=== PATIENT | male | born 1940 | race Caucasian/White ===

== ENCOUNTER 2018-10-19 14:16 | Inpatient (IN) | payer MEDICARE, BC ==
[2018-10-19] MEDS ORDERED: Acetaminophen 325 MG TAB PO PRN (16:58)
[2018-10-19] MEDS ORDERED: Bisacodyl 5 MG TAB PO PRN (17:02)
[2018-10-19] MEDS ORDERED: cloNIDine 0.1 MG TAB PO PRN (17:03)
[2018-10-19] MEDS ORDERED: Calcium Carbonate 500 MG ChewTAB PO PRN (17:03)
[2018-10-19] MEDS ORDERED: Cepastat Lozenges 1 LOZ PO PRN (17:05)
[2018-10-19] MEDS ORDERED: Dextrose 50% Abboject 50 ML SYRINGE IVP PRN (17:06)
[2018-10-19] MEDS ORDERED: diphenhydrAMINE 25 MG CAP PO PRN (17:07)
[2018-10-19] MEDS ORDERED: Loperamide HCl 2 MG CAP PO PRN (17:14)
[2018-10-19] MEDS ORDERED: Milk Of Magnesia 30 ML UDCUP PO PRN (17:15)
[2018-10-19] MEDS ORDERED: Simethicone Chewable 80 MG TAB PO PRN (17:17)
[2018-10-19] MEDS ORDERED: TESTOSTERONE CYPIONATE 200 MG IM SCH (17:30)
[2018-10-19] MEDS: Mometasone/Formoterol 60 PUFF AER INH SCH (18:28)
[2018-10-19] MEDS: Lidocaine 5% Patch TD SCH (18:29)
[2018-10-19] MEDS: Apixaban 2.5 MG TAB PO SCH (20:11)
[2018-10-19] MEDS: Atorvastatin Calcium 20 MG TAB PO SCH (20:12)
[2018-10-19] MEDS: Cefdinir 300 MG CAP PO SCH (20:12)
[2018-10-19] MEDS: Dofetilide 0.125 MG CAP PO SCH (20:12)
[2018-10-19] MEDS: Famotidine 20 MG TAB PO SCH (20:12)
[2018-10-19] MEDS: Gabapentin 100 MG CAP PO SCH (20:13)
[2018-10-19] MEDS: guaiFENesin 100 MG/5 ML UDCUP PO SCH (20:13)
[2018-10-19] MEDS: Ferrous Sulfate 325 MG TAB PO SCH (20:13)
[2018-10-20 05:32] LABS: #Basophils 0.1 thou/uL (0.0-0.2); #Eosinphils 0.1 thou/uL (0.0-0.7); #Lymphocytes 0.7 thou/uL (1.20-3.40); #Monocytes 0.9 thou/uL (0.11-0.59); #Neutrophils 8.6 thou/uL (1.40-6.50); %Basophils 0.9 % (0.0-1.0); %Eosinophils 0.5 % (0.0-10.0); %Lymphocytes 6.8 % (21.0-51.0); %Neutrophils 82.9 % (42.0-75.0); Hemoglobin 7.3 g/dL (14.0-18.0); Mean Corpuscular HGB CONC 30.8 g/dL (32.0-36.0); Mean Corpuscular Hemoglobin 27.5 pg (27.0-31.0); Mean Corpuscular Volume 89.4 fL (78.0-98.0); Mean Platelet Volume 5.9 fL (7.4-10.4); Platelet Count 276 thou/uL (130-400); RBC Distribution Width 16.5 % (11.5-14.5); Red Blood Cell (RBC) Count 2.66 mill/uL (4.70-6.10); White Blood Cell (WBC) Count 10.3 thou/uL (4.8-10.8)
[2018-10-20 05:47] LABS: Anion Gap 16 mmol/L (10-20); BUN (Urea Nitrogen) 56 mg/dL (8.4-25.7); Calc. Creatinine Clearance 42 mL/min (70-130); Calcium 8.3 mg/dL (7.8-10.44); Carbon Dioxide 29 mmol/L (23-31); Chloride 99 mmol/L (98-107); Estimated GFR-MDRD 34; Glucose 97 mg/dL (83-110); Potassium 3.5 mmol/L (3.5-5.1); Sodium 140 mmol/L (136-145)
[2018-10-20] MEDS: Mometasone/Formoterol 60 PUFF AER INH SCH ×2 (06:08→18:18)
[2018-10-20] MEDS: Lidocaine Patch Removal 1 EACH TOP SCH (06:08)
[2018-10-20] MEDS ORDERED: cloNIDine 0.1 MG TAB PO PRN ×2 (06:49→17:47)
[2018-10-20] MEDS ORDERED: Aspirin 81 mg Enteric Coated Tablet PO SCH (09:00)
[2018-10-20] MEDS: predniSONE 5 MG TAB PO SCH (09:03)
[2018-10-20] MEDS: Apixaban 2.5 MG TAB PO SCH ×2 (09:04→21:07)
[2018-10-20] MEDS: Ferrous Sulfate 325 MG TAB PO SCH ×2 (09:04→21:08)
[2018-10-20] MEDS: Losartan Potassium 50 MG TAB PO SCH (09:04)
[2018-10-20] MEDS: Tamsulosin HCl 0.4 MG CAP PO SCH (09:04)
[2018-10-20] MEDS: Torsemide 20 MG TAB PO SCH ×2 (09:04→14:51)
[2018-10-20] MEDS: Dofetilide 0.125 MG CAP PO SCH ×2 (09:04→21:08)
[2018-10-20] MEDS: Cefdinir 300 MG CAP PO SCH ×2 (09:05→21:08)
[2018-10-20] MEDS: Dutasteride 0.5 MG CAP PO SCH (09:05)
[2018-10-20] MEDS: Fluticasone Propionate Nasal Spray 16 gm Bottle NASAL SCH (09:05)
[2018-10-20] MEDS: guaiFENesin 100 MG/5 ML UDCUP PO SCH ×3 (09:05→21:08)
[2018-10-20] MEDS: Polyethylene Glycol 3350 17 GM Packet PO SCH (09:05)
[2018-10-20] MEDS: Gabapentin 100 MG CAP PO SCH ×2 (09:06→21:08)
[2018-10-20] MEDS ORDERED: Furosemide 40 MG/4 ML VIAL SLOW IVP SCH (10:00)
[2018-10-20] MEDS ORDERED: Sodium Chloride 0.9% 40 ML ONE (10:23)
[2018-10-20] MEDS ORDERED: HYDROcodone/Acetaminophen 5/325 mg Tablet PO PRN (17:47)
[2018-10-20] MEDS ORDERED: Milk Of Magnesia 30 ML UDCUP PO PRN (17:47)
[2018-10-20] MEDS ORDERED: LACTULOSE 10 GM/15 ML PO PRN (17:47)
[2018-10-20] MEDS ORDERED: GLUCAGON HUMAN RECOMBINANT 1 MG IM PRN (17:47)
[2018-10-20] MEDS ORDERED: Simethicone Chewable 80 MG TAB PO PRN (17:47)
[2018-10-20] MEDS ORDERED: Non-Formulary Item 1 EACH (Ipratropium/Albuterol Sulfate 3 ML) INH PRN (17:47)
[2018-10-20] MEDS ORDERED: Dextrose 50% Abboject 50 ML SYRINGE SLOW IVP PRN (17:47)
[2018-10-20] MEDS ORDERED: diphenhydrAMINE 25 MG CAP PO PRN (17:47)
[2018-10-20] MEDS ORDERED: Loperamide HCl 2 MG CAP PO PRN (17:47)
[2018-10-20] MEDS ORDERED: TESTOSTERONE CYPIONATE 200 MG IM SCH (18:00)
[2018-10-20] MEDS: Lidocaine 5% Patch TD SCH (18:18)
[2018-10-20] MEDS ORDERED: Lidocaine Patch Removal 1 EACH TOP SCH (21:00)
[2018-10-20] MEDS ORDERED: Famotidine 20 MG TAB PO SCH (21:00)
[2018-10-20] MEDS ORDERED: guaiFENesin 100 MG/5 ML UDCUP PO SCH (21:00)
[2018-10-20] MEDS ORDERED: Non-Formulary Item 1 EACH (Ferrous Sulfate [Ferrous Sulfate] 325 MG) PO SCH (21:00)
[2018-10-20] MEDS ORDERED: Gabapentin 100 MG CAP PO SCH (21:00)
[2018-10-20] MEDS ORDERED: Dofetilide 0.125 MG CAP PO SCH (21:00)
[2018-10-20] MEDS ORDERED: Torsemide 20 MG TAB PO SCH (21:00)
[2018-10-20] MEDS: Atorvastatin Calcium 20 MG TAB PO SCH (21:08)
[2018-10-20] MEDS: Famotidine 20 MG TAB PO SCH (21:08)
[2018-10-20] MEDS: HYDROcodone/Acetaminophen 5/325 mg Tablet PO PRN (21:14)
[2018-10-21] MEDS: Mometasone/Formoterol 60 PUFF AER INH SCH ×2 (05:21→18:26)
[2018-10-21] MEDS: Lidocaine Patch Removal 1 EACH TOP SCH (05:38)
[2018-10-21 05:51] LABS: #Eosinphils 0.1 thou/uL (0.0-0.7); #Lymphocytes 0.9 thou/uL (1.20-3.40); #Monocytes 0.7 thou/uL (0.11-0.59); #Neutrophils 7.6 thou/uL (1.40-6.50); %Basophils 0.9 % (0.0-1.0); %Eosinophils 0.6 % (0.0-10.0); %Lymphocytes 9.5 % (21.0-51.0); %Monocytes 7.7 % (0.0-10.0); %Neutrophils 81.2 % (42.0-75.0); Hemoglobin 7.8 g/dL (14.0-18.0); Mean Corpuscular HGB CONC 31.3 g/dL (32.0-36.0); Mean Corpuscular Volume 89.4 fL (78.0-98.0); Mean Platelet Volume 5.6 fL (7.4-10.4); Platelet Count 281 thou/uL (130-400); RBC Distribution Width 15.5 % (11.5-14.5); Red Blood Cell (RBC) Count 2.79 mill/uL (4.70-6.10); White Blood Cell (WBC) Count 9.3 thou/uL (4.8-10.8)
[2018-10-21 05:52] LABS: #Basophils 0.1 thou/uL (0.0-0.2)
[2018-10-21 05:56] LABS: Bilirubin Negative (Negative); Blood, Urine Negative (Negative); Clarity Clear (Clear); Glucose, Urine (Dipstick) Negative (Negative); Leukocyte Negative (Negative); Nitrite Negative (Negative); Protein, Urine (Dipstick) Negative (Neg-Trace); Urobilinogen 0.2 mg/dL (Less than 2)
[2018-10-21 05:57] LABS: Bacteria/HPF None Seen HPF (None Seen); RBC/HPF None Seen HPF (0-3); Squamous Epithelial 0-3 HPF (0-3); WBC/HPF None Seen HPF (0-3)
[2018-10-21 06:05] LABS: ALT (SGPT) 16 U/L (8-55); AST (SGOT) 11 U/L (5-34); Albumin 2.9 g/dL (3.4-4.8); Alkaline Phosphatase 78 U/L (40-150); Anion Gap 17 mmol/L (10-20); BUN (Urea Nitrogen) 57 mg/dL (8.4-25.7); Calc. Creatinine Clearance 45 mL/min (70-130); Calcium 8.3 mg/dL (7.8-10.44); Carbon Dioxide 28 mmol/L (23-31); Chloride 102 mmol/L (98-107); Estimated GFR-MDRD 39; Globulin 1.8 g/dL (2.4-3.5); Glucose 114 mg/dL (83-110); Potassium 3.5 mmol/L (3.5-5.1); Protein, Total 4.7 g/dL (5.8-8.1); Sodium 143 mmol/L (136-145)
[2018-10-21 07:39] LABS: Bilirubin, Total 0.2 mg/dL (0.2-1.2)
[2018-10-21] MEDS: predniSONE 5 MG TAB PO SCH (08:16)
[2018-10-21] MEDS: Cefdinir 300 MG CAP PO SCH ×2 (08:17→21:11)
[2018-10-21] MEDS: Dutasteride 0.5 MG CAP PO SCH (08:17)
[2018-10-21] MEDS: Dofetilide 0.125 MG CAP PO SCH ×2 (08:17→21:09)
[2018-10-21] MEDS: Apixaban 2.5 MG TAB PO SCH ×2 (08:17→21:06)
[2018-10-21] MEDS: Fluticasone Propionate Nasal Spray 16 gm Bottle NASAL SCH (08:17)
[2018-10-21] MEDS: Ferrous Sulfate 325 MG TAB PO SCH ×2 (08:17→21:10)
[2018-10-21] MEDS: Gabapentin 100 MG CAP PO SCH ×2 (08:19→21:06)
[2018-10-21] MEDS: guaiFENesin 100 MG/5 ML UDCUP PO SCH ×3 (08:19→21:11)
[2018-10-21] MEDS: Tamsulosin HCl 0.4 MG CAP PO SCH (08:20)
[2018-10-21] MEDS: Losartan Potassium 50 MG TAB PO SCH (08:20)
[2018-10-21] MEDS: Polyethylene Glycol 3350 17 GM Packet PO SCH (08:20)
[2018-10-21] MEDS: Torsemide 20 MG TAB PO SCH ×2 (08:20→15:02)
[2018-10-21] MEDS ORDERED: predniSONE 10 MG TAB PO SCH (09:00)
[2018-10-21] MEDS ORDERED: Fluticasone Propionate Nasal Spray 16 gm Bottle NASAL SCH (09:00)
[2018-10-21] MEDS ORDERED: Non-Formulary Item 1 EACH (Fluticasone/Vilanterol [Breo Ellipta] 1 PUFF) INH SCH (09:00)
[2018-10-21] MEDS ORDERED: Non-Formulary Item 1 EACH (Losartan Potassium [Cozaar] 100 MG) PO SCH (09:00)
[2018-10-21] MEDS ORDERED: Dutasteride 0.5 MG CAP PO SCH (09:00)
[2018-10-21] MEDS ORDERED: Polyethylene Glycol 3350 17 GM Packet PO SCH (09:00)
[2018-10-21] MEDS ORDERED: Tamsulosin HCl 0.4 MG CAP PO SCH (09:00)
[2018-10-21] MEDS ORDERED: Lidocaine 5% Patch TD SCH (09:00)
[2018-10-21] MEDS: HYDROcodone/Acetaminophen 5/325 mg Tablet PO PRN (10:10)
--- NOTE | 2018-10-21 10:58 | PRG ---
DATE OF SERVICE: 10/21/2018 SUBJECTIVE: The patient is a very pleasant 78-year-old white male recently admitted to [facility] with acute on chronic respiratory failure with exacerbation of COPD and chronic diastolic heart failure subsequent to a fall and compression fracture of thoracic vertebrae. He has been unable to maintain ADLs. He has been only walking 75 feet at [facility] and therefore, he was transferred to [facility] [address] for continued therapy. He is doing much better. Today, he is using his CPAP at night and he is using his Acapella and incentive spirometry in the bed, and he is having decreased shortness of breath at rest, and he is ready for therapy. OBJECTIVE: VITAL SIGNS: Shows blood pressure is 108/52, temperature is 98, pulse 93, respirations 20, and O2 sats 94% on 4 L. LUNGS: Clear with decreased breath sounds in the bases. CARDIAC: Shows regular rhythm. ABDOMEN: Soft and nontender. SKIN/EXTREMITIES: Display no edema, clubbing, or cyanosis. NEUROLOGIC: Intact. ASSESSMENT: 1. Resolving his exacerbation and chronic obstructive pulmonary disease, superimposed on chronic respiratory failure. 2. Resolving atelectasis causing an exacerbation with Acapella and incentive spirometry. 3. Stable chronic diastolic heart failure. 4. Resolving compression fracture of thoracic vertebrae. PLAN: 1. Continue incentive spirometry and Acapella. 2. Continue pain relief as needed. 3. Start PT and OT on Tuesday. 4. Continue CPAP for obstructive sleep apnea. 5. Monitor hemoglobin as patient has had a recent transfusion for his normocytic normochromic anemia. Job ID: [id number]
--- NOTE | 2018-10-21 10:59 | HP ---
Date of service: 10/20/18 PRINCIPAL DIAGNOSES: Significant deconditioning, persistent hypoxemia, and heart failure, requiring detention as well as close monitoring. BRIEF HISTORY: This is a pleasant 78-year-old overweight male, who was initially admitted to [facility] with chest pain and was diagnosed with acute on chronic hypoxemic respiratory failure, diastolic congestive heart failure, and COPD exacerbation. He was also noted to have a thoracic spine compression fracture. He was felt to be a candidate for inpatient rehabilitation and transferred to [facility], where I was following him. He did well during the hospitalization, but over the last 3 days prior to discharge, was noticed to have worsening shortness of breath and was noted to have worsening anemia as well as somehow his Acapella treatment fell off, which was helping with his atelectasis. Despite blood transfusions and IV diuretics, he continued to remain significantly dyspneic on exertion and so was felt not to be candidate to go home, but was transferred to detention here in [place]. Currently, he is up in bed and is being evaluated by therapy. His spouse is in the room. He denies any questions or concerns. PAST MEDICAL HISTORY: 1. Chronic obstructive pulmonary disease. 2. Chronic hypoxemic respiratory failure. 3. Chronic diastolic congestive heart failure. 4. Chronic kidney disease, stage 3. 5. Hypertension. 6. Dyslipidemia. 7. Benign prostatic hypertrophy. 8. Depression and anxiety. 9. Atrial fibrillation. PAST SURGICAL HISTORY: 1. Watchman device placement. 2. Transesophageal echocardiogram. 3. Temporary dialysis catheter placement. 4. Skin cyst excision. ALLERGIES: TO ADHESIVES. FAMILY HISTORY: Positive for diabetes, hypertension, and CVA in his father. PSYCHOSOCIAL HISTORY: Former smoker. Still drinks alcohol occasionally. Denies any IV drug abuse. He is . REVIEW OF SYSTEMS: CARDIOVASCULAR SYSTEM: Denies any chest pain. Does have exertional shortness of breath. Denies any palpitations, PND, or orthopnea. RESPIRATORY SYSTEM: Occasional cough, dyspnea on exertion is present. No hemoptysis. GASTROINTESTINAL SYSTEM: Denies any nausea, vomiting, diarrhea, constipation, hematemesis, melena, or hematochezia. GENITOURINARY SYSTEM: Denies any frequency, urgency, dysuria, or hematuria. CENTRAL NERVOUS SYSTEM: Generalized weakness. Denies any fainting spells. SHEENT: Denies any difficulty speech, vision, hearing, or swallowing. SKIN: Denies any rash. VISION: Denies any prior changes with vision. PHYSICAL EXAMINATION: GENERAL: Pleasant 78-year-old male, resting comfortably in bed and denies any concerns. VITAL SIGNS: He is afebrile; heart rate 110, irregularly irregular; oxygen saturation fluctuating from 94% to 77%; blood pressure is 129/64. He is on 4 L of oxygen. HEENT: Normocephalic and atraumatic. Pupils equally reactive to light and accommodation. No JVD, thyromegaly, cervical lymphadenopathy, or throat exudates. No carotid bruits. CARDIOVASCULAR SYSTEM: S1, S2 plus. Irregularly irregular. RESPIRATORY SYSTEM: Normal vesicular breath sounds heard in all lung decker. ABDOMEN: Soft, obese, nontender. Bowel sounds heard in all quadrants. EXTREMITIES: Without cyanosis or clubbing. 1+ edema to lower extremity. Right upper extremity erythema has pretty much resolved. CENTRAL NERVOUS SYSTEM: Awake and responsive. Cranial nerves 2 through 12 intact. Generalized weakness. LABORATORY VALUES: Sodium 140, potassium 3.5, BUN and creatinine 56 and 1.90. White count is 10.3, H and H are 7.3 and 23.8. IMPRESSION: 1. Recurrent anemia, requiring blood transfusion. 2. Atrial fibrillation, has both watchman and is on full dose Eliquis. 3. Chronic kidney disease stage 3. 4. Acute on chronic hypoxemic respiratory failure. 5. Acute on chronic diastolic congestive heart failure. 6. Hypertension. 7. Dyslipidemia. 8. Benign prostatic hypertrophy. 9. Gastroesophageal reflux disease. 10. Depression and anxiety. 11. Thoracic spine compression fracture. 12. Deconditioning. PLAN: 1. Admit to detention facility. 2. Continue discharge medications. 3. Heart healthy diet. 4. DVT prophylaxis. He is on Eliquis. 5. Decubitus precautions. 6. Transfuse 1 unit and give Lasix 40 mg. 7. Stress ulcer prophylaxis. 8. PT and OT eval and treat. 9. Titrate oxygen as tolerated. 10. Handheld nebulizer treatment with Acapella. 11. Dr. Harvey Munoz on-call this weekend. 12. Discussed with the patient and spouse in detail. All questions answered. Job ID: [id number] [facility]
[2018-10-21] MEDS: Lidocaine 5% Patch TD SCH (18:26)
[2018-10-21] MEDS ORDERED: Ibuprofen 400 MG TAB PO SCH (20:15)
[2018-10-21] MEDS ORDERED: Ibuprofen 200 MG TAB ONE (20:57)
[2018-10-21] MEDS: Famotidine 20 MG TAB PO SCH (21:08)
[2018-10-21] MEDS: Atorvastatin Calcium 20 MG TAB PO SCH (21:08)
[2018-10-22] MEDS: Mometasone/Formoterol 60 PUFF AER INH SCH ×2 (05:22→18:06)
[2018-10-22] MEDS: Lidocaine Patch Removal 1 EACH TOP SCH (05:29)
[2018-10-22 05:32] LABS: #Basophils 0.1 thou/uL (0.0-0.2); #Eosinphils 0.1 thou/uL (0.0-0.7); #Lymphocytes 0.8 thou/uL (1.20-3.40); #Monocytes 0.8 thou/uL (0.11-0.59); #Neutrophils 7.3 thou/uL (1.40-6.50); %Basophils 0.7 % (0.0-1.0); %Eosinophils 0.7 % (0.0-10.0); %Lymphocytes 8.4 % (21.0-51.0); %Monocytes 8.5 % (0.0-10.0); %Neutrophils 81.7 % (42.0-75.0); Hemoglobin 7.5 g/dL (14.0-18.0); Mean Corpuscular HGB CONC 30.3 g/dL (32.0-36.0); Mean Corpuscular Hemoglobin 27.2 pg (27.0-31.0); Mean Corpuscular Volume 89.8 fL (78.0-98.0); Mean Platelet Volume 5.6 fL (7.4-10.4); Platelet Count 264 thou/uL (130-400); Red Blood Cell (RBC) Count 2.75 mill/uL (4.70-6.10)
[2018-10-22 05:49] LABS: Anion Gap 15 mmol/L (10-20); BUN (Urea Nitrogen) 61 mg/dL (8.4-25.7); Calc. Creatinine Clearance 39 mL/min (70-130); Carbon Dioxide 29 mmol/L (23-31); Chloride 102 mmol/L (98-107); Estimated GFR-MDRD 33; Glucose 102 mg/dL (83-110); Potassium 3.6 mmol/L (3.5-5.1); Sodium 142 mmol/L (136-145)
[2018-10-22] MEDS: predniSONE 5 MG TAB PO SCH (08:53)
[2018-10-22] MEDS: Fluticasone Propionate Nasal Spray 16 gm Bottle NASAL SCH (08:54)
[2018-10-22] MEDS: Cefdinir 300 MG CAP PO SCH ×2 (08:54→21:13)
[2018-10-22] MEDS: Apixaban 2.5 MG TAB PO SCH ×2 (08:54→21:11)
[2018-10-22] MEDS: Dofetilide 0.125 MG CAP PO SCH ×2 (08:54→21:14)
[2018-10-22] MEDS: Dutasteride 0.5 MG CAP PO SCH (08:54)
[2018-10-22] MEDS: Ferrous Sulfate 325 MG TAB PO SCH ×2 (08:54→21:13)
[2018-10-22] MEDS: Losartan Potassium 50 MG TAB PO SCH (08:55)
[2018-10-22] MEDS: guaiFENesin 100 MG/5 ML UDCUP PO SCH ×3 (08:55→21:09)
[2018-10-22] MEDS: Gabapentin 100 MG CAP PO SCH ×2 (08:55→21:13)
[2018-10-22] MEDS: Torsemide 20 MG TAB PO SCH ×2 (08:56→14:15)
[2018-10-22] MEDS: Polyethylene Glycol 3350 17 GM Packet PO SCH (08:56)
[2018-10-22] MEDS: Tamsulosin HCl 0.4 MG CAP PO SCH (08:56)
[2018-10-22] MEDS: HYDROcodone/Acetaminophen 5/325 mg Tablet PO PRN ×2 (09:12→21:08)
[2018-10-22] MEDS ORDERED: Furosemide 40 MG/4 ML VIAL SLOW IVP SCH (10:00)
[2018-10-22] MEDS ORDERED: Sodium Chloride 0.9% 10 ML ONE (10:45)
--- NOTE | 2018-10-22 17:37 | PRG ---
DATE OF SERVICE: 10/22/[address] Luis Miguel Hernandez. SUBJECTIVE: The patient feels well now with no dyspnea. Increased strength after having second unit of blood transfused. He did have an episode last night of pleuritic pain, which was relieved by ibuprofen, was not associated with any change in vital signs or change in respiratory status or physical exam. Now, he states he feels much better and is ready to do more therapy tomorrow. OBJECTIVE: LUNGS: With decreased breath sounds in the bases. No rales, rhonchi, or wheezes. CARDIAC: Shows irregular rhythm. No gallops or murmurs. ABDOMEN: Soft and nontender. SKIN AND EXTREMITIES: Show trace edema. VITAL SIGNS: Show blood pressure of 153/68, O2 saturation is 95% on 4 L, pulse 99, respirations 24, afebrile. LABORATORY DATA: This morning showed a hemoglobin of 7.5, hematocrit of 24, prior to the transfusion. White count is 9000. Sodium is 142, potassium 3.6, chloride 102, bicarb 29, BUN 61, creatinine 1.95. ASSESSMENT: 1. Chronic obstructive pulmonary disease with exacerbation, improving with flutter valve and incentive spirometry. 2. Episode of pleuritic pain last night, resolved with ibuprofen. 3. Worsened normocytic normochromic anemia after 1 unit of packed cells and we will therefore give another unit today as it appears to improve his energy. 4. Stable chronic diastolic heart failure. No evidence of decompensation or fluid overload, but we will give 40 of Lasix with a unit of blood today. 5. Resolving compression fracture of thoracic vertebra. PLAN: 1. Continue incentive spirometry and flutter valve. 2. Start PT and OT tomorrow. 3. Continue CPAP for sleep apnea. 4. Check hemoglobin and hematocrit after a unit of blood transfusion. 5. Continue pain relief for compression fracture as needed. Job ID: [id number]
[2018-10-22 17:40] LABS: #Basophils 0.1 thou/uL (0.0-0.2); #Lymphocytes 0.6 thou/uL (1.20-3.40); #Monocytes 0.6 thou/uL (0.11-0.59); #Neutrophils 9.4 thou/uL (1.40-6.50); %Basophils 0.5 % (0.0-1.0); %Eosinophils 0.1 % (0.0-10.0); %Lymphocytes 5.4 % (21.0-51.0); %Monocytes 5.2 % (0.0-10.0); %Neutrophils 88.8 % (42.0-75.0); Hemoglobin 8.5 g/dL (14.0-18.0); Mean Corpuscular HGB CONC 30.1 g/dL (32.0-36.0); Mean Corpuscular Hemoglobin 27.5 pg (27.0-31.0); Mean Corpuscular Volume 91.6 fL (78.0-98.0); Mean Platelet Volume 5.5 fL (7.4-10.4); Platelet Count 273 thou/uL (130-400); Red Blood Cell (RBC) Count 3.09 mill/uL (4.70-6.10); White Blood Cell (WBC) Count 10.5 thou/uL (4.8-10.8)
[2018-10-22] MEDS: Lidocaine 5% Patch TD SCH (18:07)
[2018-10-22] MEDS ORDERED: guaiFENesin 100 MG/5 ML UDCUP ONE ×2 (20:26→20:27)
[2018-10-22] MEDS: Famotidine 20 MG TAB PO SCH (21:12)
[2018-10-22] MEDS: Atorvastatin Calcium 20 MG TAB PO SCH (21:13)
[2018-10-23 05:39] LABS: Anion Gap 16 mmol/L (10-20); BUN (Urea Nitrogen) 60 mg/dL (8.4-25.7); Calc. Creatinine Clearance 34 mL/min (70-130); Calcium 8.1 mg/dL (7.8-10.44); Carbon Dioxide 28 mmol/L (23-31); Chloride 104 mmol/L (98-107); Estimated GFR-MDRD 28; Glucose 106 mg/dL (83-110); Potassium 3.5 mmol/L (3.5-5.1); Sodium 144 mmol/L (136-145)
[2018-10-23] MEDS: Mometasone/Formoterol 60 PUFF AER INH SCH ×2 (05:55→18:08)
[2018-10-23] MEDS: Lidocaine Patch Removal 1 EACH TOP SCH (05:55)
[2018-10-23] MEDS: HYDROcodone/Acetaminophen 5/325 mg Tablet PO PRN ×3 (08:21→18:06)
[2018-10-23] MEDS: Apixaban 2.5 MG TAB PO SCH ×2 (08:22→20:04)
[2018-10-23] MEDS: Cefdinir 300 MG CAP PO SCH ×2 (08:22→20:03)
[2018-10-23] MEDS: Gabapentin 100 MG CAP PO SCH ×2 (08:22→20:04)
[2018-10-23] MEDS: predniSONE 5 MG TAB PO SCH (08:23)
[2018-10-23] MEDS: Dutasteride 0.5 MG CAP PO SCH (08:23)
[2018-10-23] MEDS: Losartan Potassium 50 MG TAB PO SCH (08:24)
[2018-10-23] MEDS: Torsemide 20 MG TAB PO SCH ×2 (08:24→13:47)
[2018-10-23] MEDS: Dofetilide 0.125 MG CAP PO SCH ×2 (08:24→20:04)
[2018-10-23] MEDS: Ferrous Sulfate 325 MG TAB PO SCH ×2 (08:24→20:03)
[2018-10-23] MEDS: Tamsulosin HCl 0.4 MG CAP PO SCH (08:24)
[2018-10-23] MEDS: Fluticasone Propionate Nasal Spray 16 gm Bottle NASAL SCH (08:25)
[2018-10-23] MEDS: Polyethylene Glycol 3350 17 GM Packet PO SCH (08:25)
[2018-10-23] MEDS: guaiFENesin 100 MG/5 ML UDCUP PO SCH ×3 (08:25→20:03)
--- NOTE | 2018-10-23 14:10 | PRG ---
DATE OF SERVICE: 10/23/2018 SUBJECTIVE: Mr. Yates is up in his wheelchair. He states that he is starting to feel better. He did participate with therapy this morning. His spouse is in the room. No concerns or questions. OBJECTIVE: VITAL SIGNS: He is afebrile. Heart rate is 88, respirations 20, oxygen saturation 92% on 3 L. He is still desaturating with minimal exertion. CARDIOVASCULAR SYSTEM: S1 and S2 plus. RESPIRATORY SYSTEM: Normal vesicular breath sounds with decreased air entry at the bases. ABDOMEN: Soft and nontender. Bowel sounds heard in all quadrants. EXTREMITIES: Without cyanosis or clubbing. Trace edema. Peripheral pulses are palpable. CENTRAL NERVOUS SYSTEM: Awake and responsive. Generalized weakness. LABORATORY DATA: Sodium 144, potassium 3.5, BUN and creatinine of 60 and 2.25. IMPRESSION: 1. Chronic diastolic congestive heart failure. 2. Chronic respiratory failure with hypoxemia. 3. Improving urinary tract infection. 4. Resolving cellulitis. 5. Thoracic spine compression fracture. 6. Atrial fibrillation, requiring Watchman procedure. 7. Deconditioning. PLAN: 1. Continue current medications. 2. Nutritional support with heart healthy diet. 3. Monitor respiratory status. 4. Monitor CBC. 5. Physical therapy. 6. DVT prophylaxis-the patient is on Eliquis. 7. Finish antibiotics for a total of 10 days. 8. Discussed with the patient and spouse in detail. All questions answered. 9. Continue therapy as tolerated. Job ID: [id number]
[2018-10-23] MEDS: Lidocaine 5% Patch TD SCH (18:06)
[2018-10-23] MEDS: Famotidine 20 MG TAB PO SCH (20:04)
[2018-10-23] MEDS: Atorvastatin Calcium 20 MG TAB PO SCH (20:04)
[2018-10-24 05:12] LABS: #Basophils 0.1 thou/uL (0.0-0.2); #Eosinphils 0.1 thou/uL (0.0-0.7); #Lymphocytes 1.3 thou/uL (1.20-3.40); #Monocytes 0.8 thou/uL (0.11-0.59); #Neutrophils 7.9 thou/uL (1.40-6.50); %Basophils 0.8 % (0.0-1.0); %Eosinophils 0.6 % (0.0-10.0); %Lymphocytes 12.3 % (21.0-51.0); %Monocytes 7.8 % (0.0-10.0); %Neutrophils 78.4 % (42.0-75.0); Hemoglobin 8.4 g/dL (14.0-18.0); Mean Corpuscular HGB CONC 32.3 g/dL (32.0-36.0); Mean Corpuscular Hemoglobin 28.2 pg (27.0-31.0); Mean Corpuscular Volume 87.4 fL (78.0-98.0); Mean Platelet Volume 5.4 fL (7.4-10.4); Platelet Count 262 thou/uL (130-400); RBC Distribution Width 15.5 % (11.5-14.5); Red Blood Cell (RBC) Count 2.98 mill/uL (4.70-6.10); White Blood Cell (WBC) Count 10.1 thou/uL (4.8-10.8)
[2018-10-24] MEDS: Lidocaine Patch Removal 1 EACH TOP SCH (06:09)
[2018-10-24] MEDS: Mometasone/Formoterol 60 PUFF AER INH SCH ×2 (06:09→18:24)
[2018-10-24 08:21] LABS: Anion Gap 17 mmol/L (10-20); BUN (Urea Nitrogen) 59 mg/dL (8.4-25.7); Calc. Creatinine Clearance 40 mL/min (70-130); Carbon Dioxide 26 mmol/L (23-31); Chloride 103 mmol/L (98-107); Estimated GFR-MDRD 35; Glucose 97 mg/dL (83-110); Potassium 3.6 mmol/L (3.5-5.1); Sodium 142 mmol/L (136-145)
[2018-10-24] MEDS: Cefdinir 300 MG CAP PO SCH ×2 (08:51→20:29)
[2018-10-24] MEDS: Polyethylene Glycol 3350 17 GM Packet PO SCH (08:51)
[2018-10-24] MEDS: Losartan Potassium 50 MG TAB PO SCH (08:51)
[2018-10-24] MEDS: guaiFENesin 100 MG/5 ML UDCUP PO SCH ×3 (08:51→20:30)
[2018-10-24] MEDS: Ferrous Sulfate 325 MG TAB PO SCH ×2 (08:52→20:30)
[2018-10-24] MEDS: Apixaban 2.5 MG TAB PO SCH ×2 (08:52→20:29)
[2018-10-24] MEDS: Dofetilide 0.125 MG CAP PO SCH ×2 (08:52→20:29)
[2018-10-24] MEDS: Dutasteride 0.5 MG CAP PO SCH (08:52)
[2018-10-24] MEDS: predniSONE 5 MG TAB PO SCH (08:52)
[2018-10-24] MEDS: Torsemide 20 MG TAB PO SCH ×2 (08:52→14:47)
[2018-10-24] MEDS: Gabapentin 100 MG CAP PO SCH ×2 (08:52→20:30)
[2018-10-24] MEDS: Tamsulosin HCl 0.4 MG CAP PO SCH (08:52)
[2018-10-24] MEDS: HYDROcodone/Acetaminophen 5/325 mg Tablet PO PRN ×2 (08:53→18:40)
[2018-10-24] MEDS: Fluticasone Propionate Nasal Spray 16 gm Bottle NASAL SCH (08:53)
--- NOTE | 2018-10-24 14:20 | PRG ---
DATE OF SERVICE: 10/24/2018 SUBJECTIVE: Mr. Yates is doing well up in his wheelchair. He apparently participate with therapy, still continues to have some exertional shortness of breath. OBJECTIVE: VITAL SIGNS: He is afebrile. Heart rate 86, respirations 20, oxygen saturation 92% on 4 L, and blood pressure 152/72. CARDIOVASCULAR SYSTEM: S1 and S2 plus. RESPIRATORY SYSTEM: Normal vesicular breath sounds. ABDOMEN: Soft, nontender, bowel sounds heard in all quadrants. EXTREMITIES: Without cyanosis or clubbing. Trace edema. CENTRAL NERVOUS SYSTEM: Awake and responsive. Generalized weakness. LABORATORY VALUES: White count is 10.1, hemoglobin and hematocrit are 8.4 and 26. Sodium 142, potassium 3.6, BUN and creatinine are 59 and 1.89. IMPRESSION: 1. Improving acute on chronic diastolic congestive heart failure. 2. Chronic obstructive pulmonary disease. 3. Chronic hypoxemic respiratory failure. 4. Chronic kidney disease stage 3 to 4. 5. Thoracic spine compression fracture. 6. Improving urinary tract infection. 7. Resolved cellulitis. 8. Atrial fibrillation, status post Watchman procedure, but continued small leak requiring persistent Eliquis. PLAN: 1. Continue current medications. 2. Heart-healthy diet. 3. Titrate oxygen as tolerated. 4. Monitor laboratory values. 5. DVT prophylaxis. He is on Eliquis. 6. Decubitus precaution. 7. Stress ulcer prophylaxis. 8. Physical therapy. 9. Monitor respiratory status. 10. Continue Omnicef for a total of 10 days. Job ID: [id number]
[2018-10-24 15:13] LABS: Base Excess-Venous 2.5 mmol/L (-2.0 to 3.0); Bicarbonate (HCO3v) 26.5 mmol/L (22.0-28.0); CO2 Tension (PvCO2) 37.3 mmHg (40.0-50.0)
[2018-10-24 15:14] LABS: Chloride 108 mmol/L (98-107); Hemoglobin - Calc 8.7 g/dL (14.0-18.0); Potassium 3.4 mmol/L (3.5-5.1); Sodium 144 mmol/L (138-145)
[2018-10-24 15:15] LABS: Calcium, Ionized 1.02 mmol/L (See Comments:); T. Carbon Dioxide 27.6 mmol/L (22.0-28.0)
[2018-10-24] MEDS: Lidocaine 5% Patch TD SCH ×2 (18:25→22:14)
[2018-10-24] MEDS: Atorvastatin Calcium 20 MG TAB PO SCH (20:29)
[2018-10-24] MEDS: Famotidine 20 MG TAB PO SCH (20:29)
[2018-10-25] MEDS: Mometasone/Formoterol 60 PUFF AER INH SCH ×2 (05:47→18:33)
[2018-10-25] MEDS: Dofetilide 0.125 MG CAP PO SCH ×2 (09:55→20:30)
[2018-10-25] MEDS: Fluticasone Propionate Nasal Spray 16 gm Bottle NASAL SCH (09:55)
[2018-10-25] MEDS: guaiFENesin 100 MG/5 ML UDCUP PO SCH ×3 (09:56→20:34)
[2018-10-25] MEDS: Gabapentin 100 MG CAP PO SCH ×2 (09:56→20:34)
[2018-10-25] MEDS: Torsemide 20 MG TAB PO SCH ×2 (09:56→14:54)
[2018-10-25] MEDS: Polyethylene Glycol 3350 17 GM Packet PO SCH (09:56)
[2018-10-25] MEDS: Cefdinir 300 MG CAP PO SCH ×2 (09:56→20:29)
[2018-10-25] MEDS: Ferrous Sulfate 325 MG TAB PO SCH ×2 (09:56→20:30)
[2018-10-25] MEDS: Apixaban 2.5 MG TAB PO SCH ×2 (09:56→20:34)
[2018-10-25] MEDS: predniSONE 5 MG TAB PO SCH (09:56)
[2018-10-25] MEDS: Dutasteride 0.5 MG CAP PO SCH (09:56)
[2018-10-25] MEDS: Losartan Potassium 50 MG TAB PO SCH (09:56)
[2018-10-25] MEDS: Tamsulosin HCl 0.4 MG CAP PO SCH (09:56)
[2018-10-25] MEDS: Lidocaine Patch Removal 1 EACH TOP SCH (10:02)
[2018-10-25] MEDS ORDERED: Artificial Tear Sol 15 ML BOT EA EYE PRN (12:43)
--- NOTE | 2018-10-25 12:56 | PRG ---
DATE OF SERVICE: 10/25/2018 SUBJECTIVE: Mr. Yates has been moved to the private room. He states that he is having some difficulty with breathing. He denies any PND or orthopnea. His leg swelling is actually improved. OBJECTIVE: VITAL SIGNS: He is afebrile. Heart rate 84, respirations 18, oxygen saturation 95% on 3.5 L, and blood pressure 152/67. CARDIOVASCULAR SYSTEM: S1-S2 plus. RESPIRATORY SYSTEM: Normal vesicular breath sounds. ABDOMEN: Soft, obese, and nontender. Bowel sounds heard in all quadrants. EXTREMITIES: Without cyanosis or clubbing. 1+ edema. CENTRAL NERVOUS SYSTEM: Awake and responsive. Generalized weakness. Grossly nonfocal. IMPRESSION: 1. Resolved acute on chronic diastolic heart failure. 2. Chronic obstructive pulmonary disease. 3. Chronic hypoxemic respiratory failure. 4. Chronic kidney disease stage 3 to 4. 5. Thoracic spine compression fracture. 6. Resolving urinary tract infection. 7. Atrial fibrillation. PLAN: 1. Increase steroids to see if that helps with his shortness of breath. His heart failure seems to be well compensated. 2. Recheck CBC and BMP in the morning. 3. Artificial Tears to eyes as he feels that the air leak from his CPAP is drying of his eyes. 4. Heart healthy diet. 5. DVT prophylaxis-he is on Eliquis. 6. Decubitus precaution. 7. Stress ulcer prophylaxis. 8. Physical Therapy. 9. Discussed with the patient in detail. All questions answered. 10. No family at bedside. Job ID: [id number]
[2018-10-25] MEDS: predniSONE 20 MG TAB PO SCH (17:09)
[2018-10-25] MEDS: Famotidine 20 MG TAB PO SCH (20:30)
[2018-10-25] MEDS: HYDROcodone/Acetaminophen 5/325 mg Tablet PO PRN (20:31)
[2018-10-25] MEDS: Atorvastatin Calcium 20 MG TAB PO SCH (20:34)
[2018-10-25] MEDS: Lidocaine 5% Patch TD SCH (23:57)
[2018-10-26] MEDS: Mometasone/Formoterol 60 PUFF AER INH SCH ×2 (07:09→17:56)
[2018-10-26] MEDS ORDERED: Iopamidol 370 76% 50 ML VIAL FS ONE (09:00)
[2018-10-26] MEDS: Polyethylene Glycol 3350 17 GM Packet PO SCH (09:16)
[2018-10-26] MEDS: Fluticasone Propionate Nasal Spray 16 gm Bottle NASAL SCH (09:16)
[2018-10-26] MEDS: guaiFENesin 100 MG/5 ML UDCUP PO SCH ×3 (09:17→21:08)
[2018-10-26] MEDS: Cefdinir 300 MG CAP PO SCH ×2 (09:17→21:09)
[2018-10-26] MEDS: Torsemide 20 MG TAB PO SCH ×2 (09:17→15:05)
[2018-10-26] MEDS: Gabapentin 100 MG CAP PO SCH ×2 (09:17→21:09)
[2018-10-26] MEDS: Dutasteride 0.5 MG CAP PO SCH (09:17)
[2018-10-26] MEDS: Dofetilide 0.125 MG CAP PO SCH ×2 (09:17→21:09)
[2018-10-26] MEDS: Tamsulosin HCl 0.4 MG CAP PO SCH (09:18)
[2018-10-26] MEDS: Losartan Potassium 50 MG TAB PO SCH (09:18)
[2018-10-26] MEDS: Ferrous Sulfate 325 MG TAB PO SCH ×2 (09:18→21:10)
[2018-10-26] MEDS: predniSONE 20 MG TAB PO SCH ×2 (09:18→16:55)
[2018-10-26] MEDS: Apixaban 2.5 MG TAB PO SCH ×2 (09:18→21:10)
[2018-10-26] MEDS: Lidocaine Patch Removal 1 EACH TOP SCH (13:02)
--- NOTE | 2018-10-26 13:12 | PRG ---
DATE OF SERVICE: 10/26/2018 SUBJECTIVE: Mr. Yatse is seen on his way to see his ethnographic materials conservator. He feels like that increase in prednisone may be helping, continues to have some shortness of breath. OBJECTIVE: VITAL SIGNS: He is afebrile. Heart rate 85, respirations 20, oxygen saturation 94% on 3 L, blood pressure 165/75. CARDIOVASCULAR: S1 and S2 plus. RESPIRATORY: Normal vesicular breath sounds with decreased air entry at the bases. ABDOMEN: Soft, obese, nontender. Bowel sounds are heard in all quadrants. EXTREMITIES: Without cyanosis or clubbing. Trace to 1+ edema. CENTRAL NERVOUS SYSTEM: Awake and responsive. Cranial nerves 2 through 12 grossly intact. Generalized weakness. IMPRESSION: 1. Chronic diastolic congestive heart failure. 2. Chronic obstructive pulmonary disease. 3. Chronic hypoxemic respiratory failure. 4. Anemia, requiring blood transfusion. 5. Atrial fibrillation, status post Watchman procedure and slowly improving deconditioning and recent thoracic spine compression fracture and resolving urinary tract infection. PLAN: 1. Continue current medications including the high dose steroids. 2. DVT and stress ulcer prophylaxis. He is on Eliquis and H2 adonay. 3. Titrate oxygen. 4. Breathing treatments. 5. Physical therapy. 6. Routine laboratory values. 7. Monitor renal function. 8. Discussed with the patient in detail. All questions were answered. Job ID: [id number]
[2018-10-26] MEDS: Atorvastatin Calcium 20 MG TAB PO SCH (21:09)
[2018-10-26] MEDS: HYDROcodone/Acetaminophen 5/325 mg Tablet PO PRN (21:10)
[2018-10-26] MEDS: Famotidine 20 MG TAB PO SCH (21:11)
[2018-10-26] MEDS: Lidocaine 5% Patch TD SCH (21:25)
[2018-10-27] MEDS: Mometasone/Formoterol 60 PUFF AER INH SCH ×2 (06:37→17:45)
[2018-10-27] MEDS: Dutasteride 0.5 MG CAP PO SCH (08:21)
[2018-10-27] MEDS: Fluticasone Propionate Nasal Spray 16 gm Bottle NASAL SCH (08:21)
[2018-10-27] MEDS: Losartan Potassium 50 MG TAB PO SCH (08:21)
[2018-10-27] MEDS: Cefdinir 300 MG CAP PO SCH ×2 (08:22→20:05)
[2018-10-27] MEDS: predniSONE 20 MG TAB PO SCH ×2 (08:22→17:45)
[2018-10-27] MEDS: Gabapentin 100 MG CAP PO SCH ×2 (08:22→20:05)
[2018-10-27] MEDS: Apixaban 2.5 MG TAB PO SCH ×2 (08:22→20:05)
[2018-10-27] MEDS: Ferrous Sulfate 325 MG TAB PO SCH ×2 (08:22→20:05)
[2018-10-27] MEDS: Torsemide 20 MG TAB PO SCH ×2 (08:22→15:03)
[2018-10-27] MEDS: Dofetilide 0.125 MG CAP PO SCH ×2 (08:22→20:06)
[2018-10-27] MEDS: guaiFENesin 100 MG/5 ML UDCUP PO SCH ×3 (08:23→20:05)
[2018-10-27] MEDS: Tamsulosin HCl 0.4 MG CAP PO SCH (08:23)
[2018-10-27] MEDS: Polyethylene Glycol 3350 17 GM Packet PO SCH (08:24)
[2018-10-27] MEDS: Lidocaine Patch Removal 1 EACH TOP SCH (11:23)
--- NOTE | 2018-10-27 11:47 | PRG ---
DATE OF SERVICE: 10/27/2018 The patient is a pleasant 78-year-old white male, who was at [facility], then transferred to [facility] with acute on chronic respiratory failure with exacerbation of COPD, chronic diastolic heart failure, and a recent fall with compression fracture of the thoracic vertebra. He was transferred to [facility] swing bed for continued physical therapy because of his shortness of breath and weakness. SUBJECTIVE: The patient states he visited Dr. Perez yesterday, who is an airline dispatcher, for his cardiac monitoring, and Dr. Perez thought he was doing well, wants to see him in December. Otherwise, the patient states he continues to be somewhat short of breath. He has not noticed that his increased steroids have helped him yet. He does work really hard in therapy and actually works so hard that they bring his oxygen saturation down in the 70s. Otherwise, he states he is doing well, has no other complaints today. OBJECTIVE: VITAL SIGNS: Reveal blood pressure is 158/71 this morning, pulse 92 to 96, respirations 20 to 22, O2 saturation 94% to 95% on 4 L nasal cannula when he is not exerting himself, and T-max 98.2. GENERAL: This is a well-developed, well-nourished, slightly obese, white male, in no apparent distress at this time. HEENT: Reveals normocephalic and nontraumatic cranium. Pupils are equally round and reactive. Extraocular movements are intact. Nose and throat are slightly dry. NECK: Supple without masses, nodes, or bruits. CHEST: Clear to auscultation. No rales, rhonchi, or wheezes are heard. The patient has decreased and distant breath sounds, mainly at the bases. ABDOMEN: Soft. HEART: Reveals a regular rate and rhythm without murmurs, gallops, or rubs. ABDOMEN: Soft and nontender without organomegaly. Normal bowel sounds are noted in all 4 quadrants. : Deferred. EXTREMITIES: Reveal 1+ to trace edema. NEUROLOGIC: The patient is oriented x3. IMPRESSION: 1. Chronic diastolic congestive heart failure. 2. Chronic obstructive pulmonary disease with acute exacerbation. 3. Chronic hypoxemic respiratory failure. 4. Anemia, requiring blood transfusions in the past. 5. Atrial fibrillation with a Watchman procedure. 6. Generalized deconditioning and weakness. 7. Recent thoracic spine compression fracture. 8. Recent urinary tract infection. 9. Generalized weakness. PLAN: 1. Continue present medication. 2. Continue to monitor the patient's respiratory status closely since we have bumped his steroids. 3. Continue DVT and stress ulcer prophylaxis. 4. Continue breathing treatments. 5. Monitor the patient's laboratory routinely. 6. Monitor the patient's renal function. 7. I did answer all the patient's questions. 8. The patient has no family at bedside. 9. He has no concerns or complaints at this time. Job ID: [id number]
[2018-10-27] MEDS: Famotidine 20 MG TAB PO SCH (20:06)
[2018-10-27] MEDS: Atorvastatin Calcium 20 MG TAB PO SCH (20:06)
[2018-10-27] MEDS: HYDROcodone/Acetaminophen 5/325 mg Tablet PO PRN (21:41)
[2018-10-27] MEDS: Lidocaine 5% Patch TD SCH (22:07)
[2018-10-28] MEDS: Mometasone/Formoterol 60 PUFF AER INH SCH ×2 (06:04→18:19)
--- NOTE | 2018-10-28 08:21 | PRG ---
DATE OF SERVICE: 10/28/2018 SUBJECTIVE: Mr. Yates is a 78-year-old white male, who was at [facility], transferred to [facility] with acute on chronic respiratory failure, acute exacerbation, COPD, chronic diastolic heart failure, and a recent fall with compression fracture to the thoracic vertebra. He was transferred to [facility] for continued PT, OT, and pain management. The patient states he is doing very well and slept very well last night. He states he feels much better today than he even did yesterday. He is hoping that increased steroids will help calm his respiratory distress. OBJECTIVE: VITAL SIGNS: Today reveal blood pressure 133/62, pulse 72 to 96, respirations 20 to 24, O2 saturation 93% to 96% on 4 L, and T-max 96.2. GENERAL: This is a well-developed, well-nourished, slightly obese white male, in no apparent distress at this time. HEENT: Reveals normocephalic and nontraumatic cranium. Pupils are equal, round, and reactive. Extraocular movements are intact. Nose and throat are still slightly dry. NECK: Supple without masses, nodes, or bruits. CHEST: Clear to auscultation, but distant. Breath sounds are decreased in the bases. ABDOMEN: Soft and nontender without organomegaly. Normal bowel sounds are noted. No rebound or guarding is noted. HEART: Reveals a regular rate and rhythm without murmurs, gallops, or rubs. GENITOURINARY: Deferred. EXTREMITIES: Reveal 1+ to trace edema. NEUROLOGIC: The patient is oriented x3. ASSESSMENT: 1. Chronic diastolic congestive heart failure. 2. Chronic obstructive pulmonary disease with acute exacerbation. 3. Chronic hypoxic respiratory failure. 4. Anemia requiring blood transfusion in the past. 5. Atrial fibrillation with Watchman procedure. 6. Generalized deconditioning and weakness. 7. Recent thoracic spine compression fracture. 8. Recent urinary tract infection. PLAN: 1. Continue present medications. 2. Continue physical therapy and occupational therapy. 3. Encourage the patient to stay out of bed as much as possible as he usually does. 4. Continue to monitor the patient's respiratory status. 5. Continue DVT and stress ulcer prophylaxis. 6. Continue breathing treatments. 7. Monitor the patient's laboratory routinely. 8. Monitor the patient's renal function. 9. Decubitus precautions. 10. The patient's is at his bedside. Job ID: [id number]
[2018-10-28] MEDS: Cefdinir 300 MG CAP PO SCH ×2 (09:31→20:39)
[2018-10-28] MEDS: Apixaban 2.5 MG TAB PO SCH ×2 (09:31→20:39)
[2018-10-28] MEDS: predniSONE 20 MG TAB PO SCH ×2 (09:31→17:48)
[2018-10-28] MEDS: Dofetilide 0.125 MG CAP PO SCH ×2 (09:31→20:38)
[2018-10-28] MEDS: Fluticasone Propionate Nasal Spray 16 gm Bottle NASAL SCH (09:32)
[2018-10-28] MEDS: Ferrous Sulfate 325 MG TAB PO SCH ×2 (09:32→20:39)
[2018-10-28] MEDS: Dutasteride 0.5 MG CAP PO SCH (09:32)
[2018-10-28] MEDS: Gabapentin 100 MG CAP PO SCH ×2 (09:32→20:39)
[2018-10-28] MEDS: guaiFENesin 100 MG/5 ML UDCUP PO SCH ×3 (09:33→20:38)
[2018-10-28] MEDS: Losartan Potassium 50 MG TAB PO SCH (09:33)
[2018-10-28] MEDS: Torsemide 20 MG TAB PO SCH ×2 (09:33→14:34)
[2018-10-28] MEDS: Tamsulosin HCl 0.4 MG CAP PO SCH (09:33)
[2018-10-28] MEDS: Polyethylene Glycol 3350 17 GM Packet PO SCH (09:34)
[2018-10-28] MEDS: Lidocaine Patch Removal 1 EACH TOP SCH (12:34)
[2018-10-28] MEDS: Atorvastatin Calcium 20 MG TAB PO SCH (20:38)
[2018-10-28] MEDS: Famotidine 20 MG TAB PO SCH (20:39)
[2018-10-28] MEDS: Lidocaine 5% Patch TD SCH (21:34)
[2018-10-28] MEDS: HYDROcodone/Acetaminophen 5/325 mg Tablet PO PRN (21:34)
[2018-10-29] MEDS: Mometasone/Formoterol 60 PUFF AER INH SCH ×2 (05:57→17:29)
--- NOTE | 2018-10-29 09:02 | PRG ---
DATE OF SERVICE: 10/29/2018 SUBJECTIVE: Mr. Yates is a pleasant 78-year-old white male. Initially, he was admitted to [facility] and transferred to [facility] with acute on chronic respiratory failure, acute exacerbation of COPD, chronic diastolic heart failure, and recent fall with compression fractures of the thoracic vertebrae. He has been transferred to [facility] to continue his PT, OT, and pain management. The patient states he is doing well, had a wonderful day visiting with some friends since he did not have therapy yesterday. He thinks that he is breathing a little bit better with increased steroids. He will find out tomorrow when he starts his therapy again. OBJECTIVE: VITAL SIGNS: Reveal blood pressure 158/73, pulse 99, respirations 22, O2 saturation 95% to 99% on 4 L nasal cannula, and T-max 98.0. GENERAL: This is a well-developed, well-nourished, very pleasant, slightly obese white male, in no apparent distress at this time. HEENT: Normocephalic and nontraumatic cranium. Pupils are equal, round, and reactive. Extraocular movements are intact. Nose and throat are still slightly dry. NECK: Supple without masses, nodes, or bruits. CHEST: Clear to auscultation, but distant. Breath sounds are unremarkable. No rales, rhonchi, wheezes, or cough is noted. HEART: Reveals a regular rate and rhythm without murmurs, gallops, or rubs. ABDOMEN: Soft and nontender without organomegaly. Normal bowel sounds are noted in all 4 quadrants. No rebound or guarding is noted. : Deferred. EXTREMITIES: Still reveal 1+ trace edema. NEUROLOGIC: The patient is oriented x3. ASSESSMENT: 1. Chronic diastolic congestive heart failure. 2. Chronic obstructive pulmonary disease with acute exacerbation. 3. Chronic hypoxic respiratory failure. 4. Anemia requiring blood transfusion in the past. 5. Recent thoracic spine compression fracture. 6. Recent urinary tract infection. 7. Generalized deconditioning and weakness. PLAN: 1. Continue present medications. 2. Continue to monitor the patient's respiratory status. 3. DVT and stress ulcer prophylaxis. 4. Continue breathing treatments. 5. Monitor the patient's laboratory. We will repeat his labs tomorrow. 6. Monitor the patient's renal function. 7. Decubitus precautions. 8. Encourage the patient to stay out of bed as much as possible. 9. Continue physical therapy and occupational therapy. 10. Dr. Hernandez will be back tomorrow for coverage. Job ID: [id number]
[2018-10-29] MEDS: guaiFENesin 100 MG/5 ML UDCUP PO SCH ×3 (09:04→20:18)
[2018-10-29] MEDS: Polyethylene Glycol 3350 17 GM Packet PO SCH (09:04)
[2018-10-29] MEDS: Torsemide 20 MG TAB PO SCH ×2 (09:05→15:08)
[2018-10-29] MEDS: Dutasteride 0.5 MG CAP PO SCH (09:05)
[2018-10-29] MEDS: Cefdinir 300 MG CAP PO SCH ×2 (09:05→20:17)
[2018-10-29] MEDS: Losartan Potassium 50 MG TAB PO SCH (09:06)
[2018-10-29] MEDS: Gabapentin 100 MG CAP PO SCH ×2 (09:07→20:18)
[2018-10-29] MEDS: Dofetilide 0.125 MG CAP PO SCH ×2 (09:07→20:17)
[2018-10-29] MEDS: Tamsulosin HCl 0.4 MG CAP PO SCH (09:07)
[2018-10-29] MEDS: Apixaban 2.5 MG TAB PO SCH ×2 (09:07→20:16)
[2018-10-29] MEDS: Fluticasone Propionate Nasal Spray 16 gm Bottle NASAL SCH (09:08)
[2018-10-29] MEDS: Ferrous Sulfate 325 MG TAB PO SCH ×2 (09:08→20:17)
[2018-10-29] MEDS: predniSONE 20 MG TAB PO SCH ×2 (09:08→17:28)
[2018-10-29] MEDS: Lidocaine Patch Removal 1 EACH TOP SCH (12:23)
[2018-10-29] MEDS: Famotidine 20 MG TAB PO SCH (20:17)
[2018-10-29] MEDS: Atorvastatin Calcium 20 MG TAB PO SCH (20:17)
[2018-10-29] MEDS: HYDROcodone/Acetaminophen 5/325 mg Tablet PO PRN (20:57)
[2018-10-29] MEDS: Lidocaine 5% Patch TD SCH (23:39)
[2018-10-30 05:47] LABS: #Basophils 0.1 thou/uL (0.0-0.2); #Lymphocytes 0.7 thou/uL (1.20-3.40); #Monocytes 0.8 thou/uL (0.11-0.59); #Neutrophils 8.6 thou/uL (1.40-6.50); %Basophils 0.5 % (0.0-1.0); %Lymphocytes 7.2 % (21.0-51.0); %Monocytes 7.4 % (0.0-10.0); %Neutrophils 84.9 % (42.0-75.0); Hemoglobin 8.4 g/dL (14.0-18.0); Mean Corpuscular HGB CONC 31.2 g/dL (32.0-36.0); Mean Corpuscular Hemoglobin 27.9 pg (27.0-31.0); Mean Corpuscular Volume 89.4 fL (78.0-98.0); Mean Platelet Volume 6.3 fL (7.4-10.4); Platelet Count 280 thou/uL (130-400); RBC Distribution Width 15.7 % (11.5-14.5); Red Blood Cell (RBC) Count 3.01 mill/uL (4.70-6.10); White Blood Cell (WBC) Count 10.2 thou/uL (4.8-10.8)
[2018-10-30 06:01] LABS: ALT (SGPT) 22 U/L (8-55); AST (SGOT) 14 U/L (5-34); Albumin 3.4 g/dL (3.4-4.8); Alkaline Phosphatase 77 U/L (40-150); Anion Gap 16 mmol/L (10-20); BUN (Urea Nitrogen) 59 mg/dL (8.4-25.7); Bilirubin, Total 0.3 mg/dL (0.2-1.2); Calc. Creatinine Clearance 33 mL/min (70-130); Calcium 8.6 mg/dL (7.8-10.44); Carbon Dioxide 26 mmol/L (23-31); Chloride 104 mmol/L (98-107); Estimated GFR-MDRD 28; Globulin 2.1 g/dL (2.4-3.5); Glucose 136 mg/dL (83-110); Potassium 4.3 mmol/L (3.5-5.1); Protein, Total 5.5 g/dL (5.8-8.1); Sodium 142 mmol/L (136-145)
[2018-10-30] MEDS: Mometasone/Formoterol 60 PUFF AER INH SCH ×2 (06:58→18:15)
[2018-10-30] MEDS: Apixaban 2.5 MG TAB PO SCH ×2 (08:07→21:02)
[2018-10-30] MEDS: Dutasteride 0.5 MG CAP PO SCH (08:07)
[2018-10-30] MEDS: Torsemide 20 MG TAB PO SCH ×2 (08:07→15:21)
[2018-10-30] MEDS: Losartan Potassium 50 MG TAB PO SCH (08:07)
[2018-10-30] MEDS: Dofetilide 0.125 MG CAP PO SCH ×2 (08:07→21:02)
[2018-10-30] MEDS: predniSONE 20 MG TAB PO SCH (08:07)
[2018-10-30] MEDS: guaiFENesin 100 MG/5 ML UDCUP PO SCH ×3 (08:07→21:03)
[2018-10-30] MEDS: Gabapentin 100 MG CAP PO SCH ×2 (08:07→21:03)
[2018-10-30] MEDS: Ferrous Sulfate 325 MG TAB PO SCH ×2 (08:07→21:03)
[2018-10-30] MEDS: Tamsulosin HCl 0.4 MG CAP PO SCH (08:07)
[2018-10-30] MEDS: Fluticasone Propionate Nasal Spray 16 gm Bottle NASAL SCH (08:08)
[2018-10-30] MEDS: Polyethylene Glycol 3350 17 GM Packet PO SCH (08:18)
[2018-10-30] MEDS: Lidocaine Patch Removal 1 EACH TOP SCH (11:38)
--- NOTE | 2018-10-30 14:59 | PRG ---
DATE OF SERVICE: 10/30/2018 SUBJECTIVE: Mr. Yates is up in his chair, eating the lunch. He says that his oxygen was turned off last night. He denies any complaints rather than having episodes of shortness of breath. His field handyman visit went well and he apparently was told to stay on the Eliquis until December, then he will have a repeat KARTHIKEYAN to evaluate the Watchman, therefore his Eliquis is stopped. His leg swelling has pretty much resolved. OBJECTIVE: VITAL SIGNS: He is afebrile. Heart rate is 100, respirations 22, oxygen saturation 94% on 4 L, blood pressure is 168/84. CARDIOVASCULAR: S1, S2 plus. RESPIRATORY: Normal vesicular breath sounds. ABDOMEN: Soft, nontender. Bowel sounds heard in all quadrants. EXTREMITIES: Without cyanosis or clubbing. Vascular edema has resolved. CENTRAL NERVOUS SYSTEM: Awake and responsive generalized weakness. IMPRESSION: 1. Chronic diastolic congestive heart failure. 2. Chronic obstructive pulmonary disease. 3. Resolving urinary tract infection. 4. Resolved cellulitis. 5. Chronic hypoxemic respiratory failure. 6. Atrial fibrillation. 7. History of anemia, requiring blood transfusion. PLAN: 1. Continue current medications. 2. Not noticing any changes with the increase in Prednisone, so we will drop it down to 20 daily. 3. Monitor renal function , which is one a day. 4. Titrate oxygen. 5. Handheld nebulizer treatment with Acapella. 6. Physical therapy. 7. Routine laboratory values. 8. Monitor heart rate and rhythm. Job ID: [id number]
[2018-10-30] MEDS: Famotidine 20 MG TAB PO SCH (21:02)
[2018-10-30] MEDS: Atorvastatin Calcium 20 MG TAB PO SCH (21:02)
[2018-10-30] MEDS: HYDROcodone/Acetaminophen 5/325 mg Tablet PO PRN (21:09)
[2018-10-30] MEDS: Lidocaine 5% Patch TD SCH (23:14)
[2018-10-31] MEDS: Mometasone/Formoterol 60 PUFF AER INH SCH ×2 (05:44→18:12)
[2018-10-31] MEDS: guaiFENesin 100 MG/5 ML UDCUP PO SCH ×3 (09:20→20:28)
[2018-10-31] MEDS: Losartan Potassium 50 MG TAB PO SCH (09:21)
[2018-10-31] MEDS: predniSONE 20 MG TAB PO SCH (09:21)
[2018-10-31] MEDS: Ferrous Sulfate 325 MG TAB PO SCH ×2 (09:21→20:28)
[2018-10-31] MEDS: Dofetilide 0.125 MG CAP PO SCH ×2 (09:21→20:27)
[2018-10-31] MEDS: Torsemide 20 MG TAB PO SCH ×2 (09:21→14:56)
[2018-10-31] MEDS: Tamsulosin HCl 0.4 MG CAP PO SCH (09:21)
[2018-10-31] MEDS: Dutasteride 0.5 MG CAP PO SCH (09:21)
[2018-10-31] MEDS: Apixaban 2.5 MG TAB PO SCH ×2 (09:22→20:27)
[2018-10-31] MEDS: Polyethylene Glycol 3350 17 GM Packet PO SCH (09:22)
[2018-10-31] MEDS: Fluticasone Propionate Nasal Spray 16 gm Bottle NASAL SCH (09:22)
[2018-10-31] MEDS: Gabapentin 100 MG CAP PO SCH ×2 (09:22→20:28)
[2018-10-31] MEDS: Lidocaine Patch Removal 1 EACH TOP SCH (11:56)
--- NOTE | 2018-10-31 14:01 | PRG ---
DATE OF SERVICE: 10/31/2018 SUBJECTIVE: Mr. Yates is up in his chair and denies any complaints. He continues to have dyspnea on exertion. He apparently did do well with therapy. He is still on 4 L of oxygen. His hemoglobin is stable. His leg swelling has pretty much resolved. He denies any PND or orthopnea. He states he is compliant with his incentive spirometry and his Acapella. I reviewed all of his old records. He apparently has end-stage COPD and chronic hypoxemic respiratory failure. He also has diastolic dysfunction. His echocardiogram shows elevated pulmonary artery pressures suggesting secondary pulmonary hypertension, which all can explain his persistent dyspnea on exertion and his need for oxygen. I advised him that he did not may notice any difference with the increase in the prednisone. His lungs sound clear without any obvious wheezing or decreased air entry. I do not see any correctable condition at this point, and I advised him that this may be his new baseline. His oxygen requirements fluctuate from 3 L to 4 L and he maintains it about 93% to 95%. He does use his CPAP at night. OBJECTIVE: VITAL SIGNS: He is afebrile. Heart rate 81, respirations 20, oxygen saturation 95% on 4 L. CARDIOVASCULAR SYSTEM: S1 and S2 plus, irregularly regular. RESPIRATORY SYSTEM: Normal vesicular breath sounds with occasional rhonchi. ABDOMEN: Soft, obese, and nontender. Bowel sounds heard in all quadrants. EXTREMITIES: Trace edema. Peripheral pulses are palpable. CENTRAL NERVOUS SYSTEM: Awake and responsive. Generalized weakness. Grossly nonfocal. IMPRESSION: 1. Chronic obstructive pulmonary disease, GOLD stage III possibly. 2. Chronic diastolic congestive heart failure, well compensated. 3. Chronic hypoxemic respiratory failure. 4. Anemia, stable. 5. 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 6. Atrial fibrillation, status post Watchman procedure with incomplete seal, requiring continued Eliquis usage. 7. Pulmonary hypertension on echocardiogram. 8. Severe mitral regurgitation. 9. Deconditioning with slow improvement. 10. Resolving urinary tract infection. PLAN: 1. Continue current medications. 2. Monitor respiratory and cardiovascular status closely. 3. Titrate oxygen as needed. 4. Breathing treatments. 5. Physical therapy. 6. DVT prophylaxis - he is on Eliquis. 7. Decubitus precautions. 8. Stress ulcer prophylaxis. 9. Routine laboratory values. 10. Discussed with the patient in detail and all questions answered. Job ID: [id number]
[2018-10-31] MEDS: Atorvastatin Calcium 20 MG TAB PO SCH (20:27)
[2018-10-31] MEDS: Famotidine 20 MG TAB PO SCH (20:28)
[2018-10-31] MEDS: HYDROcodone/Acetaminophen 5/325 mg Tablet PO PRN (20:29)
[2018-10-31] MEDS: Lidocaine 5% Patch TD SCH (23:41)
[2018-11-01] MEDS: Mometasone/Formoterol 60 PUFF AER INH SCH ×2 (06:08→18:31)
[2018-11-01] MEDS: predniSONE 20 MG TAB PO SCH (08:49)
[2018-11-01] MEDS: Dutasteride 0.5 MG CAP PO SCH (08:49)
[2018-11-01] MEDS: guaiFENesin 100 MG/5 ML UDCUP PO SCH ×3 (08:49→20:56)
[2018-11-01] MEDS: Apixaban 2.5 MG TAB PO SCH ×2 (08:49→20:55)
[2018-11-01] MEDS: Ferrous Sulfate 325 MG TAB PO SCH ×2 (08:50→20:55)
[2018-11-01] MEDS: Gabapentin 100 MG CAP PO SCH ×2 (08:50→20:56)
[2018-11-01] MEDS: Dofetilide 0.125 MG CAP PO SCH ×2 (08:50→20:55)
[2018-11-01] MEDS: Losartan Potassium 50 MG TAB PO SCH (08:50)
[2018-11-01] MEDS: Tamsulosin HCl 0.4 MG CAP PO SCH (08:50)
[2018-11-01] MEDS: Torsemide 20 MG TAB PO SCH ×2 (08:50→14:45)
[2018-11-01] MEDS: Polyethylene Glycol 3350 17 GM Packet PO SCH (08:51)
[2018-11-01] MEDS: Fluticasone Propionate Nasal Spray 16 gm Bottle NASAL SCH (08:57)
[2018-11-01] MEDS: HYDROcodone/Acetaminophen 5/325 mg Tablet PO PRN ×2 (10:04→20:57)
[2018-11-01] MEDS: Lidocaine Patch Removal 1 EACH TOP SCH (11:27)
--- NOTE | 2018-11-01 13:11 | PRG ---
DATE OF SERVICE: 11/01/2018 SUBJECTIVE: Mr. Yates is doing the same, still having episodes of exertional shortness of breath. Denies any chest pain. Denies any PND or orthopnea. I had a long discussion with him about his medical condition and his test results from his previous admission. Basically, I told him that it is my medical opinion that he is really not going to get that much better from the shortness of breath standpoint, but hopefully can continue to work with therapy and just increase his endurance. I reinforced compliance with his CPAP. We will also give him his Depo-Testosterone shot today to see if that helps him any. No family at bedside. Discussed with nursing. OBJECTIVE: VITAL SIGNS: He is afebrile, heart rate 88, respirations 20, oxygen saturation 94% on 4 L, blood pressure 142/65. CARDIOVASCULAR: S1 and S2 plus. RESPIRATORY: Normal vesicular breath sounds. ABDOMEN: Soft and nontender. Bowel sounds heard in all quadrants. EXTREMITIES: Without cyanosis or clubbing. Trace edema. Peripheral pulses are palpable. CENTRAL NERVOUS SYSTEM: Awake and responsive. Generalized weakness. IMPRESSION: 1. Chronic obstructive pulmonary disease, clinically, GOLD stage III. 2. Chronic diastolic congestive heart failure. 3. Atrial fibrillation, requiring Watchman procedure. 4. History of gastrointestinal bleed due to arteriovenous malformation, requiring blood transfusion. 5. Benign prostatic hypertrophy. 6. Thoracic spine compression fracture. 7. Depression and anxiety. 8. Deconditioning. 9. Obstructive sleep apnea, on CPAP. PLAN: 1. Continue current medications. 2. Heart-healthy diet. 3. Monitor heart rate and rhythm. 4. Monitor respiratory status and titrate oxygen as tolerated. 5. Reinforce compliance with CPAP and Acapella. 6. Depo-Testosterone 200 mg IM today. He apparently gets it every 3 weeks. 7. Continue physical therapy. 8. Routine laboratory values. 9. Discussed with the patient and nursing in detail. All questions were answered. Job ID: [id number]
[2018-11-01] MEDS: Famotidine 20 MG TAB PO SCH (20:55)
[2018-11-01] MEDS: Atorvastatin Calcium 20 MG TAB PO SCH (20:55)
[2018-11-01] MEDS: Lidocaine 5% Patch TD SCH (23:48)
[2018-11-02] MEDS: Mometasone/Formoterol 60 PUFF AER INH SCH ×2 (06:04→18:17)
[2018-11-02] MEDS: Polyethylene Glycol 3350 17 GM Packet PO SCH (08:29)
[2018-11-02] MEDS: Dutasteride 0.5 MG CAP PO SCH (08:29)
[2018-11-02] MEDS: guaiFENesin 100 MG/5 ML UDCUP PO SCH ×3 (08:29→21:16)
[2018-11-02] MEDS: Losartan Potassium 50 MG TAB PO SCH (08:30)
[2018-11-02] MEDS: Tamsulosin HCl 0.4 MG CAP PO SCH (08:30)
[2018-11-02] MEDS: Torsemide 20 MG TAB PO SCH ×2 (08:30→14:23)
[2018-11-02] MEDS: Apixaban 2.5 MG TAB PO SCH ×2 (08:30→21:17)
[2018-11-02] MEDS: predniSONE 20 MG TAB PO SCH (08:30)
[2018-11-02] MEDS: Gabapentin 100 MG CAP PO SCH ×2 (08:30→21:17)
[2018-11-02] MEDS: Fluticasone Propionate Nasal Spray 16 gm Bottle NASAL SCH (08:30)
[2018-11-02] MEDS: Ferrous Sulfate 325 MG TAB PO SCH ×2 (08:30→21:17)
[2018-11-02] MEDS: Dofetilide 0.125 MG CAP PO SCH ×2 (08:30→21:16)
[2018-11-02] MEDS: HYDROcodone/Acetaminophen 5/325 mg Tablet PO PRN ×2 (10:28→21:17)
[2018-11-02] MEDS: Lidocaine Patch Removal 1 EACH TOP SCH (12:40)
--- NOTE | 2018-11-02 13:50 | PRG ---
DATE OF SERVICE: 11/02/2018 SUBJECTIVE: Mr. Yates is doing the same. Denies any complaints. He apparently was able to walk around the nurse's station twice without stopping. He still has episodes of dyspnea on exertion, but his endurance is improving. OBJECTIVE: VITAL SIGNS: He is afebrile. Heart rate 82, respirations 18, oxygen saturation 90% on 3.5 L, and blood pressure is 133/61. CARDIOVASCULAR SYSTEM: S1 and S2 plus. RESPIRATORY SYSTEMS: Normal vesicular breath sounds with decreased air entry in the bases. ABDOMEN: Soft and nontender. Bowel sounds heard in all quadrants. EXTREMITIES: 1+ edema. CENTRAL NERVOUS SYSTEM: Awake and responsive. Generalized weakness. IMPRESSION: 1. Chronic diastolic congestive heart failure. 2. Chronic obstructive pulmonary disease, likely GOLD stage III. 3. Chronic hypoxemic respiratory failure. 4. Atrial fibrillation, status post Watchman placement. 5. Improving deconditioning. 6. Thoracic spine compression fracture. 7. Benign prostatic hypertrophy. 8. Depression and anxiety. 9. Obstructive sleep apnea, on CPAP. PLAN: 1. Continue current medications. 2. Heart healthy diet. 3. DVT prophylaxis - he is on Eliquis. 4. Decubitus precautions. 5. Stress ulcer prophylaxis. 6. Continue physical therapy. 7. Titrate oxygen as tolerated. 8. Nocturnal CPAP. 9. Routine laboratory values. 10. Discussed with the patient in detail. All questions answered. Job ID: [id number]
[2018-11-02] MEDS: Atorvastatin Calcium 20 MG TAB PO SCH (21:17)
[2018-11-02] MEDS: Famotidine 20 MG TAB PO SCH (21:17)
[2018-11-02] MEDS: Lidocaine 5% Patch TD SCH (23:46)
[2018-11-03] MEDS: Mometasone/Formoterol 60 PUFF AER INH SCH ×2 (05:39→18:20)
[2018-11-03] MEDS: predniSONE 20 MG TAB PO SCH (07:48)
[2018-11-03] MEDS: Apixaban 2.5 MG TAB PO SCH ×2 (07:49→21:19)
[2018-11-03] MEDS: Dutasteride 0.5 MG CAP PO SCH (07:49)
[2018-11-03] MEDS: Ferrous Sulfate 325 MG TAB PO SCH ×2 (07:50→21:19)
[2018-11-03] MEDS: Dofetilide 0.125 MG CAP PO SCH ×2 (07:50→21:20)
[2018-11-03] MEDS: Gabapentin 100 MG CAP PO SCH ×2 (07:51→21:19)
[2018-11-03] MEDS: Polyethylene Glycol 3350 17 GM Packet PO SCH (07:51)
[2018-11-03] MEDS: guaiFENesin 100 MG/5 ML UDCUP PO SCH ×3 (07:51→21:20)
[2018-11-03] MEDS: Losartan Potassium 50 MG TAB PO SCH (07:52)
[2018-11-03] MEDS: Tamsulosin HCl 0.4 MG CAP PO SCH (07:52)
[2018-11-03] MEDS: Torsemide 20 MG TAB PO SCH ×2 (07:52→14:53)
[2018-11-03] MEDS: Fluticasone Propionate Nasal Spray 16 gm Bottle NASAL SCH (08:24)
[2018-11-03] MEDS: Lidocaine Patch Removal 1 EACH TOP SCH (11:28)
[2018-11-03] MEDS: HYDROcodone/Acetaminophen 5/325 mg Tablet PO PRN (21:17)
[2018-11-03] MEDS: Atorvastatin Calcium 20 MG TAB PO SCH (21:19)
[2018-11-03] MEDS: Famotidine 20 MG TAB PO SCH (21:19)
[2018-11-04] MEDS: Lidocaine 5% Patch TD SCH (00:04)
[2018-11-04] MEDS: Mometasone/Formoterol 60 PUFF AER INH SCH ×2 (05:58→17:58)
[2018-11-04] MEDS: Fluticasone Propionate Nasal Spray 16 gm Bottle NASAL SCH (08:07)
[2018-11-04] MEDS: guaiFENesin 100 MG/5 ML UDCUP PO SCH ×3 (08:08→20:47)
[2018-11-04] MEDS: Polyethylene Glycol 3350 17 GM Packet PO SCH (08:09)
[2018-11-04] MEDS: Dutasteride 0.5 MG CAP PO SCH (08:10)
[2018-11-04] MEDS: predniSONE 20 MG TAB PO SCH (08:10)
[2018-11-04] MEDS: Torsemide 20 MG TAB PO SCH ×2 (08:11→14:32)
[2018-11-04] MEDS: Gabapentin 100 MG CAP PO SCH ×2 (08:11→20:48)
[2018-11-04] MEDS: Losartan Potassium 50 MG TAB PO SCH (08:12)
[2018-11-04] MEDS: Ferrous Sulfate 325 MG TAB PO SCH ×2 (08:12→20:48)
[2018-11-04] MEDS: Apixaban 2.5 MG TAB PO SCH ×2 (08:13→20:48)
[2018-11-04] MEDS: Tamsulosin HCl 0.4 MG CAP PO SCH (08:13)
[2018-11-04] MEDS: Dofetilide 0.125 MG CAP PO SCH ×2 (08:13→20:48)
[2018-11-04] MEDS: HYDROcodone/Acetaminophen 5/325 mg Tablet PO PRN ×2 (10:39→20:49)
[2018-11-04] MEDS: Lidocaine Patch Removal 1 EACH TOP SCH (12:49)
--- NOTE | 2018-11-04 14:38 | PRG ---
DATE OF SERVICE: 11/04/2018 SUBJECTIVE: Mr. Yates is doing well. He is able to ambulate without the help of any assistance. He is getting stronger. He continues to have episodes of dyspnea on exertion. He is back to his baseline of 4 L of oxygen. OBJECTIVE: VITAL SIGNS: He is afebrile. Heart rate is 94, respirations 22, oxygen saturation 94% on 4 L, and blood pressure 145/63. CARDIOVASCULAR: S1, S2 plus. RESPIRATORY: Normal vesicular breath sounds with decreased air entry in the bases. Occasional rhonchi. ABDOMEN: Soft, nontender. Bowel sounds heard in all quadrants. EXTREMITIES: Without cyanosis or clubbing. 1+ edema. CENTRAL NERVOUS SYSTEM: Awake and responsive. Generalized weakness. IMPRESSION: 1. Chronic obstructive pulmonary disease, likely GOLD stage 3. 2. Chronic diastolic congestive heart failure. 3. Chronic hypoxemic respiratory failure, on baseline oxygen. 4. Atrial fibrillation. 5. Improving deconditioning. PLAN: 1. Continue current medications. 2. Heart healthy diet. 3. Monitor respiratory status. 4. Breathing treatments. 5. Physical therapy. 6. DVT prophylaxis - the patient is on Eliquis. 7. Decubitus precautions. 8. Stress-ulcer prophylaxis. 9. Routine laboratory values. Job ID: [id number]
[2018-11-04] MEDS: Famotidine 20 MG TAB PO SCH (20:48)
[2018-11-04] MEDS: Atorvastatin Calcium 20 MG TAB PO SCH (20:48)
[2018-11-05] MEDS: Lidocaine 5% Patch TD SCH (00:19)
[2018-11-05] MEDS: Mometasone/Formoterol 60 PUFF AER INH SCH ×2 (05:50→17:58)
[2018-11-05] MEDS: Fluticasone Propionate Nasal Spray 16 gm Bottle NASAL SCH (08:04)
[2018-11-05] MEDS: Dofetilide 0.125 MG CAP PO SCH ×2 (08:05→21:23)
[2018-11-05] MEDS: Dutasteride 0.5 MG CAP PO SCH (08:05)
[2018-11-05] MEDS: Torsemide 20 MG TAB PO SCH ×2 (08:05→14:33)
[2018-11-05] MEDS: Ferrous Sulfate 325 MG TAB PO SCH ×2 (08:06→21:23)
[2018-11-05] MEDS: Tamsulosin HCl 0.4 MG CAP PO SCH (08:06)
[2018-11-05] MEDS: Losartan Potassium 50 MG TAB PO SCH (08:07)
[2018-11-05] MEDS: predniSONE 20 MG TAB PO SCH (08:07)
[2018-11-05] MEDS: Gabapentin 100 MG CAP PO SCH ×2 (08:07→21:23)
[2018-11-05] MEDS: HYDROcodone/Acetaminophen 5/325 mg Tablet PO PRN ×3 (08:08→22:01)
[2018-11-05] MEDS: Apixaban 2.5 MG TAB PO SCH ×2 (08:08→21:23)
[2018-11-05] MEDS: guaiFENesin 100 MG/5 ML UDCUP PO SCH ×3 (08:09→21:23)
[2018-11-05] MEDS: Polyethylene Glycol 3350 17 GM Packet PO SCH (08:09)
[2018-11-05] MEDS: Lidocaine Patch Removal 1 EACH TOP SCH (12:41)
--- NOTE | 2018-11-05 15:24 | PRG ---
DATE OF SERVICE: 11/05/2018 SUBJECTIVE: Mr. Yates is up in his chair snoozing. He denies any complaints or questions. Continues to have episodes of shortness of breath. He is aware of his condition. No family at bedside. OBJECTIVE: VITAL SIGNS: He is afebrile, heart rate 94, respirations 18, oxygen saturation 96% on 4 L, blood pressure 168/78. CARDIOVASCULAR SYSTEM: S1 and S2 plus. RESPIRATORY SYSTEM: Normal vesicular breath sounds. ABDOMEN: Soft, nontender, bowel sounds heard in all quadrants. EXTREMITIES: Without cyanosis or clubbing. Trace pedal edema. CENTRAL NERVOUS SYSTEM: Awake and responsive. Generalized weakness. IMPRESSION: 1. Chronic obstructive pulmonary disease, likely GOLD stage III. 2. Chronic diastolic congestive heart failure. 3. Atrial fibrillation. 4. Chronic hypoxemic respiratory failure. 5. Deconditioning. PLAN: 1. Continue current medications. 2. Nutritional support. 3. DVT prophylaxis. 4. Decubitus precautions. 5. Stress ulcer prophylaxis. 6. Titrate oxygen. 7. Monitor respiratory status. 8. Physical therapy. Job ID: [id number]
[2018-11-05] MEDS: Atorvastatin Calcium 20 MG TAB PO SCH (21:23)
[2018-11-05] MEDS: Famotidine 20 MG TAB PO SCH (21:23)
[2018-11-06] MEDS: Lidocaine 5% Patch TD SCH (00:04)
[2018-11-06 05:32] LABS: Hemoglobin 8.5 g/dL (14.0-18.0); Platelet Count 303 thou/uL (130-400)
[2018-11-06] MEDS: Mometasone/Formoterol 60 PUFF AER INH SCH ×2 (05:53→18:13)
[2018-11-06] MEDS: Polyethylene Glycol 3350 17 GM Packet PO SCH (09:18)
[2018-11-06] MEDS: Fluticasone Propionate Nasal Spray 16 gm Bottle NASAL SCH (09:19)
[2018-11-06] MEDS: guaiFENesin 100 MG/5 ML UDCUP PO SCH ×3 (09:19→20:25)
[2018-11-06] MEDS: Gabapentin 100 MG CAP PO SCH ×2 (09:20→20:24)
[2018-11-06] MEDS: predniSONE 20 MG TAB PO SCH (09:20)
[2018-11-06] MEDS: Losartan Potassium 50 MG TAB PO SCH (09:20)
[2018-11-06] MEDS: Ferrous Sulfate 325 MG TAB PO SCH ×2 (09:20→20:25)
[2018-11-06] MEDS: Tamsulosin HCl 0.4 MG CAP PO SCH (09:20)
[2018-11-06] MEDS: Apixaban 2.5 MG TAB PO SCH ×2 (09:20→20:25)
[2018-11-06] MEDS: Dutasteride 0.5 MG CAP PO SCH (09:20)
[2018-11-06] MEDS: Torsemide 20 MG TAB PO SCH ×2 (09:20→15:25)
[2018-11-06] MEDS: Dofetilide 0.125 MG CAP PO SCH ×2 (09:21→20:25)
[2018-11-06] MEDS: Lidocaine Patch Removal 1 EACH TOP SCH (12:25)
[2018-11-06] MEDS: HYDROcodone/Acetaminophen 5/325 mg Tablet PO PRN ×2 (15:24→20:26)
[2018-11-06] MEDS: Famotidine 20 MG TAB PO SCH (20:24)
[2018-11-06] MEDS: Atorvastatin Calcium 20 MG TAB PO SCH (20:25)
[2018-11-07] MEDS: Lidocaine 5% Patch TD SCH (00:16)
[2018-11-07] MEDS: Mometasone/Formoterol 60 PUFF AER INH SCH ×2 (06:25→17:59)
[2018-11-07] MEDS: Polyethylene Glycol 3350 17 GM Packet PO SCH (09:01)
[2018-11-07] MEDS: Fluticasone Propionate Nasal Spray 16 gm Bottle NASAL SCH (09:02)
[2018-11-07] MEDS: guaiFENesin 100 MG/5 ML UDCUP PO SCH ×3 (09:02→20:26)
[2018-11-07] MEDS: Dutasteride 0.5 MG CAP PO SCH (09:03)
[2018-11-07] MEDS: Dofetilide 0.125 MG CAP PO SCH ×2 (09:03→20:25)
[2018-11-07] MEDS: Gabapentin 100 MG CAP PO SCH ×2 (09:03→20:26)
[2018-11-07] MEDS: Losartan Potassium 50 MG TAB PO SCH (09:03)
[2018-11-07] MEDS: Torsemide 20 MG TAB PO SCH ×2 (09:04→15:15)
[2018-11-07] MEDS: Apixaban 2.5 MG TAB PO SCH ×2 (09:04→20:25)
[2018-11-07] MEDS: predniSONE 20 MG TAB PO SCH (09:04)
[2018-11-07] MEDS: Ferrous Sulfate 325 MG TAB PO SCH ×2 (09:04→20:26)
[2018-11-07] MEDS: Tamsulosin HCl 0.4 MG CAP PO SCH (09:04)
--- NOTE | 2018-11-07 13:36 | PRG ---
DATE OF SERVICE: 11/07/2018 SUBJECTIVE: Mr. Yates is doing well, still having episodes of shortness of breath, but nothing new. No family at bedside. Discussed with nursing. OBJECTIVE: VITAL SIGNS: He is afebrile. Heart rate 94, respirations 20, oxygen saturation 92% on 3 L nasal cannula. CARDIOVASCULAR SYSTEM: S1 and S2 plus. RESPIRATORY SYSTEM: Normal vesicular breath sounds with decreased air entry at the bases. ABDOMEN: Soft and nontender. Bowel sounds heard in all quadrants. EXTREMITIES: Without cyanosis or clubbing. 1+ edema. CENTRAL NERVOUS SYSTEM: Awake and responsive. Generalized weakness. LABORATORY DATA: Hemoglobin and hematocrit are 8.5 and 27.2. Creatinine is 1.95. IMPRESSION: 1. Chronic obstructive pulmonary disease, likely GOLD stage III. 2. Chronic diastolic congestive heart failure. 3. Chronic hypoxemic respiratory failure. 4. Atrial fibrillation. 5. Chronic kidney disease, stage 3 to 4. 6. Obstructive sleep apnea. 7. Deconditioning. PLAN: 1. Continue current medications. 2. Nutritional support. 3. Physical therapy. 4. DVT prophylaxis, he is on Eliquis. 5. Decubitus precautions. 6. Stress ulcer prophylaxis. 7. Routine laboratory values. Discussed with the patient and nursing in detail. All questions answered. Job ID: [id number]
--- NOTE | 2018-11-07 13:37 | PRG ---
DATE OF SERVICE: 11/03/2018 SUBJECTIVE: Mr. Yates is doing the same. Denies any complaints. Resting comfortably. Still with episodes of shortness of breath, but nothing new. OBJECTIVE: VITAL SIGNS: He is afebrile, heart rate is 94, respirations 20, oxygen saturation 94% on 4 L, and blood pressure is 157/74. CARDIOVASCULAR SYSTEM: S1 and S2 plus. RESPIRATORY SYSTEM: Normal vesicular breath sounds with decreased entry in the bases. ABDOMEN: Soft, obese, and nontender. Bowel sounds heard in all quadrants. EXTREMITIES: 1+ edema. CENTRAL NERVOUS SYSTEM: Grossly nonfocal. IMPRESSION: 1. Atrial fibrillation. 2. Chronic diastolic congestive heart failure. 3. Chronic obstructive pulmonary disease, GOLD stage III. 4. Chronic hypoxemic respiratory failure. 5. Chronic kidney disease, stage 3 to 4. 6. Deconditioning. PLAN: 1. Continue current medications. 2. Heart healthy diet. 3. Titrate oxygen as tolerated. 4. Reinforced compliance with CPAP. 5. Physical therapy. 6. Routine laboratory values. 7. DVT prophylaxis-he is on Eliquis. Job ID: [id number]
[2018-11-07] MEDS: Lidocaine Patch Removal 1 EACH TOP SCH (15:15)
[2018-11-07] MEDS: Famotidine 20 MG TAB PO SCH (20:25)
[2018-11-07] MEDS: Atorvastatin Calcium 20 MG TAB PO SCH (20:25)
[2018-11-07] MEDS: HYDROcodone/Acetaminophen 5/325 mg Tablet PO PRN (20:30)
[2018-11-08] MEDS: Lidocaine 5% Patch TD SCH ×2 (05:55→20:09)
[2018-11-08] MEDS: Mometasone/Formoterol 60 PUFF AER INH SCH ×2 (06:08→17:50)
[2018-11-08] MEDS: guaiFENesin 100 MG/5 ML UDCUP PO SCH ×3 (08:27→20:09)
[2018-11-08] MEDS: Fluticasone Propionate Nasal Spray 16 gm Bottle NASAL SCH (08:27)
[2018-11-08] MEDS: Dutasteride 0.5 MG CAP PO SCH (08:27)
[2018-11-08] MEDS: Torsemide 20 MG TAB PO SCH ×2 (08:28→14:17)
[2018-11-08] MEDS: Ferrous Sulfate 325 MG TAB PO SCH ×2 (08:28→20:08)
[2018-11-08] MEDS: Tamsulosin HCl 0.4 MG CAP PO SCH (08:28)
[2018-11-08] MEDS: Losartan Potassium 50 MG TAB PO SCH (08:29)
[2018-11-08] MEDS: Gabapentin 100 MG CAP PO SCH ×2 (08:29→20:08)
[2018-11-08] MEDS: Dofetilide 0.125 MG CAP PO SCH ×2 (08:29→20:08)
[2018-11-08] MEDS: predniSONE 20 MG TAB PO SCH (08:29)
[2018-11-08] MEDS: Apixaban 2.5 MG TAB PO SCH ×2 (08:29→20:07)
[2018-11-08] MEDS: Lidocaine Patch Removal 1 EACH TOP SCH (08:34)
[2018-11-08] MEDS: Polyethylene Glycol 3350 17 GM Packet PO SCH (08:34)
--- NOTE | 2018-11-08 09:38 | RAD ---
EXAM: Single view of the chest HISTORY: Difficulty breathing COMPARISON: 09/24/2018 FINDINGS: Single view of the chest shows a normal sized cardiomediastinal silhouette. There is no juan dence of consolidation, mass, or pleural effusion. The bones are unremarkable. IMPRESSION: No evidence of acute cardiopulmonary disease
[2018-11-08 10:04] LABS: #Lymphocytes 0.7 thou/uL (1.20-3.40); #Monocytes 0.8 thou/uL (0.11-0.59); #Neutrophils 13.7 thou/uL (1.40-6.50); %Basophils 0.3 % (0.0-1.0); %Eosinophils 0.1 % (0.0-10.0); %Lymphocytes 4.7 % (21.0-51.0); %Monocytes 5.3 % (0.0-10.0); %Neutrophils 89.6 % (42.0-75.0); Mean Corpuscular HGB CONC 30.2 g/dL (32.0-36.0); Mean Corpuscular Hemoglobin 26.8 pg (27.0-31.0); Mean Corpuscular Volume 88.7 fL (78.0-98.0); Mean Platelet Volume 6.3 fL (7.4-10.4); Platelet Count 347 thou/uL (130-400); RBC Distribution Width 15.7 % (11.5-14.5); Red Blood Cell (RBC) Count 3.71 mill/uL (4.70-6.10); White Blood Cell (WBC) Count 15.3 thou/uL (4.8-10.8)
[2018-11-08 10:07] LABS: Anion Gap 16 mmol/L (10-20); BUN (Urea Nitrogen) 41 mg/dL (8.4-25.7); Calc. Creatinine Clearance 40 mL/min (70-130); Calcium 8.5 mg/dL (7.8-10.44); Carbon Dioxide 27 mmol/L (23-31); Chloride 102 mmol/L (98-107); Estimated GFR-MDRD 36; Glucose 140 mg/dL (83-110); Potassium 3.4 mmol/L (3.5-5.1); Sodium 142 mmol/L (136-145)
--- NOTE | 2018-11-08 14:35 | PRG ---
DATE OF SERVICE: 11/08/2018 SUBJECTIVE: Mr. Yates had an episode of shortness of breath this morning and was noted to be tachycardic with heart rate in the 130s. He required oxygen via non-rebreather mask and EKG was done, which showed Sinus tachycardia. Chest x-ray with no acute changes too. BNP was down to 230. Renal functions were normal. His hemoglobin was up to 10, white count was normal, and it was felt that this was due to his rapid ventricular response. He is back to normal now, he has been down to 4 L of oxygen via nasal cannula, and was educated that he has no reserve, so an any little insult is going to push him over the edge. He understands. No family at bedside. OBJECTIVE: VITAL SIGNS: He is afebrile. Heart rate is down to 115, respiratory rate 24, oxygen saturation 96%, blood pressure 133/78. CARDIOVASCULAR SYSTEM: S1 and S2 plus. RESPIRATORY SYSTEM: Normal vesicular breath sounds. ABDOMEN: Soft and nontender. Bowel sounds heard in all quadrants. EXTREMITIES: Without cyanosis or clubbing. Peripheral pulses are palpable. CENTRAL NERVOUS SYSTEM: Grossly nonfocal. IMPRESSION: 1. Episode of atrial fibrillation with RVR, causing shortness of breath. 2. Chronic obstructive pulmonary disease, GOLD stage III. 3. Chronic diastolic congestive heart failure. 4. Chronic hypoxemic respiratory failure. 5. Depression. 6. Deconditioning. PLAN: 1. Continue current medications. 2. Monitor heart rate. 3. He is on Tikosyn, may need to add digoxin if his rate is not controlled. 4. Titrate oxygen. 5. Physical therapy. 6. Routine laboratory values. 7. Discussed with the patient and nursing in detail. All questions answered. Job ID: [id number] [facility]
[2018-11-08] MEDS: HYDROcodone/Acetaminophen 5/325 mg Tablet PO PRN (14:43)
[2018-11-08] MEDS: Atorvastatin Calcium 20 MG TAB PO SCH (20:07)
[2018-11-08] MEDS: Famotidine 20 MG TAB PO SCH (20:08)
[2018-11-09] MEDS: Mometasone/Formoterol 60 PUFF AER INH SCH ×2 (06:08→18:01)
[2018-11-09] MEDS: Apixaban 2.5 MG TAB PO SCH ×2 (08:51→21:36)
[2018-11-09] MEDS: Dofetilide 0.125 MG CAP PO SCH ×2 (08:51→21:35)
[2018-11-09] MEDS: predniSONE 20 MG TAB PO SCH (08:51)
[2018-11-09] MEDS: Dutasteride 0.5 MG CAP PO SCH (08:52)
[2018-11-09] MEDS: Ferrous Sulfate 325 MG TAB PO SCH ×2 (08:52→21:36)
[2018-11-09] MEDS: Fluticasone Propionate Nasal Spray 16 gm Bottle NASAL SCH (08:52)
[2018-11-09] MEDS: guaiFENesin 100 MG/5 ML UDCUP PO SCH ×3 (08:53→21:35)
[2018-11-09] MEDS: Gabapentin 100 MG CAP PO SCH ×2 (08:53→21:35)
[2018-11-09] MEDS: Lidocaine Patch Removal 1 EACH TOP SCH (08:54)
[2018-11-09] MEDS: Losartan Potassium 50 MG TAB PO SCH (08:54)
[2018-11-09] MEDS: Polyethylene Glycol 3350 17 GM Packet PO SCH (08:55)
[2018-11-09] MEDS: Tamsulosin HCl 0.4 MG CAP PO SCH (08:55)
[2018-11-09] MEDS: Torsemide 20 MG TAB PO SCH ×2 (09:01→15:08)
--- NOTE | 2018-11-09 14:03 | PRG ---
DATE OF SERVICE: 11/09/2018 SUBJECTIVE: Mr. Yates is doing the same. Denies any complaints. No further episodes of tachycardia or shortness of breath. He has switched to decaf coffee. He states he drinks about three glasses a day. OBJECTIVE: VITAL SIGNS: He is afebrile, heart rate 96, respirations 20, oxygen saturation 91% on 3 L. CARDIOVASCULAR: S1 and S2 plus. RESPIRATORY: Normal vesicular breath sounds. Decreased air entry at the bases. ABDOMEN: Soft, obese, nontender. Bowel sounds heard in all quadrants. EXTREMITIES: Without cyanosis, clubbing. Skin tear to the right elbow area and abrasion to his right index finger from crushing his finger at the doorstop, both do not look infected. CENTRAL NERVOUS SYSTEM: Awake and responsive. Generalized weakness. LABORATORY DATA: No laboratory values done today. IMPRESSION: 1. Chronic obstructive pulmonary disease, GOLD stage III. 2. Chronic diastolic congestive heart failure. 3. Chronic hypoxemic respiratory failure. 4. Paroxysmal atrial fibrillation, now in sinus rhythm. 5. Improving deconditioning. 6. Chronic kidney disease stage 3 to 4. PLAN: 1. Continue current medications. 2. Heart healthy diet. 3. DVT prophylaxis-he is on Eliquis. 4. Decubitus precautions. 5. Stress ulcer prophylaxis. 6. Continue therapy. 7. Nocturnal CPAP. 8. Discussed with the patient in detail. All questions answered. Job ID: [id number]
[2018-11-09] MEDS: Famotidine 20 MG TAB PO SCH (21:36)
[2018-11-09] MEDS: Atorvastatin Calcium 20 MG TAB PO SCH (21:36)
[2018-11-09] MEDS: HYDROcodone/Acetaminophen 5/325 mg Tablet PO PRN (21:38)
[2018-11-09] MEDS: Lidocaine 5% Patch TD SCH (21:39)
[2018-11-10] MEDS: Mometasone/Formoterol 60 PUFF AER INH SCH ×2 (06:09→18:17)
[2018-11-10] MEDS: Polyethylene Glycol 3350 17 GM Packet PO SCH (08:46)
[2018-11-10] MEDS: Ferrous Sulfate 325 MG TAB PO SCH ×2 (08:46→20:34)
[2018-11-10] MEDS: Torsemide 20 MG TAB PO SCH ×2 (08:46→14:50)
[2018-11-10] MEDS: guaiFENesin 100 MG/5 ML UDCUP PO SCH ×3 (08:46→20:33)
[2018-11-10] MEDS: Dofetilide 0.125 MG CAP PO SCH ×2 (08:46→20:34)
[2018-11-10] MEDS: Gabapentin 100 MG CAP PO SCH ×2 (08:47→20:34)
[2018-11-10] MEDS: predniSONE 20 MG TAB PO SCH (08:47)
[2018-11-10] MEDS: Tamsulosin HCl 0.4 MG CAP PO SCH (08:47)
[2018-11-10] MEDS: Losartan Potassium 50 MG TAB PO SCH (08:47)
[2018-11-10] MEDS: Dutasteride 0.5 MG CAP PO SCH (08:47)
[2018-11-10] MEDS: Apixaban 2.5 MG TAB PO SCH ×2 (08:48→20:34)
[2018-11-10] MEDS: Fluticasone Propionate Nasal Spray 16 gm Bottle NASAL SCH (08:48)
[2018-11-10] MEDS: Lidocaine Patch Removal 1 EACH TOP SCH (08:49)
--- NOTE | 2018-11-10 09:34 | PRG ---
DATE OF SERVICE: 11/10/2018 SUBJECTIVE: Mr. Yates is doing the same. Denies any complaints. He is now drinking decaffeinated coffee. OBJECTIVE: VITAL SIGNS: He is afebrile, heart rate is at 91, and respiratory rate 20. Oxygen saturation stays 86% on a Ventimask, but I look at him and he is on nasal cannula at 4 L. Blood pressure 141/70. CARDIOVASCULAR SYSTEM: S1 and S2 plus. RESPIRATORY SYSTEM: Normal vesicular breath sounds. ABDOMEN: Soft and nontender. Bowel sounds heard in all quadrants. EXTREMITIES: Without cyanosis or clubbing. 1+ edema. CENTRAL NERVOUS SYSTEM: Awake and responsive. Generalized weakness. IMPRESSION: 1. Chronic kidney disease, stage 3 to 4. 2. Chronic obstructive pulmonary disease, GOLD stage III likely. 3. Chronic diastolic congestive heart failure. 4. Chronic hypoxemic respiratory failure. 5. Paroxysmal atrial fibrillation. 6. Deconditioning. 7. History of gastrointestinal bleed. PLAN: 1. Continue current medications. 2. Nutritional support. 3. Titrate oxygen to keep saturation greater than 90%. 4. DVT prophylaxis-the patient is on Eliquis. 5. Continue physical therapy. 6. Discharge planning. 7. Routine laboratory values. 8. Discussed with the patient in detail. All questions answered. Job ID: [id number]
[2018-11-10] MEDS: HYDROcodone/Acetaminophen 5/325 mg Tablet PO PRN (20:33)
[2018-11-10] MEDS: Famotidine 20 MG TAB PO SCH (20:34)
[2018-11-10] MEDS: Lidocaine 5% Patch TD SCH (20:34)
[2018-11-10] MEDS: Atorvastatin Calcium 20 MG TAB PO SCH (20:34)
[2018-11-11] MEDS: Mometasone/Formoterol 60 PUFF AER INH SCH ×2 (05:50→18:36)
[2018-11-11] MEDS: Torsemide 20 MG TAB PO SCH ×2 (09:30→15:54)
[2018-11-11] MEDS: guaiFENesin 100 MG/5 ML UDCUP PO SCH ×3 (09:30→21:06)
[2018-11-11] MEDS: Dofetilide 0.125 MG CAP PO SCH ×2 (09:31→21:06)
[2018-11-11] MEDS: Ferrous Sulfate 325 MG TAB PO SCH ×2 (09:31→21:08)
[2018-11-11] MEDS: Dutasteride 0.5 MG CAP PO SCH (09:31)
[2018-11-11] MEDS: Tamsulosin HCl 0.4 MG CAP PO SCH (09:31)
[2018-11-11] MEDS: predniSONE 20 MG TAB PO SCH (09:31)
[2018-11-11] MEDS: Losartan Potassium 50 MG TAB PO SCH (09:31)
[2018-11-11] MEDS: Gabapentin 100 MG CAP PO SCH ×2 (09:31→21:08)
[2018-11-11] MEDS: Apixaban 2.5 MG TAB PO SCH ×2 (09:31→21:08)
[2018-11-11] MEDS: Fluticasone Propionate Nasal Spray 16 gm Bottle NASAL SCH (09:32)
[2018-11-11] MEDS: Polyethylene Glycol 3350 17 GM Packet PO SCH (09:35)
[2018-11-11] MEDS: Lidocaine Patch Removal 1 EACH TOP SCH (09:35)
--- NOTE | 2018-11-11 14:50 | PRG ---
DATE OF SERVICE: 11/11/2018 SUBJECTIVE: Mr. Yates is doing the same. Denies any complaints. He wants to go out on pass on Tuesday to get a mold done for his hearing aids. He wants his to take him. He is on his baseline level of oxygen. We will ask nursing to clear it with therapy and if so, then we will send him out on pass. OBJECTIVE: VITAL SIGNS: He is afebrile, heart rate is 104, respirations 18, oxygen saturation 94% on 3 L, and blood pressure is 127/59. CARDIOVASCULAR SYSTEM: S1 and S2 plus. RESPIRATORY SYSTEM: Normal vesicular breath sounds. ABDOMEN: Soft and nontender. Bowel sounds heard in all quadrants. EXTREMITIES: Without cyanosis or clubbing. Trace edema. CENTRAL NERVOUS SYSTEM: Awake and responsive, generalized weakness. IMPRESSION: 1. Chronic obstructive pulmonary disease, GOLD, stage III. 2. Chronic hypoxemic respiratory failure. 3. Chronic diastolic congestive heart failure. 4. Atrial fibrillation, status post Watchman procedure. 5. Chronic kidney disease, stage 3 to 4. 6. Improving deconditioning and hardness of hearing. PLAN: 1. Continue current medications. 2. Heart healthy diet. 3. Titrate oxygen. 4. DVT prophylaxis - the patient is on Eliquis. 5. Decubitus precautions. 6. Stress ulcer prophylaxis. 7. Okay to go out and pass if okay with therapy. Discussed his case with both the patient and his son in detail. Job ID: [id number]
[2018-11-11] MEDS: HYDROcodone/Acetaminophen 5/325 mg Tablet PO PRN (21:06)
[2018-11-11] MEDS: Lidocaine 5% Patch TD SCH (21:06)
[2018-11-11] MEDS: Atorvastatin Calcium 20 MG TAB PO SCH (21:08)
[2018-11-11] MEDS: Famotidine 20 MG TAB PO SCH (21:08)
[2018-11-12] MEDS: Mometasone/Formoterol 60 PUFF AER INH SCH ×2 (06:36→18:34)
[2018-11-12] MEDS: guaiFENesin 100 MG/5 ML UDCUP PO SCH ×3 (08:30→21:35)
[2018-11-12] MEDS: Dutasteride 0.5 MG CAP PO SCH (08:31)
[2018-11-12] MEDS: Tamsulosin HCl 0.4 MG CAP PO SCH (08:31)
[2018-11-12] MEDS: Dofetilide 0.125 MG CAP PO SCH ×2 (08:31→21:36)
[2018-11-12] MEDS: Gabapentin 100 MG CAP PO SCH ×2 (08:31→21:36)
[2018-11-12] MEDS: Polyethylene Glycol 3350 17 GM Packet PO SCH (08:31)
[2018-11-12] MEDS: Ferrous Sulfate 325 MG TAB PO SCH ×2 (08:32→21:36)
[2018-11-12] MEDS: Torsemide 20 MG TAB PO SCH ×2 (08:32→15:07)
[2018-11-12] MEDS: predniSONE 20 MG TAB PO SCH (08:32)
[2018-11-12] MEDS: Apixaban 2.5 MG TAB PO SCH ×2 (08:32→21:36)
[2018-11-12] MEDS: Losartan Potassium 50 MG TAB PO SCH (08:32)
[2018-11-12] MEDS: Fluticasone Propionate Nasal Spray 16 gm Bottle NASAL SCH (08:33)
[2018-11-12] MEDS: Lidocaine Patch Removal 1 EACH TOP SCH (08:34)
--- NOTE | 2018-11-12 15:37 | PRG ---
DATE OF SERVICE: 11/12/2018 SUBJECTIVE: Mr. Yates is sitting up in his chair and just finished his lunch. He apparently tripped over his oxygen tubing in the morning and kind of fell down to the door and slid down to the floor. No injuries. His neuro checks have been unremarkable. OBJECTIVE: VITAL SIGNS: He is afebrile. Heart rate 93, respirations 22, oxygen saturation 92% on 3 L, and blood pressure 158/72. CARDIOVASCULAR SYSTEM: S1 and S2 plus. RESPIRATORY SYSTEM: Normal vesicular breath sounds. Decreased air entry in the bases. ABDOMEN: Soft, nontender. Bowel sounds heard in all quadrants. EXTREMITIES: Trace to 1+ edema. CENTRAL NERVOUS SYSTEM: Awake and responsive with generalized weakness, otherwise grossly nonfocal. IMPRESSION: 1. Chronic diastolic congestive heart failure. 2. Chronic hypoxemic respiratory failure. 3. Chronic obstructive pulmonary disease, GOLD stage III. 4. Atrial fibrillation. 5. Anemia with history of recent gastrointestinal blood loss. 6. Deconditioning. 7. Chronic kidney disease, stage 3 to 4. PLAN: 1. Recheck CBC and BMP in the morning. 2. Continue current medications. 3. Fall precautions. 4. Titrate oxygen. 5. Handheld nebulizer treatment. 6. Nocturnal CPAP for his sleep apnea. 7. Continue PT/OT. 8. Discharge planning. Job ID: [id number]
[2018-11-12] MEDS: Lidocaine 5% Patch TD SCH (21:35)
[2018-11-12] MEDS: HYDROcodone/Acetaminophen 5/325 mg Tablet PO PRN (21:35)
[2018-11-12] MEDS: Famotidine 20 MG TAB PO SCH (21:36)
[2018-11-12] MEDS: Atorvastatin Calcium 20 MG TAB PO SCH (21:36)
[2018-11-13 05:52] LABS: #Basophils 0.1 thou/uL (0.0-0.2); #Lymphocytes 1.4 thou/uL (1.20-3.40); #Monocytes 0.8 thou/uL (0.11-0.59); #Neutrophils 11.4 thou/uL (1.40-6.50); %Basophils 0.5 % (0.0-1.0); %Eosinophils 0.3 % (0.0-10.0); %Lymphocytes 10.2 % (21.0-51.0); %Monocytes 5.7 % (0.0-10.0); %Neutrophils 83.3 % (42.0-75.0); Hemoglobin 9.2 g/dL (14.0-18.0); Mean Corpuscular Hemoglobin 27.1 pg (27.0-31.0); Mean Corpuscular Volume 87.5 fL (78.0-98.0); Mean Platelet Volume 6.4 fL (7.4-10.4); Platelet Count 301 thou/uL (130-400); RBC Distribution Width 15.5 % (11.5-14.5); White Blood Cell (WBC) Count 13.6 thou/uL (4.8-10.8)
[2018-11-13 05:56] LABS: Anion Gap 16 mmol/L (10-20); BUN (Urea Nitrogen) 45 mg/dL (8.4-25.7); Calc. Creatinine Clearance 40 mL/min (70-130); Calcium 8.8 mg/dL (7.8-10.44); Carbon Dioxide 29 mmol/L (23-31); Chloride 106 mmol/L (98-107); Estimated GFR-MDRD 36; Glucose 120 mg/dL (83-110); Potassium 3.8 mmol/L (3.5-5.1); Sodium 147 mmol/L (136-145)
[2018-11-13] MEDS: Mometasone/Formoterol 60 PUFF AER INH SCH ×2 (06:33→18:08)
[2018-11-13] MEDS: predniSONE 20 MG TAB PO SCH (08:28)
[2018-11-13] MEDS: Dofetilide 0.125 MG CAP PO SCH ×2 (08:29→21:07)
[2018-11-13] MEDS: Dutasteride 0.5 MG CAP PO SCH (08:29)
[2018-11-13] MEDS: Ferrous Sulfate 325 MG TAB PO SCH ×2 (08:29→21:09)
[2018-11-13] MEDS: Fluticasone Propionate Nasal Spray 16 gm Bottle NASAL SCH (08:29)
[2018-11-13] MEDS: Apixaban 2.5 MG TAB PO SCH ×2 (08:29→21:07)
[2018-11-13] MEDS: Lidocaine Patch Removal 1 EACH TOP SCH (08:30)
[2018-11-13] MEDS: guaiFENesin 100 MG/5 ML UDCUP PO SCH ×3 (08:30→21:07)
[2018-11-13] MEDS: Gabapentin 100 MG CAP PO SCH ×2 (08:30→21:09)
[2018-11-13] MEDS: Tamsulosin HCl 0.4 MG CAP PO SCH (08:31)
[2018-11-13] MEDS: Torsemide 20 MG TAB PO SCH ×2 (08:31→14:40)
[2018-11-13] MEDS: Losartan Potassium 50 MG TAB PO SCH (08:31)
[2018-11-13] MEDS: Polyethylene Glycol 3350 17 GM Packet PO SCH (08:31)
[2018-11-13] MEDS ORDERED: Benzonatate 100 MG CAP PO PRN (11:58)
--- NOTE | 2018-11-13 13:08 | PRG ---
DATE OF SERVICE: 11/13/2018 SUBJECTIVE: Mr. Yates is doing well. He is waiting on his to take him to the reactor operator. He denies any questions or concerns. He accepts he is still having a cough and the Robitussin is not helping. OBJECTIVE: VITAL SIGNS: He is afebrile, heart rate 97, respirations 20, and oxygen saturation 98% on 2 L. CARDIOVASCULAR SYSTEM: S1 and S2 plus. RESPIRATORY SYSTEM: Normal vesicular breath sounds. ABDOMEN: Soft and nontender. Bowel sounds heard in all quadrants. EXTREMITIES: Trace edema. CENTRAL NERVOUS SYSTEM: Awake and responsive. Generalized weakness. Of note, they have an oxygen saturation documented at 68% at 8:10, but I think it is 98%, I will check with nurses. LABORATORY VALUES: White count is 13.6 down from 15.3 and H and H are 9.2 and 29.8. Sodium 147, potassium 3.8, and BUN and creatinine are 45 and 1.82. IMPRESSION: 1. Chronic obstructive pulmonary disease, GOLD stage 3. 2. Chronic hypoxemic respiratory failure. 3. Chronic diastolic congestive heart failure. 4. Chronic kidney disease stage 3 to 4. 5. Hardness of hearing. 6. Atrial fibrillation. 7. Anemia due to acute blood loss, now stabilizing. PLAN: 1. Continue current medications. 2. Trial of Tessalon Perles for his cough. 3. Heart healthy diet. 4. Titrate oxygen as tolerated. 5. Handheld nebulizer treatment. 6. Continue PT and OT. 7. Routine laboratory values. 8. Encourage p.o. fluid intake. 9. May need to adjust his diuretics, but his renal functions are stable. 10. Discussed with the patient and nursing. Job ID: [id number]
[2018-11-13] MEDS: Atorvastatin Calcium 20 MG TAB PO SCH (21:07)
[2018-11-13] MEDS: Lidocaine 5% Patch TD SCH (21:07)
[2018-11-13] MEDS: HYDROcodone/Acetaminophen 5/325 mg Tablet PO PRN (21:08)
[2018-11-13] MEDS: Famotidine 20 MG TAB PO SCH (21:09)
[2018-11-14] MEDS: Mometasone/Formoterol 60 PUFF AER INH SCH ×2 (06:14→18:05)
[2018-11-14] MEDS: Fluticasone Propionate Nasal Spray 16 gm Bottle NASAL SCH (08:52)
[2018-11-14] MEDS: Ferrous Sulfate 325 MG TAB PO SCH ×2 (08:52→20:22)
[2018-11-14] MEDS: Tamsulosin HCl 0.4 MG CAP PO SCH (08:52)
[2018-11-14] MEDS: Apixaban 2.5 MG TAB PO SCH ×2 (08:52→20:22)
[2018-11-14] MEDS: Dutasteride 0.5 MG CAP PO SCH (08:52)
[2018-11-14] MEDS: predniSONE 20 MG TAB PO SCH (08:52)
[2018-11-14] MEDS: Dofetilide 0.125 MG CAP PO SCH ×2 (08:52→20:22)
[2018-11-14] MEDS: Lidocaine Patch Removal 1 EACH TOP SCH (08:53)
[2018-11-14] MEDS: Gabapentin 100 MG CAP PO SCH ×2 (08:53→20:22)
[2018-11-14] MEDS: guaiFENesin 100 MG/5 ML UDCUP PO SCH ×3 (08:53→20:21)
[2018-11-14] MEDS: Losartan Potassium 50 MG TAB PO SCH (08:53)
[2018-11-14] MEDS: Polyethylene Glycol 3350 17 GM Packet PO SCH (08:54)
[2018-11-14] MEDS: Torsemide 20 MG TAB PO SCH ×2 (08:54→14:15)
--- NOTE | 2018-11-14 13:12 | PRG ---
DATE OF SERVICE: 11/14/2018 SUBJECTIVE: Mr. Yates is doing the same. He is up in his chair and just finished his lunch. 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 He denies any concerns or questions. OBJECTIVE: VITAL SIGNS: He is afebrile, heart rate 97, respirations 22, and oxygen saturation 99% on 3 L. CARDIOVASCULAR SYSTEM: S1 and S2 plus. RESPIRATORY SYSTEM: Normal vesicular breath sounds with scattered rhonchi. ABDOMEN: Soft, obese, nontender. EXTREMITIES: Without cyanosis or clubbing. 1+ edema. CENTRAL NERVOUS SYSTEM: Awake and responsive. Generalized weakness. IMPRESSION: 1. Chronic kidney disease, stage 3 to 4. 2. Chronic obstructive pulmonary disease, GOLD stage 3. 3. Chronic diastolic congestive heart failure. 4. Chronic hypoxemic respiratory failure. 5. Obstructive sleep apnea. 6. Hardness of hearing. 7. Atrial fibrillation. 8. Anemia due to acute blood loss, stable. PLAN: 1. Continue current medications. 2. Heart healthy diet. 3. Monitor respiratory status. 4. Titrate oxygen. 5. Reinforced compliance with CPAP. 6. Physical therapy. 7. Monitor CBC. 8. Continue Eliquis. 9. Routine laboratory values. 10. Discussed with the patient in detail. All questions answered. No family at bedside. Job ID: [id number]
[2018-11-14] MEDS: Lidocaine 5% Patch TD SCH (20:21)
[2018-11-14] MEDS: Atorvastatin Calcium 20 MG TAB PO SCH (20:22)
[2018-11-14] MEDS: Famotidine 20 MG TAB PO SCH (20:22)
[2018-11-14] MEDS: HYDROcodone/Acetaminophen 5/325 mg Tablet PO PRN (20:23)
[2018-11-15] MEDS: Mometasone/Formoterol 60 PUFF AER INH SCH ×2 (05:23→18:23)
[2018-11-15] MEDS: Polyethylene Glycol 3350 17 GM Packet PO SCH (08:26)
[2018-11-15] MEDS: Fluticasone Propionate Nasal Spray 16 gm Bottle NASAL SCH (08:26)
[2018-11-15] MEDS: Dutasteride 0.5 MG CAP PO SCH (08:27)
[2018-11-15] MEDS: Tamsulosin HCl 0.4 MG CAP PO SCH (08:27)
[2018-11-15] MEDS: Torsemide 20 MG TAB PO SCH ×2 (08:27→13:45)
[2018-11-15] MEDS: guaiFENesin 100 MG/5 ML UDCUP PO SCH ×3 (08:27→20:13)
[2018-11-15] MEDS: Losartan Potassium 50 MG TAB PO SCH (08:27)
[2018-11-15] MEDS: Apixaban 2.5 MG TAB PO SCH ×2 (08:28→20:13)
[2018-11-15] MEDS: Ferrous Sulfate 325 MG TAB PO SCH ×2 (08:28→20:13)
[2018-11-15] MEDS: predniSONE 20 MG TAB PO SCH (08:28)
[2018-11-15] MEDS: Gabapentin 100 MG CAP PO SCH ×2 (08:28→20:13)
[2018-11-15] MEDS: Lidocaine Patch Removal 1 EACH TOP SCH (08:30)
[2018-11-15] MEDS: Dofetilide 0.125 MG CAP PO SCH ×2 (09:17→20:13)
[2018-11-15] MEDS: HYDROcodone/Acetaminophen 5/325 mg Tablet PO PRN ×2 (13:46→20:14)
[2018-11-15] MEDS: Atorvastatin Calcium 20 MG TAB PO SCH (20:13)
[2018-11-15] MEDS: Famotidine 20 MG TAB PO SCH (20:13)
[2018-11-15] MEDS: Lidocaine 5% Patch TD SCH (20:15)
--- NOTE | 2018-11-15 20:20 | PRG ---
DATE OF SERVICE: 11/15/2018 SUBJECTIVE: Mr. Yates is up in his chair and denies any complaints. He just finished his lunch. Discussed with therapy and they state that Mr. Yates is improving, but will benefit from some more therapy. No family at bedside. OBJECTIVE: VITAL SIGNS: He is afebrile. Heart rate 94, respirations 20, oxygen saturation 91% on 3 L. CARDIOVASCULAR SYSTEM: S1 and S2 plus. RESPIRATORY SYSTEM: Normal vesicular breath sounds with decreased air entry in the bases. ABDOMEN: Soft, obese, and nontender. Bowel sounds heard in all quadrants. EXTREMITIES: Without cyanosis or clubbing. Trace edema. CENTRAL NERVOUS SYSTEM: Awake and responsive. Generalized weakness. IMPRESSION: 1. Current chronic kidney disease, stage 3 to 4. 2. Chronic obstructive pulmonary disease, GOLD stage 3. 3. Chronic hypoxemic respiratory failure. 4. Chronic diastolic congestive heart failure. 5. Atrial fibrillation. 6. Benign prostatic hypertrophy. 7. Depression and anxiety. PLAN: 1. Continue current medications. 2. Nutritional support. 3. DVT prophylaxis. He is on Eliquis. 4. Decubitus precautions. 5. Stress ulcer prophylaxis. 6. Physical therapy. 7. Routine laboratory values. Job ID: [id number]
[2018-11-16] MEDS: Mometasone/Formoterol 60 PUFF AER INH SCH ×2 (05:39→17:23)
[2018-11-16] MEDS: Fluticasone Propionate Nasal Spray 16 gm Bottle NASAL SCH (08:33)
[2018-11-16] MEDS: guaiFENesin 100 MG/5 ML UDCUP PO SCH ×3 (08:33→21:26)
[2018-11-16] MEDS: Torsemide 20 MG TAB PO SCH ×2 (08:34→14:07)
[2018-11-16] MEDS: Gabapentin 100 MG CAP PO SCH ×2 (08:34→21:27)
[2018-11-16] MEDS: predniSONE 20 MG TAB PO SCH (08:34)
[2018-11-16] MEDS: Dofetilide 0.125 MG CAP PO SCH ×2 (08:34→21:27)
[2018-11-16] MEDS: Tamsulosin HCl 0.4 MG CAP PO SCH (08:34)
[2018-11-16] MEDS: Dutasteride 0.5 MG CAP PO SCH (08:34)
[2018-11-16] MEDS: Ferrous Sulfate 325 MG TAB PO SCH ×2 (08:34→21:27)
[2018-11-16] MEDS: Apixaban 2.5 MG TAB PO SCH ×2 (08:34→21:27)
[2018-11-16] MEDS: Losartan Potassium 50 MG TAB PO SCH (08:34)
[2018-11-16] MEDS: Polyethylene Glycol 3350 17 GM Packet PO SCH (08:35)
[2018-11-16] MEDS: Lidocaine Patch Removal 1 EACH TOP SCH (09:06)
[2018-11-16] MEDS: HYDROcodone/Acetaminophen 5/325 mg Tablet PO PRN ×2 (10:04→17:47)
--- NOTE | 2018-11-16 13:49 | PRG ---
DATE OF SERVICE: 11/16/2018 SUBJECTIVE: Mr. Yates is doing the same. Denies any complaints. Resting comfortably. No further falls. Slowly improving with therapy. OBJECTIVE: VITAL SIGNS: He is afebrile. Heart rate 101, respirations 20, and oxygen saturation 92% on 3 L. CARDIOVASCULAR SYSTEM: S1 and S2 plus. RESPIRATORY SYSTEM: Normal vesicular breath sounds. ABDOMEN: Soft, obese, and nontender. Bowel sounds heard in all quadrants. EXTREMITIES: Without cyanosis or clubbing. Trace edema. CENTRAL NERVOUS SYSTEM: Awake and responsive. Generalized weakness. IMPRESSION: 1. Chronic kidney disease, stage 3 to 4. 2. Chronic obstructive pulmonary disease, GOLD stage III. 3. Chronic diastolic congestive heart failure. 4. Atrial fibrillation, on long-term anticoagulation. 5. Obstructive sleep apnea. 6. Deconditioning. PLAN: 1. Continue current medications. 2. Nutritional support. 3. Heart healthy diet. 4. DVT prophylaxis, he is on Eliquis. 5. Decubitus precautions. 6. Stress ulcer prophylaxis. 7. Physical therapy. 8. Monitor respiratory status. Job ID: [id number]
[2018-11-16] MEDS: Lidocaine 5% Patch TD SCH (21:26)
[2018-11-16] MEDS: Atorvastatin Calcium 20 MG TAB PO SCH (21:27)
[2018-11-16] MEDS: Famotidine 20 MG TAB PO SCH (21:27)
[2018-11-17] MEDS: Mometasone/Formoterol 60 PUFF AER INH SCH ×2 (05:49→18:16)
[2018-11-17] MEDS: Ferrous Sulfate 325 MG TAB PO SCH ×2 (08:28→20:50)
[2018-11-17] MEDS: Apixaban 2.5 MG TAB PO SCH ×2 (08:28→20:48)
[2018-11-17] MEDS: Torsemide 20 MG TAB PO SCH ×2 (08:28→15:20)
[2018-11-17] MEDS: Dofetilide 0.125 MG CAP PO SCH ×2 (08:28→20:49)
[2018-11-17] MEDS: Dutasteride 0.5 MG CAP PO SCH (08:28)
[2018-11-17] MEDS: Losartan Potassium 50 MG TAB PO SCH (08:28)
[2018-11-17] MEDS: Tamsulosin HCl 0.4 MG CAP PO SCH (08:28)
[2018-11-17] MEDS: Gabapentin 100 MG CAP PO SCH ×2 (08:29→20:49)
[2018-11-17] MEDS: Fluticasone Propionate Nasal Spray 16 gm Bottle NASAL SCH (08:29)
[2018-11-17] MEDS: guaiFENesin 100 MG/5 ML UDCUP PO SCH ×3 (08:29→20:48)
[2018-11-17] MEDS: Polyethylene Glycol 3350 17 GM Packet PO SCH (08:30)
[2018-11-17] MEDS: Lidocaine Patch Removal 1 EACH TOP SCH (08:30)
[2018-11-17] MEDS: predniSONE 20 MG TAB PO SCH (08:34)
[2018-11-17] MEDS: HYDROcodone/Acetaminophen 5/325 mg Tablet PO PRN ×2 (09:09→20:51)
[2018-11-17] MEDS: Lidocaine 5% Patch TD SCH (20:48)
[2018-11-17] MEDS: Famotidine 20 MG TAB PO SCH (20:48)
[2018-11-17] MEDS: Atorvastatin Calcium 20 MG TAB PO SCH (20:50)
[2018-11-18] MEDS: Mometasone/Formoterol 60 PUFF AER INH SCH ×2 (06:07→17:48)
[2018-11-18] MEDS: guaiFENesin 100 MG/5 ML UDCUP PO SCH ×3 (08:51→20:55)
[2018-11-18] MEDS: Fluticasone Propionate Nasal Spray 16 gm Bottle NASAL SCH (08:51)
[2018-11-18] MEDS: predniSONE 20 MG TAB PO SCH (08:52)
[2018-11-18] MEDS: Polyethylene Glycol 3350 17 GM Packet PO SCH (08:52)
[2018-11-18] MEDS: Apixaban 2.5 MG TAB PO SCH ×2 (08:52→20:56)
[2018-11-18] MEDS: Torsemide 20 MG TAB PO SCH ×2 (08:52→14:31)
[2018-11-18] MEDS: Dutasteride 0.5 MG CAP PO SCH (08:52)
[2018-11-18] MEDS: Tamsulosin HCl 0.4 MG CAP PO SCH (08:52)
[2018-11-18] MEDS: Gabapentin 100 MG CAP PO SCH ×2 (08:52→20:56)
[2018-11-18] MEDS: Ferrous Sulfate 325 MG TAB PO SCH ×2 (08:52→20:55)
[2018-11-18] MEDS: Losartan Potassium 50 MG TAB PO SCH (08:53)
[2018-11-18] MEDS: Dofetilide 0.125 MG CAP PO SCH ×2 (08:53→20:59)
[2018-11-18] MEDS: Lidocaine Patch Removal 1 EACH TOP SCH (08:54)
[2018-11-18] MEDS: HYDROcodone/Acetaminophen 5/325 mg Tablet PO PRN ×2 (10:47→21:04)
[2018-11-18] MEDS: Lidocaine 5% Patch TD SCH (20:55)
[2018-11-18] MEDS: Famotidine 20 MG TAB PO SCH (20:55)
[2018-11-18] MEDS: Atorvastatin Calcium 20 MG TAB PO SCH (20:56)
[2018-11-19] MEDS: Mometasone/Formoterol 60 PUFF AER INH SCH ×2 (05:54→17:46)
[2018-11-19] MEDS: guaiFENesin 100 MG/5 ML UDCUP PO SCH ×3 (09:07→20:53)
[2018-11-19] MEDS: Fluticasone Propionate Nasal Spray 16 gm Bottle NASAL SCH (09:07)
[2018-11-19] MEDS: Dofetilide 0.125 MG CAP PO SCH ×2 (09:08→20:57)
[2018-11-19] MEDS: predniSONE 20 MG TAB PO SCH (09:09)
[2018-11-19] MEDS: Polyethylene Glycol 3350 17 GM Packet PO SCH (09:09)
[2018-11-19] MEDS: Dutasteride 0.5 MG CAP PO SCH (09:10)
[2018-11-19] MEDS: Losartan Potassium 50 MG TAB PO SCH (09:10)
[2018-11-19] MEDS: Torsemide 20 MG TAB PO SCH ×2 (09:10→14:04)
[2018-11-19] MEDS: Ferrous Sulfate 325 MG TAB PO SCH ×2 (09:10→20:52)
[2018-11-19] MEDS: Gabapentin 100 MG CAP PO SCH ×2 (09:11→20:53)
[2018-11-19] MEDS: Tamsulosin HCl 0.4 MG CAP PO SCH (09:11)
[2018-11-19] MEDS: Apixaban 2.5 MG TAB PO SCH ×2 (09:11→20:52)
[2018-11-19] MEDS: Lidocaine Patch Removal 1 EACH TOP SCH (09:12)
[2018-11-19] MEDS: HYDROcodone/Acetaminophen 5/325 mg Tablet PO PRN ×2 (14:06→20:51)
[2018-11-19] MEDS: Famotidine 20 MG TAB PO SCH (20:52)
[2018-11-19] MEDS: Atorvastatin Calcium 20 MG TAB PO SCH (20:53)
[2018-11-19] MEDS: Lidocaine 5% Patch TD SCH (20:54)
[2018-11-20 05:27] LABS: Hemoglobin 9.1 g/dL (14.0-18.0); Platelet Count 325 thou/uL (130-400)
[2018-11-20] MEDS: Mometasone/Formoterol 60 PUFF AER INH SCH ×2 (06:05→17:57)
[2018-11-20] MEDS: Gabapentin 100 MG CAP PO SCH ×2 (09:11→20:38)
[2018-11-20] MEDS: Dutasteride 0.5 MG CAP PO SCH (09:11)
[2018-11-20] MEDS: Torsemide 20 MG TAB PO SCH ×2 (09:12→14:46)
[2018-11-20] MEDS: Apixaban 2.5 MG TAB PO SCH ×2 (09:21→20:38)
[2018-11-20] MEDS: Tamsulosin HCl 0.4 MG CAP PO SCH (09:21)
[2018-11-20] MEDS: Ferrous Sulfate 325 MG TAB PO SCH ×2 (09:21→20:38)
[2018-11-20] MEDS: predniSONE 20 MG TAB PO SCH (09:21)
[2018-11-20] MEDS: Losartan Potassium 50 MG TAB PO SCH (09:22)
[2018-11-20] MEDS: Fluticasone Propionate Nasal Spray 16 gm Bottle NASAL SCH (09:23)
[2018-11-20] MEDS: Lidocaine Patch Removal 1 EACH TOP SCH (09:24)
[2018-11-20] MEDS: HYDROcodone/Acetaminophen 5/325 mg Tablet PO PRN ×2 (09:24→20:39)
[2018-11-20] MEDS: Polyethylene Glycol 3350 17 GM Packet PO SCH (09:24)
[2018-11-20] MEDS: Dofetilide 0.125 MG CAP PO SCH ×2 (09:32→20:38)
[2018-11-20] MEDS: guaiFENesin 100 MG/5 ML UDCUP PO SCH ×3 (11:26→20:38)
--- NOTE | 2018-11-20 13:38 | PRG ---
DATE OF SERVICE: 11/20/2018 SUBJECTIVE: Mr. Yates states he is doing better today. He apparently was able to do more with therapy. He continues to have exertional shortness of breath. is trying to schedule him an appointment with assistant program director at [facility] for a second opinion. No other questions or concerns. He has an appointment with his environmental field office manager on to roller picker his hearing aids. OBJECTIVE: VITAL SIGNS: He is afebrile. Heart rate 89, respirations 18, oxygen saturation 94% on 4 L, blood pressure is 146/72. CARDIOVASCULAR SYSTEM: S1 and S2 plus. RESPIRATORY SYSTEM: Normal vesicular breath sounds. ABDOMEN: Soft, nontender. Bowel sounds heard in all quadrants. EXTREMITIES: Without cyanosis, clubbing. Trace pedal edema. Peripheral pulses are palpable. CENTRAL NERVOUS SYSTEM: Awake and responsive. Generalized weakness. LABORATORY VALUES: Shows hemoglobin and hematocrit of 9.1 and 28.6, BUN and creatinine; BUN is not back yet, but creatinine is 1.94. IMPRESSION: 1. Chronic obstructive pulmonary disease, GOLD stage III. 2. Chronic hypoxemic respiratory failure. 3. Chronic diastolic congestive heart failure. 4. Atrial fibrillation. 5. Chronic kidney disease stage 3 to 4. 6. Significant deconditioning. PLAN: 1. Continue current medications. 2. Heart-healthy diet. 3. Monitor heart rate and rhythm. 4. DVT prophylaxis-the patient is on Eliquis. 5. Decubitus precautions. 6. Stress ulcer prophylaxis. 7. Monitor respiratory status. 8. Physical therapy. 9. Discharge planning. Job ID: [id number]
[2018-11-20] MEDS: Famotidine 20 MG TAB PO SCH (20:38)
[2018-11-20] MEDS: Atorvastatin Calcium 20 MG TAB PO SCH (20:38)
[2018-11-20] MEDS: Lidocaine 5% Patch TD SCH (20:43)
[2018-11-21] MEDS: Mometasone/Formoterol 60 PUFF AER INH SCH ×2 (05:22→18:17)
[2018-11-21] MEDS: Torsemide 20 MG TAB PO SCH ×2 (07:53→14:20)
[2018-11-21] MEDS: Dutasteride 0.5 MG CAP PO SCH (07:53)
[2018-11-21] MEDS: Tamsulosin HCl 0.4 MG CAP PO SCH (07:53)
[2018-11-21] MEDS: Ferrous Sulfate 325 MG TAB PO SCH ×2 (07:54→20:06)
[2018-11-21] MEDS: predniSONE 20 MG TAB PO SCH (07:54)
[2018-11-21] MEDS: HYDROcodone/Acetaminophen 5/325 mg Tablet PO PRN ×2 (07:54→20:06)
[2018-11-21] MEDS: Apixaban 2.5 MG TAB PO SCH ×2 (07:54→20:06)
[2018-11-21] MEDS: Gabapentin 100 MG CAP PO SCH ×2 (07:54→20:06)
[2018-11-21] MEDS: Dofetilide 0.125 MG CAP PO SCH ×2 (07:55→20:05)
[2018-11-21] MEDS: Losartan Potassium 50 MG TAB PO SCH (07:55)
[2018-11-21] MEDS: Fluticasone Propionate Nasal Spray 16 gm Bottle NASAL SCH (07:55)
[2018-11-21] MEDS: guaiFENesin 100 MG/5 ML UDCUP PO SCH ×3 (07:55→20:05)
[2018-11-21] MEDS: Lidocaine Patch Removal 1 EACH TOP SCH (07:57)
[2018-11-21] MEDS: Polyethylene Glycol 3350 17 GM Packet PO SCH (07:58)
--- NOTE | 2018-11-21 13:27 | PRG ---
DATE OF SERVICE: 11/21/2018 SUBJECTIVE: Mr. Yates is up in chair and denies any complaints. He apparently did well with his walking, tolerating his p.o. intake. Denies any chest pain, PND, or orthopnea. OBJECTIVE: VITAL SIGNS: He is afebrile, heart rate 106, respirations 18, and oxygen saturation 92% on 4 L. CARDIOVASCULAR: S1 and S2 plus. RESPIRATORY: Normal vesicular breath sounds. ABDOMEN: Soft, obese, nontender. Bowel sounds heard in all quadrants. EXTREMITIES: Without cyanosis or clubbing. Trace edema. CENTRAL NERVOUS SYSTEM: Awake and responsive. Generalized weakness. IMPRESSION: 1. Chronic obstructive pulmonary disease, GOLD stage III. 2. Chronic hypoxemic respiratory failure. 3. Chronic diastolic congestive heart failure. 4. Atrial fibrillation. 5. Anemia of chronic disease. 6. Chronic kidney disease, stage 4. 7. Deconditioning, slow improvement. PLAN: 1. Continue current medications. 2. Heart healthy diet. 3. Monitor heart rate and rhythm. 4. Titrate oxygen as tolerated. 5. Monitor respiratory status. 6. DVT prophylaxis-the patient is on Eliquis. 7. Decubitus precautions. 8. Stress ulcer prophylaxis. 9. Continue therapy. Job ID: [id number]
[2018-11-21] MEDS: Lidocaine 5% Patch TD SCH (20:05)
[2018-11-21] MEDS: Famotidine 20 MG TAB PO SCH (20:06)
[2018-11-21] MEDS: Atorvastatin Calcium 20 MG TAB PO SCH (20:06)
[2018-11-22] MEDS: Mometasone/Formoterol 60 PUFF AER INH SCH ×2 (06:21→17:35)
[2018-11-22] MEDS: predniSONE 20 MG TAB PO SCH (09:04)
[2018-11-22] MEDS: Apixaban 2.5 MG TAB PO SCH ×2 (09:04→20:47)
[2018-11-22] MEDS: Fluticasone Propionate Nasal Spray 16 gm Bottle NASAL SCH (09:05)
[2018-11-22] MEDS: Ferrous Sulfate 325 MG TAB PO SCH ×2 (09:05→20:46)
[2018-11-22] MEDS: Dutasteride 0.5 MG CAP PO SCH (09:05)
[2018-11-22] MEDS: Dofetilide 0.125 MG CAP PO SCH ×2 (09:05→20:46)
[2018-11-22] MEDS: guaiFENesin 100 MG/5 ML UDCUP PO SCH ×3 (09:06→20:48)
[2018-11-22] MEDS: Gabapentin 100 MG CAP PO SCH ×2 (09:06→20:48)
[2018-11-22] MEDS: Polyethylene Glycol 3350 17 GM Packet PO SCH (09:07)
[2018-11-22] MEDS: Torsemide 20 MG TAB PO SCH ×2 (09:07→14:17)
[2018-11-22] MEDS: Tamsulosin HCl 0.4 MG CAP PO SCH (09:07)
[2018-11-22] MEDS: Lidocaine Patch Removal 1 EACH TOP SCH (09:07)
[2018-11-22] MEDS: Losartan Potassium 50 MG TAB PO SCH (09:07)
--- NOTE | 2018-11-22 13:08 | PRG ---
DATE OF SERVICE: 11/22/2018 SUBJECTIVE: Mr. Yates is doing well. Denies any complaints. Resting comfortably. Just finished his lunch. No family at bedside. OBJECTIVE: VITAL SIGNS: He is afebrile. Heart rate 89, respirations 20, oxygen saturation 91% on 4 L, and blood pressure is 137/70. CARDIOVASCULAR: S1 and S2 plus. RESPIRATORY: Normal vesicular breath sounds. ABDOMEN: Soft, obese, nontender. Bowel sounds heard in all quadrants. EXTREMITIES: Without cyanosis or clubbing. Trace edema. CENTRAL NERVOUS SYSTEM: Awake and responsive. Generalized weakness. IMPRESSION: 1. Chronic obstructive pulmonary disease, GOLD stage III. 2. Chronic hypoxemic respiratory failure. 3. Chronic diastolic congestive heart failure. 4. Chronic kidney disease stage 3 to 4. 5. Atrial fibrillation. 6. Deconditioning. PLAN: 1. Continue current medications. Nutritional support. 1. DVT and stress ulcer prophylaxis. 2. Decubitus precautions. 3. Routine laboratory values. 4. Titrate oxygen. 5. Nocturnal CPAP for sleep apnea. 6. Has appointment with traffic technician tomorrow for his hearing aids for his hardness of hearing. 7. Physical therapy. 8. Routine laboratory values. Job ID: [id number]
[2018-11-22] MEDS: HYDROcodone/Acetaminophen 5/325 mg Tablet PO PRN (20:46)
[2018-11-22] MEDS: Atorvastatin Calcium 20 MG TAB PO SCH (20:47)
[2018-11-22] MEDS: Famotidine 20 MG TAB PO SCH (20:47)
[2018-11-22] MEDS: Lidocaine 5% Patch TD SCH (20:48)
[2018-11-23] MEDS: Mometasone/Formoterol 60 PUFF AER INH SCH ×2 (06:21→17:59)
[2018-11-23] MEDS: guaiFENesin 100 MG/5 ML UDCUP PO SCH ×3 (09:06→21:06)
[2018-11-23] MEDS: Losartan Potassium 50 MG TAB PO SCH (09:06)
[2018-11-23] MEDS: Dofetilide 0.125 MG CAP PO SCH ×2 (09:06→21:23)
[2018-11-23] MEDS: Torsemide 20 MG TAB PO SCH ×2 (09:07→16:33)
[2018-11-23] MEDS: Apixaban 2.5 MG TAB PO SCH ×2 (09:07→21:07)
[2018-11-23] MEDS: Dutasteride 0.5 MG CAP PO SCH (09:07)
[2018-11-23] MEDS: predniSONE 20 MG TAB PO SCH (09:07)
[2018-11-23] MEDS: Gabapentin 100 MG CAP PO SCH ×2 (09:07→21:09)
[2018-11-23] MEDS: Tamsulosin HCl 0.4 MG CAP PO SCH (09:07)
[2018-11-23] MEDS: Fluticasone Propionate Nasal Spray 16 gm Bottle NASAL SCH (09:07)
[2018-11-23] MEDS: Ferrous Sulfate 325 MG TAB PO SCH ×2 (09:08→21:07)
[2018-11-23] MEDS: Lidocaine Patch Removal 1 EACH TOP SCH (09:09)
[2018-11-23] MEDS: HYDROcodone/Acetaminophen 5/325 mg Tablet PO PRN ×3 (09:13→21:13)
[2018-11-23] MEDS: Polyethylene Glycol 3350 17 GM Packet PO SCH (09:14)
--- NOTE | 2018-11-23 12:57 | PRG ---
DATE OF SERVICE: 11/23/2018 SUBJECTIVE: Mr. Yates is doing well. Denies any complaints. Seen on his way to see his dealer relationship manager. He is also going to stop by his reading assistant and get his glasses tightened. No other concerns or questions. OBJECTIVE: VITAL SIGNS: He is afebrile, heart rate 87, respirations 22, and oxygen saturation 92% on 3.5 L. CARDIOVASCULAR SYSTEM: S1 and S2 plus. RESPIRATORY SYSTEM: Normal vesicular breath sounds with decreased air entry at the bases. ABDOMEN: Soft, obese, nontender. Bowel sounds in all quadrants. EXTREMITIES: Without cyanosis or clubbing. Trace edema. CENTRAL NERVOUS SYSTEM: Awake and responsive. Generalized weakness. IMPRESSION: 1. Chronic obstructive pulmonary disease, GOLD stage 3. 2. Chronic kidney disease, stage 3 to 4. 3. Chronic diastolic congestive heart failure. 4. Atrial fibrillation. 5. Chronic hypoxemic respiratory failure. 6. Improving deconditioning. 7. Hardness of hearing. 8. Obstructive sleep apnea. PLAN: 1. Continue current medications. 2. Heart healthy diet. 3. Monitor respiratory status. 4. Nocturnal CPAP. 5. Continue Eliquis. 6. Decubitus precaution. 7. Stress ulcer prophylaxis. 8. Physical therapy. 9. Routine laboratory values. Job ID: [id number]
[2018-11-23] MEDS: Atorvastatin Calcium 20 MG TAB PO SCH (21:07)
[2018-11-23] MEDS: Famotidine 20 MG TAB PO SCH (21:08)
[2018-11-23] MEDS: Lidocaine 5% Patch TD SCH (21:11)
[2018-11-24] MEDS: Mometasone/Formoterol 60 PUFF AER INH SCH ×2 (05:42→22:43)
[2018-11-24] MEDS: Apixaban 2.5 MG TAB PO SCH ×2 (08:21→21:15)
[2018-11-24] MEDS: predniSONE 20 MG TAB PO SCH (08:21)
[2018-11-24] MEDS: Dutasteride 0.5 MG CAP PO SCH (08:22)
[2018-11-24] MEDS: Ferrous Sulfate 325 MG TAB PO SCH ×2 (08:22→21:15)
[2018-11-24] MEDS: Fluticasone Propionate Nasal Spray 16 gm Bottle NASAL SCH (08:22)
[2018-11-24] MEDS: guaiFENesin 100 MG/5 ML UDCUP PO SCH ×3 (08:23→22:43)
[2018-11-24] MEDS: Gabapentin 100 MG CAP PO SCH ×2 (08:23→21:15)
[2018-11-24] MEDS: Losartan Potassium 50 MG TAB PO SCH (08:23)
[2018-11-24] MEDS: Torsemide 20 MG TAB PO SCH ×2 (08:24→22:43)
[2018-11-24] MEDS: Tamsulosin HCl 0.4 MG CAP PO SCH (08:24)
[2018-11-24] MEDS: Polyethylene Glycol 3350 17 GM Packet PO SCH (08:24)
[2018-11-24] MEDS: Dofetilide 0.125 MG CAP PO SCH ×2 (08:30→21:14)
[2018-11-24] MEDS: Lidocaine Patch Removal 1 EACH TOP SCH (08:31)
[2018-11-24] MEDS: Lidocaine 5% Patch TD SCH (21:14)
[2018-11-24] MEDS: Famotidine 20 MG TAB PO SCH (21:15)
[2018-11-24] MEDS: Atorvastatin Calcium 20 MG TAB PO SCH (21:15)
[2018-11-24] MEDS: Acetaminophen/Codeine 30-300mg Tablet PO PRN (21:16)
[2018-11-25] MEDS: Mometasone/Formoterol 60 PUFF AER INH SCH ×2 (05:39→17:39)
[2018-11-25] MEDS: predniSONE 20 MG TAB PO SCH (07:58)
[2018-11-25] MEDS: Polyethylene Glycol 3350 17 GM Packet PO SCH (09:04)
[2018-11-25] MEDS: Dutasteride 0.5 MG CAP PO SCH (09:05)
[2018-11-25] MEDS: Dofetilide 0.125 MG CAP PO SCH ×2 (09:05→20:13)
[2018-11-25] MEDS: guaiFENesin 100 MG/5 ML UDCUP PO SCH ×3 (09:05→20:11)
[2018-11-25] MEDS: Apixaban 2.5 MG TAB PO SCH ×2 (09:05→20:12)
[2018-11-25] MEDS: Losartan Potassium 50 MG TAB PO SCH (09:05)
[2018-11-25] MEDS: Gabapentin 100 MG CAP PO SCH ×2 (09:06→20:10)
[2018-11-25] MEDS: Ferrous Sulfate 325 MG TAB PO SCH ×2 (09:06→20:12)
[2018-11-25] MEDS: Tamsulosin HCl 0.4 MG CAP PO SCH (09:06)
[2018-11-25] MEDS: Fluticasone Propionate Nasal Spray 16 gm Bottle NASAL SCH (09:06)
[2018-11-25] MEDS: Torsemide 20 MG TAB PO SCH ×2 (09:06→14:48)
[2018-11-25] MEDS: Lidocaine Patch Removal 1 EACH TOP SCH (09:07)
[2018-11-25] MEDS: Acetaminophen/Codeine 30-300mg Tablet PO PRN ×2 (11:34→20:10)
[2018-11-25] MEDS: Atorvastatin Calcium 20 MG TAB PO SCH (20:10)
[2018-11-25] MEDS: Lidocaine 5% Patch TD SCH (20:12)
[2018-11-25] MEDS: Famotidine 20 MG TAB PO SCH (20:12)
[2018-11-26] MEDS: Mometasone/Formoterol 60 PUFF AER INH SCH ×2 (06:18→18:10)
[2018-11-26] MEDS: Dutasteride 0.5 MG CAP PO SCH (09:02)
[2018-11-26] MEDS: Apixaban 2.5 MG TAB PO SCH ×2 (09:02→21:10)
[2018-11-26] MEDS: predniSONE 20 MG TAB PO SCH (09:02)
[2018-11-26] MEDS: Dofetilide 0.125 MG CAP PO SCH ×2 (09:02→21:08)
[2018-11-26] MEDS: Ferrous Sulfate 325 MG TAB PO SCH ×2 (09:02→21:10)
[2018-11-26] MEDS: guaiFENesin 100 MG/5 ML UDCUP PO SCH ×3 (09:03→21:08)
[2018-11-26] MEDS: Losartan Potassium 50 MG TAB PO SCH (09:03)
[2018-11-26] MEDS: Gabapentin 100 MG CAP PO SCH ×2 (09:03→21:10)
[2018-11-26] MEDS: Fluticasone Propionate Nasal Spray 16 gm Bottle NASAL SCH (09:03)
[2018-11-26] MEDS: Tamsulosin HCl 0.4 MG CAP PO SCH (09:04)
[2018-11-26] MEDS: Polyethylene Glycol 3350 17 GM Packet PO SCH (09:04)
[2018-11-26] MEDS: Torsemide 20 MG TAB PO SCH ×2 (09:05→14:39)
[2018-11-26] MEDS: Lidocaine Patch Removal 1 EACH TOP SCH (09:13)
--- NOTE | 2018-11-26 15:12 | PRG ---
DATE OF SERVICE: 11/26/2018 SUBJECTIVE: Mr. Yates is doing well. Denies any complaints. Resting comfortably in his chair. His oxygen saturation have been on the low side today. Denies any PND or orthopnea. Discussed with nursing. OBJECTIVE: VITAL SIGNS: He is afebrile; heart rate 92; respirations 22; and oxygen saturation 99% on 4 L, this morning, it was 96%. CARDIOVASCULAR SYSTEM: S1 and S2 plus. RESPIRATORY SYSTEM: Normal vesicular breath sounds. Decreased air entry in the bases. ABDOMEN: Soft, obese, and nontender. Bowel sounds heard in all quadrants. EXTREMITIES: Without cyanosis or clubbing. Trace edema. CENTRAL NERVOUS SYSTEM: Awake and responsive. Generalized weakness. IMPRESSION: 1. Chronic kidney disease, stage 3 to 4. 2. Chronic hypoxemic respiratory failure. 3. Chronic obstructive pulmonary disease, GOLD stage III. 4. Chronic diastolic congestive heart failure. 5. Atrial fibrillation. 6. Deconditioning. 7. Hardness of hearing. 8. Obstructive sleep apnea. PLAN: 1. Continue current medications. 2. Nutritional support. 3. DVT prophylaxis - the patient is on Eliquis. 4. Decubitus precautions. 5. Stress ulcer prophylaxis. 6. Recheck CBC and BMP tomorrow. 7. Physical therapy. 8. Titrate oxygen as tolerated. Job ID: [id number]
[2018-11-26] MEDS: Lidocaine 5% Patch TD SCH (21:08)
[2018-11-26] MEDS: Acetaminophen/Codeine 30-300mg Tablet PO PRN (21:08)
[2018-11-26] MEDS: Famotidine 20 MG TAB PO SCH (21:10)
[2018-11-26] MEDS: Atorvastatin Calcium 20 MG TAB PO SCH (21:10)
[2018-11-27 05:41] LABS: #Basophils 0.1 thou/uL (0.0-0.2); #Lymphocytes 1.2 thou/uL (1.20-3.40); #Monocytes 0.7 thou/uL (0.11-0.59); #Neutrophils 15.1 thou/uL (1.40-6.50); %Basophils 0.3 % (0.0-1.0); %Eosinophils 0.2 % (0.0-10.0); %Lymphocytes 6.8 % (21.0-51.0); %Monocytes 4.3 % (0.0-10.0); %Neutrophils 88.4 % (42.0-75.0); Hemoglobin 8.8 g/dL (14.0-18.0); Mean Corpuscular HGB CONC 31.3 g/dL (32.0-36.0); Mean Corpuscular Hemoglobin 26.6 pg (27.0-31.0); Mean Corpuscular Volume 84.9 fL (78.0-98.0); Mean Platelet Volume 6.2 fL (7.4-10.4); Platelet Count 337 thou/uL (130-400); RBC Distribution Width 15.7 % (11.5-14.5); White Blood Cell (WBC) Count 17.1 thou/uL (4.8-10.8)
[2018-11-27 05:52] LABS: Anion Gap 15 mmol/L (10-20); BUN (Urea Nitrogen) 51 mg/dL (8.4-25.7); Calc. Creatinine Clearance 41 mL/min (70-130); Calcium 8.3 mg/dL (7.8-10.44); Carbon Dioxide 26 mmol/L (23-31); Chloride 102 mmol/L (98-107); Estimated GFR-MDRD 38; Glucose 91 mg/dL (83-110); Potassium 4.1 mmol/L (3.5-5.1); Sodium 139 mmol/L (136-145)
[2018-11-27] MEDS: Mometasone/Formoterol 60 PUFF AER INH SCH ×2 (06:16→19:49)
[2018-11-27] MEDS: Polyethylene Glycol 3350 17 GM Packet PO SCH (08:10)
[2018-11-27] MEDS: Losartan Potassium 50 MG TAB PO SCH (08:16)
[2018-11-27] MEDS: Torsemide 20 MG TAB PO SCH ×2 (08:16→14:54)
[2018-11-27] MEDS: predniSONE 20 MG TAB PO SCH (08:17)
[2018-11-27] MEDS: Apixaban 2.5 MG TAB PO SCH ×2 (08:17→21:04)
[2018-11-27] MEDS: Tamsulosin HCl 0.4 MG CAP PO SCH (08:17)
[2018-11-27] MEDS: Ferrous Sulfate 325 MG TAB PO SCH ×2 (08:18→21:04)
[2018-11-27] MEDS: Gabapentin 100 MG CAP PO SCH ×2 (08:18→21:04)
[2018-11-27] MEDS: Dutasteride 0.5 MG CAP PO SCH (08:18)
[2018-11-27] MEDS: guaiFENesin 100 MG/5 ML UDCUP PO SCH ×3 (08:19→21:02)
[2018-11-27] MEDS: Fluticasone Propionate Nasal Spray 16 gm Bottle NASAL SCH (08:20)
[2018-11-27] MEDS: Dofetilide 0.125 MG CAP PO SCH ×2 (09:14→21:04)
[2018-11-27] MEDS: Lidocaine Patch Removal 1 EACH TOP SCH (09:17)
--- NOTE | 2018-11-27 13:13 | PRG ---
DATE OF SERVICE: 11/27/2018 SUBJECTIVE: Mr. Yates is up in his chair and denies any complaints. He is resting comfortably, just finished his lunch. No family at bedside. OBJECTIVE: VITAL SIGNS: He is afebrile. Heart rate is 86, respirations 20, and oxygen saturation 98% on 4 L. CARDIOVASCULAR: S1 and S2 plus. RESPIRATORY: Normal vesicular breath sounds. ABDOMEN: Soft, obese, nontender. Bowel sounds heard in all quadrants. EXTREMITIES: Without cyanosis or clubbing. CENTRAL NERVOUS SYSTEM: Awake and responsive. Generalized weakness. LABORATORY DATA: Blood tests from this morning show a white count of 17.1, H and H are 8.8 and 28.1. Chemistry shows sodium 139, potassium 4.1, BUN and creatinine are 51 and 1.75. IMPRESSION: 1. Chronic obstructive pulmonary disease, GOLD stage III. 2. Chronic hypoxemic respiratory failure. 3. Chronic diastolic congestive heart failure. 4. Leukocytosis of unknown etiology, he is on steroids. No signs of infection. 5. Atrial fibrillation. 6. Chronic kidney disease stage 3 to 4. PLAN: 1. Continue current medications. 2. Monitor for any signs or symptoms of infection. 3. Hold off on empiric antibiotics. 4. Continue handheld nebulizer treatment and titrate oxygen as tolerated. 5. DVT prophylaxis-he is on Eliquis. 6. Heart healthy diet. 7. Physical therapy. Continue nocturnal CPAP. 8. Recheck CBC tomorrow. Job ID: [id number]
--- NOTE | 2018-11-27 13:15 | PRG ---
DATE OF SERVICE: 11/24/2018 SUBJECTIVE: Mr. Yates is doing the same. Denies any complaints. Resting comfortably. Discussed with nursing. OBJECTIVE: VITAL SIGNS: He is afebrile. Heart rate is 95, respirations 20, oxygen saturation is 92%, and blood pressure is 127/70. CARDIOVASCULAR: S1 and S2 plus. RESPIRATORY: Normal vesicular breath sounds. ABDOMEN: Soft, obese, nontender. Bowel sounds heard in all quadrants. EXTREMITIES: Without cyanosis or clubbing. Trace edema. CENTRAL NERVOUS SYSTEM: Grossly nonfocal. IMPRESSION: 1. Chronic kidney disease stage 4. 2. Chronic obstructive pulmonary disease, GOLD stage III likely. 3. Chronic diastolic congestive heart failure. 4. Chronic hypoxemic respiratory failure. 5. Atrial fibrillation. 6. Obstructive sleep apnea and improving deconditioning. PLAN: 1. Continue current medications. 2. Heart healthy diet. 3. Monitor respiratory status. 4. Monitor heart rate and rhythm. 5. Continue to titrate oxygen. 6. Physical therapy. 7. Routine laboratory values. 8. Reinforce compliance with CPAP. Job ID: [id number]
[2018-11-27] MEDS: Lidocaine 5% Patch TD SCH (21:02)
[2018-11-27] MEDS: Atorvastatin Calcium 20 MG TAB PO SCH (21:03)
[2018-11-27] MEDS: Acetaminophen/Codeine 30-300mg Tablet PO PRN (21:03)
[2018-11-27] MEDS: Famotidine 20 MG TAB PO SCH (21:04)
[2018-11-28 05:25] LABS: #Basophils 0.1 thou/uL (0.0-0.2); #Lymphocytes 1.2 thou/uL (1.20-3.40); #Monocytes 0.7 thou/uL (0.11-0.59); %Basophils 0.4 % (0.0-1.0); %Eosinophils 0.3 % (0.0-10.0); %Lymphocytes 9.1 % (21.0-51.0); %Monocytes 5.4 % (0.0-10.0); %Neutrophils 84.8 % (42.0-75.0); Hemoglobin 8.4 g/dL (14.0-18.0); Mean Corpuscular HGB CONC 31.2 g/dL (32.0-36.0); Mean Corpuscular Hemoglobin 26.5 pg (27.0-31.0); Mean Corpuscular Volume 84.8 fL (78.0-98.0); Platelet Count 298 thou/uL (130-400); RBC Distribution Width 15.6 % (11.5-14.5); Red Blood Cell (RBC) Count 3.17 mill/uL (4.70-6.10)
[2018-11-28] MEDS: Mometasone/Formoterol 60 PUFF AER INH SCH ×2 (06:16→18:36)
[2018-11-28] MEDS: Polyethylene Glycol 3350 17 GM Packet PO SCH (08:09)
[2018-11-28] MEDS: Dofetilide 0.125 MG CAP PO SCH ×2 (08:10→22:04)
[2018-11-28] MEDS: guaiFENesin 100 MG/5 ML UDCUP PO SCH ×3 (08:11→22:02)
[2018-11-28] MEDS: Dutasteride 0.5 MG CAP PO SCH (08:12)
[2018-11-28] MEDS: predniSONE 20 MG TAB PO SCH (08:12)
[2018-11-28] MEDS: Ferrous Sulfate 325 MG TAB PO SCH ×2 (08:12→22:04)
[2018-11-28] MEDS: Apixaban 2.5 MG TAB PO SCH ×2 (08:12→22:04)
[2018-11-28] MEDS: Torsemide 20 MG TAB PO SCH ×2 (08:13→14:23)
[2018-11-28] MEDS: Gabapentin 100 MG CAP PO SCH ×2 (08:13→22:02)
[2018-11-28] MEDS: Tamsulosin HCl 0.4 MG CAP PO SCH (08:13)
[2018-11-28] MEDS: Losartan Potassium 50 MG TAB PO SCH (08:14)
[2018-11-28] MEDS: Lidocaine Patch Removal 1 EACH TOP SCH (08:15)
[2018-11-28] MEDS: Fluticasone Propionate Nasal Spray 16 gm Bottle NASAL SCH (08:17)
--- NOTE | 2018-11-28 13:31 | PRG ---
DATE OF SERVICE: 11/28/2018 SUBJECTIVE: Mr. Yates is doing well. Denies any complaints. Slowly improving with therapy. On and off fluctuation with his oxygen saturation, but has not required more than 4 L. OBJECTIVE: VITAL SIGNS: He is afebrile. Heart rate 87, respirations 18, oxygen saturation 93% on 4 L, and blood pressure 113/54. CARDIOVASCULAR SYSTEM: S1 and S2 plus. RESPIRATORY SYSTEM: Normal vesicular breath sounds. ABDOMEN: Soft, obese, and nontender. Bowel sounds heard in all quadrants. EXTREMITIES: Without cyanosis or clubbing. Trace edema. CENTRAL NERVOUS SYSTEM: Awake and responsive. Generalized weakness. LABORATORY VALUES: White count is down to 13,000, hemoglobin and hematocrit are 8.4 and 26.9, 84% neutrophils, 9% lymphocytes, no bands. IMPRESSION: 1. Chronic obstructive pulmonary disease, likely GOLD stage III. 2. Chronic hypoxemic respiratory failure. 3. Chronic diastolic congestive heart failure. 4. Atrial fibrillation. 5. Chronic kidney disease, stage 4. 6. Obstructive sleep apnea. 7. Improving deconditioning. 8. Anemia of chronic disease. 9. Leukocytosis, unknown etiology. PLAN: 1. Continue current medications. 2. Heart healthy diet. 3. Monitor heart rate and rhythm. 4. Titrate oxygen. 5. Physical therapy. 6. Continue Eliquis. 7. Reinforce complaints with CPAP. 8. Routine laboratory values. 9. Discussed with the patient in detail. All questions answered. Job ID: [id number]
[2018-11-28] MEDS: Lidocaine 5% Patch TD SCH (22:02)
[2018-11-28] MEDS: Atorvastatin Calcium 20 MG TAB PO SCH (22:02)
[2018-11-28] MEDS: Acetaminophen/Codeine 30-300mg Tablet PO PRN (22:03)
[2018-11-28] MEDS: Famotidine 20 MG TAB PO SCH (22:03)
[2018-11-29] MEDS: Mometasone/Formoterol 60 PUFF AER INH SCH ×2 (06:19→18:23)
[2018-11-29] MEDS: Polyethylene Glycol 3350 17 GM Packet PO SCH (08:46)
[2018-11-29] MEDS: Apixaban 2.5 MG TAB PO SCH ×2 (08:47→20:57)
[2018-11-29] MEDS: predniSONE 20 MG TAB PO SCH (08:47)
[2018-11-29] MEDS: Tamsulosin HCl 0.4 MG CAP PO SCH (08:47)
[2018-11-29] MEDS: Ferrous Sulfate 325 MG TAB PO SCH ×2 (08:47→20:57)
[2018-11-29] MEDS: guaiFENesin 100 MG/5 ML UDCUP PO SCH ×3 (08:47→20:57)
[2018-11-29] MEDS: Torsemide 20 MG TAB PO SCH ×2 (08:47→14:41)
[2018-11-29] MEDS: Gabapentin 100 MG CAP PO SCH ×2 (08:48→20:57)
[2018-11-29] MEDS: Losartan Potassium 50 MG TAB PO SCH (08:48)
[2018-11-29] MEDS: Dutasteride 0.5 MG CAP PO SCH (08:48)
[2018-11-29] MEDS: Dofetilide 0.125 MG CAP PO SCH ×2 (08:48→20:57)
[2018-11-29] MEDS: Fluticasone Propionate Nasal Spray 16 gm Bottle NASAL SCH (08:49)
[2018-11-29] MEDS: Lidocaine Patch Removal 1 EACH TOP SCH (08:56)
--- NOTE | 2018-11-29 13:15 | PRG ---
DATE OF SERVICE: 11/29/2018 SUBJECTIVE: Mr. Yates is doing well. Denies any complaints. Apparently, he is having some work done at his home to help him get around, so his home is not going to be safe until the work is done, it is supposed to end next . Therapy is going to continue to work with him until then. OBJECTIVE: VITAL SIGNS: He is afebrile, heart rate 90, respirations 20, oxygen saturation 97% on 4 L, and blood pressure 138/66. CARDIOVASCULAR SYSTEM: S1 and S2 plus. RESPIRATORY SYSTEM: Normal vesicular breath sounds. ABDOMEN: Soft and nontender. Bowel sounds heard in all quadrants. EXTREMITIES: Without cyanosis or clubbing. Trace edema. CENTRAL NERVOUS SYSTEM: Awake and responsive. Generalized weakness. IMPRESSION: 1. Chronic obstructive pulmonary disease, GOLD stage III likely. 2. Chronic diastolic congestive heart failure. 3. Chronic hypoxemic respiratory failure. 4. Atrial fibrillation. 5. Chronic kidney disease, stage 3 to 4. 6. Deconditioning. PLAN: 1. Continue current medications. 2. Nutritional support. 3. DVT prophylaxis, on Eliquis. 4. Decubitus precautions. 5. Stress ulcer prophylaxis. 6. Physical therapy. 7. Monitor respiratory status. 8. Routine laboratory values. Job ID: [id number]
[2018-11-29] MEDS: Lidocaine 5% Patch TD SCH (20:56)
[2018-11-29] MEDS: Atorvastatin Calcium 20 MG TAB PO SCH (20:57)
[2018-11-29] MEDS: Famotidine 20 MG TAB PO SCH (20:57)
[2018-11-29] MEDS: Acetaminophen/Codeine 30-300mg Tablet PO PRN (20:59)
[2018-11-30] MEDS: Mometasone/Formoterol 60 PUFF AER INH SCH ×2 (06:06→17:34)
[2018-11-30] MEDS: Losartan Potassium 50 MG TAB PO SCH (08:40)
[2018-11-30] MEDS: Gabapentin 100 MG CAP PO SCH ×2 (08:40→21:31)
[2018-11-30] MEDS: Ferrous Sulfate 325 MG TAB PO SCH ×2 (08:40→21:33)
[2018-11-30] MEDS: Apixaban 2.5 MG TAB PO SCH ×2 (08:40→21:32)
[2018-11-30] MEDS: predniSONE 20 MG TAB PO SCH (08:40)
[2018-11-30] MEDS: Torsemide 20 MG TAB PO SCH ×2 (08:40→14:31)
[2018-11-30] MEDS: Dutasteride 0.5 MG CAP PO SCH (08:40)
[2018-11-30] MEDS: Tamsulosin HCl 0.4 MG CAP PO SCH (08:40)
[2018-11-30] MEDS: Fluticasone Propionate Nasal Spray 16 gm Bottle NASAL SCH (08:41)
[2018-11-30] MEDS: Polyethylene Glycol 3350 17 GM Packet PO SCH (08:41)
[2018-11-30] MEDS: guaiFENesin 100 MG/5 ML UDCUP PO SCH ×3 (08:41→21:33)
[2018-11-30] MEDS: Lidocaine Patch Removal 1 EACH TOP SCH (08:41)
[2018-11-30] MEDS: Dofetilide 0.125 MG CAP PO SCH ×2 (08:41→21:32)
--- NOTE | 2018-11-30 13:22 | PRG ---
DATE OF SERVICE: 11/30/2018 SUBJECTIVE: Mr. Yates is doing well, up in his chair. He apparently had a good therapy session yesterday. His appointment with Pulmonary has been 3 point, and apparently, it is today this afternoon. No family at bedside. OBJECTIVE: VITAL SIGNS: He is afebrile, heart rate 87, respirations 20, oxygen saturation 94% on 4 L, and blood pressure is 151/72. CARDIOVASCULAR SYSTEM: S1 and S2 plus. RESPIRATORY SYSTEM: Normal vesicular breath sounds. ABDOMEN: Soft and nontender. Bowel sounds heard in all quadrants. EXTREMITIES: Without cyanosis or clubbing. Trace edema. CENTRAL NERVOUS SYSTEM: Awake and responsive. Generalized weakness. IMPRESSION: 1. Chronic obstructive pulmonary disease, GOLD stage III. 2. Chronic hypoxemic respiratory failure. 3. Chronic diastolic congestive heart failure. 4. Chronic kidney disease, stage 3 to 4. 5. Atrial fibrillation. 6. Deconditioning. 7. Obstructive sleep apnea. PLAN: 1. Continue current medications. 2. Nutritional support. 3. Heart healthy diet. 4. Monitor heart rate and rhythm. 5. Titrate oxygen. 6. Physical therapy. 7. DVT prophylaxis on Eliquis. 8. Decubitus precautions. 9. Stress ulcer prophylaxis. 10. Await Pulmonary opinion. 11. Discussed with the patient in detail. All questions answered. Job ID: [id number]
[2018-11-30] MEDS: Lidocaine 5% Patch TD SCH (21:30)
[2018-11-30] MEDS: Famotidine 20 MG TAB PO SCH (21:32)
[2018-11-30] MEDS: Acetaminophen/Codeine 30-300mg Tablet PO PRN (21:32)
[2018-11-30] MEDS: Atorvastatin Calcium 20 MG TAB PO SCH (21:33)
[2018-12-01] MEDS: Mometasone/Formoterol 60 PUFF AER INH SCH ×2 (05:59→18:39)
[2018-12-01] MEDS: Dutasteride 0.5 MG CAP PO SCH (08:31)
[2018-12-01] MEDS: Dofetilide 0.125 MG CAP PO SCH ×2 (08:31→21:22)
[2018-12-01] MEDS: guaiFENesin 100 MG/5 ML UDCUP PO SCH ×3 (08:32→21:21)
[2018-12-01] MEDS: Ferrous Sulfate 325 MG TAB PO SCH ×2 (08:33→21:22)
[2018-12-01] MEDS: Polyethylene Glycol 3350 17 GM Packet PO SCH (08:33)
[2018-12-01] MEDS: Apixaban 2.5 MG TAB PO SCH ×2 (08:35→21:22)
[2018-12-01] MEDS: Tamsulosin HCl 0.4 MG CAP PO SCH (08:35)
[2018-12-01] MEDS: Gabapentin 100 MG CAP PO SCH ×2 (08:35→21:22)
[2018-12-01] MEDS: Azithromycin 250 MG TAB PO SCH (08:36)
[2018-12-01] MEDS: predniSONE 20 MG TAB PO SCH (08:36)
[2018-12-01] MEDS: Fluticasone Propionate Nasal Spray 16 gm Bottle NASAL SCH (08:37)
[2018-12-01] MEDS: Losartan Potassium 50 MG TAB PO SCH (08:38)
[2018-12-01] MEDS: Lidocaine Patch Removal 1 EACH TOP SCH (08:50)
[2018-12-01] MEDS: Torsemide 20 MG TAB PO SCH ×2 (08:50→13:55)
[2018-12-01] MEDS: Acetaminophen/Codeine 30-300mg Tablet PO PRN ×2 (13:57→21:22)
--- NOTE | 2018-12-01 18:02 | PRG ---
DATE OF SERVICE: 12/01/2018 SUBJECTIVE: Mr. Yates is resting comfortably. Denies any complaints. He saw his applications sales consultant yesterday. He has been started on Zithromax 250 mg Tuesday, Tuesday, and Tuesday and also on Spiriva. He is supposedly scheduled for some testing on Tuesday, which I think is pulmonary function tests. The patient denies any questions or concerns. No family at bedside. OBJECTIVE: VITAL SIGNS: He is afebrile, heart rate is 97, respirations 20, oxygen saturation 94% on 4 L, blood pressure 137/63. CARDIOVASCULAR: S1 and S2 plus. RESPIRATORY: Normal vesicular breath sounds. ABDOMEN: Soft and nontender. Bowel sounds heard in all quadrants. EXTREMITIES: Without cyanosis or clubbing. Trace edema. CENTRAL NERVOUS SYSTEM: Awake and responsive. Generalized weakness. IMPRESSION: 1. Chronic obstructive pulmonary disease. 2. Chronic hypoxemic respiratory failure. 3. Chronic kidney disease, stage 3 to 4. 4. Chronic diastolic congestive heart failure. 5. Atrial fibrillation. 6. Hardness of hearing. 7. Obstructive sleep apnea. 8. Improving deconditioning. PLAN: 1. Continue current medications. 2. Nutritional support with heart-healthy diet. 3. Monitor heart rate and rhythm. 4. Monitor respiratory status and titrate oxygen as tolerated. 5. Physical therapy. 6. DVT prophylaxis - the patient is on Eliquis. 7. Decubitus precautions. 8. Stress ulcer prophylaxis. 9. Routine laboratory values. 10. Reinforce compliance with CPAP. Job ID: [id number]
[2018-12-01] MEDS: Famotidine 20 MG TAB PO SCH (21:22)
[2018-12-01] MEDS: Lidocaine 5% Patch TD SCH (21:22)
[2018-12-01] MEDS: Atorvastatin Calcium 20 MG TAB PO SCH (21:22)
[2018-12-02] MEDS: Mometasone/Formoterol 60 PUFF AER INH SCH ×2 (06:13→17:54)
[2018-12-02] MEDS: Fluticasone Propionate Nasal Spray 16 gm Bottle NASAL SCH (08:34)
[2018-12-02] MEDS: predniSONE 20 MG TAB PO SCH (08:34)
[2018-12-02] MEDS: Apixaban 2.5 MG TAB PO SCH ×2 (08:35→20:53)
[2018-12-02] MEDS: Dutasteride 0.5 MG CAP PO SCH (08:35)
[2018-12-02] MEDS: Ferrous Sulfate 325 MG TAB PO SCH ×2 (08:35→20:53)
[2018-12-02] MEDS: Dofetilide 0.125 MG CAP PO SCH ×2 (08:35→20:53)
[2018-12-02] MEDS: Gabapentin 100 MG CAP PO SCH ×2 (08:36→20:53)
[2018-12-02] MEDS: Losartan Potassium 50 MG TAB PO SCH (08:36)
[2018-12-02] MEDS: guaiFENesin 100 MG/5 ML UDCUP PO SCH ×3 (08:36→20:51)
[2018-12-02] MEDS: Lidocaine Patch Removal 1 EACH TOP SCH (08:36)
[2018-12-02] MEDS: Tamsulosin HCl 0.4 MG CAP PO SCH (08:37)
[2018-12-02] MEDS: Polyethylene Glycol 3350 17 GM Packet PO SCH (08:37)
[2018-12-02] MEDS: Torsemide 20 MG TAB PO SCH ×2 (08:37→14:17)
[2018-12-02] MEDS: Lidocaine 5% Patch TD SCH (20:51)
[2018-12-02] MEDS: Acetaminophen/Codeine 30-300mg Tablet PO PRN (20:53)
[2018-12-02] MEDS: Famotidine 20 MG TAB PO SCH (20:53)
[2018-12-02] MEDS: Atorvastatin Calcium 20 MG TAB PO SCH (20:53)
[2018-12-03] MEDS: Mometasone/Formoterol 60 PUFF AER INH SCH ×2 (05:58→17:33)
--- NOTE | 2018-12-03 06:31 | PRG ---
DATE OF SERVICE: 12/02/2018 SUBJECTIVE: The patient is sitting up in the chair, visiting with , states he feels much better since seen. Last visit several weeks ago. He is walking in the [place] and is preparing for discharge this week. The patient is only asking about question for his flu vaccine as he is requesting that during this hospitalization. He is going to have a pulmonary function test by his pulmonary physician tomorrow and we will discuss high potency flu vaccine with him. OBJECTIVE: VITAL SIGNS: Show temperature is 98.7, pulse 97, respirations 20, and O2 sats 94% on 4 L. LUNGS: Clear with decreased breath sounds diffusely. CARDIAC: Displays irregular rhythm. ABDOMEN: Soft and nontender. ASSESSMENT: Severe chronic obstructive pulmonary disease, but appears to be improving with increased exercise tolerance and in fact was walking in the [place] with therapy yesterday, 420 feet, four times with a 3-minute rest break. PLAN: 1. Continue PT/OT. Follow up with clinical pathologist with PFTs. 2. Discuss high potency flu vaccine with Pulmonology, is not available here. 3. Continue stress ulcer and DVT prophylaxis. 4. Continue rate control and anticoagulation of atrial fibrillation. Job ID: [id number]
[2018-12-03] MEDS: Fluticasone Propionate Nasal Spray 16 gm Bottle NASAL SCH (08:57)
[2018-12-03] MEDS: Apixaban 2.5 MG TAB PO SCH ×2 (08:58→20:30)
[2018-12-03] MEDS: Dofetilide 0.125 MG CAP PO SCH ×2 (08:58→20:30)
[2018-12-03] MEDS: predniSONE 20 MG TAB PO SCH (08:58)
[2018-12-03] MEDS: Ferrous Sulfate 325 MG TAB PO SCH ×2 (08:58→20:30)
[2018-12-03] MEDS: Dutasteride 0.5 MG CAP PO SCH (08:58)
[2018-12-03] MEDS: Gabapentin 100 MG CAP PO SCH ×2 (08:59→20:30)
[2018-12-03] MEDS: Lidocaine Patch Removal 1 EACH TOP SCH (08:59)
[2018-12-03] MEDS: guaiFENesin 100 MG/5 ML UDCUP PO SCH ×3 (08:59→20:28)
[2018-12-03] MEDS: Tamsulosin HCl 0.4 MG CAP PO SCH (09:00)
[2018-12-03] MEDS: Polyethylene Glycol 3350 17 GM Packet PO SCH (09:00)
[2018-12-03] MEDS: Losartan Potassium 50 MG TAB PO SCH (09:00)
[2018-12-03] MEDS: Torsemide 20 MG TAB PO SCH ×2 (09:00→14:36)
[2018-12-03] MEDS ORDERED: Loratadine 10 MG TAB PO PRN (15:02)
--- NOTE | 2018-12-03 16:38 | PRG ---
DATE OF SERVICE: 12/03/[address] Luis Miguel Hernandez. SUBJECTIVE: The patient is sitting up in the chair. He is taking breathing treatment. He is in no distress. His family has left him alone. He states that he did walk some today, felt well, but he is complaining of mild sore throat and drainage. OBJECTIVE: VITAL SIGNS: Temperature is 98.3, pulse 87, respirations 18, O2 saturations 94% on 4 L. LUNGS: Show decreased breath sounds, but slightly increased. ABDOMEN: Soft and nontender. SKIN/EXTREMITIES: Show no edema, clubbing, or cyanosis. CARDIAC: Shows regular rhythm. HEENT: Oral mucous membrane shows slight erythema on the right side. ASSESSMENT: 1. Chronic obstructive pulmonary disease, end stage, IV. Appears to be improving on aggressive handheld nebulizers with DuoNebs 4 times a day routinely, mometasone/formoterol 2 puffs twice daily, and prednisone 20 mg a day. 2. Deconditioning, improving. The patient did walk in the [place] with therapy 300 feet x2 with a rolling walker. 3. Stable diastolic congestive heart failure. 4. Chronic kidney disease, stage 3. 5. Obstructive sleep apnea, stable. 6. Atrial fibrillation with rate control and anticoagulation, stable. PLAN: 1. Continue PT/OT. 2. Follow up with manipulative therapy specialist tomorrow for PFTs. 3. Continue handheld nebulizers with DuoNebs and oral steroids. Job ID: [id number]
[2018-12-03] MEDS: Lidocaine 5% Patch TD SCH (20:28)
[2018-12-03] MEDS: Acetaminophen/Codeine 30-300mg Tablet PO PRN (20:29)
[2018-12-03] MEDS: Atorvastatin Calcium 20 MG TAB PO SCH (20:30)
[2018-12-03] MEDS: Famotidine 20 MG TAB PO SCH (20:30)
[2018-12-04 05:31] LABS: Hemoglobin 8.6 g/dL (14.0-18.0); Platelet Count 317 thou/uL (130-400)
[2018-12-04] MEDS: Mometasone/Formoterol 60 PUFF AER INH SCH ×2 (06:01→18:26)
[2018-12-04] MEDS: predniSONE 20 MG TAB PO SCH (08:54)
[2018-12-04] MEDS ORDERED: TESTOSTERONE 200 MG/ML IM SCH ×2 (09:45→13:15)
[2018-12-04] MEDS: guaiFENesin 100 MG/5 ML UDCUP PO SCH ×3 (09:54→21:03)
[2018-12-04] MEDS: Gabapentin 100 MG CAP PO SCH ×2 (09:55→21:05)
[2018-12-04] MEDS: Apixaban 2.5 MG TAB PO SCH ×2 (09:55→21:05)
[2018-12-04] MEDS: Torsemide 20 MG TAB PO SCH ×2 (09:56→15:13)
[2018-12-04] MEDS: Dofetilide 0.125 MG CAP PO SCH ×2 (09:56→21:04)
[2018-12-04] MEDS: Ferrous Sulfate 325 MG TAB PO SCH ×2 (09:57→21:05)
[2018-12-04] MEDS: Azithromycin 250 MG TAB PO SCH (09:57)
[2018-12-04] MEDS: Losartan Potassium 50 MG TAB PO SCH (09:58)
[2018-12-04] MEDS: Tamsulosin HCl 0.4 MG CAP PO SCH (09:59)
[2018-12-04] MEDS: Dutasteride 0.5 MG CAP PO SCH ×2 (09:59→10:00)
[2018-12-04] MEDS: Fluticasone Propionate Nasal Spray 16 gm Bottle NASAL SCH (10:01)
[2018-12-04] MEDS: Lidocaine Patch Removal 1 EACH TOP SCH (10:02)
[2018-12-04] MEDS: Polyethylene Glycol 3350 17 GM Packet PO SCH (10:03)
--- NOTE | 2018-12-04 14:04 | PRG ---
DATE OF SERVICE: SUBJECTIVE: Mr. Yates is working with therapy. He has an appointment with his associate music professor this afternoon for possible lung function test. He is due for his testosterone injection and there has been some confusion with the order, but was finally able to track down the prescription. He is supposed to get it once every three weeks, so we will go on and order it. No other questions or concerns. No family at bedside. OBJECTIVE: VITAL SIGNS: He is afebrile, heart rate 88, respirations 20, oxygen saturation 95% on room air, and blood pressure 143/69. CARDIOVASCULAR: S1 and S2 plus. RESPIRATORY: Normal vesicular breath sounds. ABDOMEN: Soft, nontender, obese. Bowel sounds heard in all quadrants. EXTREMITIES: Trace edema. CENTRAL NERVOUS SYSTEM: Awake and responsive. Generalized weakness. Grossly nonfocal. LABORATORY DATA: His creatinine is 1.63, H and H are 8.6 and 27.4. IMPRESSION: 1. Chronic obstructive pulmonary disease, GOLD stage III clinically. 2. Chronic diastolic congestive heart failure. 3. Chronic hypoxemic respiratory failure. 4. Atrial fibrillation. 5. Deconditioning. PLAN: 1. Continue current medications. 2. Heart healthy diet. 3. DVT prophylaxis-he is on Eliquis. 4. Decubitus precautions. 5. Stress ulcer prophylaxis. 6. Monitor respiratory status and titrate oxygen as tolerated. 7. Follow up with Pulmonary later today. 8. Continue therapy. Job ID: [id number]
[2018-12-04] MEDS: Lidocaine 5% Patch TD SCH (21:03)
[2018-12-04] MEDS: Acetaminophen/Codeine 30-300mg Tablet PO PRN (21:04)
[2018-12-04] MEDS: Famotidine 20 MG TAB PO SCH (21:05)
[2018-12-04] MEDS: Atorvastatin Calcium 20 MG TAB PO SCH (21:06)
[2018-12-05] MEDS: Mometasone/Formoterol 60 PUFF AER INH SCH ×2 (06:01→18:24)
[2018-12-05] MEDS: guaiFENesin 100 MG/5 ML UDCUP PO SCH ×3 (08:22→20:34)
[2018-12-05] MEDS: Torsemide 20 MG TAB PO SCH ×2 (08:23→14:45)
[2018-12-05] MEDS: Dutasteride 0.5 MG CAP PO SCH (08:23)
[2018-12-05] MEDS: Ferrous Sulfate 325 MG TAB PO SCH ×2 (08:23→20:35)
[2018-12-05] MEDS: Azithromycin 250 MG TAB PO SCH (08:24)
[2018-12-05] MEDS: Losartan Potassium 50 MG TAB PO SCH (08:24)
[2018-12-05] MEDS: Apixaban 2.5 MG TAB PO SCH ×2 (08:24→20:34)
[2018-12-05] MEDS: predniSONE 20 MG TAB PO SCH (08:24)
[2018-12-05] MEDS: Gabapentin 100 MG CAP PO SCH ×2 (08:24→20:35)
[2018-12-05] MEDS: Dofetilide 0.125 MG CAP PO SCH ×2 (08:24→20:35)
[2018-12-05] MEDS: Polyethylene Glycol 3350 17 GM Packet PO SCH (08:25)
[2018-12-05] MEDS: Lidocaine Patch Removal 1 EACH TOP SCH (08:25)
[2018-12-05] MEDS: Tamsulosin HCl 0.4 MG CAP PO SCH (08:26)
[2018-12-05] MEDS: Fluticasone Propionate Nasal Spray 16 gm Bottle NASAL SCH (08:34)
--- NOTE | 2018-12-05 10:21 | PRG ---
DATE OF SERVICE: 12/05/2018 SUBJECTIVE: Mr. Yates is doing well up in his chair. Denies any complaints. He apparently was unable to finish his breathing test yesterday. He has a followup with Pulmonary. He apparently also his regular physician's office and got his flu shot. He states that his home remodeling was supposed to be done this , but apparently it is not going as planned. I advised the patient to have his inform the team during case conference about the progress, so appropriate plans can be made for discharge. OBJECTIVE: VITAL SIGNS: He is afebrile. Heart rate 87, respirations 18, oxygen saturation 91% on nasal cannula, and blood pressure 143/74. CARDIOVASCULAR SYSTEM: S1-S2 plus. RESPIRATORY SYSTEM: Normal vesicular breath sounds. ABDOMEN: Soft, obese, and nontender. Bowel sounds heard in all quadrants. EXTREMITIES: Without cyanosis or clubbing. 1+ edema. CENTRAL NERVOUS SYSTEM: Awake and responsive. Generalized weakness. IMPRESSION: 1. Chronic obstructive pulmonary disease. 2. Chronic diastolic congestive heart failure. 3. Chronic hypoxemic respiratory failure. 4. Chronic kidney disease stage 3 to 4. 5. Atrial fibrillation. 6. Hardness of hearing. 7. Obstructive sleep apnea. 8. Deconditioning. PLAN: 1. Continue current medications. 2. Monitor respiratory status. 3. Monitor heart rate and rhythm. 4. Physical Therapy. 5. Titrate oxygen. 6. Reinforce compliance with CPAP. 7. Discharge planning. Job ID: [id number]
[2018-12-05] MEDS: Acetaminophen/Codeine 30-300mg Tablet PO PRN (20:34)
[2018-12-05] MEDS: Famotidine 20 MG TAB PO SCH (20:34)
[2018-12-05] MEDS: Lidocaine 5% Patch TD SCH (20:34)
[2018-12-05] MEDS: Atorvastatin Calcium 20 MG TAB PO SCH (20:35)
[2018-12-06] MEDS: Mometasone/Formoterol 60 PUFF AER INH SCH ×2 (05:54→18:12)
[2018-12-06] MEDS: predniSONE 20 MG TAB PO SCH (08:03)
[2018-12-06] MEDS: Apixaban 2.5 MG TAB PO SCH ×2 (08:03→20:30)
[2018-12-06] MEDS: Azithromycin 250 MG TAB PO SCH (08:03)
[2018-12-06] MEDS: Ferrous Sulfate 325 MG TAB PO SCH ×2 (08:04→20:30)
[2018-12-06] MEDS: Fluticasone Propionate Nasal Spray 16 gm Bottle NASAL SCH (08:04)
[2018-12-06] MEDS: Dutasteride 0.5 MG CAP PO SCH (08:04)
[2018-12-06] MEDS: Dofetilide 0.125 MG CAP PO SCH ×2 (08:04→20:30)
[2018-12-06] MEDS: Torsemide 20 MG TAB PO SCH ×2 (08:05→14:32)
[2018-12-06] MEDS: Tamsulosin HCl 0.4 MG CAP PO SCH (08:05)
[2018-12-06] MEDS: Polyethylene Glycol 3350 17 GM Packet PO SCH (08:06)
[2018-12-06] MEDS: Losartan Potassium 50 MG TAB PO SCH (08:06)
[2018-12-06] MEDS: Gabapentin 100 MG CAP PO SCH ×2 (08:07→20:30)
[2018-12-06] MEDS: guaiFENesin 100 MG/5 ML UDCUP PO SCH ×3 (08:07→20:27)
[2018-12-06] MEDS: Lidocaine Patch Removal 1 EACH TOP SCH (08:07)
--- NOTE | 2018-12-06 12:13 | PRG ---
DATE OF SERVICE: 12/06/2018 SUBJECTIVE: Mr. Yates is doing well, denies any complaints. Discussed with Therapy and he is apparently noticing increased endurance with decreased rest times. OBJECTIVE: VITAL SIGNS: He is afebrile, heart rate 88, respirations 18, oxygen saturation 93% on 4 L, and blood pressure is 140/67. CARDIOVASCULAR SYSTEM: S1 and S2 plus. RESPIRATORY SYSTEM: Normal vesicular breath sounds. ABDOMEN: Soft, obese, nontender. Bowel sounds heard in all quadrants. EXTREMITIES: Without cyanosis or clubbing. 1+ edema. CENTRAL NERVOUS SYSTEM: Awake and responsive. Grossly nonfocal. Generalized weakness. IMPRESSION: 1. Chronic obstructive pulmonary disease. 2. Chronic diastolic congestive heart failure. 3. Chronic hypoxemic respiratory failure. 4. Chronic kidney disease, stage 3 to 4. 5. Atrial fibrillation. 6. Obstructive sleep apnea. 7. Deconditioning. PLAN: 1. Continue current medications. 2. Heart-healthy diet. 3. DVT prophylaxis-he is on Eliquis. 4. Decubitus precautions. 5. Stress ulcer prophylaxis. 6. Monitor respiratory status. 7. Physical therapy. The patient states that his home will not be ready this week, and I spoke with Therapy to make sure that all of us are on the same piece that he can continue to stay here and he qualifies to stay here. Job ID: [id number]
[2018-12-06] MEDS: Lidocaine 5% Patch TD SCH (20:27)
[2018-12-06] MEDS: Acetaminophen/Codeine 30-300mg Tablet PO PRN (20:28)
[2018-12-06] MEDS: Famotidine 20 MG TAB PO SCH (20:30)
[2018-12-06] MEDS: Atorvastatin Calcium 20 MG TAB PO SCH (20:30)
[2018-12-07] MEDS: Mometasone/Formoterol 60 PUFF AER INH SCH ×2 (06:25→18:10)
[2018-12-07] MEDS: Dofetilide 0.125 MG CAP PO SCH ×2 (08:14→21:04)
[2018-12-07] MEDS: Apixaban 2.5 MG TAB PO SCH ×2 (08:14→21:04)
[2018-12-07] MEDS: predniSONE 20 MG TAB PO SCH (08:14)
[2018-12-07] MEDS: Ferrous Sulfate 325 MG TAB PO SCH ×2 (08:15→21:05)
[2018-12-07] MEDS: Dutasteride 0.5 MG CAP PO SCH (08:15)
[2018-12-07] MEDS: Gabapentin 100 MG CAP PO SCH ×2 (08:16→21:05)
[2018-12-07] MEDS: Fluticasone Propionate Nasal Spray 16 gm Bottle NASAL SCH (08:16)
[2018-12-07] MEDS: guaiFENesin 100 MG/5 ML UDCUP PO SCH ×3 (08:17→21:05)
[2018-12-07] MEDS: Losartan Potassium 50 MG TAB PO SCH (08:18)
[2018-12-07] MEDS: Lidocaine Patch Removal 1 EACH TOP SCH (08:18)
[2018-12-07] MEDS: Polyethylene Glycol 3350 17 GM Packet PO SCH (08:19)
[2018-12-07] MEDS: Tamsulosin HCl 0.4 MG CAP PO SCH (08:20)
[2018-12-07] MEDS: Torsemide 20 MG TAB PO SCH ×2 (08:20→14:27)
--- NOTE | 2018-12-07 13:32 | PRG ---
DATE OF SERVICE: 12/07/2018 SUBJECTIVE: Mr. Yates is doing the same. Denies any complaints. Resting comfortably. Apparently, during case conference, it was decided that he will be discharged on Tuesday to give his family some more time to get the house ready. He is doing well. Discussed with nursing. OBJECTIVE: VITAL SIGNS: He is afebrile. Heart rate is 92, respirations 22, oxygen saturation 96% on 4 L, blood pressure is 131/63. CARDIOVASCULAR: S1 to S2 plus. RESPIRATORY: Normal vesicular breath sounds. ABDOMEN: Soft, obese, nontender. Bowel sounds heard in all quadrants. EXTREMITIES: Without cyanosis or clubbing. Trace edema. CENTRAL NERVOUS SYSTEM: Awake and responsive. Generalized weakness. Grossly nonfocal. IMPRESSION: 1. Chronic kidney disease stage 3 to 4. 2. Chronic obstructive pulmonary disease. 3. Chronic diastolic congestive heart failure. 4. Chronic hypoxemic respiratory failure. 5. Atrial fibrillation. 6. Improving deconditioning. PLAN: 1. Continue current medications. 2. Heart healthy diet. 3. Reinforced complaints with CPAP for his obstructive sleep apnea. 4. Monitor heart rate and rhythm. 5. Monitor respiratory status and titrate oxygen. 6. Physical therapy. 7. Routine laboratory values. 8. Discharge planning. Job ID: [id number]
[2018-12-07] MEDS: Atorvastatin Calcium 20 MG TAB PO SCH (21:04)
[2018-12-07] MEDS: Famotidine 20 MG TAB PO SCH (21:04)
[2018-12-07] MEDS: Lidocaine 5% Patch TD SCH (21:05)
[2018-12-07] MEDS: Acetaminophen/Codeine 30-300mg Tablet PO PRN (21:07)
[2018-12-08] MEDS: Mometasone/Formoterol 60 PUFF AER INH SCH ×2 (05:49→18:10)
[2018-12-08] MEDS: Polyethylene Glycol 3350 17 GM Packet PO SCH (08:13)
[2018-12-08] MEDS: Dutasteride 0.5 MG CAP PO SCH (08:14)
[2018-12-08] MEDS: Torsemide 20 MG TAB PO SCH ×2 (08:14→14:30)
[2018-12-08] MEDS: predniSONE 20 MG TAB PO SCH (08:14)
[2018-12-08] MEDS: Apixaban 2.5 MG TAB PO SCH ×2 (08:15→21:14)
[2018-12-08] MEDS: Ferrous Sulfate 325 MG TAB PO SCH ×2 (08:15→21:14)
[2018-12-08] MEDS: Dofetilide 0.125 MG CAP PO SCH ×2 (08:15→21:14)
[2018-12-08] MEDS: Azithromycin 250 MG TAB PO SCH (08:15)
[2018-12-08] MEDS: Losartan Potassium 50 MG TAB PO SCH (08:15)
[2018-12-08] MEDS: Tamsulosin HCl 0.4 MG CAP PO SCH (08:15)
[2018-12-08] MEDS: Gabapentin 100 MG CAP PO SCH ×2 (08:15→21:14)
[2018-12-08] MEDS: Fluticasone Propionate Nasal Spray 16 gm Bottle NASAL SCH (08:16)
[2018-12-08] MEDS: guaiFENesin 100 MG/5 ML UDCUP PO SCH ×3 (08:16→21:14)
[2018-12-08] MEDS: Lidocaine Patch Removal 1 EACH TOP SCH (08:17)
--- NOTE | 2018-12-08 08:57 | PRG ---
DATE OF SERVICE: 12/08/2018 SUBJECTIVE: Mr. Yates is doing well. Denies any complaints. Resting comfortably. Waiting on therapy. OBJECTIVE: VITAL SIGNS: He is afebrile, heart rate 86, respirations 18, oxygen saturation 95% on 4 L nasal cannula, and blood pressure is 163/73. CARDIOVASCULAR SYSTEM: S1 and S2 plus. RESPIRATORY SYSTEM: Normal vesicular breath sounds. Decreased air entry at the bases. Occasional rhonchi. ABDOMEN: Soft, obese, and nontender. EXTREMITIES: Without cyanosis or clubbing. Trace edema. CENTRAL NERVOUS SYSTEM: Awake and responsive. Generalized weakness, otherwise nonfocal. IMPRESSION: 1. Chronic diastolic congestive heart failure. 2. Chronic obstructive pulmonary disease. 3. Chronic hypoxemic respiratory failure and chronic kidney disease, stage 3 to 4. 4. Atrial fibrillation. 5. Obstructive sleep apnea. 6. Improving deconditioning. PLAN: 1. Continue current medications. 2. Heart-healthy diet. 3. Monitor heart rate and rhythm. 4. Monitor respiratory status and breathing treatments as needed. 5. Continue physical therapy. 6. Continue Eliquis for DVT prophylaxis. 7. Decubitus precautions. 8. Stress ulcer prophylaxis. 9. Routine laboratory values. Job ID: [id number]
[2018-12-08] MEDS: Lidocaine 5% Patch TD SCH (21:13)
[2018-12-08] MEDS: Atorvastatin Calcium 20 MG TAB PO SCH (21:14)
[2018-12-08] MEDS: Famotidine 20 MG TAB PO SCH (21:14)
[2018-12-08] MEDS: Acetaminophen/Codeine 30-300mg Tablet PO PRN (21:16)
[2018-12-09] MEDS: Mometasone/Formoterol 60 PUFF AER INH SCH ×2 (05:51→18:17)
[2018-12-09] MEDS: Dutasteride 0.5 MG CAP PO SCH (08:56)
[2018-12-09] MEDS: guaiFENesin 100 MG/5 ML UDCUP PO SCH ×3 (08:56→21:51)
[2018-12-09] MEDS: Fluticasone Propionate Nasal Spray 16 gm Bottle NASAL SCH (08:56)
[2018-12-09] MEDS: Gabapentin 100 MG CAP PO SCH ×2 (08:57→21:53)
[2018-12-09] MEDS: Losartan Potassium 50 MG TAB PO SCH (08:57)
[2018-12-09] MEDS: predniSONE 20 MG TAB PO SCH (08:57)
[2018-12-09] MEDS: Dofetilide 0.125 MG CAP PO SCH ×2 (08:57→21:51)
[2018-12-09] MEDS: Ferrous Sulfate 325 MG TAB PO SCH ×2 (08:58→21:53)
[2018-12-09] MEDS: Tamsulosin HCl 0.4 MG CAP PO SCH (08:58)
[2018-12-09] MEDS: Torsemide 20 MG TAB PO SCH ×2 (08:58→14:59)
[2018-12-09] MEDS: Apixaban 2.5 MG TAB PO SCH ×2 (08:58→21:53)
[2018-12-09] MEDS: Lidocaine Patch Removal 1 EACH TOP SCH (08:58)
[2018-12-09] MEDS: Polyethylene Glycol 3350 17 GM Packet PO SCH (09:00)
--- NOTE | 2018-12-09 11:17 | PRG ---
DATE OF SERVICE: 12/09/2018 SUBJECTIVE: Mr. Yates is up in his chair and denies any complaints. No family at bedside. Plan is for nursing to give him his list of current medications, and him and his are going to go over it and let me know on which ones they need any prescriptions. He is scheduled for now for discharge on Tuesday. OBJECTIVE: VITAL SIGNS: He is afebrile, heart rate 98, respirations 20, oxygen saturation 93% on 4 L. His blood pressure is 129/60. CARDIOVASCULAR SYSTEM: S1 and S2 plus. RESPIRATORY SYSTEM: Normal vesicular breath sounds. ABDOMEN: Soft, nontender. Bowel sounds heard in all quadrants. EXTREMITIES: Without cyanosis or clubbing. Trace edema. CENTRAL NERVOUS SYSTEM: Awake and responsive. Generalized weakness. IMPRESSION: 1. Chronic diastolic congestive heart failure. 2. Chronic obstructive pulmonary disease, probably GOLD stage III. 3. Chronic hypoxemic respiratory failure. 4. Chronic kidney disease, stage 3 to 4. 5. Atrial fibrillation. 6. Obstructive sleep apnea. 7. Improving deconditioning. PLAN: 1. Continue current medications. 2. Heart healthy diet. 3. DVT prophylaxis - the patient is on Eliquis. 4. Decubitus precautions. 5. Stress ulcer prophylaxis. 6. Physical therapy. 7. Monitor respiratory status. 8. Discharge planning. Job ID: [id number]
[2018-12-09] MEDS: Lidocaine 5% Patch TD SCH (21:51)
[2018-12-09] MEDS: Famotidine 20 MG TAB PO SCH (21:52)
[2018-12-09] MEDS: Atorvastatin Calcium 20 MG TAB PO SCH (21:52)
[2018-12-09] MEDS: Acetaminophen/Codeine 30-300mg Tablet PO PRN (21:52)
[2018-12-10] MEDS: Mometasone/Formoterol 60 PUFF AER INH SCH ×2 (06:09→18:23)
[2018-12-10] MEDS: predniSONE 20 MG TAB PO SCH (07:37)
[2018-12-10] MEDS: Apixaban 2.5 MG TAB PO SCH ×2 (09:15→20:46)
[2018-12-10] MEDS: Dofetilide 0.125 MG CAP PO SCH ×2 (09:15→20:44)
[2018-12-10] MEDS: Dutasteride 0.5 MG CAP PO SCH (09:16)
[2018-12-10] MEDS: Ferrous Sulfate 325 MG TAB PO SCH ×2 (09:16→20:44)
[2018-12-10] MEDS: Fluticasone Propionate Nasal Spray 16 gm Bottle NASAL SCH (09:17)
[2018-12-10] MEDS: Losartan Potassium 50 MG TAB PO SCH (09:17)
[2018-12-10] MEDS: guaiFENesin 100 MG/5 ML UDCUP PO SCH ×3 (09:17→20:43)
[2018-12-10] MEDS: Gabapentin 100 MG CAP PO SCH ×2 (09:17→20:44)
[2018-12-10] MEDS: Polyethylene Glycol 3350 17 GM Packet PO SCH (09:18)
[2018-12-10] MEDS: Tamsulosin HCl 0.4 MG CAP PO SCH (09:18)
[2018-12-10] MEDS: Torsemide 20 MG TAB PO SCH ×2 (09:18→14:00)
[2018-12-10] MEDS: Azithromycin 250 MG TAB PO SCH (09:18)
[2018-12-10] MEDS: Lidocaine Patch Removal 1 EACH TOP SCH (09:23)
[2018-12-10 14:09] VITALS: BMI 29.9
--- NOTE | 2018-12-10 15:07 | PRG ---
DATE OF SERVICE: 12/10/2018 SUBJECTIVE: Mr. Yates is doing well. Denies any complaints. Resting comfortably. The current med list has been given to him and his . His has not bought it back with medicines marked that she need refills. Plan is for him to be discharged tomorrow. He apparently has the prescriptions for Zithromax, Spiriva, and another inhaler from his survey research associate. OBJECTIVE: VITAL SIGNS: He is afebrile, heart rate 90, respirations 20, oxygen saturation 90%, and blood pressure 143/66. CARDIOVASCULAR SYSTEM: S1 and S2 plus. RESPIRATORY SYSTEM: Normal vesicular breath sounds. ABDOMEN: Soft, nontender, obese. Bowel sounds in all quadrants. EXTREMITIES: Without cyanosis or clubbing. CENTRAL NERVOUS SYSTEM: Awake and responsive. Generalized weakness. IMPRESSION: 1. Chronic diastolic congestive heart failure. 2. Chronic hypoxemic respiratory failure. 3. Chronic obstructive pulmonary disease. 4. Atrial fibrillation. 5. Chronic kidney disease, stage 3 to 4. 6. Dyslipidemia. PLAN: 1. Continue current medications. 2. Heart-healthy diet. 3. Monitor heart rate and rhythm. 4. Continue Eliquis for DVT prophylaxis. 5. Monitor respiratory status. 6. Physical therapy. 7. Discharge planning. 8. Recheck BMP and CBC in the morning. Job ID: [id number]
[2018-12-10] MEDS: Famotidine 20 MG TAB PO SCH (20:44)
[2018-12-10] MEDS: Lidocaine 5% Patch TD SCH (20:44)
[2018-12-10] MEDS: Atorvastatin Calcium 20 MG TAB PO SCH (20:44)
[2018-12-10] MEDS: Acetaminophen/Codeine 30-300mg Tablet PO PRN (20:45)
[2018-12-11 05:45] LABS: #Basophils 0.1 thou/uL (0.0-0.2); #Lymphocytes 1.6 thou/uL (1.20-3.40); #Monocytes 0.8 thou/uL (0.11-0.59); %Basophils 0.8 % (0.0-1.0); %Eosinophils 0.4 % (0.0-10.0); %Monocytes 7.8 % (0.0-10.0); %Neutrophils 75.9 % (42.0-75.0); Hemoglobin 8.5 g/dL (14.0-18.0); Mean Corpuscular HGB CONC 30.9 g/dL (32.0-36.0); Mean Corpuscular Hemoglobin 26.5 pg (27.0-31.0); Mean Corpuscular Volume 85.8 fL (78.0-98.0); Mean Platelet Volume 5.9 fL (7.4-10.4); Platelet Count 278 thou/uL (130-400); RBC Distribution Width 16.6 % (11.5-14.5); Red Blood Cell (RBC) Count 3.19 mill/uL (4.70-6.10); White Blood Cell (WBC) Count 10.6 thou/uL (4.8-10.8)
[2018-12-11 05:59] LABS: Anion Gap 16 mmol/L (10-20); BUN (Urea Nitrogen) 47 mg/dL (8.4-25.7); Calc. Creatinine Clearance 50 mL/min (70-130); Calcium 8.2 mg/dL (7.8-10.44); Carbon Dioxide 26 mmol/L (23-31); Chloride 101 mmol/L (98-107); Estimated GFR-MDRD 43; Glucose 96 mg/dL (83-110); Sodium 139 mmol/L (136-145)
[2018-12-11] MEDS: Mometasone/Formoterol 60 PUFF AER INH SCH (06:29)
[2018-12-11 08:01] VITALS: BP 140/69; TEMP 97.9
[2018-12-11] MEDS: predniSONE 20 MG TAB PO SCH (08:32)
[2018-12-11] MEDS: Dutasteride 0.5 MG CAP PO SCH (08:33)
[2018-12-11] MEDS: Apixaban 2.5 MG TAB PO SCH (08:33)
[2018-12-11] MEDS: Fluticasone Propionate Nasal Spray 16 gm Bottle NASAL SCH (08:33)
[2018-12-11] MEDS: Ferrous Sulfate 325 MG TAB PO SCH (08:33)
[2018-12-11] MEDS: Dofetilide 0.125 MG CAP PO SCH (08:33)
[2018-12-11] MEDS: guaiFENesin 100 MG/5 ML UDCUP PO SCH ×2 (08:34→14:26)
[2018-12-11] MEDS: Gabapentin 100 MG CAP PO SCH (08:34)
[2018-12-11] MEDS: Torsemide 20 MG TAB PO SCH ×2 (08:34→14:25)
[2018-12-11] MEDS: Lidocaine Patch Removal 1 EACH TOP SCH (08:35)
[2018-12-11] MEDS: Polyethylene Glycol 3350 17 GM Packet PO SCH (08:35)
[2018-12-11] MEDS: Losartan Potassium 50 MG TAB PO SCH (08:36)
[2018-12-11] MEDS: Tamsulosin HCl 0.4 MG CAP PO SCH (08:36)
[2018-12-11] MEDS ORDERED: Rosuvastatin 10 MG TAB PO SCH (21:00)
--- NOTE | 2018-12-12 06:03 | DIS ---
DATE OF ADMISSION: 10/19/2018 DATE OF DISCHARGE: 12/11/2018 PRINCIPAL DIAGNOSES: 1. Chronic obstructive pulmonary disease, likely GOLD stage 3. 2. Chronic hypoxemic respiratory failure. 3. Chronic diastolic congestive heart failure. 4. Atrial fibrillation. 5. Chronic kidney disease, stage 3 to 4. 6. Hypertension. 7. Dyslipidemia. 8. Benign prostatic hypertrophy. 9. Depression and anxiety. COMPLICATIONS: None. ADVERSE REACTIONS: None. PROCEDURES: None. CONSULTATIONS: None. HOSPITAL COURSE: The patient was admitted as a transfer from rehab hospital for persistent deconditioning and not safe to go home. He has been tolerating therapy and has had slow improvement. He saw a building architect as an outpatient basis and has been started on Dulera inhaler, Spiriva inhaler, and Zithromax 500 mg three times a week. Abseiling Instructor apparently has sent the prescriptions in to the pharmacy. He was deemed medically stable to discharge home by Therapy. and he want to do outpatient cardiac and pulmonary rehab so they are going to follow up with his PCP, Dr. Jackson and get it sorted out. Reviewed his list of medications at home and the only prescriptions he needs is for his gabapentin, his Lidoderm patch, and instead of the furosemide that he has at home, he is now on torsemide. So I have sent those 3 prescriptions to [facility] [place], which is his preferred pharmacy. PHYSICAL EXAMINATION: VITAL SIGNS: On the day of discharge, he is afebrile. Heart rate is 90, respirations 18, oxygen saturation 93% on 4 L, and blood pressure is 140/69. CARDIOVASCULAR: S1, S2 plus. RESPIRATORY: Normal vesicular breath sounds with decreased air entry in the bases. ABDOMEN: Soft, obese, nontender. Bowel sounds in all quadrants. EXTREMITIES: Without cyanosis or clubbing, trace edema. He has a new skin tear in his right forearm. CENTRAL NERVOUS SYSTEM: Awake and responsive. Generalized weakness. LABORATORY DATA: Laboratory values done this morning shows a white count of 10.6, H and H 8.5 and 27.4, which is baseline for him. Sodium 139, potassium 4.0, BUN and creatinine 47 and 1.55. DISCHARGE MEDICATIONS: 1. Tylenol 325 mg p.o. q.4 p.r.n. 2. DuoNeb 3 mL q.4 p.r.n. wheezing. 3. Eliquis 2.5 mg b.i.d. 4. Rosuvastatin 10 mg daily. 5. Zithromax 500 mg p.o. every Tuesday, Tuesday, Tuesday. 6. Tikosyn 0.125 mg b.i.d. 7. Avodart 0.5 mg daily. 8. Pepcid 20 mg at bedtime. 9. Iron sulfate 325 mg b.i.d. 10. Flonase nasal spray one spray to each nostril b.i.d. 11. Neurontin 100 mg b.i.d. 12. Lidoderm patch q.12 hours if needed. 13. Claritin 10 mg daily. 14. Cozaar 100 mg daily. 15. Dulera inhaler two puffs b.i.d., gargle after use. 16. Testosterone injection every three days, 1 mL. 17. Prednisone 10 mg daily. 18. Zoloft 50 mg daily. 19. Flomax 0.4 mg daily. 20. Demadex 40 mg b.i.d. On his home med list, the only thing that he has not been taking here is the diltiazem and Nexium. The patient was advised to follow up with his PCP and his building architect in 5-7 days, heart healthy diet. He is advised to call us with any questions or concerns. For full details, please see chart. Total time spent on this discharge is 37 minutes. Job ID: [id number]
[2018-12-24] MEDS ORDERED: TESTOSTERONE 200 MG/ML IM SCH (13:00)
== END 2018-12-11 14:50 | disposition home or self-care (01) | DRG 948 ==
LOC: NAV ACUTE 14:16
PROVIDERS: ADMIT Internal Medicine; ATTEND Internal Medicine
DX: R53.81 Other malaise (principal); I13.0 Hypertensive heart and chronic kidney disease with heart failure and stage 1 through stage 4 chronic kidney disease, or unspecified chronic kidney disease; J44.1 Chronic obstructive pulmonary disease with (acute) exacerbation; J98.11 Atelectasis; J96.11 Chronic respiratory failure with hypoxia; N39.0 Urinary tract infection, site not specified; N18.4 Chronic kidney disease, stage 4 (severe); D62 Acute posthemorrhagic anemia; I50.32 Chronic diastolic (congestive) heart failure; F32.9 Major depressive disorder, single episode, unspecified; F41.9 Anxiety disorder, unspecified; R53.1 Weakness; N40.0 Benign prostatic hyperplasia without lower urinary tract symptoms; I48.0 Paroxysmal atrial fibrillation; I48.91 Unspecified atrial fibrillation; E78.5 Hyperlipidemia, unspecified; Z98.890 Other specified postprocedural states; Z91.048 Other nonmedicinal substance allergy status; Z87.891 Personal history of nicotine dependence; S22.009D Unspecified fracture of unspecified thoracic vertebra, subsequent encounter for fracture with routine healing; G47.33 Obstructive sleep apnea (adult) (pediatric); R07.81 Pleurodynia; I34.0 Nonrheumatic mitral (valve) insufficiency; I27.20 Pulmonary hypertension, unspecified; H91.90 Unspecified hearing loss, unspecified ear; D72.829 Elevated white blood cell count, unspecified
CPT/HCPCS: 36415; 36416; 36430; 71045; 80048; 80053; 81001; 82330; 82565; 82803; 83880; 85014; 85018; 85025; 85049; 86850; 86900; 86901; 94640; 94664; J1940; J7512; J7620; J8499; P9016; Q9967

== ENCOUNTER 2019-07-04 18:02 | Inpatient (IN) | payer MEDICARE, BC ==
[2019-07-04] MEDS ORDERED: hydrALAZINE 20 MG/ML VIAL SLOW IVP PRN (21:36)
[2019-07-04] MEDS ORDERED: Ondansetron PF 4 MG/2 ML Vial SLOW IVP PRN (21:38)
[2019-07-04] MEDS ORDERED: Vancomycin HCl 750 MG in Sodium Chloride 0.9% 250 ML 250 ML IVPB SCH (22:00)
[2019-07-04] MEDS ORDERED: Lidocaine Patch Removal 1 EACH TOP SCH ×2 (22:00→23:00)
[2019-07-04] MEDS ORDERED: Dofetilide 0.125 MG CAP PO SCH ×2 (22:00→22:30)
[2019-07-04] MEDS ORDERED: Gabapentin 100 MG CAP PO SCH ×2 (22:00→22:30)
[2019-07-04] MEDS ORDERED: Rosuvastatin 10 MG TAB PO SCH ×2 (22:00→22:30)
[2019-07-04] MEDS ORDERED: Senokot S 8.6-50 MG TAB PO SCH ×2 (22:00→22:30)
[2019-07-04] MEDS ORDERED: Ascorbic Acid 500 mg Chewable Tablet PO SCH ×2 (22:00→22:30)
[2019-07-04] MEDS ORDERED: Mometasone/Formoterol 200/5 60 PUFF INH SCH ×2 (22:00→22:30)
[2019-07-04] MEDS: Vancomycin HCl 750 MG in Sodium Chloride 0.9% 250 ML 250 ML IVPB SCH (22:34)
[2019-07-04] MEDS: Acetaminophen 500 MG TAB PO SCH (22:36)
[2019-07-04] MEDS: Ipratropium Bromide 2.5 ml Neb NEB SCH (22:37)
[2019-07-04] MEDS: Rifampin 300 MG CAP PO SCH (22:37)
[2019-07-04] MEDS: traMADol HCl 50 MG TAB PO PRN (23:00)
[2019-07-04] MEDS ORDERED: Vancomycin HCl 500 MG in Sodium Chloride 0.9% 100 ML IVPB SCH (23:00)
[2019-07-04] MEDS: Vancomycin HCl 500 MG in Sodium Chloride 0.9% 100 ML IVPB SCH (23:42)
[2019-07-05] MEDS: Acetaminophen 500 MG TAB PO SCH ×3 (05:37→17:10)
[2019-07-05] MEDS: Ipratropium Bromide 2.5 ml Neb NEB SCH ×3 (05:38→17:10)
[2019-07-05 06:04] LABS: ALT (SGPT) 10 U/L (8-55); AST (SGOT) 13 U/L (5-34); Albumin 2.6 g/dL (3.4-4.8); Anion Gap 15 mmol/L (10-20); BUN (Urea Nitrogen) 71 mg/dL (8.4-25.7); Bilirubin, Total 0.7 mg/dL (0.2-1.2); Calc. Creatinine Clearance 37 mL/min (70-130); Calcium 8.1 mg/dL (7.8-10.44); Carbon Dioxide 29 mmol/L (23-31); Chloride 97 mmol/L (98-107); Estimated GFR-MDRD 33; Glucose 89 mg/dL (83-110); Protein, Total 4.6 g/dL (5.8-8.1); Sodium 138 mmol/L (136-145)
[2019-07-05 06:08] LABS: #Basophils 0.1 thou/uL (0.0-0.2); #Lymphocytes 1.1 thou/uL (1.20-3.40); #Neutrophils 6.9 thou/uL (1.40-6.50); %Basophils 0.7 % (0.0-1.0); %Eosinophils 0.3 % (0.0-10.0); %Lymphocytes 11.6 % (21.0-51.0); %Monocytes 10.6 % (0.0-10.0); %Neutrophils 76.8 % (42.0-75.0); Hemoglobin 8.6 g/dL (14.0-18.0); Hypochromia MODERATE=16-30 cells (100X) (0-5/hpf); MDiff Complete? YES; Macrocytosis SLIGHT = 6-15 cells (100X) (0-5/hpf); Mean Corpuscular HGB CONC 29.8 g/dL (32.0-36.0); Mean Corpuscular Hemoglobin 28.4 pg (27.0-31.0); Mean Corpuscular Volume 95.1 fL (78.0-98.0); Mean Platelet Volume 6.2 fL (7.4-10.4); Ovalocytes SLIGHT = 2-5 cells (100X) (0-1/hpf); Platelet Count 323 thou/uL (130-400); Platelet Morphology Comment Appears Adequate; Polychromasia SLIGHT = 2-3 cells (100X) (0-2/hpf); RBC Distribution Width 18.6 % (11.5-14.5); Red Blood Cell (RBC) Count 3.03 mill/uL (4.70-6.10); Target Cells SLIGHT = 2-5 cells (100X) (0-1/hpf)
[2019-07-05 06:10] LABS: Alkaline Phosphatase 72 U/L (40-110); Potassium 2.9 mmol/L (3.5-5.1)
[2019-07-05] MEDS: traMADol HCl 50 MG TAB PO PRN ×3 (06:32→21:50)
[2019-07-05] MEDS ORDERED: Potassium Chloride 20 MEQ TAB PO SCH ×2 (07:00→09:00)
[2019-07-05] MEDS: Ferrous Sulfate 325 MG TAB PO SCH ×2 (08:17→17:09)
[2019-07-05] MEDS: predniSONE 20 MG TAB PO SCH (08:18)
[2019-07-05] MEDS: Aspirin 81 mg Enteric Coated Tablet PO SCH (08:19)
[2019-07-05] MEDS: Ascorbic Acid 500 mg Chewable Tablet PO SCH ×2 (08:19→21:46)
[2019-07-05] MEDS: Dofetilide 0.125 MG CAP PO SCH ×2 (08:20→21:45)
[2019-07-05] MEDS: Fluticasone Propionate Nasal Spray 16 gm Bottle NASAL SCH (08:21)
[2019-07-05] MEDS: Dutasteride 0.5 MG CAP PO SCH (08:21)
[2019-07-05] MEDS: Gabapentin 100 MG CAP PO SCH ×2 (08:21→21:46)
[2019-07-05] MEDS: Lidocaine 5% Patch TD SCH (08:21)
[2019-07-05] MEDS: Mometasone/Formoterol 200/5 60 PUFF INH SCH ×2 (08:22→21:44)
[2019-07-05] MEDS: Losartan 25 MG TAB PO SCH (08:22)
[2019-07-05] MEDS: Senokot S 8.6-50 MG TAB PO SCH ×2 (08:24→21:43)
[2019-07-05] MEDS: Polyethylene Glycol 3350 17 GM Packet PO SCH (08:24)
[2019-07-05] MEDS: Torsemide 20 MG TAB PO SCH ×2 (08:24→13:08)
[2019-07-05] MEDS: Tamsulosin HCl 0.4 MG CAP PO SCH (08:24)
[2019-07-05] MEDS: Rifampin 300 MG CAP PO SCH ×2 (10:46→21:46)
--- NOTE | 2019-07-05 12:49 | HP ---
CHIEF COMPLAINT: Infection of left hip hemiarthroplasty, status post removal of implant, placement of spacer, and long-term IV antibiotic requirement. BRIEF HISTORY: This is a pleasant 79-year-old male, who is well known to me from [facility]. Recently had a fall and suffered a left hip fracture. He underwent left hip hemiarthroplasty and came to us at [facility] for therapy. He improved gradually and was discharged home. He apparently started noticing increasing left hip pain and came to the hospital and workup confirms infection of the left hip hemiarthroplasty with bacteremia. He underwent removal of implant and revision with irrigation and debridement. He is currently weightbearing as tolerated. Dr. Macdonald recommends vancomycin and rifampin for 6 weeks. The end date I think is August 11 and after that he wants him to be on a combination of rifampin and Bactrim for three months and then low-dose Bactrim for a long period of time. We will be doing weekly CBC, CMP, CRP, and sedimentation rate as well as physical therapy. The patient is currently up in his chair and does complain of left shoulder and elbow pain. He does have a Hays catheter in and he wants to leave it in until he gets a little bit stronger. He is aware of the risks of UTI with indwelling catheters. He denies any chest pain or shortness of breath. He states that the pain medicines are helping. PAST MEDICAL HISTORY: 1. Chronic obstructive pulmonary disease, goal stage 3 to 4. 2. Chronic hypoxemic respiratory failure. 3. Chronic diastolic congestive heart failure. 4. Benign prostatic hypertrophy. 5. Atrial fibrillation, status post Watchman procedure. 6. Anemia of chronic blood loss requiring periodic transfusion. 7. Depression and anxiety. 8. Chronic kidney disease, stage IV. 9. Recent left hip fracture, status post hemiarthroplasty. PAST SURGICAL HISTORY: 1. Watchman procedure. 2. Transesophageal echocardiogram. 3. Skin cyst excision. 4. Recent left hip hemiarthroplasty. ALLERGIES: HE IS ALLERGIC TO ADHESIVES. FAMILY HISTORY: Positive for diabetes, hypertension, and CVA in his father. PSYCHOSOCIAL HISTORY: Former smoker, at least [id number] history of smoking. Social alcohol intake. Denies any recreational or IV drug abuse. MEDICATIONS: He has been transferred here on the following medications; Tylenol 1000 mg q.6h scheduled, DuoNeb via nebulizer q.4 p.r.n. and albuterol via nebulizer q.6h p.r.n., vitamin C 500 mg b.i.d., Ecotrin 81 mg daily, Flexeril 5 mg t.i.d. p.r.n., Tikosyn 0.125 mg b.i.d., Avodart 0.5 mg daily, iron sulfate 325 daily, Flonase 1 spray to each nostril daily, gabapentin 100 mg b.i.d., hydralazine 10 mg IV q.4h p.r.n., Lidoderm patch daily and off at bedtime, Cozaar 100 mg daily; Dulera 200/5 two puffs b.i.d., gargle after use. Pantoprazole 40 mg daily. Testosterone IM q.28 days, it is 200 mg. MiraLAX 17 g in 8 ounces of water daily. Prednisone 10 mg daily, rifampin 300 mg b.i.d., Crestor 10 mg daily, Senokot-S 2 tablets b.i.d., Zoloft 50 mg daily, Flomax 0.4 mg daily, Demadex 40 mg b.i.d. tramadol 50 mg q.6 p.r.n. for moderate pain, vancomycin 1.25 g IV q.24, Pharmacy to manage dosing. REVIEW OF SYSTEMS: CARDIOVASCULAR SYSTEM: Denies any chest pain, palpitations, PND, orthopnea, or pedal edema. Exertional shortness of breath. RESPIRATORY: Denies any chronic cough, expectoration, or pleuritic-type chest pain. No hemoptysis. GASTROINTESTINAL SYSTEM: Denies any nausea, vomiting, diarrhea, constipation, hematemesis, melena, or hematochezia. GENITOURINARY SYSTEM: Denies any frequency, urgency, dysuria, or hematuria. He does have nocturia and occasional dribbling. He currently has a Hays catheter. CENTRAL NERVOUS SYSTEM: Denies any focal numbness, weakness, or fainting spells. HEENT: Denies any difficulty with speech, vision, hearing, or swallowing. EXTREMITIES: Constant and frequent joint pains. SKIN: Denies any rash. PHYSICAL EXAMINATION: GENERAL: This is a pleasant 79-year-old male, who is up in his wheelchair and denies any complaints. He responds appropriately to questions. He is hard of hearing. VITAL SIGNS: He is afebrile, heart rate 90, respirations are 18, oxygen saturation 96% on 3 L, and blood pressure 145/73. HEENT: Normocephalic and atraumatic. Pupils are equally reacting to light and accommodation. Extraocular muscles are intact. NECK: No JVD, thyromegaly, cervical lymphadenopathy, or throat exudates. No carotid bruits. CARDIOVASCULAR SYSTEM: S1 and S2 plus. Irregularly irregular. RESPIRATORY SYSTEM: Normal vesicular breath sounds with decreased air entry in the bases and prolonged expiratory phase. Occasional rhonchi. ABDOMEN: Soft and nontender. Bowel sounds heard in all quadrants. EXTREMITIES: Without cyanosis or clubbing. Chronic stasis changes, 1+ edema. CENTRAL NERVOUS SYSTEM: Awake and responsive. Cranial nerves II through XII intact. Generalized weakness. Left hip incision with dressing. LABORATORY VALUES: White count is 9, H and H are 8.6 and 28.8. Sodium 138, potassium was low this morning at 2.9 and it was replaced. BUN and creatinine 71 and 1.95. IMPRESSION: 1. 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 2. MRSA bacteremia. 3. Chronic obstructive pulmonary disease, goal stage 3 to 4. 4. Chronic hypoxemic respiratory failure. 5. Chronic kidney disease stage 3 to 4. 6. Chronic diastolic congestive heart failure. 7. Benign prostatic hypertrophy. 8. Atrial fibrillation. 9. Testosterone deficiency. 10. Chronic anemia, likely due to chronic blood loss, requiring periodic transfusion and deconditioning, now hypokalemia requiring replacement. PLAN: 1. Continue current medications. Discharge medications from previous hospitalization. 2. Replace potassium and also start him on potassium supplementation since he is on torsemide b.i.d. 3. Continue vancomycin for 6 weeks. I think the end date is about August 11, Pharmacy to manage dosing. 4. Monitor respiratory status. 5. DVT prophylaxis with PlexiPulses. 6. Decubitus precaution. 7. Stress ulcer prophylaxis. 8. PT/OT eval and treat. 9. Nutritional support. 10. Weekly CBC, CMP, CRP, and sedimentation rate. 11. Hays catheter care. 12. Anticipate removing Hays early next week. 13. Discussed with the patient and nursing in detail. All questions were answered. Job ID: [id number]
[2019-07-05 13:58] LABS: Potassium 3.9 mmol/L (3.5-5.1)
[2019-07-05] MEDS ORDERED: Vancomycin HCl 750 MG in Sodium Chloride 0.9% 250 ML 250 ML IVPB SCH (17:00)
[2019-07-05] MEDS: Potassium Chloride 20 MEQ TAB PO SCH (17:09)
[2019-07-05] MEDS ORDERED: Vancomycin HCl 500 MG in Sodium Chloride 0.9% 100 ML IVPB SCH (18:00)
[2019-07-05] MEDS: Rosuvastatin 10 MG TAB PO SCH (21:46)
[2019-07-05] MEDS: Lidocaine Patch Removal TOP SCH (21:46)
[2019-07-05] MEDS: Vancomycin HCl 750 MG in Sodium Chloride 0.9% 250 ML 250 ML IVPB SCH (22:58)
[2019-07-06] MEDS: Acetaminophen 500 MG TAB PO SCH ×5 (00:09→23:12)
[2019-07-06] MEDS: Ipratropium Bromide 2.5 ml Neb NEB SCH ×5 (00:09→23:12)
[2019-07-06] MEDS: Vancomycin HCl 500 MG in Sodium Chloride 0.9% 100 ML IVPB SCH (00:11)
[2019-07-06] MEDS: Lidocaine 5% Patch TD SCH (08:56)
[2019-07-06] MEDS: Fluticasone Propionate Nasal Spray 16 gm Bottle NASAL SCH (08:56)
[2019-07-06] MEDS: Mometasone/Formoterol 200/5 60 PUFF INH SCH ×2 (08:56→21:33)
[2019-07-06] MEDS: Losartan 25 MG TAB PO SCH (08:57)
[2019-07-06] MEDS: Polyethylene Glycol 3350 17 GM Packet PO SCH (08:57)
[2019-07-06] MEDS: Rifampin 300 MG CAP PO SCH ×2 (08:58→21:34)
[2019-07-06] MEDS: Dutasteride 0.5 MG CAP PO SCH (08:58)
[2019-07-06] MEDS: Dofetilide 0.125 MG CAP PO SCH ×2 (08:58→21:34)
[2019-07-06] MEDS: Potassium Chloride 20 MEQ TAB PO SCH ×2 (08:58→16:15)
[2019-07-06] MEDS: Tamsulosin HCl 0.4 MG CAP PO SCH (08:58)
[2019-07-06] MEDS: predniSONE 20 MG TAB PO SCH (08:59)
[2019-07-06] MEDS: Ferrous Sulfate 325 MG TAB PO SCH ×2 (08:59→16:15)
[2019-07-06] MEDS: Senokot S 8.6-50 MG TAB PO SCH ×2 (08:59→21:35)
[2019-07-06] MEDS: Torsemide 20 MG TAB PO SCH ×2 (08:59→14:10)
[2019-07-06] MEDS: traMADol HCl 50 MG TAB PO PRN ×3 (09:00→23:26)
[2019-07-06] MEDS: Gabapentin 100 MG CAP PO SCH ×2 (09:00→21:35)
[2019-07-06] MEDS: Ascorbic Acid 500 mg Chewable Tablet PO SCH ×2 (09:00→21:35)
[2019-07-06] MEDS: Aspirin 81 mg Enteric Coated Tablet PO SCH (09:01)
--- NOTE | 2019-07-06 10:09 | PRG ---
DATE OF SERVICE: 07/06/2019 SUBJECTIVE: Mr. Yates is sleeping, but arousable. He denies any questions or concerns. He is noticing pain in his left arm and left leg, but he states the pain medicines are helping. He denies any chest pain or shortness of breath. No PND or orthopnea. Discussed with nursing. OBJECTIVE: VITAL SIGNS: He is afebrile. Heart rate 96, respirations 19, oxygen saturation 92% on 2 L, and blood pressure 132/58. CARDIOVASCULAR: S1 and S2 plus. RESPIRATORY: Normal vesicular breath sounds. ABDOMEN: Soft, nontender. Bowel sounds heard in all quadrants. EXTREMITIES: Without cyanosis or clubbing. 1+ edema. CENTRAL NERVOUS SYSTEM: Generalized weakness, otherwise nonfocal. LABORATORY DATA: His potassium is up to 3.9. IMPRESSION: 1. Left hip fracture with subsequent prosthetic infection requiring revision of left hip hemiarthroplasty and long-term IV antibiotics. 2. Methicillin-resistant Staphylococcus aureus bacteremia. 3. Resolved hypokalemia. 4. Chronic diastolic congestive heart failure. 5. Chronic obstructive pulmonary disease, goal stage 3 to 4. 6. Chronic kidney disease, stage 3 to 4. 7. Atrial fibrillation. 8. Obstructive sleep apnea. 9. Testosterone deficiency. 10. Deconditioning. PLAN: 1. Continue current medications. 2. Heart healthy diet. 3. Monitor heart rate and rhythm. 4. DVT prophylaxis with PlexiPulses. 5. Incision care. 6. Decubitus precaution. 7. Monitor respiratory status. 8. The patient is complaint with his CPAP at night. 9. Pain management. 10. Routine laboratory values. 11. PT/OT. 12. Dr. Munoz on-call this weekend. Job ID: [id number]
[2019-07-06] MEDS: Lidocaine Patch Removal TOP SCH (21:35)
[2019-07-06] MEDS: Rosuvastatin 10 MG TAB PO SCH (21:35)
[2019-07-06] MEDS: Vancomycin HCl 750 MG in Sodium Chloride 0.9% 250 ML 250 ML IVPB SCH (23:12)
[2019-07-07] MEDS: Vancomycin HCl 500 MG in Sodium Chloride 0.9% 100 ML IVPB SCH (00:24)
[2019-07-07] MEDS: Ipratropium Bromide 2.5 ml Neb NEB SCH ×5 (05:33→23:52)
[2019-07-07] MEDS: Acetaminophen 500 MG TAB PO SCH ×4 (05:33→23:50)
[2019-07-07] MEDS: traMADol HCl 50 MG TAB PO PRN ×2 (05:34→21:02)
[2019-07-07] MEDS: predniSONE 20 MG TAB PO SCH (09:10)
[2019-07-07] MEDS: Ferrous Sulfate 325 MG TAB PO SCH ×2 (09:10→17:12)
[2019-07-07] MEDS: Potassium Chloride 20 MEQ TAB PO SCH ×2 (09:11→17:11)
[2019-07-07] MEDS: Dofetilide 0.125 MG CAP PO SCH ×2 (09:12→20:51)
[2019-07-07] MEDS: Ascorbic Acid 500 mg Chewable Tablet PO SCH ×2 (09:13→20:51)
[2019-07-07] MEDS: Tamsulosin HCl 0.4 MG CAP PO SCH (09:13)
[2019-07-07] MEDS: Dutasteride 0.5 MG CAP PO SCH (09:13)
[2019-07-07] MEDS: Torsemide 20 MG TAB PO SCH ×2 (09:14→13:20)
[2019-07-07] MEDS: Senokot S 8.6-50 MG TAB PO SCH ×2 (09:14→20:53)
[2019-07-07] MEDS: Gabapentin 100 MG CAP PO SCH ×2 (09:15→20:51)
[2019-07-07] MEDS: Polyethylene Glycol 3350 17 GM Packet PO SCH (09:16)
[2019-07-07] MEDS: Losartan 25 MG TAB PO SCH (09:16)
[2019-07-07] MEDS: Rifampin 300 MG CAP PO SCH ×2 (09:16→20:56)
[2019-07-07] MEDS: Fluticasone Propionate Nasal Spray 16 gm Bottle NASAL SCH (09:17)
[2019-07-07] MEDS: Lidocaine 5% Patch TD SCH (09:17)
[2019-07-07] MEDS: Mometasone/Formoterol 200/5 60 PUFF INH SCH ×2 (09:19→20:52)
[2019-07-07] MEDS: Aspirin 81 mg Enteric Coated Tablet PO SCH (09:58)
[2019-07-07] MEDS: Lidocaine Patch Removal TOP SCH (20:52)
[2019-07-07] MEDS: Rosuvastatin 10 MG TAB PO SCH (20:53)
[2019-07-07] MEDS: Cyclobenzaprine 10 MG TAB PO PRN (21:02)
[2019-07-07] MEDS: Vancomycin HCl 750 MG in Sodium Chloride 0.9% 250 ML 250 ML IVPB SCH (22:38)
[2019-07-08] MEDS: Vancomycin HCl 500 MG in Sodium Chloride 0.9% 100 ML IVPB SCH (00:05)
[2019-07-08] MEDS: Acetaminophen 500 MG TAB PO SCH ×4 (05:31→23:47)
[2019-07-08] MEDS: Ipratropium Bromide 2.5 ml Neb NEB SCH ×3 (05:31→17:36)
[2019-07-08] MEDS: traMADol HCl 50 MG TAB PO PRN ×3 (05:48→22:16)
[2019-07-08] MEDS: Polyethylene Glycol 3350 17 GM Packet PO SCH (09:04)
[2019-07-08] MEDS: Lidocaine 5% Patch TD SCH (09:04)
[2019-07-08] MEDS: Fluticasone Propionate Nasal Spray 16 gm Bottle NASAL SCH (09:04)
[2019-07-08] MEDS: Mometasone/Formoterol 200/5 60 PUFF INH SCH ×2 (09:05→21:00)
[2019-07-08] MEDS: Dutasteride 0.5 MG CAP PO SCH (09:06)
[2019-07-08] MEDS: Losartan 25 MG TAB PO SCH (09:06)
[2019-07-08] MEDS: Ascorbic Acid 500 mg Chewable Tablet PO SCH ×2 (09:06→22:19)
[2019-07-08] MEDS: Tamsulosin HCl 0.4 MG CAP PO SCH (09:06)
[2019-07-08] MEDS: Ferrous Sulfate 325 MG TAB PO SCH ×2 (09:06→17:35)
[2019-07-08] MEDS: Torsemide 20 MG TAB PO SCH ×2 (09:06→14:22)
[2019-07-08] MEDS: Senokot S 8.6-50 MG TAB PO SCH ×2 (09:07→22:19)
[2019-07-08] MEDS: predniSONE 20 MG TAB PO SCH (09:07)
[2019-07-08] MEDS: Gabapentin 100 MG CAP PO SCH ×2 (09:07→22:19)
[2019-07-08] MEDS: Aspirin 81 mg Enteric Coated Tablet PO SCH (09:08)
[2019-07-08] MEDS: Potassium Chloride 20 MEQ TAB PO SCH ×2 (09:08→17:35)
[2019-07-08] MEDS: Dofetilide 0.125 MG CAP PO SCH ×2 (09:08→22:19)
[2019-07-08] MEDS: Rifampin 300 MG CAP PO SCH ×2 (09:34→22:18)
--- NOTE | 2019-07-08 20:47 | PRG ---
DATE OF SERVICE: 07/07/2019 SUBJECTIVE: The patient is resting, still complaining of pain in his left arm with some improvement with pain medicine, but persistent. He is having no dyspnea at rest, but he is not able to ambulate because of his pain in his left prosthetic hip. He is not having any cough or sputum production. OBJECTIVE: VITAL SIGNS: Show pulse 87, respiratory rate 22, O2 sats 96% on 3 L, blood pressure 126/50. LUNGS: Show decreased breath sounds. CARDIAC: Displays regular rhythm. ABDOMEN: Soft and nontender. SKIN/EXTREMITIES: Show 1+ trace edema. ASSESSMENT: 1. Resolving infection of left prosthetic hip with revision of hip and long-term antibiotics. 2. Methicillin-resistant Staph bacteremia. 3. Chronic diastolic heart failure. 4. Chronic obstructive pulmonary disease, stage III. 5. Chronic kidney disease, stage 3. 6. Atrial fibrillation. 7. Obstructive sleep apnea. PLAN: 1. Continue IV vancomycin and rifampin. 2. Continue bronchodilators. 3. Continue tramadol for pain. 4. Continue to stress caloric intake. Job ID: [id number]
--- NOTE | 2019-07-08 21:02 | PRG ---
DATE OF SERVICE: SUBJECTIVE: The patient is sitting up in his chair. Complaining of pain in his left hip and on the fact he did not sleep last night secondary to this pain despite taking tramadol. He is having no dyspnea, fever, chills, or chest pain. OBJECTIVE: VITAL SIGNS: His blood pressure is 126/56, temperature is 97, pulse 95, respirations 18, O2 sats 93% on room air. LUNGS: Show decreased breath sounds. No rales or rhonchi. CARDIAC: Examination shows irregular rhythm. ABDOMEN: Soft and nontender. EXTREMITIES: Incision appears to be healing well. ASSESSMENT: 1. Persistent pain in his left hip from prosthetic infection and also pain in the left shoulder with incomplete control with tramadol 50 mg every 6 hours. 2. Atrial fibrillation with rate control, but no anticoagulation secondary to Watchman procedure. 3. Chronic obstructive pulmonary disease stage III. 4. Deconditioning. PLAN: Increase tramadol to 100 mg every 6 hours as needed for pain. Continue IV vancomycin. Continue rate control for atrial fibrillation. Monitor respiratory status closely with increased tramadol. Job ID: [id number]
[2019-07-08] MEDS: Cyclobenzaprine 10 MG TAB PO PRN (22:17)
[2019-07-08] MEDS: Rosuvastatin 10 MG TAB PO SCH (22:19)
[2019-07-08 22:41] LABS: Vancomycin, Trough 32.3 ug/mL
[2019-07-08] MEDS: Lidocaine Patch Removal TOP SCH (23:00)
[2019-07-09] MEDS: Acetaminophen 500 MG TAB PO SCH ×3 (06:00→17:26)
[2019-07-09] MEDS: Ipratropium Bromide 2.5 ml Neb NEB SCH ×3 (06:01→17:27)
[2019-07-09] MEDS: Potassium Chloride 20 MEQ TAB PO SCH ×2 (08:51→17:26)
[2019-07-09] MEDS: Ferrous Sulfate 325 MG TAB PO SCH ×2 (08:51→17:26)
[2019-07-09] MEDS: predniSONE 20 MG TAB PO SCH (08:51)
[2019-07-09] MEDS: Ascorbic Acid 500 mg Chewable Tablet PO SCH ×2 (08:52→21:52)
[2019-07-09] MEDS: Aspirin 81 mg Enteric Coated Tablet PO SCH (08:52)
[2019-07-09] MEDS: Fluticasone Propionate Nasal Spray 16 gm Bottle NASAL SCH (08:53)
[2019-07-09] MEDS: Dofetilide 0.125 MG CAP PO SCH ×2 (08:53→21:53)
[2019-07-09] MEDS: Dutasteride 0.5 MG CAP PO SCH (08:53)
[2019-07-09] MEDS: Lidocaine 5% Patch TD SCH (08:54)
[2019-07-09] MEDS: Gabapentin 100 MG CAP PO SCH ×2 (08:54→21:52)
[2019-07-09] MEDS: Losartan 25 MG TAB PO SCH (08:54)
[2019-07-09] MEDS: Mometasone/Formoterol 200/5 60 PUFF INH SCH ×2 (08:54→21:54)
[2019-07-09] MEDS: Tamsulosin HCl 0.4 MG CAP PO SCH (08:56)
[2019-07-09] MEDS: Torsemide 20 MG TAB PO SCH ×2 (08:56→14:39)
[2019-07-09] MEDS: Senokot S 8.6-50 MG TAB PO SCH ×2 (08:56→21:52)
[2019-07-09] MEDS: Polyethylene Glycol 3350 17 GM Packet PO SCH (08:56)
[2019-07-09] MEDS: traMADol HCl 50 MG TAB PO PRN ×2 (09:00→17:51)
[2019-07-09] MEDS: Rifampin 300 MG CAP PO SCH ×2 (09:01→21:51)
--- NOTE | 2019-07-09 13:30 | PRG ---
DATE OF SERVICE: 07/09/2019 SUBJECTIVE: Mr. Yates is up in his chair, getting ready for therapy. He states that he needed an extra pain pill last night and that seemed to help. His vancomycin was held yesterday due to high trough. He denies any other concerns or questions. OBJECTIVE: VITAL SIGNS: He is afebrile. Heart rate is 100, respirations 18, oxygen saturation 94% on 3 L, and blood pressure 173/64. CARDIOVASCULAR: S1 and S2 plus. RESPIRATORY: Normal vesicular breath sounds. ABDOMEN: Soft and nontender. Bowel sounds heard in all quadrants. EXTREMITIES: Without cyanosis or clubbing. Trace edema. CENTRAL NERVOUS SYSTEM: Generalized weakness. Otherwise, nonfocal. LABORATORY DATA: Vancomycin trough level last night was 32.3. IMPRESSION: 1. Methicillin-resistant Staphylococcus aureus bacteremia. 2. Prosthetic hip infection, left requiring revision surgery. 3. Chronic diastolic congestive heart failure. 4. Chronic kidney disease, stage 4. 5. Chronic obstructive pulmonary disease, GOLD stage 3 to 4. 6. Chronic hypoxemic respiratory failure. 7. History of atrial fibrillation. 8. History of anemia requiring periodic blood transfusion. 9. Deconditioning. 10. Benign prostatic hypertrophy. PLAN: 1. Continue current medications. 2. Pharmacy to manage vancomycin dosing. 3. Monitor respiratory status. 4. Monitor heart rate and rhythm. 5. Adjust pain medications. 6. Physical therapy. 7. Routine laboratory values including weekly CBC, CRP, CMP, and sedimentation rate. 8. Discussed with the patient in detail. All questions answered. No family at bedside. Job ID: [id number]
[2019-07-09] MEDS: Cyclobenzaprine 10 MG TAB PO PRN (21:52)
[2019-07-09] MEDS: Rosuvastatin 10 MG TAB PO SCH (21:53)
[2019-07-09] MEDS: Lidocaine Patch Removal TOP SCH (21:54)
[2019-07-09 22:24] LABS: Vancomycin, Random 22.9 ug/mL (See Comment)
[2019-07-09] MEDS ORDERED: Vancomycin HCl 750 MG in Sodium Chloride 0.9% 250 ML 250 ML IVPB SCH (23:00)
[2019-07-10] MEDS: traMADol HCl 50 MG TAB PO PRN ×3 (00:01→14:56)
[2019-07-10] MEDS: Ipratropium Bromide 2.5 ml Neb NEB SCH ×5 (00:02→18:20)
[2019-07-10] MEDS: Acetaminophen 500 MG TAB PO SCH ×4 (00:02→17:25)
[2019-07-10] MEDS: Ascorbic Acid 500 mg Chewable Tablet PO SCH ×2 (08:55→20:36)
[2019-07-10] MEDS: Ferrous Sulfate 325 MG TAB PO SCH ×2 (08:55→17:25)
[2019-07-10] MEDS: predniSONE 20 MG TAB PO SCH (08:55)
[2019-07-10] MEDS: Potassium Chloride 20 MEQ TAB PO SCH ×2 (08:55→17:25)
[2019-07-10] MEDS: Dofetilide 0.125 MG CAP PO SCH ×2 (08:56→20:37)
[2019-07-10] MEDS: Dutasteride 0.5 MG CAP PO SCH (08:56)
[2019-07-10] MEDS: Fluticasone Propionate Nasal Spray 16 gm Bottle NASAL SCH (08:56)
[2019-07-10] MEDS: Aspirin 81 mg Enteric Coated Tablet PO SCH (08:56)
[2019-07-10] MEDS: Tamsulosin HCl 0.4 MG CAP PO SCH (08:57)
[2019-07-10] MEDS: Gabapentin 100 MG CAP PO SCH ×2 (08:57→20:37)
[2019-07-10] MEDS: Losartan 25 MG TAB PO SCH (08:57)
[2019-07-10] MEDS: Mometasone/Formoterol 200/5 60 PUFF INH SCH ×2 (08:57→20:43)
[2019-07-10] MEDS: Lidocaine 5% Patch TD SCH (08:57)
[2019-07-10] MEDS: Polyethylene Glycol 3350 17 GM Packet PO SCH (08:59)
[2019-07-10] MEDS: Torsemide 20 MG TAB PO SCH ×2 (09:00→14:55)
[2019-07-10] MEDS: Senokot S 8.6-50 MG TAB PO SCH ×2 (09:00→20:36)
[2019-07-10] MEDS: Rifampin 300 MG CAP PO SCH ×2 (09:01→21:57)
[2019-07-10 10:50] LABS: Vancomycin, Random 20.5 ug/mL (See Comment)
[2019-07-10] MEDS ORDERED: Vancomycin HCl 750 MG in Sodium Chloride 0.9% 250 ML 250 ML IVPB SCH ×2 (13:00→23:00)
[2019-07-10] MEDS: Albuterol Sulfate 2.5 mg/3 ml Neb NEB PRN ×2 (17:25→17:55)
[2019-07-10] MEDS ORDERED: Ipratropium Bromide 2.5 ml Neb ONE (18:06)
--- NOTE | 2019-07-10 18:27 | PRG ---
DATE OF SERVICE: 07/10/2019 SUBJECTIVE: Mr. Yates is doing well. He states that he has slept well. He is working with Occupational Therapy. Denies any chest pain or shortness of breath. OBJECTIVE: VITAL SIGNS: He is afebrile. Heart rate is 94, respirations 20, oxygen saturation 98% on 3 L, and blood pressure 113/56. CARDIOVASCULAR SYSTEM: S1 and S2 plus. RESPIRATORY SYSTEM: Normal vesicular breath sounds with decreased air entry in the bases. ABDOMEN: Soft, obese, nontender. Bowel sounds heard in all quadrants. EXTREMITIES: Without cyanosis or clubbing. 1+ edema to trace. CENTRAL NERVOUS SYSTEM: Generalized weakness, otherwise nonfocal. IMPRESSION: 1. Methicillin-resistant Staphylococcus aureus bacteremia. 2. 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 3. Chronic kidney disease, stage 3 to 4. 4. Chronic obstructive pulmonary disease, GOLD stage 3 to 4. 5. Chronic hypoxemic respiratory failure. 6. Chronic diastolic congestive heart failure. 7. Atrial fibrillation. 8. BPH. 9. Deconditioning. PLAN: 1. Continue current medications. 2. Vancomycin until August 11. 3. Heart-healthy diet. 4. Physical therapy. 5. Decubitus precautions. 6. Stress ulcer prophylaxis. 7. Monitor hemoglobin. 8. Monitor respiratory status. Job ID: [id number]
[2019-07-10] MEDS: Rosuvastatin 10 MG TAB PO SCH (20:37)
[2019-07-10] MEDS: Lidocaine Patch Removal TOP SCH (20:47)
[2019-07-10 22:15] LABS: Vancomycin, Random 18.1 ug/mL (See Comment)
[2019-07-11] MEDS ORDERED: Ipratropium Bromide 2.5 ml Neb ONE ×2 (00:14→05:07)
[2019-07-11] MEDS: Acetaminophen 500 MG TAB PO SCH ×5 (00:19→23:40)
[2019-07-11] MEDS: Vancomycin HCl 500 MG in Sodium Chloride 0.9% 100 ML IVPB SCH ×2 (00:19→23:39)
[2019-07-11] MEDS: Ipratropium Bromide 2.5 ml Neb NEB SCH ×5 (00:24→23:40)
[2019-07-11] MEDS: traMADol HCl 50 MG TAB PO PRN ×2 (05:52→21:20)
[2019-07-11] MEDS: Polyethylene Glycol 3350 17 GM Packet PO SCH (09:18)
[2019-07-11] MEDS: Losartan 25 MG TAB PO SCH (09:18)
[2019-07-11] MEDS: Rifampin 300 MG CAP PO SCH ×2 (09:18→21:22)
[2019-07-11] MEDS: Dofetilide 0.125 MG CAP PO SCH ×2 (09:19→20:16)
[2019-07-11] MEDS: Torsemide 20 MG TAB PO SCH ×2 (09:19→15:07)
[2019-07-11] MEDS: predniSONE 20 MG TAB PO SCH (09:19)
[2019-07-11] MEDS: Gabapentin 100 MG CAP PO SCH ×2 (09:19→20:16)
[2019-07-11] MEDS: Ascorbic Acid 500 mg Chewable Tablet PO SCH ×2 (09:19→20:16)
[2019-07-11] MEDS: Senokot S 8.6-50 MG TAB PO SCH ×2 (09:19→20:19)
[2019-07-11] MEDS: Potassium Chloride 20 MEQ TAB PO SCH ×2 (09:21→17:13)
[2019-07-11] MEDS: Dutasteride 0.5 MG CAP PO SCH (09:21)
[2019-07-11] MEDS: Tamsulosin HCl 0.4 MG CAP PO SCH (09:21)
[2019-07-11] MEDS: Ferrous Sulfate 325 MG TAB PO SCH ×2 (09:22→17:13)
[2019-07-11] MEDS: Mometasone/Formoterol 200/5 60 PUFF INH SCH ×2 (09:26→20:16)
[2019-07-11] MEDS: Fluticasone Propionate Nasal Spray 16 gm Bottle NASAL SCH (09:26)
[2019-07-11] MEDS: Aspirin 81 mg Enteric Coated Tablet PO SCH (09:28)
[2019-07-11] MEDS: Lidocaine 5% Patch TD SCH (09:28)
--- NOTE | 2019-07-11 13:15 | PRG ---
DATE OF SERVICE: 07/11/2019 SUBJECTIVE: Mr. Yates is up in his chair. He apparently bumped his right forearm on the sharp edge of his chair and has developed a skin tear. He is improving with therapy. He continues to have significant pain, but the pain medicines are helping. OBJECTIVE: VITAL SIGNS: He is afebrile, heart rate 88, respirations 20, oxygen saturation 91%, and blood pressure 129/62. CARDIOVASCULAR SYSTEM: S1 and S2 plus. RESPIRATORY SYSTEM: Normal vesicular breath sounds. ABDOMEN: Soft and nontender. Bowel sounds heard in all quadrants. EXTREMITIES: Without cyanosis or clubbing. Trace edema. CENTRAL NERVOUS SYSTEM: Generalized weakness, otherwise nonfocal. IMPRESSION: 1. Methicillin-resistant Staphylococcus aureus bacteremia. 2. Prosthetic infection of left hip, requiring revision. 3. Chronic diastolic congestive heart failure. 4. Chronic kidney disease, stage 4. 5. Chronic obstructive pulmonary disease, stage 3 to 4. 6. Atrial fibrillation. 7. Benign prostatic hypertrophy. PLAN: 1. Continue current medications. 2. Heart healthy diet. 3. Monitor renal function and electrolytes. 4. DVT prophylaxis with PlexiPulses. 5. Decubitus precautions. 6. Stress ulcer prophylaxis. 7. Orthopedic precautions. 8. Continue vancomycin. 9. Weekly CBC, CMP, CRP, and sedimentation rate. 10. Physical therapy. Job ID: [id number]
[2019-07-11] MEDS: Lidocaine Patch Removal TOP SCH (20:16)
[2019-07-11] MEDS: Rosuvastatin 10 MG TAB PO SCH (20:18)
[2019-07-11] MEDS: Cyclobenzaprine 10 MG TAB PO PRN (21:20)
[2019-07-11 23:18] LABS: Vancomycin, Random 17.4 ug/mL (See Comment)
[2019-07-12 05:23] LABS: #Basophils 0.1 thou/uL (0.0-0.2); #Lymphocytes 1.9 thou/uL (1.20-3.40); #Monocytes 0.8 thou/uL (0.11-0.59); #Neutrophils 9.2 thou/uL (1.40-6.50); %Basophils 0.7 % (0.0-1.0); %Eosinophils 0.1 % (0.0-10.0); %Lymphocytes 15.4 % (21.0-51.0); %Monocytes 6.8 % (0.0-10.0); Hemoglobin 6.9 g/dL (14.0-18.0); Mean Corpuscular HGB CONC 30.2 g/dL (32.0-36.0); Mean Corpuscular Hemoglobin 27.8 pg (27.0-31.0); Mean Corpuscular Volume 92.2 fL (78.0-98.0); Mean Platelet Volume 6.2 fL (7.4-10.4); Platelet Count 403 thou/uL (130-400); RBC Distribution Width 17.8 % (11.5-14.5); Red Blood Cell (RBC) Count 2.49 mill/uL (4.70-6.10)
[2019-07-12] MEDS: Acetaminophen 500 MG TAB PO SCH ×3 (05:24→17:58)
[2019-07-12] MEDS: Ipratropium Bromide 2.5 ml Neb NEB SCH ×4 (05:26→23:57)
[2019-07-12 05:37] LABS: ALT (SGPT) 11 U/L (8-55); AST (SGOT) 11 U/L (5-34); Albumin 2.6 g/dL (3.4-4.8); Alkaline Phosphatase 78 U/L (40-110); Anion Gap 12 mmol/L (10-20); BUN (Urea Nitrogen) 55 mg/dL (8.4-25.7); Bilirubin, Total 0.2 mg/dL (0.2-1.2); CRP (Inflammatory) 7.01 mg/dL (= or < 0.5); Calc. Creatinine Clearance 46 mL/min (70-130); Calcium 7.9 mg/dL (7.8-10.44); Carbon Dioxide 25 mmol/L (23-31); Chloride 106 mmol/L (98-107); Estimated GFR-MDRD 42; Globulin 2.3 g/dL (2.4-3.5); Glucose 89 mg/dL (83-110); Potassium 4.3 mmol/L (3.5-5.1); Protein, Total 4.9 g/dL (5.8-8.1); Sodium 139 mmol/L (136-145)
[2019-07-12] MEDS: Polyethylene Glycol 3350 17 GM Packet PO SCH (08:18)
[2019-07-12] MEDS: Lidocaine 5% Patch TD SCH (08:18)
[2019-07-12] MEDS: Ferrous Sulfate 325 MG TAB PO SCH ×2 (08:19→15:55)
[2019-07-12] MEDS: Torsemide 20 MG TAB PO SCH ×2 (08:19→15:55)
[2019-07-12] MEDS: predniSONE 20 MG TAB PO SCH (08:19)
[2019-07-12] MEDS: Senokot S 8.6-50 MG TAB PO SCH ×2 (08:19→21:11)
[2019-07-12] MEDS: Potassium Chloride 20 MEQ TAB PO SCH ×2 (08:19→15:55)
[2019-07-12] MEDS: Gabapentin 100 MG CAP PO SCH ×2 (08:19→21:11)
[2019-07-12] MEDS: Ascorbic Acid 500 mg Chewable Tablet PO SCH ×2 (08:20→21:11)
[2019-07-12] MEDS: Dutasteride 0.5 MG CAP PO SCH (08:20)
[2019-07-12] MEDS: Aspirin 81 mg Enteric Coated Tablet PO SCH (08:20)
[2019-07-12] MEDS: Losartan 25 MG TAB PO SCH (08:20)
[2019-07-12] MEDS: Tamsulosin HCl 0.4 MG CAP PO SCH (08:20)
[2019-07-12] MEDS: Dofetilide 0.125 MG CAP PO SCH ×2 (08:20→21:11)
[2019-07-12] MEDS: traMADol HCl 50 MG TAB PO PRN ×2 (08:26→18:01)
[2019-07-12] MEDS: Mometasone/Formoterol 200/5 60 PUFF INH SCH ×2 (08:27→21:10)
[2019-07-12] MEDS: Fluticasone Propionate Nasal Spray 16 gm Bottle NASAL SCH (08:28)
[2019-07-12 09:16] LABS: #Basophils 0.1 thou/uL (0.0-0.2); #Lymphocytes 1.5 thou/uL (1.20-3.40); #Monocytes 0.9 thou/uL (0.11-0.59); #Neutrophils 9.7 thou/uL (1.40-6.50); %Basophils 0.8 % (0.0-1.0); %Eosinophils 0.2 % (0.0-10.0); %Lymphocytes 12.3 % (21.0-51.0); %Monocytes 7.6 % (0.0-10.0); %Neutrophils 79.2 % (42.0-75.0); Hemoglobin 7.3 g/dL (14.0-18.0); Mean Corpuscular HGB CONC 30.1 g/dL (32.0-36.0); Mean Corpuscular Hemoglobin 27.7 pg (27.0-31.0); Mean Corpuscular Volume 92.1 fL (78.0-98.0); Mean Platelet Volume 6.3 fL (7.4-10.4); Platelet Count 439 thou/uL (130-400); RBC Distribution Width 18.4 % (11.5-14.5); Red Blood Cell (RBC) Count 2.64 mill/uL (4.70-6.10); White Blood Cell (WBC) Count 12.2 thou/uL (4.8-10.8)
[2019-07-12] MEDS: Rifampin 300 MG CAP PO SCH ×2 (11:14→21:12)
--- NOTE | 2019-07-12 14:08 | PRG ---
DATE OF SERVICE: 07/12/2019 SUBJECTIVE: Mr. Yates unfortunately failed his voiding trial, had to be straight-cathed 3 times since I asked him to replace the Hays. He states that he did not have any issues prior to the surgery. He is already on Avodart and tamsulosin. I told him that I will increase his tamsulosin to twice daily and see if that makes any difference. He did have a hemoglobin of 6.9, but repeat was 7.4. OBJECTIVE: VITAL SIGNS: He is afebrile, heart rate 93, respirations 18, oxygen saturation 96% on 3 L, and blood pressure 127/67. CARDIOVASCULAR SYSTEM: S1 and S2 plus. RESPIRATORY SYSTEM: Normal vesicular breath sounds. ABDOMEN: Soft, nontender. Bowel sounds heard in all quadrants. EXTREMITIES: Without cyanosis or clubbing. Trace edema. CENTRAL NERVOUS SYSTEM: Generalized weakness. LABORATORY VALUES: White count is 12.2, H and H are 7.3 and 24.4. This was the repeat. Sedimentation rate is 43. Sodium 139, potassium 4.3, BUN and creatinine are 55 and 1.59. CRP is 7.01. Vancomycin level is 17.4. IMPRESSION: 1. Methicillin-resistant Staphylococcus aureus bacteremia. 2. Chronic obstructive pulmonary disease. 3. Chronic hypoxemic respiratory failure. 4. Chronic kidney disease, stage IV. 5. Chronic diastolic congestive heart failure. 6. Urinary retention. 7. Benign prostatic hypertrophy. PLAN: 1. Continue current medications. 2. Heart healthy diet. 3. Hays catheter care. 4. Increase tamsulosin to b.i.d. 5. Continue physical therapy. 6. Weekly CBC, CRP, CMP, and sedimentation rate. 7. Vancomycin dosing for pharmacy. 8. Continue therapy. Job ID: [id number]
[2019-07-12] MEDS: Rosuvastatin 10 MG TAB PO SCH (21:11)
[2019-07-12] MEDS: Lidocaine Patch Removal TOP SCH (21:12)
[2019-07-12] MEDS: Cyclobenzaprine 10 MG TAB PO PRN (21:18)
[2019-07-12] MEDS: Vancomycin HCl 500 MG in Sodium Chloride 0.9% 100 ML IVPB SCH (23:56)
[2019-07-13] MEDS: Acetaminophen 500 MG TAB PO SCH ×5 (00:01→23:26)
[2019-07-13] MEDS: traMADol HCl 50 MG TAB PO PRN ×3 (00:03→21:19)
[2019-07-13] MEDS: Ipratropium Bromide 2.5 ml Neb NEB SCH ×4 (05:44→23:27)
[2019-07-13] MEDS: Fluticasone Propionate Nasal Spray 16 gm Bottle NASAL SCH (08:59)
[2019-07-13] MEDS: Polyethylene Glycol 3350 17 GM Packet PO SCH (09:00)
[2019-07-13] MEDS: Mometasone/Formoterol 200/5 60 PUFF INH SCH ×2 (09:00→21:09)
[2019-07-13] MEDS: Lidocaine 5% Patch TD SCH (09:01)
[2019-07-13] MEDS: Gabapentin 100 MG CAP PO SCH ×2 (09:02→21:17)
[2019-07-13] MEDS: Aspirin 81 mg Enteric Coated Tablet PO SCH (09:02)
[2019-07-13] MEDS: predniSONE 20 MG TAB PO SCH (09:03)
[2019-07-13] MEDS: Senokot S 8.6-50 MG TAB PO SCH ×2 (09:03→21:17)
[2019-07-13] MEDS: Potassium Chloride 20 MEQ TAB PO SCH ×2 (09:04→17:18)
[2019-07-13] MEDS: Ascorbic Acid 500 mg Chewable Tablet PO SCH ×2 (09:04→21:17)
[2019-07-13] MEDS: Ferrous Sulfate 325 MG TAB PO SCH ×2 (09:04→17:18)
[2019-07-13] MEDS: Dutasteride 0.5 MG CAP PO SCH (09:05)
[2019-07-13] MEDS: Tamsulosin HCl 0.4 MG CAP PO SCH ×2 (09:05→21:18)
[2019-07-13] MEDS: Torsemide 20 MG TAB PO SCH ×2 (09:05→14:07)
[2019-07-13] MEDS: Losartan 25 MG TAB PO SCH (09:06)
[2019-07-13] MEDS: Rifampin 300 MG CAP PO SCH ×2 (09:06→21:17)
[2019-07-13] MEDS: Dofetilide 0.125 MG CAP PO SCH ×2 (09:06→21:17)
--- NOTE | 2019-07-13 10:46 | PRG ---
DATE OF SERVICE: 07/13/2019 SUBJECTIVE: Mr. Yates is up in his chair. He is doing well. Denies any complaints. Feels like he is improving with therapy. I advised him that I am going to increase his tamsulosin to twice daily to see if it makes any difference with his urination. OBJECTIVE: VITAL SIGNS: He is afebrile. Heart rate is 91, respirations 20, oxygen saturation 94% on 3 L, and blood pressure 135/64. CARDIOVASCULAR: S1 and S2 plus. RESPIRATORY: Normal vesicular breath sounds. ABDOMEN: Soft, nontender. Bowel sounds heard in all quadrants. Obese. EXTREMITIES: Without cyanosis or clubbing. CENTRAL NERVOUS SYSTEM: Grossly nonfocal. Hays catheter in place. IMPRESSION: 1. Methicillin-resistant Staphylococcus aureus bacteremia. 2. 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 3. Chronic diastolic congestive heart failure. 4. Chronic obstructive pulmonary disease, GOLD stage III to IV. 5. Chronic kidney disease stage 3 to 4. 6. Benign prostatic hypertrophy. 7. Atrial fibrillation. PLAN: 1. Continue current medications, but increase tamsulosin to b.i.d. 2. Heart healthy diet. 3. Monitor respiratory status. 4. Monitor heart rate and rhythm. 5. Hays catheter care. 6. Decubitus precautions. 7. Continue vancomycin and rifampin until August 12. 8. Weekly CBC, CMP, CRP, and sedimentation rate. 9. Physical therapy. Job ID: [id number]
[2019-07-13] MEDS: Rosuvastatin 10 MG TAB PO SCH (21:17)
[2019-07-13] MEDS: Lidocaine Patch Removal TOP SCH (21:18)
[2019-07-13] MEDS: Vancomycin HCl 500 MG in Sodium Chloride 0.9% 100 ML IVPB SCH (23:27)
[2019-07-14] MEDS: Acetaminophen 500 MG TAB PO SCH ×4 (05:47→23:58)
[2019-07-14] MEDS: Ipratropium Bromide 2.5 ml Neb NEB SCH ×3 (05:47→17:14)
--- NOTE | 2019-07-14 07:09 | PRG ---
DATE OF SERVICE: 07/14/2019 SUBJECTIVE: Mr. Yates is resting in bed. He denies any complaints. His repeat hemoglobin was 7.3, so he did not get any blood transfusion. OBJECTIVE: VITAL SIGNS: He is afebrile. Heart rate 88, respirations 20, oxygen saturation 93% on 3 L. CARDIOVASCULAR SYSTEM: S1 and S2 plus. RESPIRATORY SYSTEM: Normal vesicular breath sounds. ABDOMEN: Soft, nontender. Bowel sounds heard in all quadrants. EXTREMITIES: Without cyanosis or clubbing. CENTRAL NERVOUS SYSTEM: Improving deconditioning. Hays catheter in place. IMPRESSION: 1. Chronic diastolic congestive heart failure. 2. Chronic obstructive pulmonary disease, GOLD stage 3 to 4. 3. Chronic kidney disease, stage 3 to 4. 4. Atrial fibrillation. 5. Benign prostatic hypertrophy. 6. Recurrent anemia. PLAN: 1. Continue current medications. 2. Heart healthy diet. 3. Monitor heart rate and rhythm. 4. Monitor respiratory status and titrate oxygen. 5. Nocturnal CPAP. 6. Physical therapy. 7. Hays catheter care. 8. Recheck CBC this morning and transfuse if hemoglobin is less than 7. Discussed with the patient and nursing. Job ID: [id number]
[2019-07-14 07:13] LABS: #Basophils 0.1 thou/uL (0.0-0.2); #Lymphocytes 1.5 thou/uL (1.20-3.40); #Neutrophils 9.1 thou/uL (1.40-6.50); %Basophils 0.6 % (0.0-1.0); %Eosinophils 0.1 % (0.0-10.0); %Monocytes 8.7 % (0.0-10.0); %Neutrophils 77.5 % (42.0-75.0); Hemoglobin 6.9 g/dL (14.0-18.0); Hypochromia MODERATE=16-30 cells (100X) (0-5/hpf); MDiff Complete? YES; Macrocytosis SLIGHT = 6-15 cells (100X) (0-5/hpf); Mean Corpuscular HGB CONC 29.7 g/dL (32.0-36.0); Mean Corpuscular Hemoglobin 27.2 pg (27.0-31.0); Mean Corpuscular Volume 91.5 fL (78.0-98.0); Mean Platelet Volume 5.9 fL (7.4-10.4); Ovalocytes SLIGHT = 2-5 cells (100X) (0-1/hpf); Platelet Count 436 thou/uL (130-400); Platelet Morphology Comment Appears Adequate; Polychromasia SLIGHT = 2-3 cells (100X) (0-2/hpf); RBC Distribution Width 18.5 % (11.5-14.5); Red Blood Cell (RBC) Count 2.53 mill/uL (4.70-6.10); Target Cells SLIGHT = 2-5 cells (100X) (0-1/hpf); White Blood Cell (WBC) Count 11.8 thou/uL (4.8-10.8)
[2019-07-14] MEDS: Ferrous Sulfate 325 MG TAB PO SCH ×2 (08:53→17:13)
[2019-07-14] MEDS: predniSONE 20 MG TAB PO SCH (08:53)
[2019-07-14] MEDS: Potassium Chloride 20 MEQ TAB PO SCH ×2 (08:53→17:13)
[2019-07-14] MEDS: Ascorbic Acid 500 mg Chewable Tablet PO SCH ×2 (08:53→20:28)
[2019-07-14] MEDS: traMADol HCl 50 MG TAB PO PRN ×2 (08:54→20:29)
[2019-07-14] MEDS: Polyethylene Glycol 3350 17 GM Packet PO SCH (08:54)
[2019-07-14] MEDS: Senokot S 8.6-50 MG TAB PO SCH ×2 (08:54→20:26)
[2019-07-14] MEDS: Dofetilide 0.125 MG CAP PO SCH ×2 (09:06→20:28)
[2019-07-14] MEDS: Aspirin 81 mg Enteric Coated Tablet PO SCH (09:06)
[2019-07-14] MEDS: Dutasteride 0.5 MG CAP PO SCH (09:06)
[2019-07-14] MEDS: Fluticasone Propionate Nasal Spray 16 gm Bottle NASAL SCH (09:06)
[2019-07-14] MEDS: Lidocaine 5% Patch TD SCH (09:07)
[2019-07-14] MEDS: Mometasone/Formoterol 200/5 60 PUFF INH SCH ×2 (09:07→20:32)
[2019-07-14] MEDS: Losartan 25 MG TAB PO SCH (09:07)
[2019-07-14] MEDS: Gabapentin 100 MG CAP PO SCH ×2 (09:07→20:28)
[2019-07-14] MEDS: Tamsulosin HCl 0.4 MG CAP PO SCH ×2 (09:08→20:35)
[2019-07-14] MEDS: Torsemide 20 MG TAB PO SCH ×2 (09:08→14:48)
[2019-07-14] MEDS: Rifampin 300 MG CAP PO SCH ×2 (09:10→20:27)
[2019-07-14] MEDS: Rosuvastatin 10 MG TAB PO SCH (20:27)
[2019-07-14] MEDS: Cyclobenzaprine 10 MG TAB PO PRN (20:31)
[2019-07-14] MEDS: Lidocaine Patch Removal TOP SCH (22:19)
[2019-07-15] MEDS ORDERED: Albuterol Sulfate 2.5 mg/0.5 ml Neb ONE (00:03)
[2019-07-15] MEDS ORDERED: Ipratropium Bromide 2.5 ml Neb ONE ×6 (00:03→23:22)
[2019-07-15] MEDS: Ipratropium Bromide 2.5 ml Neb NEB SCH ×5 (00:05→23:51)
[2019-07-15] MEDS: traMADol HCl 50 MG TAB PO PRN ×3 (02:58→21:11)
[2019-07-15] MEDS: Acetaminophen 500 MG TAB PO SCH ×4 (06:10→23:51)
[2019-07-15] MEDS: Ferrous Sulfate 325 MG TAB PO SCH ×2 (09:04→17:50)
[2019-07-15] MEDS: Potassium Chloride 20 MEQ TAB PO SCH ×2 (09:04→17:51)
[2019-07-15] MEDS: predniSONE 20 MG TAB PO SCH (09:04)
[2019-07-15] MEDS: Dutasteride 0.5 MG CAP PO SCH (09:05)
[2019-07-15] MEDS: Aspirin 81 mg Enteric Coated Tablet PO SCH (09:05)
[2019-07-15] MEDS: Ascorbic Acid 500 mg Chewable Tablet PO SCH ×2 (09:05→21:10)
[2019-07-15] MEDS: Fluticasone Propionate Nasal Spray 16 gm Bottle NASAL SCH (09:05)
[2019-07-15] MEDS: Dofetilide 0.125 MG CAP PO SCH ×2 (09:05→21:10)
[2019-07-15] MEDS: Mometasone/Formoterol 200/5 60 PUFF INH SCH ×2 (09:06→21:09)
[2019-07-15] MEDS: Losartan 25 MG TAB PO SCH (09:06)
[2019-07-15] MEDS: Gabapentin 100 MG CAP PO SCH ×2 (09:06→21:10)
[2019-07-15] MEDS: Lidocaine 5% Patch TD SCH (09:06)
[2019-07-15] MEDS: Torsemide 20 MG TAB PO SCH ×2 (09:07→14:32)
[2019-07-15] MEDS: Tamsulosin HCl 0.4 MG CAP PO SCH ×2 (09:07→21:10)
[2019-07-15] MEDS: Senokot S 8.6-50 MG TAB PO SCH ×2 (09:07→21:10)
[2019-07-15] MEDS: Polyethylene Glycol 3350 17 GM Packet PO SCH (09:08)
[2019-07-15] MEDS: Rifampin 300 MG CAP PO SCH ×2 (09:09→21:10)
--- NOTE | 2019-07-15 13:52 | PRG ---
DATE OF SERVICE: 07/15/2019 SUBJECTIVE: Mr. Yates is doing well. Denies any complaints. Resting comfortably. He did require 1 unit of transfusion. OBJECTIVE: VITAL SIGNS: He is afebrile. Heart rate is 87, respirations 18, oxygen saturation 95% on 3 L, and blood pressure 143/67. CARDIOVASCULAR SYSTEM: S1 and S2 plus. RESPIRATORY SYSTEM: Normal vesicular breath sounds. ABDOMEN: Soft and nontender. Bowel sounds heard in all quadrants. EXTREMITIES: Without cyanosis or clubbing. CENTRAL NERVOUS SYSTEM: Improving deconditioning. IMPRESSION: 1. Anemia, requiring blood transfusion. 2. Prosthetic left hip infection, requiring revision. 3. Methicillin-resistant Staphylococcus aureus bacteremia. 4. Chronic hypoxemic respiratory failure. 5. Chronic diastolic congestive heart failure. 6. Chronic obstructive pulmonary disease, GOLD stage 3 to 4. 7. Benign prostatic hypertrophy. PLAN: 1. Continue tamsulosin b.i.d. 2. Heart healthy diet. 3. Monitor respiratory status. 4. Recheck CBC and BMP tomorrow. 5. Continue rifampin and vancomycin until August 12, then he will be on rifampin for a while. 6. Continue therapy. 7. Reinforce compliance with CPAP. 8. Discussed with the patient in detail. All questions answered. Job ID: [id number]
[2019-07-15] MEDS: Rosuvastatin 10 MG TAB PO SCH (21:10)
[2019-07-15] MEDS: Cyclobenzaprine 10 MG TAB PO PRN (21:11)
[2019-07-15] MEDS: Lidocaine Patch Removal TOP SCH (21:14)
[2019-07-15] MEDS: Vancomycin HCl 500 MG in Sodium Chloride 0.9% 100 ML IVPB SCH ×2 (23:52)
[2019-07-16] MEDS: Ipratropium Bromide 2.5 ml Neb NEB SCH ×4 (05:26→23:45)
[2019-07-16] MEDS: Acetaminophen 500 MG TAB PO SCH ×4 (05:26→23:45)
[2019-07-16 06:07] LABS: #Basophils 0.1 thou/uL (0.0-0.2); #Monocytes 0.9 thou/uL (0.11-0.59); #Neutrophils 9.1 thou/uL (1.40-6.50); %Basophils 0.9 % (0.0-1.0); %Eosinophils 0.2 % (0.0-10.0); %Lymphocytes 16.5 % (21.0-51.0); %Monocytes 7.6 % (0.0-10.0); %Neutrophils 74.8 % (42.0-75.0); Hemoglobin 7.8 g/dL (14.0-18.0); Mean Corpuscular HGB CONC 29.9 g/dL (32.0-36.0); Mean Corpuscular Hemoglobin 27.4 pg (27.0-31.0); Mean Corpuscular Volume 91.6 fL (78.0-98.0); Mean Platelet Volume 5.9 fL (7.4-10.4); Platelet Count 513 thou/uL (130-400); RBC Distribution Width 17.3 % (11.5-14.5); Red Blood Cell (RBC) Count 2.84 mill/uL (4.70-6.10); White Blood Cell (WBC) Count 12.2 thou/uL (4.8-10.8)
[2019-07-16 06:25] LABS: Anion Gap 16 mmol/L (10-20); BUN (Urea Nitrogen) 45 mg/dL (8.4-25.7); Calc. Creatinine Clearance 50 mL/min (70-130); Carbon Dioxide 23 mmol/L (23-31); Chloride 106 mmol/L (98-107); Estimated GFR-MDRD 47; Glucose 77 mg/dL (83-110); Potassium 3.9 mmol/L (3.5-5.1); Sodium 141 mmol/L (136-145)
[2019-07-16] MEDS: Lidocaine 5% Patch TD SCH (08:43)
[2019-07-16] MEDS: Polyethylene Glycol 3350 17 GM Packet PO SCH (08:44)
[2019-07-16] MEDS: Mometasone/Formoterol 200/5 60 PUFF INH SCH ×2 (08:44→21:06)
[2019-07-16] MEDS: Fluticasone Propionate Nasal Spray 16 gm Bottle NASAL SCH (08:44)
[2019-07-16] MEDS: Gabapentin 100 MG CAP PO SCH ×2 (08:45→21:05)
[2019-07-16] MEDS: Losartan 25 MG TAB PO SCH (08:45)
[2019-07-16] MEDS: Torsemide 20 MG TAB PO SCH ×2 (08:45→15:00)
[2019-07-16] MEDS: Dutasteride 0.5 MG CAP PO SCH (08:46)
[2019-07-16] MEDS: Tamsulosin HCl 0.4 MG CAP PO SCH ×2 (08:46→21:05)
[2019-07-16] MEDS: Dofetilide 0.125 MG CAP PO SCH ×2 (08:46→21:06)
[2019-07-16] MEDS: predniSONE 20 MG TAB PO SCH (08:46)
[2019-07-16] MEDS: Senokot S 8.6-50 MG TAB PO SCH ×2 (08:46→21:05)
[2019-07-16] MEDS: Potassium Chloride 20 MEQ TAB PO SCH ×2 (08:46→17:41)
[2019-07-16] MEDS: Ascorbic Acid 500 mg Chewable Tablet PO SCH ×2 (08:46→21:06)
[2019-07-16] MEDS: Aspirin 81 mg Enteric Coated Tablet PO SCH (08:47)
[2019-07-16] MEDS: Ferrous Sulfate 325 MG TAB PO SCH ×2 (08:47→17:41)
[2019-07-16] MEDS ORDERED: Ipratropium Bromide 2.5 ml Neb ONE (11:16)
[2019-07-16] MEDS: Rifampin 300 MG CAP PO SCH ×2 (11:39→21:05)
[2019-07-16] MEDS: Rosuvastatin 10 MG TAB PO SCH (21:05)
[2019-07-16] MEDS: Lidocaine Patch Removal TOP SCH (21:07)
[2019-07-16] MEDS: traMADol HCl 50 MG TAB PO PRN (21:07)
[2019-07-16 23:21] LABS: Vancomycin, Trough 13.8 ug/mL
[2019-07-16] MEDS: Vancomycin HCl 500 MG in Sodium Chloride 0.9% 100 ML IVPB SCH (23:48)
[2019-07-17] MEDS: Acetaminophen 500 MG TAB PO SCH ×3 (06:01→17:22)
[2019-07-17] MEDS: Ipratropium Bromide 2.5 ml Neb NEB SCH ×3 (06:01→17:22)
[2019-07-17] MEDS: Polyethylene Glycol 3350 17 GM Packet PO SCH (08:53)
[2019-07-17] MEDS: Dutasteride 0.5 MG CAP PO SCH (08:53)
[2019-07-17] MEDS: Losartan 25 MG TAB PO SCH (08:53)
[2019-07-17] MEDS: Dofetilide 0.125 MG CAP PO SCH ×2 (08:53→21:34)
[2019-07-17] MEDS: predniSONE 20 MG TAB PO SCH (08:53)
[2019-07-17] MEDS: Lidocaine 5% Patch TD SCH (08:53)
[2019-07-17] MEDS: Tamsulosin HCl 0.4 MG CAP PO SCH ×2 (08:53→21:34)
[2019-07-17] MEDS: Senokot S 8.6-50 MG TAB PO SCH ×2 (08:53→21:34)
[2019-07-17] MEDS: Gabapentin 100 MG CAP PO SCH ×2 (08:53→21:34)
[2019-07-17] MEDS: Ferrous Sulfate 325 MG TAB PO SCH ×2 (08:54→17:22)
[2019-07-17] MEDS: Aspirin 81 mg Enteric Coated Tablet PO SCH (08:54)
[2019-07-17] MEDS: Potassium Chloride 20 MEQ TAB PO SCH ×2 (08:54→17:22)
[2019-07-17] MEDS: Torsemide 20 MG TAB PO SCH ×2 (08:54→13:14)
[2019-07-17] MEDS: Ascorbic Acid 500 mg Chewable Tablet PO SCH ×2 (08:54→21:34)
[2019-07-17] MEDS: Fluticasone Propionate Nasal Spray 16 gm Bottle NASAL SCH (08:59)
[2019-07-17] MEDS: Mometasone/Formoterol 200/5 60 PUFF INH SCH ×2 (08:59→21:36)
[2019-07-17] MEDS: Rifampin 300 MG CAP PO SCH ×2 (09:15→21:34)
--- NOTE | 2019-07-17 14:03 | PRG ---
DATE OF SERVICE: 07/17/2019 SUBJECTIVE: Mr. Yates is doing well. He denies any complaints. He is waiting on therapy. Feeling better after the blood transfusion. OBJECTIVE: VITAL SIGNS: He is afebrile, heart rate 99, respirations 20, oxygen saturation 95%, and blood pressure 146/70. CARDIOVASCULAR SYSTEM: S1 and S2 plus. RESPIRATORY SYSTEM: Normal vesicular breath sounds. ABDOMEN: Soft and nontender. Bowel sounds heard in all quadrants. EXTREMITIES: Without cyanosis or clubbing. Dressing over the right forearm skin tear area. Trace edema to lower extremities. CENTRAL NERVOUS SYSTEM: Improving deconditioning. IMPRESSION: 1. Chronic obstructive pulmonary disease. 2. Chronic hypoxemic respiratory failure. 3. Chronic diastolic congestive heart failure. 4. Chronic kidney disease, stage 3 to 4. 5. Atrial fibrillation. 6. Benign prostatic hypertrophy. 7. Obstructive sleep apnea. 8. Deconditioning. PLAN: 1. Continue current medications. 2. Heart healthy diet. 3. Physical therapy. 4. Decubitus precautions. 5. Monitor respiratory status. 6. Routine laboratory values. 7. Discussed with the patient in detail. All questions answered. Job ID: [id number]
--- NOTE | 2019-07-17 14:04 | PRG ---
DATE OF SERVICE: 07/16/2019 SUBJECTIVE: Mr. Yates is doing well. He just finished his blood transfusion. He is tolerating the increase in Flomax. No concerns or questions. OBJECTIVE: VITAL SIGNS: He is afebrile. Heart rate is 95, respirations 20, oxygen saturation 95% on 3 L, and blood pressure 141/68. CARDIOVASCULAR: S1 and S2 plus. RESPIRATORY: Normal vesicular breath sounds. ABDOMEN: Soft, obese, nontender. Bowel sounds heard in all quadrants. EXTREMITIES: Without cyanosis or clubbing. Trace edema. CENTRAL NERVOUS SYSTEM: Improving deconditioning. LABORATORY DATA: Hemoglobin is up to 7.8. IMPRESSION: 1. Anemia, requiring blood transfusion. 2. Chronic kidney disease stage 3 to 4. 3. Chronic diastolic congestive heart failure. 4. Chronic hypoxemic respiratory failure. 5. Obstructive sleep apnea. 6. Benign prostatic hypertrophy. 7. Methicillin-resistant Staphylococcus aureus bacteremia. 8. Prostatic left hip infection requiring revision. PLAN: 1. Continue current medications including antibiotics. 2. Weekly CBC, CRP, CMP, sedimentation rate. 3. Monitor respiratory status. 4. Monitor hemoglobin. 5. Physical therapy. 6. Incision care. 7. Nocturnal CPAP. 8. Discussed with the patient in detail. Job ID: [id number]
[2019-07-17] MEDS: Rosuvastatin 10 MG TAB PO SCH (21:34)
[2019-07-17] MEDS: Lidocaine Patch Removal TOP SCH (21:37)
[2019-07-17] MEDS ORDERED: Sodium Chloride 0.9% 10 ML ONE (22:49)
[2019-07-17 23:15] LABS: Vancomycin, Trough 14.6 ug/mL
[2019-07-18] MEDS: Vancomycin HCl 500 MG in Sodium Chloride 0.9% 100 ML IVPB SCH ×2 (00:24→23:10)
[2019-07-18] MEDS: Acetaminophen 500 MG TAB PO SCH ×5 (00:25→23:10)
[2019-07-18] MEDS: Ipratropium Bromide 2.5 ml Neb NEB SCH ×5 (00:25→23:10)
[2019-07-18] MEDS: Cyclobenzaprine 10 MG TAB PO PRN ×2 (00:26→21:09)
[2019-07-18] MEDS: Ferrous Sulfate 325 MG TAB PO SCH ×2 (08:55→17:34)
[2019-07-18] MEDS: Potassium Chloride 20 MEQ TAB PO SCH ×2 (08:56→17:34)
[2019-07-18] MEDS: Dofetilide 0.125 MG CAP PO SCH ×2 (08:57→21:12)
[2019-07-18] MEDS: predniSONE 20 MG TAB PO SCH (08:57)
[2019-07-18] MEDS: Aspirin 81 mg Enteric Coated Tablet PO SCH (08:57)
[2019-07-18] MEDS: Ascorbic Acid 500 mg Chewable Tablet PO SCH ×2 (08:57→21:12)
[2019-07-18] MEDS: Dutasteride 0.5 MG CAP PO SCH (08:57)
[2019-07-18] MEDS: Fluticasone Propionate Nasal Spray 16 gm Bottle NASAL SCH (08:58)
[2019-07-18] MEDS: Mometasone/Formoterol 200/5 60 PUFF INH SCH ×2 (08:58→21:11)
[2019-07-18] MEDS: Polyethylene Glycol 3350 17 GM Packet PO SCH (08:59)
[2019-07-18] MEDS: Tamsulosin HCl 0.4 MG CAP PO SCH ×2 (09:00→21:13)
[2019-07-18] MEDS: Torsemide 20 MG TAB PO SCH ×2 (09:00→13:57)
[2019-07-18] MEDS: Senokot S 8.6-50 MG TAB PO SCH ×2 (09:00→21:12)
[2019-07-18] MEDS: Losartan 25 MG TAB PO SCH (09:00)
[2019-07-18] MEDS: Rifampin 300 MG CAP PO SCH ×2 (09:00→23:10)
[2019-07-18] MEDS: Gabapentin 100 MG CAP PO SCH ×2 (09:01→21:12)
[2019-07-18] MEDS: Lidocaine 5% Patch TD SCH (09:01)
[2019-07-18] MEDS: traMADol HCl 50 MG TAB PO PRN ×2 (09:02→21:10)
[2019-07-18] MEDS: Rosuvastatin 10 MG TAB PO SCH (21:12)
[2019-07-18] MEDS: Lidocaine Patch Removal TOP SCH (21:14)
[2019-07-19] MEDS: Acetaminophen 500 MG TAB PO SCH ×3 (06:06→17:18)
[2019-07-19] MEDS: Ipratropium Bromide 2.5 ml Neb NEB SCH ×3 (06:07→17:18)
[2019-07-19] MEDS: Lidocaine 5% Patch TD SCH (08:35)
[2019-07-19] MEDS: Polyethylene Glycol 3350 17 GM Packet PO SCH (08:35)
[2019-07-19] MEDS: Mometasone/Formoterol 200/5 60 PUFF INH SCH ×2 (08:36→21:46)
[2019-07-19] MEDS: Fluticasone Propionate Nasal Spray 16 gm Bottle NASAL SCH (08:36)
[2019-07-19] MEDS: predniSONE 20 MG TAB PO SCH (08:37)
[2019-07-19] MEDS: Ferrous Sulfate 325 MG TAB PO SCH ×2 (08:37→17:18)
[2019-07-19] MEDS: Potassium Chloride 20 MEQ TAB PO SCH ×2 (08:37→17:18)
[2019-07-19] MEDS: Aspirin 81 mg Enteric Coated Tablet PO SCH (08:38)
[2019-07-19] MEDS: Dofetilide 0.125 MG CAP PO SCH ×2 (08:38→21:44)
[2019-07-19] MEDS: Ascorbic Acid 500 mg Chewable Tablet PO SCH ×2 (08:38→21:45)
[2019-07-19] MEDS: Dutasteride 0.5 MG CAP PO SCH (08:38)
[2019-07-19] MEDS: Losartan 25 MG TAB PO SCH (08:39)
[2019-07-19] MEDS: Tamsulosin HCl 0.4 MG CAP PO SCH ×2 (08:39→21:45)
[2019-07-19] MEDS: Senokot S 8.6-50 MG TAB PO SCH ×2 (08:39→21:45)
[2019-07-19] MEDS: Gabapentin 100 MG CAP PO SCH ×2 (08:39→21:45)
[2019-07-19] MEDS: Torsemide 20 MG TAB PO SCH ×2 (08:40→14:26)
[2019-07-19] MEDS: traMADol HCl 50 MG TAB PO PRN ×2 (08:40→21:43)
[2019-07-19] MEDS: Rifampin 300 MG CAP PO SCH ×2 (10:42→21:45)
--- NOTE | 2019-07-19 12:31 | PRG ---
DATE OF SERVICE: 07/19/2019 SUBJECTIVE: Mr. Yates is ambulating with therapy. He is using his walker. He denies any complaints. OBJECTIVE: VITAL SIGNS: He is afebrile. Heart rate 82, respirations 18, oxygen saturation 96% on 3 L, and blood pressure 130/60. CARDIOVASCULAR: S1 and S2 plus. RESPIRATORY: Normal vesicular breath sounds. ABDOMEN: Soft, nontender. Bowel sounds heard in all quadrants. EXTREMITIES: Without cyanosis or clubbing. Peripheral pulses are palpable. CENTRAL NERVOUS SYSTEM: Grossly nonfocal. IMPRESSION: 1. Methicillin-resistant Staphylococcus aureus bacteremia. 2. Chronic diastolic congestive heart failure. 3. Chronic hypoxemic respiratory failure. 4. Chronic kidney disease stage 3 to 4. 5. Benign prostatic hypertrophy. 6. Prostatic infection of the left hip, requiring revision. 7. Improving deconditioning. 8. Urinary retention requiring increase in his Flomax. PLAN: 1. Continue current medications. 2. Recheck CBC, CMP, CRP, and sedimentation rate tomorrow. 3. Hays catheter care. 4. DVT prophylaxis with PlexiPulses. The patient apparently refusing and reinforced compliance and risk of noncompliance. 5. Decubitus precautions. 6. Monitor respiratory status. 7. Continue therapy. 8. Discussed with the patient in detail. All questions were answered. Job ID: [id number]
[2019-07-19] MEDS: Rosuvastatin 10 MG TAB PO SCH (21:44)
[2019-07-19] MEDS: Cyclobenzaprine 10 MG TAB PO PRN (21:44)
[2019-07-19] MEDS: Lidocaine Patch Removal TOP SCH (21:45)
[2019-07-19 23:18] LABS: Vancomycin, Trough 14.3 ug/mL
[2019-07-20] MEDS: Vancomycin HCl 500 MG in Sodium Chloride 0.9% 100 ML IVPB SCH (00:15)
[2019-07-20] MEDS: Ipratropium Bromide 2.5 ml Neb NEB SCH ×4 (00:15→17:18)
[2019-07-20] MEDS: Acetaminophen 500 MG TAB PO SCH ×4 (00:20→17:18)
[2019-07-20] MEDS: traMADol HCl 50 MG TAB PO PRN ×3 (03:32→20:54)
[2019-07-20 05:38] LABS: #Basophils 0.1 thou/uL (0.0-0.2); #Lymphocytes 1.7 thou/uL (1.20-3.40); #Monocytes 1.1 thou/uL (0.11-0.59); #Neutrophils 7.1 thou/uL (1.40-6.50); %Eosinophils 0.2 % (0.0-10.0); %Lymphocytes 16.7 % (21.0-51.0); %Monocytes 10.8 % (0.0-10.0); %Neutrophils 71.3 % (42.0-75.0); Hemoglobin 6.9 g/dL (14.0-18.0); Mean Corpuscular Hemoglobin 27.7 pg (27.0-31.0); Mean Corpuscular Volume 92.4 fL (78.0-98.0); Mean Platelet Volume 6.1 fL (7.4-10.4); Platelet Count 485 thou/uL (130-400); RBC Distribution Width 17.5 % (11.5-14.5); Red Blood Cell (RBC) Count 2.48 mill/uL (4.70-6.10)
[2019-07-20 05:54] LABS: ALT (SGPT) 9 U/L (8-55); AST (SGOT) 9 U/L (5-34); Albumin 2.8 g/dL (3.4-4.8); Alkaline Phosphatase 67 U/L (40-110); Anion Gap 15 mmol/L (10-20); BUN (Urea Nitrogen) 51 mg/dL (8.4-25.7); Bilirubin, Total 0.2 mg/dL (0.2-1.2); CRP (Inflammatory) 5.67 mg/dL (= or < 0.5); Calc. Creatinine Clearance 44 mL/min (70-130); Calcium 8.2 mg/dL (7.8-10.44); Carbon Dioxide 21 mmol/L (23-31); Chloride 106 mmol/L (98-107); Estimated GFR-MDRD 40; Globulin 2.5 g/dL (2.4-3.5); Glucose 86 mg/dL (83-110); Potassium 4.5 mmol/L (3.5-5.1); Protein, Total 5.3 g/dL (5.8-8.1); Sodium 137 mmol/L (136-145)
--- NOTE | 2019-07-20 08:37 | PRG ---
DATE OF SERVICE: 07/20/2019 SUBJECTIVE: Mr. Yates is up in his chair. He denies any complaints. Tolerating therapy. No lightheadedness or dizziness. Discussed with nursing. OBJECTIVE: VITAL SIGNS: He is afebrile, heart rate 83, respirations 20, oxygen saturation 94% on 3 L, and blood pressure 107/77. CARDIOVASCULAR SYSTEM: S1 and S2 plus. RESPIRATORY SYSTEM: Normal vesicular breath sounds with decreased air entry in the bases. Occasional rhonchi. ABDOMEN: Soft, obese, nontender. Bowel sounds heard in all quadrants. EXTREMITIES: Without cyanosis or clubbing. Trace edema. CENTRAL NERVOUS SYSTEM: Generalized weakness, awake and responsive, otherwise nonfocal. LABORATORY VALUES: Show a white count of 10, hemoglobin and hematocrit of 6.9 and 22.9. Sedimentation rate is pending. Chemistry shows a sodium of 137, potassium 4.5, BUN and creatinine 51 and 1.66. CRP is down to 5.67. IMPRESSION: 1. MRSA bacteremia. 2. Prosthetic infection of the left hip, requiring revision. 3. Recurrent anemia requiring blood transfusion, felt to be likely due to bleeding from AV malformations. 4. Atrial fibrillation. 5. Chronic diastolic congestive heart failure. 6. Chronic hypoxemic respiratory failure. 7. Chronic kidney disease, stage 3 to 4. 8. Benign prostatic hypertrophy. PLAN: 1. Continue current medications. 2. Heart healthy diet. 3. Type and cross and transfuse 1 unit. 4. DVT prophylaxis with PlexiPulses. 5. Decubitus precautions. 6. Stress ulcer prophylaxis. 7. Recheck CBC in the morning. 8. Continue vancomycin and rifampin. 9. Continue therapy. 10. Dr. Munoz on-call this weekend. Job ID: [id number]
--- NOTE | 2019-07-20 09:03 | PRG ---
DATE OF SERVICE: 07/18/2019 SUBJECTIVE: Mr. Yates is doing well. Denies any complaints. Tolerating his therapy. Discussed with nursing. OBJECTIVE: VITAL SIGNS: He is afebrile. Heart rate 87, respirations 18, oxygen saturation 93% on 3 L, and blood pressure 127/59. CARDIOVASCULAR: S1-S2 plus. RESPIRATORY: Normal vesicular breath sounds. ABDOMEN: Soft, nontender. Bowel sounds heard in all quadrants. EXTREMITIES: Without cyanosis or clubbing. Trace edema. CENTRAL NERVOUS SYSTEM: Improving deconditioning. IMPRESSION: 1. Chronic kidney disease stage 3 to 4. 2. Chronic obstructive pulmonary disease, GOLD stage 3 to 4. 3. Chronic hypoxemic respiratory failure. 4. Chronic diastolic congestive heart failure. 5. Benign prostatic hypertrophy. 6. Atrial fibrillation. 7. Prosthetic left hip infection, requiring revision. 8. Methicillin-resistant Staphylococcus aureus bacteremia, requiring long-term antibiotics. PLAN: 1. Continue current medications including antibiotics. 2. Heart-healthy diet. 3. Monitor respiratory status. 4. DVT prophylaxis, PlexiPulses. 5. Decubitus precautions. 6. Stress ulcer prophylaxis. 7. Routine laboratory values. 8. Discussed with the patient and nursing in detail. All questions answered. Job ID: [id number]
[2019-07-20] MEDS: Polyethylene Glycol 3350 17 GM Packet PO SCH (09:37)
[2019-07-20] MEDS: Lidocaine 5% Patch TD SCH (09:37)
[2019-07-20] MEDS: predniSONE 20 MG TAB PO SCH (09:37)
[2019-07-20] MEDS: Torsemide 20 MG TAB PO SCH ×2 (09:37→13:47)
[2019-07-20] MEDS: Gabapentin 100 MG CAP PO SCH ×2 (09:38→20:57)
[2019-07-20] MEDS: Senokot S 8.6-50 MG TAB PO SCH ×2 (09:38→20:57)
[2019-07-20] MEDS: Losartan 25 MG TAB PO SCH (09:38)
[2019-07-20] MEDS: Dutasteride 0.5 MG CAP PO SCH (09:39)
[2019-07-20] MEDS: Dofetilide 0.125 MG CAP PO SCH ×2 (09:39→20:57)
[2019-07-20] MEDS: Potassium Chloride 20 MEQ TAB PO SCH ×2 (09:39→17:18)
[2019-07-20] MEDS: Ferrous Sulfate 325 MG TAB PO SCH ×2 (09:39→17:18)
[2019-07-20] MEDS: Aspirin 81 mg Enteric Coated Tablet PO SCH (09:39)
[2019-07-20] MEDS: Rifampin 300 MG CAP PO SCH ×2 (09:39→21:02)
[2019-07-20] MEDS: Tamsulosin HCl 0.4 MG CAP PO SCH ×2 (09:40→20:56)
[2019-07-20] MEDS: Mometasone/Formoterol 200/5 60 PUFF INH SCH ×2 (09:41→20:57)
[2019-07-20] MEDS: Fluticasone Propionate Nasal Spray 16 gm Bottle NASAL SCH (09:42)
[2019-07-20] MEDS: Ascorbic Acid 500 mg Chewable Tablet PO SCH ×2 (09:42→20:57)
[2019-07-20] MEDS ORDERED: Sodium Chloride 0.9% 20 ML ONE (09:45)
[2019-07-20] MEDS ORDERED: Furosemide 40 MG/4 ML VIAL ONE (09:45)
[2019-07-20] MEDS ORDERED: Furosemide 20 MG/2 ML VIAL SLOW IVP PRN (09:53)
[2019-07-20] MEDS ORDERED: Sodium Chloride 0.9% 10 ML ONE (13:44)
[2019-07-20] MEDS: Cyclobenzaprine 10 MG TAB PO PRN (20:54)
[2019-07-20] MEDS: Rosuvastatin 10 MG TAB PO SCH (20:57)
[2019-07-20] MEDS: Lidocaine Patch Removal TOP SCH (20:57)
[2019-07-21] MEDS: Acetaminophen 500 MG TAB PO SCH ×4 (00:09→17:06)
[2019-07-21] MEDS: Ipratropium Bromide 2.5 ml Neb NEB SCH ×4 (00:09→17:06)
[2019-07-21] MEDS: Vancomycin HCl 500 MG in Sodium Chloride 0.9% 100 ML IVPB SCH (00:10)
[2019-07-21] MEDS: traMADol HCl 50 MG TAB PO PRN ×2 (04:07→20:55)
[2019-07-21 05:42] LABS: #Basophils 0.2 thou/uL (0.0-0.2); #Lymphocytes 1.8 thou/uL (1.20-3.40); #Monocytes 1.2 thou/uL (0.11-0.59); #Neutrophils 7.1 thou/uL (1.40-6.50); %Basophils 1.5 % (0.0-1.0); %Eosinophils 0.1 % (0.0-10.0); %Lymphocytes 17.5 % (21.0-51.0); %Monocytes 11.6 % (0.0-10.0); %Neutrophils 69.3 % (42.0-75.0); Hemoglobin 7.7 g/dL (14.0-18.0); Mean Corpuscular HGB CONC 30.3 g/dL (32.0-36.0); Mean Corpuscular Hemoglobin 28.2 pg (27.0-31.0); Mean Platelet Volume 6.1 fL (7.4-10.4); Platelet Count 457 thou/uL (130-400); RBC Distribution Width 17.4 % (11.5-14.5); Red Blood Cell (RBC) Count 2.72 mill/uL (4.70-6.10); White Blood Cell (WBC) Count 10.2 thou/uL (4.8-10.8)
[2019-07-21 05:55] LABS: Anion Gap 16 mmol/L (10-20); BUN (Urea Nitrogen) 52 mg/dL (8.4-25.7); Calc. Creatinine Clearance 48 mL/min (70-130); Calcium 7.9 mg/dL (7.8-10.44); Carbon Dioxide 21 mmol/L (23-31); Chloride 105 mmol/L (98-107); Estimated GFR-MDRD 44; Glucose 85 mg/dL (83-110); Potassium 4.6 mmol/L (3.5-5.1); Sodium 137 mmol/L (136-145)
[2019-07-21] MEDS: Torsemide 20 MG TAB PO SCH ×2 (09:13→15:28)
[2019-07-21] MEDS: Gabapentin 100 MG CAP PO SCH ×2 (09:13→20:42)
[2019-07-21] MEDS: predniSONE 20 MG TAB PO SCH (09:14)
[2019-07-21] MEDS: Dutasteride 0.5 MG CAP PO SCH (09:14)
[2019-07-21] MEDS: Aspirin 81 mg Enteric Coated Tablet PO SCH (09:14)
[2019-07-21] MEDS: Senokot S 8.6-50 MG TAB PO SCH ×2 (09:15→20:42)
[2019-07-21] MEDS: Ascorbic Acid 500 mg Chewable Tablet PO SCH ×2 (09:15→20:41)
[2019-07-21] MEDS: Ferrous Sulfate 325 MG TAB PO SCH ×2 (09:15→17:06)
[2019-07-21] MEDS: Losartan 25 MG TAB PO SCH (09:15)
[2019-07-21] MEDS: Dofetilide 0.125 MG CAP PO SCH ×2 (09:15→20:41)
[2019-07-21] MEDS: Rifampin 300 MG CAP PO SCH ×2 (09:15→20:56)
[2019-07-21] MEDS: Tamsulosin HCl 0.4 MG CAP PO SCH ×2 (09:15→20:42)
[2019-07-21] MEDS: Polyethylene Glycol 3350 17 GM Packet PO SCH (09:16)
[2019-07-21] MEDS: Potassium Chloride 20 MEQ TAB PO SCH ×2 (09:16→17:06)
[2019-07-21] MEDS: Fluticasone Propionate Nasal Spray 16 gm Bottle NASAL SCH (09:16)
[2019-07-21] MEDS: Lidocaine 5% Patch TD SCH (09:16)
[2019-07-21] MEDS: Mometasone/Formoterol 200/5 60 PUFF INH SCH ×2 (09:17→20:42)
[2019-07-21] MEDS: Lidocaine Patch Removal TOP SCH (20:42)
[2019-07-21] MEDS: Rosuvastatin 10 MG TAB PO SCH (20:42)
[2019-07-21] MEDS: Cyclobenzaprine 10 MG TAB PO PRN (20:54)
[2019-07-22] MEDS: Acetaminophen 500 MG TAB PO SCH ×5 (00:28→23:49)
[2019-07-22] MEDS: Ipratropium Bromide 2.5 ml Neb NEB SCH ×5 (00:29→23:49)
[2019-07-22] MEDS: Vancomycin HCl 500 MG in Sodium Chloride 0.9% 100 ML IVPB SCH (00:30)
--- NOTE | 2019-07-22 09:25 | PRG ---
DATE OF SERVICE: 07/21/2019 SUBJECTIVE: The patient is sitting in a chair, watching TV, feels well with no dyspnea or chest pain, fever or chills, nausea, or vomiting. OBJECTIVE: VITAL SIGNS: Show him to have a pulse 92, respirations 22, O2 saturation of 92% on 3 L, afebrile, blood pressure 133/60. LABORATORY DATA: White count 44627, hematocrit 25, hemoglobin 7. Sodium 137, potassium 4.6, chloride 105, bicarb 21, BUN 52, creatinine 1.52, glucose 188. LUNGS: Show markedly decreased breath sounds with a few diffuse rhonchi. CARDIAC: Displays regular rhythms, S4. No other gallops or murmurs. SKIN: Extremities show PICC line in the left arm. There is a healing incision in the left leg. ASSESSMENT: 1. Methicillin-resistant Staphylococcus aureus bacteremia, on IV vancomycin until September 03 with most recent trough level subtherapeutic at 14.3. 2. Severe chronic obstructive pulmonary disease, stable at rest, on maximum bronchodilation, oxygen, and steroids. 3. Benign prostatic hypertrophy, stable. 4. History of atrial fibrillation. No evidence of control, just recurrent at this time. PLAN: 1. Continue IV vancomycin until September 03. 2. Increase vancomycin dose to 750 daily. 3. Continue aggressive bronchodilator and supplemental therapy. 4. Continue DVT prophylaxis and PlexiPulse. 5. Continue stress ulcer prophylaxis. Job ID: [id number]
[2019-07-22] MEDS: Torsemide 20 MG TAB PO SCH ×2 (10:23→14:13)
[2019-07-22] MEDS: Rifampin 300 MG CAP PO SCH ×2 (10:23→21:16)
[2019-07-22] MEDS: Senokot S 8.6-50 MG TAB PO SCH ×2 (10:23→20:11)
[2019-07-22] MEDS: Ascorbic Acid 500 mg Chewable Tablet PO SCH ×2 (10:23→20:12)
[2019-07-22] MEDS: Ferrous Sulfate 325 MG TAB PO SCH ×2 (10:24→16:32)
[2019-07-22] MEDS: Mometasone/Formoterol 200/5 60 PUFF INH SCH ×2 (10:24→21:16)
[2019-07-22] MEDS: Gabapentin 100 MG CAP PO SCH ×2 (10:24→20:11)
[2019-07-22] MEDS: predniSONE 20 MG TAB PO SCH (10:24)
[2019-07-22] MEDS: Fluticasone Propionate Nasal Spray 16 gm Bottle NASAL SCH (10:24)
[2019-07-22] MEDS: Lidocaine 5% Patch TD SCH (10:25)
[2019-07-22] MEDS: Polyethylene Glycol 3350 17 GM Packet PO SCH (10:25)
[2019-07-22] MEDS: Dofetilide 0.125 MG CAP PO SCH ×2 (10:29→20:11)
[2019-07-22] MEDS: Losartan 25 MG TAB PO SCH (10:29)
[2019-07-22] MEDS: Tamsulosin HCl 0.4 MG CAP PO SCH ×2 (10:29→20:11)
[2019-07-22] MEDS: Dutasteride 0.5 MG CAP PO SCH (10:29)
[2019-07-22] MEDS: Aspirin 81 mg Enteric Coated Tablet PO SCH (10:29)
[2019-07-22] MEDS: Potassium Chloride 20 MEQ TAB PO SCH ×2 (10:29→16:32)
[2019-07-22] MEDS: traMADol HCl 50 MG TAB PO PRN (20:06)
[2019-07-22] MEDS: Cyclobenzaprine 10 MG TAB PO PRN (20:07)
[2019-07-22] MEDS: Rosuvastatin 10 MG TAB PO SCH (20:11)
[2019-07-22] MEDS: Lidocaine Patch Removal TOP SCH (21:23)
[2019-07-22] MEDS: Vancomycin HCl 750 MG in Sodium Chloride 0.9% 250 ML 250 ML IVPB SCH (23:52)
[2019-07-23] MEDS: traMADol HCl 50 MG TAB PO PRN ×3 (02:00→20:11)
[2019-07-23] MEDS: Acetaminophen 500 MG TAB PO SCH ×4 (06:16→23:41)
[2019-07-23] MEDS: Ipratropium Bromide 2.5 ml Neb NEB SCH ×4 (06:16→23:42)
[2019-07-23] MEDS: Potassium Chloride 20 MEQ TAB PO SCH ×2 (09:00→17:13)
[2019-07-23] MEDS: Ferrous Sulfate 325 MG TAB PO SCH ×2 (09:00→17:13)
[2019-07-23] MEDS: predniSONE 20 MG TAB PO SCH (09:01)
[2019-07-23] MEDS: Ascorbic Acid 500 mg Chewable Tablet PO SCH ×2 (09:01→20:12)
[2019-07-23] MEDS: Dofetilide 0.125 MG CAP PO SCH ×2 (09:02→20:11)
[2019-07-23] MEDS: Aspirin 81 mg Enteric Coated Tablet PO SCH (09:02)
[2019-07-23] MEDS: Dutasteride 0.5 MG CAP PO SCH (09:02)
[2019-07-23] MEDS: Tamsulosin HCl 0.4 MG CAP PO SCH ×2 (09:03→20:12)
[2019-07-23] MEDS: Senokot S 8.6-50 MG TAB PO SCH ×2 (09:03→20:12)
[2019-07-23] MEDS: Fluticasone Propionate Nasal Spray 16 gm Bottle NASAL SCH (09:03)
[2019-07-23] MEDS: Mometasone/Formoterol 200/5 60 PUFF INH SCH ×2 (09:03→20:12)
[2019-07-23] MEDS: Losartan 25 MG TAB PO SCH (09:04)
[2019-07-23] MEDS: Lidocaine 5% Patch TD SCH (09:04)
[2019-07-23] MEDS: Torsemide 20 MG TAB PO SCH ×2 (09:05→13:58)
[2019-07-23] MEDS: Polyethylene Glycol 3350 17 GM Packet PO SCH (09:05)
[2019-07-23] MEDS: Gabapentin 100 MG CAP PO SCH ×2 (09:16→20:12)
[2019-07-23] MEDS: Rifampin 300 MG CAP PO SCH ×2 (09:17→21:41)
--- NOTE | 2019-07-23 09:24 | PRG ---
DATE OF SERVICE: 07/22/[address] Luis Miguel Hernandez. SUBJECTIVE: The patient is sitting up in the chair, watching TV, with some sleepiness, but awakens easily. No respiratory distress at rest, ready for more therapy tomorrow. OBJECTIVE: Showed temperature is 96, pulse 97, respirations 22, O2 saturations 93% on 3 L, blood pressure 128/61. Most recent vancomycin trough level was subtherapeutic at 14.3 will be increased to 750 daily tonight. ASSESSMENT: 1. Methicillin-resistant Staphylococcus aureus bacteremia and infection of left hip, on IV vancomycin until September 03 with subtherapeutic vancomycin trough levels and dose has been increased to 750 daily with trough level in 3 days. 2. Severe chronic obstructive pulmonary disease, stable at rest, on maximum bronchodilators, oxygen, steroids. 3. BPH, stable. 4. Atrial fibrillation with EKG showing conversion to sinus rhythm. PLAN: 1. Continue IV vancomycin 750 daily until September 03. 2. Continue aggressive bronchodilator and supplemental therapy. 3. Continue DVT prophylaxis and PlexiPulse. 4. Continue stress ulcer prophylaxis. Job ID: [id number]
[2019-07-23] MEDS: Cyclobenzaprine 10 MG TAB PO PRN (20:09)
[2019-07-23] MEDS: Lidocaine Patch Removal TOP SCH (20:12)
[2019-07-23] MEDS: Rosuvastatin 10 MG TAB PO SCH (20:12)
--- NOTE | 2019-07-23 20:16 | PRG ---
DATE OF SERVICE: 07/23/2019 SUBJECTIVE: Mr. Yates is doing well. Denies any complaints, improving with therapy. Discussed with nursing. OBJECTIVE: VITAL SIGNS: He is afebrile, heart rate 95, respirations 18, oxygen saturation 92% on 3 L, and blood pressure 121/57. CARDIOVASCULAR: S1 and S2 plus. RESPIRATORY: Normal vesicular breath sounds. ABDOMEN: Soft, nontender. Bowel sounds heard in all quadrants. EXTREMITIES: Without cyanosis, clubbing, or trace edema. CENTRAL NERVOUS SYSTEM: Improving deconditioning. LABORATORY VALUES: Hemoglobin improved to 7.7 after transfusion. IMPRESSION: 1. Anemia, requiring periodic transfusion, likely blood loss due to arteriovenous malformation . 2. Chronic diastolic congestive heart failure. 3. Atrial fibrillation, status post Watchman. 4. Chronic kidney disease, stage 4. 5. Chronic obstructive pulmonary disease, GOLD stage 3 to 4. 6. BPH. 7. Improving deconditioning. PLAN: 1. Continue current medications. 2. Heart healthy renal diet. 3. Monitor respiratory status. 4. DVT prophylaxis with PlexiPulses. 5. Decubitus precautions. 6. Stress ulcer prophylaxis. 7. Monitor blood counts. 8. MRSA bacteremia, requiring weekly CBC, CMP, CRP, sedimentation rate, and IV antibiotics. 9. Discussed with the patient in detail. All questions answered. Job ID: [id number]
[2019-07-23] MEDS: Vancomycin HCl 750 MG in Sodium Chloride 0.9% 250 ML 250 ML IVPB SCH (23:41)
[2019-07-24] MEDS: traMADol HCl 50 MG TAB PO PRN ×3 (02:32→21:22)
[2019-07-24] MEDS: Acetaminophen 500 MG TAB PO SCH ×4 (05:29→23:47)
[2019-07-24] MEDS: Ipratropium Bromide 2.5 ml Neb NEB SCH ×4 (05:30→23:47)
[2019-07-24] MEDS: Ferrous Sulfate 325 MG TAB PO SCH ×2 (09:01→17:41)
[2019-07-24] MEDS: Potassium Chloride 20 MEQ TAB PO SCH ×2 (09:01→17:42)
[2019-07-24] MEDS: predniSONE 20 MG TAB PO SCH (09:02)
[2019-07-24] MEDS: Dofetilide 0.125 MG CAP PO SCH ×2 (09:03→21:16)
[2019-07-24] MEDS: Aspirin 81 mg Enteric Coated Tablet PO SCH (09:03)
[2019-07-24] MEDS: Dutasteride 0.5 MG CAP PO SCH (09:03)
[2019-07-24] MEDS: Ascorbic Acid 500 mg Chewable Tablet PO SCH ×2 (09:03→21:16)
[2019-07-24] MEDS: Mometasone/Formoterol 200/5 60 PUFF INH SCH ×2 (09:04→21:18)
[2019-07-24] MEDS: Lidocaine 5% Patch TD SCH (09:04)
[2019-07-24] MEDS: Fluticasone Propionate Nasal Spray 16 gm Bottle NASAL SCH (09:04)
[2019-07-24] MEDS: Losartan 25 MG TAB PO SCH (09:04)
[2019-07-24] MEDS: Gabapentin 100 MG CAP PO SCH ×2 (09:04→21:17)
[2019-07-24] MEDS: Polyethylene Glycol 3350 17 GM Packet PO SCH (09:06)
[2019-07-24] MEDS: Senokot S 8.6-50 MG TAB PO SCH ×2 (09:06→21:17)
[2019-07-24] MEDS: Rifampin 300 MG CAP PO SCH ×2 (09:07→21:16)
[2019-07-24] MEDS: Tamsulosin HCl 0.4 MG CAP PO SCH ×2 (09:07→21:15)
[2019-07-24] MEDS: Torsemide 20 MG TAB PO SCH ×2 (09:07→13:20)
--- NOTE | 2019-07-24 13:55 | PRG ---
DATE OF SERVICE: 07/24/2019 SUBJECTIVE: Mr. Yates is up in his chair. He is happy with his progress. Denies any chest pain or shortness of breath. OBJECTIVE: VITAL SIGNS: He is afebrile, heart rate is 87, respirations 18, and oxygen saturation 94% on 3 L. CARDIOVASCULAR SYSTEM: S1 and S2 plus. RESPIRATORY SYSTEM: Normal vesicular breath sounds. ABDOMEN: Soft, nontender. Bowel sounds heard in all quadrants. EXTREMITIES: Without cyanosis or clubbing. CENTRAL NERVOUS SYSTEM: Improving deconditioning. IMPRESSION: 1. Chronic obstructive pulmonary disease, GOLD stage 3 to 4. 2. Chronic hypoxemic respiratory failure. 3. Chronic diastolic congestive heart failure. 4. Chronic kidney disease, stage 3. 5. Atrial fibrillation. 6. Benign prostatic hypertrophy. 7. Obstructive sleep apnea. 8. Methicillin-resistant Staphylococcus aureus bacteremia. 9. Left periprosthetic hip infection, requiring revision. PLAN: 1. Continue current medications. 2. Weekly CBC, CMP, CRP, and sedimentation rate. 3. DVT and stress ulcer prophylaxis. 4. Decubitus precautions. 5. Routine laboratory values. 6. Monitor respiratory status. 7. Physical therapy. Job ID: [id number]
[2019-07-24] MEDS: Rosuvastatin 10 MG TAB PO SCH (21:17)
[2019-07-24] MEDS: Cyclobenzaprine 10 MG TAB PO PRN (21:21)
[2019-07-24] MEDS: Lidocaine Patch Removal TOP SCH (22:05)
[2019-07-24 23:29] LABS: Vancomycin, Trough 16.4 ug/mL
[2019-07-24] MEDS: Vancomycin HCl 750 MG in Sodium Chloride 0.9% 250 ML 250 ML IVPB SCH (23:48)
[2019-07-25] MEDS: Acetaminophen 500 MG TAB PO SCH ×4 (06:02→23:36)
[2019-07-25] MEDS: Ipratropium Bromide 2.5 ml Neb NEB SCH ×4 (06:02→23:36)
[2019-07-25] MEDS: Dofetilide 0.125 MG CAP PO SCH ×2 (08:59→20:42)
[2019-07-25] MEDS: Polyethylene Glycol 3350 17 GM Packet PO SCH (08:59)
[2019-07-25] MEDS: Losartan 25 MG TAB PO SCH (08:59)
[2019-07-25] MEDS: Tamsulosin HCl 0.4 MG CAP PO SCH ×2 (09:00→20:40)
[2019-07-25] MEDS: Senokot S 8.6-50 MG TAB PO SCH ×2 (09:00→20:43)
[2019-07-25] MEDS: Gabapentin 100 MG CAP PO SCH ×2 (09:00→20:42)
[2019-07-25] MEDS: Dutasteride 0.5 MG CAP PO SCH (09:00)
[2019-07-25] MEDS: Aspirin 81 mg Enteric Coated Tablet PO SCH (09:00)
[2019-07-25] MEDS: Potassium Chloride 20 MEQ TAB PO SCH ×2 (09:00→17:14)
[2019-07-25] MEDS: Ferrous Sulfate 325 MG TAB PO SCH ×2 (09:01→17:14)
[2019-07-25] MEDS: Torsemide 20 MG TAB PO SCH ×2 (09:01→14:54)
[2019-07-25] MEDS: predniSONE 20 MG TAB PO SCH (09:01)
[2019-07-25] MEDS: Ascorbic Acid 500 mg Chewable Tablet PO SCH ×2 (09:01→20:41)
[2019-07-25] MEDS: Rifampin 300 MG CAP PO SCH ×2 (09:01→21:55)
[2019-07-25] MEDS: Fluticasone Propionate Nasal Spray 16 gm Bottle NASAL SCH (09:02)
[2019-07-25] MEDS: Mometasone/Formoterol 200/5 60 PUFF INH SCH ×2 (09:02→20:44)
[2019-07-25] MEDS: Lidocaine 5% Patch TD SCH (09:02)
--- NOTE | 2019-07-25 13:39 | PRG ---
DATE OF SERVICE: 07/25/2019 SUBJECTIVE: Mr. Yates is up in his chair as he just finished lunch. He denies any questions or concerns. He is happy with his progress. OBJECTIVE: VITAL SIGNS: He is afebrile, heart rate 91, respirations 16, oxygen saturation 95%d on nasal cannula, and blood pressure 144/63. CARDIOVASCULAR SYSTEM: S1 and S2 plus. RESPIRATORY SYSTEM: Normal vesicular breath sounds. ABDOMEN: Soft and nontender. Bowel sounds heard in all quadrants. EXTREMITIES: Without cyanosis or clubbing. CENTRAL NERVOUS SYSTEM: Improving deconditioning. IMPRESSION: 1. Chronic obstructive pulmonary disease, Gold stage 3 to 4. 2. Chronic hypoxemic respiratory failure. 3. Chronic diastolic congestive heart failure. 4. Chronic kidney disease stage 3 to 4. 5. Anemia requiring periodic blood transfusions. 6. Atrial fibrillation. 7. Benign prostatic hyperplasia. 8. Periprosthetic left hip infection requiring revision and long-term antibiotics. 9. Methicillin-resistant Staphylococcus aureus bacteremia. PLAN: 1. Continue current medications. 2. An 1800 calorie 2 g heart healthy renal diet. 3. Monitor blood pressure and adjust medications as needed. 4. Check CBC, CMP, CRP, and sedimentation rate tomorrow. 5. Continue therapy. 6. Continue antibiotics dosing managed by Pharmacy. 7. Antibiotic end date is August 12. 8. DVT prophylaxis with PlexiPulses. 9. Decubitus precautions. 10. Rest ulcer prophylaxis. Job ID: [id number]
[2019-07-25] MEDS: traMADol HCl 50 MG TAB PO PRN ×2 (14:53→20:45)
[2019-07-25] MEDS: Cyclobenzaprine 10 MG TAB PO PRN (20:40)
[2019-07-25] MEDS: Rosuvastatin 10 MG TAB PO SCH (20:43)
[2019-07-25] MEDS: Lidocaine Patch Removal TOP SCH (21:21)
[2019-07-25] MEDS: Vancomycin HCl 750 MG in Sodium Chloride 0.9% 250 ML 250 ML IVPB SCH (23:35)
[2019-07-25] MEDS ORDERED: Sodium Chloride 0.9% 20 ML ONE (23:43)
[2019-07-26 05:36] LABS: #Basophils 0.1 thou/uL (0.0-0.2); #Eosinphils 0.1 thou/uL (0.0-0.7); #Lymphocytes 1.3 thou/uL (1.20-3.40); #Monocytes 1.1 thou/uL (0.11-0.59); #Neutrophils 6.2 thou/uL (1.40-6.50); %Basophils 1.5 % (0.0-1.0); %Eosinophils 0.8 % (0.0-10.0); %Lymphocytes 15.3 % (21.0-51.0); %Monocytes 12.2 % (0.0-10.0); %Neutrophils 70.2 % (42.0-75.0); Hemoglobin 7.2 g/dL (14.0-18.0); Mean Corpuscular HGB CONC 30.4 g/dL (32.0-36.0); Mean Corpuscular Hemoglobin 27.9 pg (27.0-31.0); Mean Corpuscular Volume 91.6 fL (78.0-98.0); Mean Platelet Volume 6.1 fL (7.4-10.4); Platelet Count 441 thou/uL (130-400); RBC Distribution Width 16.7 % (11.5-14.5); Red Blood Cell (RBC) Count 2.57 mill/uL (4.70-6.10); White Blood Cell (WBC) Count 8.8 thou/uL (4.8-10.8)
[2019-07-26] MEDS: Acetaminophen 500 MG TAB PO SCH ×3 (05:52→17:00)
[2019-07-26] MEDS: Ipratropium Bromide 2.5 ml Neb NEB SCH ×3 (05:53→16:59)
[2019-07-26 05:54] LABS: AST (SGOT) 9 U/L (5-34); Albumin 2.7 g/dL (3.4-4.8); Alkaline Phosphatase 64 U/L (40-110); Anion Gap 12 mmol/L (10-20); BUN (Urea Nitrogen) 50 mg/dL (8.4-25.7); Bilirubin, Total 0.2 mg/dL (0.2-1.2); CRP (Inflammatory) 4.29 mg/dL (= or < 0.5); Calc. Creatinine Clearance 43 mL/min (70-130); Calcium 8.1 mg/dL (7.8-10.44); Carbon Dioxide 23 mmol/L (23-31); Chloride 106 mmol/L (98-107); Estimated GFR-MDRD 40; Globulin 2.3 g/dL (2.4-3.5); Glucose 85 mg/dL (83-110); Potassium 3.9 mmol/L (3.5-5.1); Sodium 137 mmol/L (136-145)
[2019-07-26 05:59] LABS: ALT (SGPT) 8 U/L (8-55)
[2019-07-26] MEDS: Polyethylene Glycol 3350 17 GM Packet PO SCH (09:11)
[2019-07-26] MEDS: Ascorbic Acid 500 mg Chewable Tablet PO SCH ×2 (09:12→20:54)
[2019-07-26] MEDS: predniSONE 20 MG TAB PO SCH (09:12)
[2019-07-26] MEDS: Gabapentin 100 MG CAP PO SCH ×2 (09:12→20:55)
[2019-07-26] MEDS: Lidocaine 5% Patch TD SCH (09:12)
[2019-07-26] MEDS: Rifampin 300 MG CAP PO SCH ×2 (09:12→21:00)
[2019-07-26] MEDS: Senokot S 8.6-50 MG TAB PO SCH ×2 (09:12→20:54)
[2019-07-26] MEDS: Dutasteride 0.5 MG CAP PO SCH (09:13)
[2019-07-26] MEDS: Torsemide 20 MG TAB PO SCH ×2 (09:13→14:11)
[2019-07-26] MEDS: Aspirin 81 mg Enteric Coated Tablet PO SCH (09:13)
[2019-07-26] MEDS: Losartan 25 MG TAB PO SCH (09:13)
[2019-07-26] MEDS: Ferrous Sulfate 325 MG TAB PO SCH ×2 (09:13→17:00)
[2019-07-26] MEDS: Potassium Chloride 20 MEQ TAB PO SCH ×2 (09:14→17:00)
[2019-07-26] MEDS: Fluticasone Propionate Nasal Spray 16 gm Bottle NASAL SCH (09:14)
[2019-07-26] MEDS: Dofetilide 0.125 MG CAP PO SCH ×2 (09:14→20:55)
[2019-07-26] MEDS: Tamsulosin HCl 0.4 MG CAP PO SCH ×2 (09:14→20:54)
[2019-07-26] MEDS: Mometasone/Formoterol 200/5 60 PUFF INH SCH ×2 (09:15→20:51)
--- NOTE | 2019-07-26 13:18 | PRG ---
DATE OF SERVICE: 07/26/2019 SUBJECTIVE: Mr. Yates is doing well. Denies any complaints, improving with therapy. OBJECTIVE: VITAL SIGNS: He is afebrile. Heart rate 95, respirations are 18, oxygen saturation 94% on 3 L, and blood pressure is 114/53. CARDIOVASCULAR SYSTEM: S1 and S2 plus. RESPIRATORY SYSTEM: Normal vesicular breath sounds. ABDOMEN: Soft and nontender. Bowel sounds heard in all quadrants. EXTREMITIES: Without cyanosis or clubbing. Trace edema. CENTRAL NERVOUS SYSTEM: Improving deconditioning. LABORATORY DATA: laboratory values show a white count of 8.8, H and H are 7.2 and 23.5. Sedimentation rate is down to 29. Sodium 137, potassium 3.9, BUN and creatinine are 50 and 1.68, and CRP is down to 4.29. IMPRESSION: 1. Methicillin-resistant staphylococcus aureus bacteremia with prosthetic hip infection, requiring revision and long-term antibiotics. 2. Chronic obstructive pulmonary disease, GOLD stage 3 to 4. 3. Chronic kidney disease, stage 3 to 4. 4. Chronic diastolic congestive heart failure. 5. Chronic hypoxemic respiratory failure. 6. Atrial fibrillation. 7. BPH. 8. Obstructive sleep apnea. PLAN: 1. Continue current medications. 2. Heart healthy diet. 3. Monitor heart rate and rhythm. 4. Monitor respiratory status. 5. Orthopedic precautions. 6. Physical therapy. 7. Continue antibiotics. 8. DVT prophylaxis with PlexiPulses. 9. Routine laboratory values. 10. Continue therapy. Job ID: [id number]
[2019-07-26] MEDS: Rosuvastatin 10 MG TAB PO SCH (20:54)
[2019-07-26] MEDS: Lidocaine Patch Removal TOP SCH (20:55)
[2019-07-26] MEDS: Cyclobenzaprine 10 MG TAB PO PRN (20:57)
[2019-07-26] MEDS: traMADol HCl 50 MG TAB PO PRN (20:58)
[2019-07-27] MEDS: Vancomycin HCl 750 MG in Sodium Chloride 0.9% 250 ML 250 ML IVPB SCH
[2019-07-27] MEDS: Acetaminophen 500 MG TAB PO SCH ×4 (05:42→17:42)
[2019-07-27] MEDS: Ipratropium Bromide 2.5 ml Neb NEB SCH ×4 (05:42→17:42)
[2019-07-27] MEDS: Dofetilide 0.125 MG CAP PO SCH ×2 (09:05→20:59)
[2019-07-27] MEDS: Rifampin 300 MG CAP PO SCH ×2 (09:05→21:00)
[2019-07-27] MEDS: Tamsulosin HCl 0.4 MG CAP PO SCH ×2 (09:05→20:59)
[2019-07-27] MEDS: Aspirin 81 mg Enteric Coated Tablet PO SCH (09:05)
[2019-07-27] MEDS: predniSONE 20 MG TAB PO SCH (09:05)
[2019-07-27] MEDS: Dutasteride 0.5 MG CAP PO SCH (09:05)
[2019-07-27] MEDS: Torsemide 20 MG TAB PO SCH ×2 (09:06→14:33)
[2019-07-27] MEDS: Ascorbic Acid 500 mg Chewable Tablet PO SCH ×2 (09:06→20:59)
[2019-07-27] MEDS: Ferrous Sulfate 325 MG TAB PO SCH ×2 (09:06→16:01)
[2019-07-27] MEDS: Potassium Chloride 20 MEQ TAB PO SCH ×2 (09:06→16:01)
[2019-07-27] MEDS: Losartan 25 MG TAB PO SCH (09:07)
[2019-07-27] MEDS: Gabapentin 100 MG CAP PO SCH ×2 (09:07→20:59)
[2019-07-27] MEDS: Senokot S 8.6-50 MG TAB PO SCH ×2 (09:07→20:59)
[2019-07-27] MEDS: Polyethylene Glycol 3350 17 GM Packet PO SCH (09:07)
[2019-07-27] MEDS: Lidocaine 5% Patch TD SCH (09:08)
[2019-07-27] MEDS: Fluticasone Propionate Nasal Spray 16 gm Bottle NASAL SCH (09:08)
[2019-07-27] MEDS: Mometasone/Formoterol 200/5 60 PUFF INH SCH ×2 (09:09→20:58)
[2019-07-27] MEDS: traMADol HCl 50 MG TAB PO PRN ×3 (09:10→21:59)
--- NOTE | 2019-07-27 09:13 | PRG ---
DATE OF SERVICE: 07/27/2019 SUBJECTIVE: Mr. Yates is up in his chair. He is noticing slightly increased pain today. He is waiting on pain medications. He apparently did well with therapy. No chest pain or shortness of breath. OBJECTIVE: VITAL SIGNS: He is afebrile. Heart rate 100, respirations 18, oxygen saturation 93% on nasal cannula, and blood pressure 128/60. CARDIOVASCULAR SYSTEM: S1 and S2 plus. RESPIRATORY SYSTEM: Normal vesicular breath sounds. ABDOMEN: Soft, nontender. Bowel sounds heard in all quadrants. GENITOURINARY: Hays catheter in place. EXTREMITIES: Without cyanosis or clubbing. Trace edema. CENTRAL NERVOUS SYSTEM: Improving deconditioning. IMPRESSION: 1. Methicillin-resistant Staphylococcus aureus bacteremia and septic arthritis, requiring revision of left hip surgery. 2. Benign prostatic hypertrophy. 3. Atrial fibrillation. 4. Chronic obstructive pulmonary disease. 5. Chronic kidney disease, stage 3 to 4. 6. Chronic hypoxemic respiratory failure. 7. Anemia, requiring periodic transfusion. PLAN: 1. Continue current medications. 2. Heart healthy diet. 3. Monitor heart rate and rhythm. 4. Monitor respiratory status. 5. Hays catheter care. 6. Physical therapy. 7. Recheck CBC and BMP on Tuesday. 8. Anticipate voiding trial starting on Tuesday. 9. Discussed with the patient in detail. All questions answered. Job ID: [id number]
[2019-07-27] MEDS: Rosuvastatin 10 MG TAB PO SCH (20:59)
[2019-07-27] MEDS: Cyclobenzaprine 10 MG TAB PO PRN (21:00)
[2019-07-27] MEDS: Lidocaine Patch Removal TOP SCH (21:00)
[2019-07-27 23:40] LABS: Vancomycin, Trough 19.4 ug/mL
[2019-07-28] MEDS: Acetaminophen 500 MG TAB PO SCH ×4 (00:06→17:15)
[2019-07-28] MEDS: Vancomycin HCl 750 MG in Sodium Chloride 0.9% 250 ML 250 ML IVPB SCH (00:07)
[2019-07-28] MEDS: Ipratropium Bromide 2.5 ml Neb NEB SCH ×4 (00:07→17:17)
[2019-07-28] MEDS: Potassium Chloride 20 MEQ TAB PO SCH ×2 (08:43→17:15)
[2019-07-28] MEDS: Ferrous Sulfate 325 MG TAB PO SCH ×2 (08:43→17:15)
[2019-07-28] MEDS: Dofetilide 0.125 MG CAP PO SCH ×2 (08:44→21:09)
[2019-07-28] MEDS: Ascorbic Acid 500 mg Chewable Tablet PO SCH ×2 (08:44→21:08)
[2019-07-28] MEDS: Aspirin 81 mg Enteric Coated Tablet PO SCH (08:44)
[2019-07-28] MEDS: predniSONE 20 MG TAB PO SCH (08:44)
[2019-07-28] MEDS: Senokot S 8.6-50 MG TAB PO SCH ×2 (08:45→21:08)
[2019-07-28] MEDS: Tamsulosin HCl 0.4 MG CAP PO SCH ×2 (08:45→21:09)
[2019-07-28] MEDS: Fluticasone Propionate Nasal Spray 16 gm Bottle NASAL SCH (08:45)
[2019-07-28] MEDS: Dutasteride 0.5 MG CAP PO SCH (08:45)
[2019-07-28] MEDS: Mometasone/Formoterol 200/5 60 PUFF INH SCH ×2 (08:46→21:06)
[2019-07-28] MEDS: Lidocaine 5% Patch TD SCH (08:47)
[2019-07-28] MEDS: Torsemide 20 MG TAB PO SCH ×2 (08:47→14:18)
[2019-07-28] MEDS: Gabapentin 100 MG CAP PO SCH ×2 (08:47→21:08)
[2019-07-28] MEDS: Losartan 25 MG TAB PO SCH (08:47)
[2019-07-28] MEDS: Polyethylene Glycol 3350 17 GM Packet PO SCH (08:48)
[2019-07-28] MEDS: Rifampin 300 MG CAP PO SCH ×2 (10:14→21:09)
[2019-07-28] MEDS: traMADol HCl 50 MG TAB PO PRN ×2 (10:17→21:07)
--- NOTE | 2019-07-28 16:42 | PRG ---
DATE OF SERVICE: 07/28/2019 SUBJECTIVE: Mr. Yates is doing well. Denies any complaints. Resting comfortably. OBJECTIVE: VITAL SIGNS: He is afebrile. Heart rate is 94, respirations 20, oxygen saturation 93% on 3 L. CARDIOVASCULAR: S1, S2 plus. RESPIRATORY: Normal vesicular breath sounds. ABDOMEN: Soft, nontender. Bowel sounds heard in all quadrants. EXTREMITIES: Without cyanosis or clubbing. GENITOURINARY: Tolerating his Hays catheter. IMPRESSION: 1. Methicillin-resistant Staphylococcus aureus bacteremia with prosthetic infection, requiring revision of left hip arthroplasty. 2. Chronic kidney disease stage 3 to 4. 3. Chronic obstructive pulmonary disease. 4. Chronic hypoxemic respiratory failure. 5. Chronic diastolic congestive heart failure. 6. Atrial fibrillation. 7. Benign prostatic hyperplasia with urinary retention. PLAN: 1. Continue current medications including antibiotics. 2. Heart-healthy diet. 3. Monitor respiratory status. 4. Hays catheter care. 5. DVT prophylaxis, PlexiPulses. 6. Decubitus precaution. 7. Stress ulcer prophylaxis. 8. Routine laboratory values. 9. Physical therapy. Job ID: [id number]
[2019-07-28] MEDS: Rosuvastatin 10 MG TAB PO SCH (21:08)
[2019-07-28] MEDS: Cyclobenzaprine 10 MG TAB PO PRN (21:09)
[2019-07-28] MEDS: Lidocaine Patch Removal TOP SCH (21:10)
[2019-07-29] MEDS: Acetaminophen 500 MG TAB PO SCH ×5 (00:12→23:46)
[2019-07-29] MEDS: Vancomycin HCl 750 MG in Sodium Chloride 0.9% 250 ML 250 ML IVPB SCH ×2 (00:13→23:49)
[2019-07-29] MEDS: Ipratropium Bromide 2.5 ml Neb NEB SCH ×5 (00:13→23:43)
[2019-07-29] MEDS: traMADol HCl 50 MG TAB PO PRN ×2 (04:05→17:38)
[2019-07-29] MEDS: Mometasone/Formoterol 200/5 60 PUFF INH SCH ×2 (08:30→20:46)
[2019-07-29] MEDS: Fluticasone Propionate Nasal Spray 16 gm Bottle NASAL SCH (08:31)
[2019-07-29] MEDS: Losartan 25 MG TAB PO SCH (08:32)
[2019-07-29] MEDS: Polyethylene Glycol 3350 17 GM Packet PO SCH (08:32)
[2019-07-29] MEDS: Lidocaine 5% Patch TD SCH (08:32)
[2019-07-29] MEDS: Dofetilide 0.125 MG CAP PO SCH ×2 (08:33→20:51)
[2019-07-29] MEDS: predniSONE 20 MG TAB PO SCH (08:33)
[2019-07-29] MEDS: Tamsulosin HCl 0.4 MG CAP PO SCH ×2 (08:33→20:52)
[2019-07-29] MEDS: Senokot S 8.6-50 MG TAB PO SCH ×2 (08:33→20:52)
[2019-07-29] MEDS: Gabapentin 100 MG CAP PO SCH ×2 (08:33→20:51)
[2019-07-29] MEDS: Ferrous Sulfate 325 MG TAB PO SCH ×2 (08:33→17:37)
[2019-07-29] MEDS: Potassium Chloride 20 MEQ TAB PO SCH ×2 (08:33→17:37)
[2019-07-29] MEDS: Dutasteride 0.5 MG CAP PO SCH (08:34)
[2019-07-29] MEDS: Ascorbic Acid 500 mg Chewable Tablet PO SCH ×2 (08:34→20:51)
[2019-07-29] MEDS: Aspirin 81 mg Enteric Coated Tablet PO SCH (08:34)
[2019-07-29] MEDS: Torsemide 20 MG TAB PO SCH ×2 (08:35→14:25)
[2019-07-29] MEDS: Rifampin 300 MG CAP PO SCH ×2 (10:19→20:51)
--- NOTE | 2019-07-29 12:49 | PRG ---
DATE OF SERVICE: 07/29/2019 SUBJECTIVE: Mr. Yates is doing well. Denies any complaints. Resting comfortably. Tolerating his medications. He states that he is noticing slightly more shortness of breath. I advised him to make sure he takes his breathing treatments. He is enjoying food that his brought in from outside. OBJECTIVE: VITAL SIGNS: He is afebrile, heart rate 97, respirations 20, oxygen saturation 90% on 3 L, blood pressure is 133/62. CARDIOVASCULAR: S1 and S2 plus. RESPIRATORY: Normal vesicular breath sounds. ABDOMEN: Soft and nontender. Bowel sounds heard in all quadrants. EXTREMITIES: Without cyanosis or clubbing. CENTRAL NERVOUS SYSTEM: Improving deconditioning. IMPRESSION: 1. Anemia requiring periodic blood transfusion. 2. Methicillin-resistant Staphylococcus aureus bacteremia and prosthetic infection requiring revision of left hip arthroplasty. 3. Chronic diastolic congestive heart failure. 4. Chronic kidney disease, stage 3 to 4. 5. Chronic hypoxemic respiratory failure. 6. Atrial fibrillation. 7. Benign prostatic hypertrophy. PLAN: 1. Continue current medications. 2. Recheck CBC in the morning. 3. Breathing treatments. 4. Monitor respiratory status. 5. DVT prophylaxis, PlexiPulses. 6. Decubitus precaution. 7. Stress ulcer prophylaxis. 8. Continue antibiotics. 9. Discussed with the patient and nursing in detail. All questions answered. Job ID: [id number]
[2019-07-29] MEDS: Cyclobenzaprine 10 MG TAB PO PRN (20:49)
[2019-07-29] MEDS: Lidocaine Patch Removal TOP SCH (20:52)
[2019-07-29] MEDS: Rosuvastatin 10 MG TAB PO SCH (20:52)
[2019-07-30] MEDS: traMADol HCl 50 MG TAB PO PRN ×2 (00:04→20:51)
[2019-07-30] MEDS ORDERED: Torsemide 20 MG TAB PO SCH (00:15)
[2019-07-30] MEDS ORDERED: predniSONE 20 MG TAB PO SCH ×2 (00:15→09:00)
[2019-07-30] MEDS: Acetaminophen 500 MG TAB PO SCH ×4 (05:13→23:44)
[2019-07-30] MEDS: Ipratropium Bromide 2.5 ml Neb NEB SCH ×4 (05:13→23:44)
[2019-07-30 05:36] LABS: #Basophils 0.1 thou/uL (0.0-0.2); #Lymphocytes 0.9 thou/uL (1.20-3.40); #Monocytes 1.1 thou/uL (0.11-0.59); #Neutrophils 13.9 thou/uL (1.40-6.50); %Basophils 0.8 % (0.0-1.0); %Lymphocytes 5.5 % (21.0-51.0); %Neutrophils 86.7 % (42.0-75.0); Hemoglobin 7.3 g/dL (14.0-18.0); Mean Corpuscular HGB CONC 29.7 g/dL (32.0-36.0); Mean Corpuscular Hemoglobin 27.1 pg (27.0-31.0); Mean Corpuscular Volume 91.5 fL (78.0-98.0); Mean Platelet Volume 6.5 fL (7.4-10.4); Platelet Count 406 thou/uL (130-400); RBC Distribution Width 17.1 % (11.5-14.5)
[2019-07-30 05:52] LABS: Anion Gap 16 mmol/L (10-20); BUN (Urea Nitrogen) 41 mg/dL (8.4-25.7); Calc. Creatinine Clearance 44 mL/min (70-130); Calcium 8.2 mg/dL (7.8-10.44); Carbon Dioxide 22 mmol/L (23-31); Chloride 105 mmol/L (98-107); Estimated GFR-MDRD 40; Glucose 114 mg/dL (83-110); Potassium 4.5 mmol/L (3.5-5.1); Sodium 138 mmol/L (136-145)
[2019-07-30] MEDS: Fluticasone Propionate Nasal Spray 16 gm Bottle NASAL SCH (09:01)
[2019-07-30] MEDS: Lidocaine 5% Patch TD SCH (09:01)
[2019-07-30] MEDS: Polyethylene Glycol 3350 17 GM Packet PO SCH (09:01)
[2019-07-30] MEDS: Tamsulosin HCl 0.4 MG CAP PO SCH ×2 (09:01→20:48)
[2019-07-30] MEDS: Senokot S 8.6-50 MG TAB PO SCH ×2 (09:01→20:49)
[2019-07-30] MEDS: Losartan 25 MG TAB PO SCH (09:01)
[2019-07-30] MEDS: Rifampin 300 MG CAP PO SCH ×2 (09:02→22:56)
[2019-07-30] MEDS: Ascorbic Acid 500 mg Chewable Tablet PO SCH ×2 (09:02→20:49)
[2019-07-30] MEDS: Gabapentin 100 MG CAP PO SCH ×2 (09:02→20:48)
[2019-07-30] MEDS: Torsemide 20 MG TAB PO SCH ×2 (09:02→14:32)
[2019-07-30] MEDS: Potassium Chloride 20 MEQ TAB PO SCH ×2 (09:03→16:11)
[2019-07-30] MEDS: Aspirin 81 mg Enteric Coated Tablet PO SCH (09:03)
[2019-07-30] MEDS: Dutasteride 0.5 MG CAP PO SCH (09:03)
[2019-07-30] MEDS: Dofetilide 0.125 MG CAP PO SCH ×2 (09:03→20:49)
[2019-07-30] MEDS: Ferrous Sulfate 325 MG TAB PO SCH ×2 (09:03→16:10)
[2019-07-30] MEDS: Mometasone/Formoterol 200/5 60 PUFF INH SCH ×2 (09:10→20:49)
--- NOTE | 2019-07-30 13:54 | RAD ---
Chest 1 view: HISTORY: Shortness of breath. COMPARISON: 06/30/2019. FINDINGS: Evidence for old healed rib fractures bilaterally. Increased linear and interstitial markings bilate rally. No confluent pneumonia, overt edema, or pleural effusion. IMPRESSION: Stable chest. Increased markings bilaterally with cardiomegaly. No significant new process. POS: [facility]
[2019-07-30] MEDS: Albuterol Sulfate 2.5 mg/3 ml Neb NEB PRN (14:32)
[2019-07-30] MEDS: methylPREDNISolone Sod Succ/PF 125 MG/2 ML VIAL IVP SCH (17:16)
--- NOTE | 2019-07-30 17:37 | PRG ---
DATE OF SERVICE: 07/30/2019 SUBJECTIVE: steroids. I did start him on prednisone 20 mg b.i.d. yesterday evening, but he is still struggling. We will switch him to IV Solu-Medrol. I also placed him on a CPAP and he immediately went to sleep and rested well. I advised nursing that as long his oxygen saturations are above 89%, I am happy. I also did inform them that if they have to increase his oxygen and if he needs more than 5 L, then he needs to be sent up to the acute hospital. OBJECTIVE: VITAL SIGNS: The patient is afebrile with a T-max of 99.2, pulse 110, respirations 28. This was at 12:43 this morning. Oxygen saturation 97% on 5 L, and blood pressure 125/60. When I saw him, he was down to 3.5 L CPAP, oxygen saturation was 99% and his heart rate was 82. CARDIOVASCULAR: S1 and S2 plus. RESPIRATORY: Normal vesicular breath sounds with decreased air entry. His chest all over sounded tight. ABDOMEN: Soft, nontender. Bowel sounds heard in all quadrants. EXTREMITIES: Without cyanosis, clubbing, trace edema. IMPRESSION: 1. Chronic obstructive pulmonary disease exacerbation. 2. Anemia of chronic disease. 3. Leukocytosis, possibly due to steroids. 4. 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 5. Chronic diastolic congestive heart failure. 6. Chronic hypoxemic respiratory failure. 7. Chronic kidney disease, stage 3 to 4. 8. BPH. 9. Atrial fibrillation. PLAN: 1. IV Solu-Medrol 60 mg b.i.d. 2. Stop p.o. prednisone. 3. Continue breathing treatments. 4. CPAP. 5. Recheck routine labs in the morning. 6. Continuous pulse ox. 7. Vital signs q.4 hours while awake. 8. Discussed with both the patient, nurse taking care of him and the charge nurse about the plans. Job ID: [id number]
[2019-07-30] MEDS: Cyclobenzaprine 10 MG TAB PO PRN (20:48)
[2019-07-30] MEDS: Rosuvastatin 10 MG TAB PO SCH (20:49)
[2019-07-30] MEDS ORDERED: methylPREDNISolone Sod Succ/PF 125 MG/2 ML VIAL IVP SCH (21:00)
[2019-07-30] MEDS: Lidocaine Patch Removal TOP SCH (21:04)
[2019-07-30 23:28] LABS: Vancomycin, Trough 20.8 ug/mL
[2019-07-30] MEDS: Vancomycin HCl 750 MG in Sodium Chloride 0.9% 250 ML 250 ML IVPB SCH (23:45)
[2019-07-30] MEDS ORDERED: Sodium Chloride 0.9% 20 ML ONE (23:50)
[2019-07-31] MEDS: methylPREDNISolone Sod Succ/PF 125 MG/2 ML VIAL IVP SCH ×2 (05:28→19:11)
[2019-07-31] MEDS: Ipratropium Bromide 2.5 ml Neb NEB SCH ×4 (05:30→23:52)
[2019-07-31] MEDS: Acetaminophen 500 MG TAB PO SCH ×4 (05:30→23:53)
[2019-07-31 05:50] LABS: #Basophils 0.1 thou/uL (0.0-0.2); #Monocytes 1.3 thou/uL (0.11-0.59); #Neutrophils 9.5 thou/uL (1.40-6.50); %Basophils 0.9 % (0.0-1.0); %Eosinophils 0.4 % (0.0-10.0); %Lymphocytes 8.6 % (21.0-51.0); %Monocytes 10.6 % (0.0-10.0); %Neutrophils 79.4 % (42.0-75.0); Mean Corpuscular HGB CONC 29.7 g/dL (32.0-36.0); Mean Corpuscular Hemoglobin 27.2 pg (27.0-31.0); Mean Corpuscular Volume 91.4 fL (78.0-98.0); Mean Platelet Volume 6.6 fL (7.4-10.4); Platelet Count 380 thou/uL (130-400); RBC Distribution Width 17.1 % (11.5-14.5); Red Blood Cell (RBC) Count 2.58 mill/uL (4.70-6.10); White Blood Cell (WBC) Count 11.9 thou/uL (4.8-10.8)
[2019-07-31 06:05] LABS: Anion Gap 15 mmol/L (10-20); BUN (Urea Nitrogen) 43 mg/dL (8.4-25.7); Calc. Creatinine Clearance 43 mL/min (70-130); Calcium 8.2 mg/dL (7.8-10.44); Carbon Dioxide 22 mmol/L (23-31); Chloride 105 mmol/L (98-107); Estimated GFR-MDRD 40; Glucose 93 mg/dL (83-110); Potassium 4.1 mmol/L (3.5-5.1); Sodium 138 mmol/L (136-145)
[2019-07-31] MEDS: traMADol HCl 50 MG TAB PO PRN (08:54)
[2019-07-31] MEDS: Lidocaine 5% Patch TD SCH (08:54)
[2019-07-31] MEDS: Polyethylene Glycol 3350 17 GM Packet PO SCH (08:54)
[2019-07-31] MEDS: Tamsulosin HCl 0.4 MG CAP PO SCH ×2 (08:55→21:58)
[2019-07-31] MEDS: Ferrous Sulfate 325 MG TAB PO SCH ×2 (08:55→17:51)
[2019-07-31] MEDS: Ascorbic Acid 500 mg Chewable Tablet PO SCH ×2 (08:55→22:00)
[2019-07-31] MEDS: Aspirin 81 mg Enteric Coated Tablet PO SCH (08:55)
[2019-07-31] MEDS: Potassium Chloride 20 MEQ TAB PO SCH ×2 (08:55→17:51)
[2019-07-31] MEDS: Gabapentin 100 MG CAP PO SCH ×2 (08:55→21:58)
[2019-07-31] MEDS: Rifampin 300 MG CAP PO SCH ×2 (08:56→21:58)
[2019-07-31] MEDS: Dutasteride 0.5 MG CAP PO SCH (08:56)
[2019-07-31] MEDS: Losartan 25 MG TAB PO SCH (08:56)
[2019-07-31] MEDS: Torsemide 20 MG TAB PO SCH ×2 (08:56→13:28)
[2019-07-31] MEDS: Senokot S 8.6-50 MG TAB PO SCH ×2 (08:56→21:57)
[2019-07-31] MEDS: Mometasone/Formoterol 200/5 60 PUFF INH SCH ×2 (08:56→21:56)
[2019-07-31] MEDS: Fluticasone Propionate Nasal Spray 16 gm Bottle NASAL SCH (08:56)
[2019-07-31] MEDS: Dofetilide 0.125 MG CAP PO SCH ×2 (08:56→21:58)
--- NOTE | 2019-07-31 14:15 | PRG ---
DATE OF SERVICE: 07/31/2019 SUBJECTIVE: Mr. Yates is feeling better today. He states that he is breathing easier. His spouse is in the room. All questions answered. His hemoglobin was 7. Plan is to transfuse 2 units of blood before each unit. OBJECTIVE: VITAL SIGNS: He is afebrile. Heart rate 105, respirations 20, oxygen saturation 94% on 3.5 L via face mask, blood pressure 128/60. CARDIOVASCULAR: S1 and S2 plus. RESPIRATORY: Normal vesicular breath sounds with decreased air entry in the bases, much better at the moment today compared to yesterday. ABDOMEN: Soft, obese, nontender. EXTREMITIES: Without cyanosis or clubbing. Trace edema. CENTRAL NERVOUS SYSTEM: Generalized weakness, otherwise nonfocal. LABORATORY DATA: His white count is down to 11.9, H and H are 7 and 23.6. Sodium 138, potassium 4.1, BUN and creatinine are 43 and 1.68. apparently some drainage from his hip incision shows no organisms and no wbc's. IMPRESSION: 1. Methicillin-resistant Staphylococcus aureus bacteremia and hip infection, requiring revision of hip surgery. 2. Exacerbation of chronic obstructive pulmonary disease. 3. Anemia, requiring blood transfusion. 4. Benign prostatic hypertrophy. 5. Atrial fibrillation. 6. Chronic diastolic congestive heart failure. 7. Chronic hypoxemic respiratory failure. 8. Chronic kidney disease, stage 3 to 4. PLAN: 1. Continue current medications including IV steroids. 2. Type and cross and transfuse 2 units of packed red blood cells. 3. Lasix 20 mg IV before each unit. 4. Check CBC and BMP in the morning. 5. Continue IV antibiotics. 6. Physical therapy, we will hold it today and will resume tomorrow. 7. Discussed with the patient and in detail. All questions answered. Job ID: [id number]
[2019-07-31] MEDS ORDERED: Sodium Chloride 0.9% 20 ML ONE (14:16)
[2019-07-31] MEDS: Furosemide 20 MG/2 ML VIAL SLOW IVP SCH ×2 (15:45→19:27)
[2019-07-31] MEDS: Rosuvastatin 10 MG TAB PO SCH (21:58)
[2019-07-31] MEDS: Lidocaine Patch Removal TOP SCH (21:59)
[2019-07-31] MEDS: Vancomycin HCl 750 MG in Sodium Chloride 0.9% 250 ML 250 ML IVPB SCH (23:54)
[2019-08-01] MEDS: Ipratropium Bromide 2.5 ml Neb NEB SCH ×3 (05:13→17:38)
[2019-08-01] MEDS: Acetaminophen 500 MG TAB PO SCH ×3 (05:15→17:35)
[2019-08-01] MEDS: methylPREDNISolone Sod Succ/PF 125 MG/2 ML VIAL IVP SCH ×2 (05:18→17:34)
[2019-08-01 05:37] LABS: #Basophils 0.1 thou/uL (0.0-0.2); #Lymphocytes 0.5 thou/uL (1.20-3.40); #Monocytes 0.8 thou/uL (0.11-0.59); #Neutrophils 8.1 thou/uL (1.40-6.50); %Basophils 0.7 % (0.0-1.0); %Eosinophils 0.2 % (0.0-10.0); %Lymphocytes 5.1 % (21.0-51.0); %Monocytes 8.8 % (0.0-10.0); %Neutrophils 85.1 % (42.0-75.0); Hemoglobin 8.2 g/dL (14.0-18.0); Mean Corpuscular HGB CONC 30.2 g/dL (32.0-36.0); Mean Corpuscular Hemoglobin 27.1 pg (27.0-31.0); Mean Platelet Volume 6.6 fL (7.4-10.4); Platelet Count 362 thou/uL (130-400); White Blood Cell (WBC) Count 9.5 thou/uL (4.8-10.8)
[2019-08-01 05:51] LABS: Anion Gap 15 mmol/L (10-20); BUN (Urea Nitrogen) 45 mg/dL (8.4-25.7); Calc. Creatinine Clearance 43 mL/min (70-130); Carbon Dioxide 21 mmol/L (23-31); Chloride 105 mmol/L (98-107); Estimated GFR-MDRD 39; Glucose 118 mg/dL (83-110); Potassium 4.2 mmol/L (3.5-5.1); Sodium 137 mmol/L (136-145)
[2019-08-01] MEDS: Lidocaine 5% Patch TD SCH (08:21)
[2019-08-01] MEDS: Potassium Chloride 20 MEQ TAB PO SCH ×2 (08:21→17:35)
[2019-08-01] MEDS: Ferrous Sulfate 325 MG TAB PO SCH ×2 (08:21→17:34)
[2019-08-01] MEDS: Fluticasone Propionate Nasal Spray 16 gm Bottle NASAL SCH (08:22)
[2019-08-01] MEDS: Dofetilide 0.125 MG CAP PO SCH ×2 (08:22→20:34)
[2019-08-01] MEDS: Ascorbic Acid 500 mg Chewable Tablet PO SCH ×2 (08:22→20:34)
[2019-08-01] MEDS: Aspirin 81 mg Enteric Coated Tablet PO SCH (08:22)
[2019-08-01] MEDS: Dutasteride 0.5 MG CAP PO SCH (08:22)
[2019-08-01] MEDS: Mometasone/Formoterol 200/5 60 PUFF INH SCH ×2 (08:23→20:34)
[2019-08-01] MEDS: Tamsulosin HCl 0.4 MG CAP PO SCH ×2 (08:27→20:34)
[2019-08-01] MEDS: Losartan 25 MG TAB PO SCH (08:27)
[2019-08-01] MEDS: Polyethylene Glycol 3350 17 GM Packet PO SCH (08:28)
[2019-08-01] MEDS: Torsemide 20 MG TAB PO SCH ×2 (08:28→14:34)
[2019-08-01] MEDS: Senokot S 8.6-50 MG TAB PO SCH ×2 (08:28→20:34)
[2019-08-01] MEDS: Gabapentin 100 MG CAP PO SCH ×2 (08:36→20:35)
[2019-08-01] MEDS: Rifampin 300 MG CAP PO SCH ×2 (10:41→21:17)
--- NOTE | 2019-08-01 12:51 | PRG ---
DATE OF SERVICE: 08/01/2019 SUBJECTIVE: Mr. Yates is up in his chair. He states that he still has some difficulty breathing. He does not feel much improved with the 2 units of blood transfusion. His oxygen requirements have not increased. OBJECTIVE: VITAL SIGNS: He is afebrile. Heart rate 96, respirations 18, oxygen saturation 96% on 3.5 L, blood pressure is 142/67. CARDIOVASCULAR: S1 and S2 plus. RESPIRATORY: Normal vesicular breath sounds with occasional rhonchi and wheeze. ABDOMEN: Soft and nontender. Bowel sounds heard in all quadrants. EXTREMITIES: Without cyanosis or clubbing. Trace edema. CENTRAL NERVOUS SYSTEM: Grossly nonfocal. LABORATORY VALUES: This morning show hemoglobin of 8.2, white count is normal. Sodium 137, potassium 4.2, BUN and creatinine 45 and 1.69. IMPRESSION: 1. Anemia, requiring blood transfusion. 2. Exacerbation of chronic obstructive pulmonary disease, on IV steroids. 3. Chronic diastolic congestive heart failure. 4. Chronic kidney disease, stage 3 to 4. 5. Chronic hypoxemic respiratory failure. 6. Atrial fibrillation. 7. Benign prostatic hypertrophy. 8. Methicillin-resistant Staphylococcus aureus bacteremia with left hip infection requiring revision. PLAN: 1. Continue current medications. 2. Heart-healthy diet. 3. Continue IV steroids. 4. Recheck CBC, CMP, CRP, and sedimentation rate tomorrow. 5. Physical therapy as tolerated. 6. DVT prophylaxis with PlexiPulses. 7. Discussed with the patient in detail. All questions answered. No family at bedside. Job ID: [id number]
[2019-08-01] MEDS: Rosuvastatin 10 MG TAB PO SCH (20:34)
[2019-08-01] MEDS: Cyclobenzaprine 10 MG TAB PO PRN (20:35)
[2019-08-01] MEDS: traMADol HCl 50 MG TAB PO PRN (20:36)
[2019-08-01] MEDS: Lidocaine Patch Removal TOP SCH (20:37)
[2019-08-01] MEDS ORDERED: Sodium Chloride 0.9% 20 ML ONE (23:17)
[2019-08-01 23:47] LABS: Vancomycin, Trough 21.4 ug/mL
[2019-08-02] MEDS: Ipratropium Bromide 2.5 ml Neb NEB SCH ×4 (00:03→17:17)
[2019-08-02] MEDS: Acetaminophen 500 MG TAB PO SCH ×4 (00:03→17:17)
[2019-08-02] MEDS: Vancomycin HCl 750 MG in Sodium Chloride 0.9% 250 ML 250 ML IVPB SCH (00:04)
[2019-08-02 05:19] LABS: #Basophils 0.1 thou/uL (0.0-0.2); #Eosinphils 0.1 thou/uL (0.0-0.7); #Lymphocytes 0.9 thou/uL (1.20-3.40); #Monocytes 0.9 thou/uL (0.11-0.59); #Neutrophils 8.2 thou/uL (1.40-6.50); %Basophils 0.8 % (0.0-1.0); %Eosinophils 0.6 % (0.0-10.0); %Lymphocytes 8.8 % (21.0-51.0); %Monocytes 9.2 % (0.0-10.0); %Neutrophils 80.6 % (42.0-75.0); Hemoglobin 8.1 g/dL (14.0-18.0); Mean Corpuscular HGB CONC 29.7 g/dL (32.0-36.0); Mean Corpuscular Volume 90.9 fL (78.0-98.0); Mean Platelet Volume 6.5 fL (7.4-10.4); Platelet Count 370 thou/uL (130-400); RBC Distribution Width 17.5 % (11.5-14.5); White Blood Cell (WBC) Count 10.2 thou/uL (4.8-10.8)
[2019-08-02] MEDS: methylPREDNISolone Sod Succ/PF 125 MG/2 ML VIAL IVP SCH ×2 (05:34→17:16)
[2019-08-02 05:40] LABS: ALT (SGPT) 13 U/L (8-55); AST (SGOT) 11 U/L (5-34); Albumin 2.8 g/dL (3.4-4.8); Alkaline Phosphatase 65 U/L (40-110); Anion Gap 14 mmol/L (10-20); BUN (Urea Nitrogen) 48 mg/dL (8.4-25.7); Bilirubin, Total 0.2 mg/dL (0.2-1.2); CRP (Inflammatory) 7.96 mg/dL (= or < 0.5); Calc. Creatinine Clearance 44 mL/min (70-130); Carbon Dioxide 22 mmol/L (23-31); Chloride 107 mmol/L (98-107); Estimated GFR-MDRD 40; Globulin 2.8 g/dL (2.4-3.5); Glucose 100 mg/dL (83-110); Potassium 3.8 mmol/L (3.5-5.1); Protein, Total 5.6 g/dL (5.8-8.1); Sodium 139 mmol/L (136-145)
[2019-08-02] MEDS: Lidocaine 5% Patch TD SCH (08:47)
[2019-08-02] MEDS: Ferrous Sulfate 325 MG TAB PO SCH ×2 (08:48→17:16)
[2019-08-02] MEDS: Aspirin 81 mg Enteric Coated Tablet PO SCH (08:48)
[2019-08-02] MEDS: Ascorbic Acid 500 mg Chewable Tablet PO SCH ×2 (08:48→20:44)
[2019-08-02] MEDS: Potassium Chloride 20 MEQ TAB PO SCH ×2 (08:48→17:16)
[2019-08-02] MEDS: Dutasteride 0.5 MG CAP PO SCH (08:48)
[2019-08-02] MEDS: Gabapentin 100 MG CAP PO SCH ×2 (08:49→20:44)
[2019-08-02] MEDS: Fluticasone Propionate Nasal Spray 16 gm Bottle NASAL SCH (08:49)
[2019-08-02] MEDS: Dofetilide 0.125 MG CAP PO SCH ×2 (08:49→20:44)
[2019-08-02] MEDS: Mometasone/Formoterol 200/5 60 PUFF INH SCH ×2 (08:50→20:42)
[2019-08-02] MEDS: Losartan 25 MG TAB PO SCH (08:50)
[2019-08-02] MEDS: Tamsulosin HCl 0.4 MG CAP PO SCH ×2 (08:51→20:44)
[2019-08-02] MEDS: Torsemide 20 MG TAB PO SCH ×2 (08:51→14:48)
[2019-08-02] MEDS: Senokot S 8.6-50 MG TAB PO SCH ×2 (08:51→20:44)
[2019-08-02] MEDS: Polyethylene Glycol 3350 17 GM Packet PO SCH (08:51)
[2019-08-02] MEDS: Rifampin 300 MG CAP PO SCH ×2 (10:37→20:57)
--- NOTE | 2019-08-02 13:04 | PRG ---
DATE OF SERVICE: 08/02/2019 SUBJECTIVE: Mr. Yates is doing maybe slightly better. The best thing that helps him is breathing treatments and I advised him to do it every 3 hours routine, the DuoNeb. OBJECTIVE: VITAL SIGNS: He is afebrile. Heart rate is 95, respirations 18, oxygen saturation 95% on 3 L, and blood pressure 142/77. CARDIOVASCULAR: S1 and S2 plus. RESPIRATORY: Normal vesicular breath sounds. ABDOMEN: Soft, nontender. Bowel sounds heard in all quadrants. EXTREMITIES: Without cyanosis or clubbing. CENTRAL NERVOUS SYSTEM: Improving deconditioning. LABORATORY DATA: White count is 10.8, hemoglobin and hematocrit are 8.1 and 27.3. Sodium 139, potassium 3.8, BUN and creatinine is 48 and 1.65. IMPRESSION: 1. Chronic obstructive pulmonary disease exacerbation. 2. Chronic diastolic congestive heart failure. 3. Chronic hypoxemic respiratory failure. 4. Chronic kidney disease stage 3 to 4. 5. Left hip methicillin-resistant Staphylococcus aureus infection requiring revision. 6. BPH. 7. Atrial fibrillation. 8. Obstructive sleep apnea. PLAN: 1. Continue current medications. 2. Change DuoNeb to q.3 routine. 3. Continue IV steroids. 4. Stress ulcer prophylaxis. 5. DVT prophylaxis with PlexiPulses. 6. Titrate oxygen as tolerated. 7. Physical therapy. 8. Routine laboratory values. Job ID: [id number]
[2019-08-02] MEDS: Rosuvastatin 10 MG TAB PO SCH (20:44)
[2019-08-02] MEDS: Lidocaine Patch Removal TOP SCH (20:45)
[2019-08-02] MEDS: traMADol HCl 50 MG TAB PO PRN (20:46)
[2019-08-02] MEDS: Cyclobenzaprine 10 MG TAB PO PRN (20:46)
[2019-08-03] MEDS: Acetaminophen 500 MG TAB PO SCH ×4 (00:04→17:01)
[2019-08-03] MEDS: Ipratropium Bromide 2.5 ml Neb NEB SCH ×4 (00:05→17:00)
[2019-08-03] MEDS: Vancomycin HCl 750 MG in Sodium Chloride 0.9% 250 ML 250 ML IVPB SCH (00:06)
[2019-08-03] MEDS ORDERED: Sodium Chloride 0.9% 20 ML ONE (00:11)
[2019-08-03] MEDS ORDERED: Sodium Chloride 0.9% 10 ML ONE (05:16)
[2019-08-03] MEDS: methylPREDNISolone Sod Succ/PF 125 MG/2 ML VIAL IVP SCH ×2 (05:18→17:00)
[2019-08-03] MEDS: Lidocaine 5% Patch TD SCH (08:22)
[2019-08-03] MEDS: Mometasone/Formoterol 200/5 60 PUFF INH SCH ×2 (08:22→20:53)
[2019-08-03] MEDS: Polyethylene Glycol 3350 17 GM Packet PO SCH (08:22)
[2019-08-03] MEDS: Fluticasone Propionate Nasal Spray 16 gm Bottle NASAL SCH (08:22)
[2019-08-03] MEDS: Losartan 25 MG TAB PO SCH (08:22)
[2019-08-03] MEDS: Ferrous Sulfate 325 MG TAB PO SCH ×2 (08:23→17:01)
[2019-08-03] MEDS: Ascorbic Acid 500 mg Chewable Tablet PO SCH ×2 (08:23→20:54)
[2019-08-03] MEDS: Torsemide 20 MG TAB PO SCH ×2 (08:23→14:41)
[2019-08-03] MEDS: Senokot S 8.6-50 MG TAB PO SCH ×2 (08:23→20:55)
[2019-08-03] MEDS: Dofetilide 0.125 MG CAP PO SCH ×2 (08:23→20:55)
[2019-08-03] MEDS: Gabapentin 100 MG CAP PO SCH ×2 (08:23→20:54)
[2019-08-03] MEDS: Tamsulosin HCl 0.4 MG CAP PO SCH ×2 (08:24→20:54)
[2019-08-03] MEDS: Dutasteride 0.5 MG CAP PO SCH (08:24)
[2019-08-03] MEDS: Potassium Chloride 20 MEQ TAB PO SCH ×2 (08:24→17:01)
[2019-08-03] MEDS: Aspirin 81 mg Enteric Coated Tablet PO SCH (08:24)
--- NOTE | 2019-08-03 09:07 | PRG ---
DATE OF SERVICE: 08/03/2019 SUBJECTIVE: Mr. Yates is up in his chair. He continues to complain of shortness of breath, which is relieved with breathing treatments. I did ask nursing to change his breathing treatments to q.3 routine, but it is still left as q.4 p.r.n. no fever or chills. OBJECTIVE: VITAL SIGNS: He is afebrile, heart rate 112, respirations 20, oxygen saturation 96% on 3 L via face mask, and blood pressure 133/64. CARDIOVASCULAR SYSTEM: S1 and S2 plus. RESPIRATORY SYSTEM: Normal vesicular breath sounds. Still pretty tight with decreased air entry. ABDOMEN: Soft and nontender. Bowel sounds heard in all quadrants. EXTREMITIES: Without cyanosis or clubbing. IMPRESSION: 1. Chronic obstructive pulmonary disease exacerbation. 2. Chronic hypoxemic respiratory failure. 3. Chronic diastolic congestive heart failure. 4. Anemia, requiring blood transfusion. 5. Chronic kidney disease, stage 3 to 4. 6. Atrial fibrillation. 7. Benign prostatic hypertrophy. 8. Obstructive sleep apnea. 9. Methicillin-resistant Staphylococcus aureus bacteremia with left hip infection requiring revision. PLAN: 1. Continue current medications, but change DuoNeb to q.3 routine. 2. Nutritional support with heart healthy diet. 3. Continue to monitor respiratory status. 4. DVT prophylaxis with PlexiPulses. 5. Decubitus precaution. 6. Stress ulcer prophylaxis. 7. Continue steroids. 8. Routine laboratory values. 9. Physical therapy. 10. I advised him to wear CPAP in the afternoon as well as at night. 11. Dr. Brown on-call this weekend. Job ID: [id number]
[2019-08-03] MEDS: Rifampin 300 MG CAP PO SCH ×2 (11:06→21:00)
[2019-08-03] MEDS: Rosuvastatin 10 MG TAB PO SCH (20:55)
[2019-08-03] MEDS: Lidocaine Patch Removal TOP SCH (20:55)
[2019-08-03] MEDS: Cyclobenzaprine 10 MG TAB PO PRN (20:58)
[2019-08-03] MEDS: traMADol HCl 50 MG TAB PO PRN (20:58)
[2019-08-04] MEDS: Vancomycin HCl 750 MG in Sodium Chloride 0.9% 250 ML 250 ML IVPB SCH ×2 (00:40→23:59)
[2019-08-04] MEDS: Acetaminophen 500 MG TAB PO SCH ×5 (00:41→23:58)
[2019-08-04] MEDS: Ipratropium Bromide 2.5 ml Neb NEB SCH ×5 (00:41→23:58)
[2019-08-04 05:14] LABS: #Basophils 0.1 thou/uL (0.0-0.2); #Eosinphils 0.1 thou/uL (0.0-0.7); #Lymphocytes 1.3 thou/uL (1.20-3.40); #Monocytes 1.2 thou/uL (0.11-0.59); #Neutrophils 9.2 thou/uL (1.40-6.50); %Basophils 0.8 % (0.0-1.0); %Eosinophils 0.6 % (0.0-10.0); %Lymphocytes 10.7 % (21.0-51.0); %Monocytes 10.1 % (0.0-10.0); %Neutrophils 77.8 % (42.0-75.0); Hemoglobin 7.9 g/dL (14.0-18.0); Mean Corpuscular HGB CONC 30.4 g/dL (32.0-36.0); Mean Corpuscular Hemoglobin 27.5 pg (27.0-31.0); Mean Corpuscular Volume 90.8 fL (78.0-98.0); Mean Platelet Volume 6.4 fL (7.4-10.4); Platelet Count 367 thou/uL (130-400); RBC Distribution Width 17.4 % (11.5-14.5); Red Blood Cell (RBC) Count 2.88 mill/uL (4.70-6.10); White Blood Cell (WBC) Count 11.8 thou/uL (4.8-10.8)
[2019-08-04] MEDS: methylPREDNISolone Sod Succ/PF 125 MG/2 ML VIAL IVP SCH ×2 (05:18→17:30)
[2019-08-04 05:36] LABS: Anion Gap 15 mmol/L (10-20); BUN (Urea Nitrogen) 52 mg/dL (8.4-25.7); Calc. Creatinine Clearance 40 mL/min (70-130); Calcium 8.1 mg/dL (7.8-10.44); Carbon Dioxide 21 mmol/L (23-31); Chloride 109 mmol/L (98-107); Estimated GFR-MDRD 37; Glucose 110 mg/dL (83-110); Potassium 3.8 mmol/L (3.5-5.1); Sodium 141 mmol/L (136-145)
[2019-08-04] MEDS: Polyethylene Glycol 3350 17 GM Packet PO SCH (09:21)
[2019-08-04] MEDS: Lidocaine 5% Patch TD SCH (09:21)
[2019-08-04] MEDS: Fluticasone Propionate Nasal Spray 16 gm Bottle NASAL SCH (09:22)
[2019-08-04] MEDS: Mometasone/Formoterol 200/5 60 PUFF INH SCH ×2 (09:22→20:14)
[2019-08-04] MEDS: Torsemide 20 MG TAB PO SCH ×2 (09:23→13:38)
[2019-08-04] MEDS: Rifampin 300 MG CAP PO SCH ×2 (09:23→22:23)
[2019-08-04] MEDS: Losartan 25 MG TAB PO SCH (09:23)
[2019-08-04] MEDS: Gabapentin 100 MG CAP PO SCH ×2 (09:24→20:13)
[2019-08-04] MEDS: Dutasteride 0.5 MG CAP PO SCH (09:24)
[2019-08-04] MEDS: Ascorbic Acid 500 mg Chewable Tablet PO SCH ×2 (09:24→20:13)
[2019-08-04] MEDS: Senokot S 8.6-50 MG TAB PO SCH ×2 (09:24→20:15)
[2019-08-04] MEDS: Ferrous Sulfate 325 MG TAB PO SCH ×2 (09:24→17:29)
[2019-08-04] MEDS: Dofetilide 0.125 MG CAP PO SCH ×2 (09:24→20:13)
[2019-08-04] MEDS: Potassium Chloride 20 MEQ TAB PO SCH ×2 (09:25→17:29)
[2019-08-04] MEDS: Aspirin 81 mg Enteric Coated Tablet PO SCH (09:25)
[2019-08-04] MEDS: Tamsulosin HCl 0.4 MG CAP PO SCH ×2 (09:25→20:15)
[2019-08-04] MEDS: Lidocaine Patch Removal TOP SCH (20:14)
[2019-08-04] MEDS: Rosuvastatin 10 MG TAB PO SCH (20:15)
[2019-08-04 23:15] LABS: Vancomycin, Trough 21.6 ug/mL
[2019-08-05] MEDS: methylPREDNISolone Sod Succ/PF 125 MG/2 ML VIAL IVP SCH ×2 (04:55→16:15)
[2019-08-05] MEDS: Ipratropium Bromide 2.5 ml Neb NEB SCH ×4 (05:37→23:55)
[2019-08-05] MEDS: Acetaminophen 500 MG TAB PO SCH ×4 (05:37→23:54)
--- NOTE | 2019-08-05 08:11 | PRG ---
DATE OF SERVICE: 08/05/2019 SUBJECTIVE: Mr. Yates is a well-developed, well-nourished 79-year-old white male, with multiple medical problems. He has chronic COPD and chronic hypoxic respiratory failure. He has chronic diastolic congestive heart failure. He was admitted here with methicillin-resistant Staph aureus, requiring long-term IV antibiotics from a left hip infection. This morning, Mr. Yates states he is doing well and slept well and is ready for breakfast this morning. He has no concerns or complaints today. OBJECTIVE: VITAL SIGNS: Today reveal blood pressure of 108/57, pulse 86 to 96, respirations 18 to 20, and O2 sat 98% to 99% on 3.5 L. The patient uses a mask and CPAP when he sleeps. GENERAL: This is a well-developed, well-nourished, slightly obese white male, in no apparent distress at this time. HEENT: Normocephalic and nontraumatic cranium. His pupils are equally round and reactive. Extraocular movements are intact. Nose and throat are slightly dry. NECK: Supple without masses, nodes or bruits. CHEST: Clear to auscultation. No rales, rhonchi or wheezes are heard. HEART: Irregularly irregular rate and rhythm without murmurs, gallops or rubs. ABDOMEN: Soft and nontender without organomegaly. Normal bowel sounds are noted in all 4 quadrants. No rebound or guarding is noted. : Deferred. EXTREMITIES: No clubbing, cyanosis or edema. The patient continues to wear a mask. IMPRESSION: 1. Chronic obstructive pulmonary disease exacerbation. 2. Chronic hypoxic respiratory failure. 3. Chronic diastolic congestive heart failure. 4. Anemia, requiring blood transfusions in the past. 5. His hemoglobin this morning was 7.9 and hematocrit was 26.1. 6. Chronic kidney disease, stage 3 to 4. 7. Atrial fibrillation. 8. Benign prostatic hypertrophy. 9. Obstructive sleep apnea, wears CPAP at night. 10. Methicillin-resistant Staphylococcus aureus bacteremia with left hip infection, requiring revision. PLAN: 1. We will continue present vancomycin with his vancomycin trough being 21.6. 2. Continue nutritional support with healthy heart diet. 3. Continue to monitor the patient's respiratory status. 4. DVT prophylaxis with PlexiPulse. 5. Decubitus precautions. 6. Stress ulcer prophylaxis. 7. Continue steroids. 8. Physical therapy. 9. I advised the patient to wear a CPAP anytime he sleeps or even takes a nap. 10. Dr. Randle returns to call this evening at 9 o'clock p.m. Job ID: [id number]
--- NOTE | 2019-08-05 09:50 | PRG ---
DATE OF SERVICE: 08/04/2019 SUBJECTIVE: Mr. Yates is a well-developed, well-nourished 79-year-old white male, who unfortunately had an infected left hip where the hardware had to be removed. He also has chronic stage 3 to 4 COPD. He also has diastolic congestive heart failure, AFib, anemia, and CKD 4. He had his hardware removed and was stabilized, now transferred to inpatient rehab at [facility] for continued IV antibiotics. Mr. Yates states he is doing well and slept well last night. He thinks that when Dr. Randle increased his nebulizer treatments to q.3 hours that he is doing much better. He has no complaints this morning. OBJECTIVE: VITAL SIGNS: This morning reveal blood pressure pending this morning. Pulse 88 to 97, respirations 20, O2 sat 97% to 99% on CPAP, and T-max 97.6. GENERAL: This is a well-developed, well-nourished, slightly obese white male, in no apparent distress at this time. He is presently getting a handheld neb treatment. HEENT: Normocephalic and nontraumatic cranium. The pupils are equally round and reactive. Extraocular movements are intact. Nose and throat are slightly dry. NECK: Supple without masses, nodes or bruits. CHEST: Clear to auscultation, but very distant shallow breath sounds are noted. HEART: Regular rate and rhythm without murmurs, gallops or rubs. ABDOMEN: Soft, slightly obese, and nontender without organomegaly. Normal bowel sounds are noted in all 4 quadrants. No rebound or guarding is noted. : Deferred. EXTREMITIES: No clubbing, cyanosis or edema. NEUROLOGIC: No focal deficits are noted. IMPRESSION: 1. Methicillin-resistant Staphylococcus aureus bacteremia with left hip infection, presently on IV antibiotics. 2. Stage 3 to 4 chronic obstructive pulmonary disease. 3. Chronic hypoxic respiratory failure. 4. Chronic diastolic congestive heart failure. 5. Anemia, in the past requiring transfusion. 6. Chronic kidney disease, stage 4. 7. Atrial fibrillation. 8. Benign prostatic hypertrophy. 9. Obstructive sleep apnea, wears CPAP every night. 10. Generalized weakness. PLAN: 1. The patient obviously is doing better on his DuoNebs q.3 hours. 2. Continue to monitor the patient's respiratory status. 3. Continue to monitor the patient for signs and symptoms of congestive heart failure. 4. Monitor the patient's anemia. 5. Monitor the patient for RVR. 6. Stress ulcer prophylaxis. 7. DVT prophylaxis with PlexiPulse. 8. Decubitus precautions. 9. Continue steroids. 10. Continue to wear the CPAP any time he lays down and takes a nap, not only at night. 11. I will see the patient again tomorrow morning. Job ID: [id number]
[2019-08-05] MEDS: Fluticasone Propionate Nasal Spray 16 gm Bottle NASAL SCH (09:52)
[2019-08-05] MEDS: Mometasone/Formoterol 200/5 60 PUFF INH SCH ×2 (09:53→20:04)
[2019-08-05] MEDS: Lidocaine 5% Patch TD SCH (09:54)
[2019-08-05] MEDS: Polyethylene Glycol 3350 17 GM Packet PO SCH (09:56)
[2019-08-05] MEDS: Aspirin 81 mg Enteric Coated Tablet PO SCH (09:57)
[2019-08-05] MEDS: Losartan 25 MG TAB PO SCH (09:57)
[2019-08-05] MEDS: Dofetilide 0.125 MG CAP PO SCH ×2 (09:57→20:03)
[2019-08-05] MEDS: Tamsulosin HCl 0.4 MG CAP PO SCH ×2 (09:57→20:05)
[2019-08-05] MEDS: Rifampin 300 MG CAP PO SCH ×2 (09:57→22:08)
[2019-08-05] MEDS: Potassium Chloride 20 MEQ TAB PO SCH ×2 (09:57→16:14)
[2019-08-05] MEDS: Gabapentin 100 MG CAP PO SCH ×2 (09:58→20:03)
[2019-08-05] MEDS: Torsemide 20 MG TAB PO SCH ×2 (09:58→13:57)
[2019-08-05] MEDS: Ascorbic Acid 500 mg Chewable Tablet PO SCH ×2 (09:58→20:03)
[2019-08-05] MEDS: Senokot S 8.6-50 MG TAB PO SCH ×2 (09:58→20:05)
[2019-08-05] MEDS: Ferrous Sulfate 325 MG TAB PO SCH ×2 (09:58→16:14)
[2019-08-05] MEDS: Dutasteride 0.5 MG CAP PO SCH (10:00)
[2019-08-05] MEDS: Lidocaine Patch Removal TOP SCH (20:03)
[2019-08-05] MEDS: Rosuvastatin 10 MG TAB PO SCH (20:05)
[2019-08-05] MEDS: Vancomycin HCl 750 MG in Sodium Chloride 0.9% 250 ML 250 ML IVPB SCH (23:56)
[2019-08-06] MEDS: methylPREDNISolone Sod Succ/PF 125 MG/2 ML VIAL IVP SCH (04:32)
[2019-08-06] MEDS: Acetaminophen 500 MG TAB PO SCH ×4 (05:30→23:23)
[2019-08-06] MEDS: Ipratropium Bromide 2.5 ml Neb NEB SCH ×4 (05:30→23:23)
[2019-08-06] MEDS: Lidocaine 5% Patch TD SCH (08:42)
[2019-08-06] MEDS: Aspirin 81 mg Enteric Coated Tablet PO SCH (08:44)
[2019-08-06] MEDS: Ferrous Sulfate 325 MG TAB PO SCH ×2 (08:44→16:35)
[2019-08-06] MEDS: Dofetilide 0.125 MG CAP PO SCH ×2 (08:44→21:12)
[2019-08-06] MEDS: Ascorbic Acid 500 mg Chewable Tablet PO SCH ×2 (08:44→21:12)
[2019-08-06] MEDS: Potassium Chloride 20 MEQ TAB PO SCH ×2 (08:44→16:42)
[2019-08-06] MEDS: Dutasteride 0.5 MG CAP PO SCH (08:45)
[2019-08-06] MEDS: Mometasone/Formoterol 200/5 60 PUFF INH SCH ×2 (08:45→21:16)
[2019-08-06] MEDS: Losartan 25 MG TAB PO SCH (08:45)
[2019-08-06] MEDS: Gabapentin 100 MG CAP PO SCH ×2 (08:45→21:13)
[2019-08-06] MEDS: Fluticasone Propionate Nasal Spray 16 gm Bottle NASAL SCH (08:45)
[2019-08-06] MEDS: Polyethylene Glycol 3350 17 GM Packet PO SCH (08:46)
[2019-08-06] MEDS: Senokot S 8.6-50 MG TAB PO SCH ×2 (08:46→21:12)
[2019-08-06] MEDS: Tamsulosin HCl 0.4 MG CAP PO SCH ×2 (08:47→21:12)
[2019-08-06] MEDS: Torsemide 20 MG TAB PO SCH ×2 (08:47→13:28)
[2019-08-06] MEDS: Rifampin 300 MG CAP PO SCH ×2 (10:05→21:13)
--- NOTE | 2019-08-06 13:00 | PRG ---
DATE OF SERVICE: 08/06/2019 SUBJECTIVE: Mr. Yates is doing much better. He is back on nasal cannula. He states that he is breathing better. Plan is to switch him to 40 mg of Solu-Medrol IV q.12 for 2 days, then switch him to prednisone 20 mg b.i.d. OBJECTIVE: VITAL SIGNS: He is afebrile. Heart rate 95, respirations 18, oxygen saturation 96% on 3 L. CARDIOVASCULAR: S1 and S2 plus. RESPIRATORY: Normal vesicular breath sounds. Much better air entry. ABDOMEN: Soft and nontender. Bowel sounds heard in all quadrants. EXTREMITIES: Without cyanosis or clubbing. CENTRAL NERVOUS SYSTEM: Improving deconditioning. Hays catheter in place. IMPRESSION: 1. Benign prostatic hypertrophy. 2. Chronic obstructive pulmonary disease exacerbation, much improved. 3. Chronic hypoxemic respiratory failure. 4. Chronic diastolic congestive heart failure. 5. Chronic kidney disease stage 3 to 4. 6. Methicillin-resistant Staphylococcus aureus bacteremia. PLAN: 1. Continue current medications. 2. Change him to Solu-Medrol 40 mg q.12. 3. Continue to monitor respiratory status. 4. Weekly CBC, CRP, CMP, and sedimentation rate. 5. Hays catheter care. 6. Once he is back on p.o. prednisone, then we will try removing his Hays catheter. 7. Continue therapy. 8. Nutritional support. Job ID: [id number]
[2019-08-06] MEDS: methylPREDNISolone Sod Succ 40 MG VIAL IVP SCH (16:35)
[2019-08-06] MEDS: traMADol HCl 50 MG TAB PO PRN (21:11)
[2019-08-06] MEDS: Cyclobenzaprine 10 MG TAB PO PRN (21:12)
[2019-08-06] MEDS: Rosuvastatin 10 MG TAB PO SCH (21:12)
[2019-08-06] MEDS: Lidocaine Patch Removal TOP SCH (21:58)
[2019-08-06] MEDS: Vancomycin HCl 750 MG in Sodium Chloride 0.9% 250 ML 250 ML IVPB SCH (23:24)
[2019-08-07] MEDS: methylPREDNISolone Sod Succ 40 MG VIAL IVP SCH ×2 (04:40→16:31)
[2019-08-07] MEDS: Acetaminophen 500 MG TAB PO SCH ×4 (05:57→23:37)
[2019-08-07] MEDS: Ipratropium Bromide 2.5 ml Neb NEB SCH (05:57)
[2019-08-07] MEDS: Mometasone/Formoterol 200/5 60 PUFF INH SCH ×2 (08:21→20:40)
[2019-08-07] MEDS: Fluticasone Propionate Nasal Spray 16 gm Bottle NASAL SCH (08:22)
[2019-08-07] MEDS: Ferrous Sulfate 325 MG TAB PO SCH ×2 (08:25→16:31)
[2019-08-07] MEDS: Ascorbic Acid 500 mg Chewable Tablet PO SCH ×2 (08:25→20:39)
[2019-08-07] MEDS: Potassium Chloride 20 MEQ TAB PO SCH ×2 (08:25→16:31)
[2019-08-07] MEDS: Gabapentin 100 MG CAP PO SCH ×2 (08:26→20:39)
[2019-08-07] MEDS: Aspirin 81 mg Enteric Coated Tablet PO SCH (08:26)
[2019-08-07] MEDS: Dofetilide 0.125 MG CAP PO SCH ×2 (08:26→20:38)
[2019-08-07] MEDS: Dutasteride 0.5 MG CAP PO SCH (08:26)
[2019-08-07] MEDS: Tamsulosin HCl 0.4 MG CAP PO SCH ×2 (08:26→20:38)
[2019-08-07] MEDS: Losartan 25 MG TAB PO SCH (08:26)
[2019-08-07] MEDS: Lidocaine 5% Patch TD SCH (08:26)
[2019-08-07] MEDS: Senokot S 8.6-50 MG TAB PO SCH ×2 (08:27→20:40)
[2019-08-07] MEDS: Polyethylene Glycol 3350 17 GM Packet PO SCH (08:27)
[2019-08-07] MEDS: Torsemide 20 MG TAB PO SCH ×2 (08:27→14:07)
[2019-08-07] MEDS: Rifampin 300 MG CAP PO SCH ×2 (09:58→21:09)
--- NOTE | 2019-08-07 13:31 | PRG ---
DATE OF SERVICE: 08/07/2019 SUBJECTIVE: Mr. Yates is doing much better. He apparently walked with therapy. Shortness of breath has pretty much resolved. OBJECTIVE: VITAL SIGNS: He is afebrile. Heart rate 98, respirations 18, oxygen saturation 100%, blood pressure is 121/56. CARDIOVASCULAR: S1 and S2 plus. RESPIRATORY: Normal vesicular breath sounds. ABDOMEN: Soft, nontender. Bowel sounds heard in all quadrants. EXTREMITIES: Without cyanosis or clubbing. CENTRAL NERVOUS SYSTEM: Improving deconditioning. IMPRESSION: 1. Methicillin-resistant Staphylococcus aureus bacteremia and methicillin-resistant Staphylococcus aureus infection to left hip, requiring revision. 2. Resolving chronic obstructive pulmonary disease exacerbation. 3. Chronic obstructive pulmonary disease, goal stage III to IV. 4. Chronic hypoxemic respiratory failure. 5. Chronic diastolic congestive heart failure. 6. Benign prostatic hypertrophy. 7. Atrial fibrillation. 8. Anemia requiring periodic blood transfusions. PLAN: 1. Continue current medications. 2. Heart healthy diet. 3. Monitor heart rate and rhythm. 4. Monitor respiratory status. 5. Switch him to p.o. prednisone on . 6. CBC, CMP, CRP, and sedimentation rate on . 7. Continue therapy. 8. Hays catheter care. 9. Anticipate discontinuing Hays catheter tomorrow. Job ID: [id number]
[2019-08-07] MEDS: Rosuvastatin 10 MG TAB PO SCH (20:38)
[2019-08-07] MEDS: Cyclobenzaprine 10 MG TAB PO PRN (20:39)
[2019-08-07] MEDS: traMADol HCl 50 MG TAB PO PRN (21:07)
[2019-08-07] MEDS: Lidocaine Patch Removal TOP SCH (21:10)
[2019-08-07] MEDS: Vancomycin HCl 750 MG in Sodium Chloride 0.9% 250 ML 250 ML IVPB SCH (23:38)
[2019-08-08] MEDS ORDERED: Sodium Chloride 0.9% 10 ML ONE (04:25)
[2019-08-08] MEDS: methylPREDNISolone Sod Succ 40 MG VIAL IVP SCH ×2 (04:30→16:04)
[2019-08-08] MEDS: Acetaminophen 500 MG TAB PO SCH ×3 (06:29→18:27)
[2019-08-08] MEDS: Fluticasone Propionate Nasal Spray 16 gm Bottle NASAL SCH (08:45)
[2019-08-08] MEDS: Ascorbic Acid 500 mg Chewable Tablet PO SCH ×2 (08:45→20:36)
[2019-08-08] MEDS: Mometasone/Formoterol 200/5 60 PUFF INH SCH ×2 (08:45→20:37)
[2019-08-08] MEDS: Senokot S 8.6-50 MG TAB PO SCH ×2 (08:45→20:35)
[2019-08-08] MEDS: Lidocaine 5% Patch TD SCH (08:45)
[2019-08-08] MEDS: Polyethylene Glycol 3350 17 GM Packet PO SCH (08:45)
[2019-08-08] MEDS: Potassium Chloride 20 MEQ TAB PO SCH ×2 (08:46→16:04)
[2019-08-08] MEDS: Ferrous Sulfate 325 MG TAB PO SCH ×2 (08:46→16:04)
[2019-08-08] MEDS: Torsemide 20 MG TAB PO SCH ×2 (08:46→13:43)
[2019-08-08] MEDS: Tamsulosin HCl 0.4 MG CAP PO SCH ×2 (08:46→20:36)
[2019-08-08] MEDS: Rifampin 300 MG CAP PO SCH ×2 (08:46→23:44)
[2019-08-08] MEDS: Gabapentin 100 MG CAP PO SCH ×2 (08:46→20:43)
[2019-08-08] MEDS: Aspirin 81 mg Enteric Coated Tablet PO SCH (08:46)
[2019-08-08] MEDS: Dutasteride 0.5 MG CAP PO SCH (08:47)
[2019-08-08] MEDS: Dofetilide 0.125 MG CAP PO SCH ×2 (08:47→20:36)
[2019-08-08] MEDS: Losartan 25 MG TAB PO SCH (08:47)
--- NOTE | 2019-08-08 13:48 | PRG ---
DATE OF SERVICE: 08/08/2019 SUBJECTIVE: Mr. Yates is doing well, breathing much easier. Plan is to remove his Hays catheter today. We are also switching him to oral prednisone from tomorrow. He has a followup appointment with his linseed oil boiler tomorrow. He is happy with his progress. He is tolerating his antibiotics. OBJECTIVE: VITAL SIGNS: He is afebrile, heart rate 95, respirations 18, oxygen saturation 96% on 4 L. CARDIOVASCULAR SYSTEM: S1 and S2 plus. RESPIRATORY SYSTEM: Normal vesicular breath sounds with decreased air entry at the bases. ABDOMEN: Soft, nontender. Bowel sounds heard in all quadrants. EXTREMITIES: Without cyanosis or clubbing. : Hays catheter in place. CENTRAL NERVOUS SYSTEM: Improving deconditioning. IMPRESSION: 1. Chronic hypoxemic respiratory failure. 2. Improving chronic obstructive pulmonary disease exacerbation. 3. Chronic diastolic congestive heart failure. 4. Chronic kidney disease. 5. Atrial fibrillation. 6. Methicillin-resistant Staphylococcus aureus bacteremia and left hip septic arthritis. 7. Hays catheter with urinary retention for benign prostatic hypertrophy. PLAN: 1. Continue current medications. 2. Trial of discontinuing Hays catheter. 3. Switch him to p.o. prednisone from tomorrow. 4. Continue therapy. 5. Monitor respiratory status. 6. DVT prophylaxis with PlexiPulses. 7. Decubitus precautions. 8. Stress ulcer prophylaxis. 9. Nocturnal CPAP. 10. Physical therapy. 11. Check CBC, CMP, CRP, and sedimentation rate tomorrow. Job ID: [id number]
[2019-08-08] MEDS ORDERED: TESTOSTERONE CYPIONATE IM SCH (16:00)
[2019-08-08] MEDS: Rosuvastatin 10 MG TAB PO SCH (20:36)
[2019-08-08] MEDS: Cyclobenzaprine 10 MG TAB PO PRN (20:37)
[2019-08-08] MEDS: traMADol HCl 50 MG TAB PO PRN (20:38)
[2019-08-08] MEDS: Lidocaine Patch Removal TOP SCH (20:43)
[2019-08-08] MEDS: Vancomycin HCl 750 MG in Sodium Chloride 0.9% 250 ML 250 ML IVPB SCH (23:42)
[2019-08-09] MEDS: Acetaminophen 500 MG TAB PO SCH ×4 (01:45→17:45)
[2019-08-09 05:48] LABS: #Basophils 0.2 thou/uL (0.0-0.2); #Eosinphils 0.1 thou/uL (0.0-0.7); #Lymphocytes 1.6 thou/uL (1.20-3.40); #Monocytes 1.3 thou/uL (0.11-0.59); #Neutrophils 12.3 thou/uL (1.40-6.50); %Basophils 1.2 % (0.0-1.0); %Eosinophils 0.9 % (0.0-10.0); %Lymphocytes 10.5 % (21.0-51.0); %Monocytes 8.6 % (0.0-10.0); %Neutrophils 78.8 % (42.0-75.0); Mean Corpuscular HGB CONC 29.5 g/dL (32.0-36.0); Mean Corpuscular Hemoglobin 27.1 pg (27.0-31.0); Mean Corpuscular Volume 91.9 fL (78.0-98.0); Mean Platelet Volume 6.8 fL (7.4-10.4); Platelet Count 389 thou/uL (130-400); RBC Distribution Width 17.7 % (11.5-14.5); Red Blood Cell (RBC) Count 2.94 mill/uL (4.70-6.10); White Blood Cell (WBC) Count 15.6 thou/uL (4.8-10.8)
[2019-08-09 06:06] LABS: ALT (SGPT) 12 U/L (8-55); AST (SGOT) 8 U/L (5-34); Alkaline Phosphatase 62 U/L (40-110); Anion Gap 14 mmol/L (10-20); BUN (Urea Nitrogen) 54 mg/dL (8.4-25.7); Bilirubin, Total 0.1 mg/dL (0.2-1.2); CRP (Inflammatory) 0.71 mg/dL (= or < 0.5); Calc. Creatinine Clearance 37 mL/min (70-130); Carbon Dioxide 19 mmol/L (23-31); Chloride 109 mmol/L (98-107); Estimated GFR-MDRD 34; Globulin 2.6 g/dL (2.4-3.5); Glucose 103 mg/dL (83-110); Potassium 4.2 mmol/L (3.5-5.1); Protein, Total 5.6 g/dL (5.8-8.1); Sodium 138 mmol/L (136-145)
[2019-08-09] MEDS: Mometasone/Formoterol 200/5 60 PUFF INH SCH ×2 (08:04→20:26)
[2019-08-09] MEDS: Fluticasone Propionate Nasal Spray 16 gm Bottle NASAL SCH (08:04)
[2019-08-09] MEDS: Losartan 25 MG TAB PO SCH (08:05)
[2019-08-09] MEDS: Lidocaine 5% Patch TD SCH (08:05)
[2019-08-09] MEDS: Aspirin 81 mg Enteric Coated Tablet PO SCH (08:06)
[2019-08-09] MEDS: Ferrous Sulfate 325 MG TAB PO SCH ×2 (08:06→16:38)
[2019-08-09] MEDS: Dofetilide 0.125 MG CAP PO SCH ×2 (08:06→20:25)
[2019-08-09] MEDS: Senokot S 8.6-50 MG TAB PO SCH ×2 (08:06→20:25)
[2019-08-09] MEDS: Dutasteride 0.5 MG CAP PO SCH (08:06)
[2019-08-09] MEDS: Torsemide 20 MG TAB PO SCH ×2 (08:06→15:36)
[2019-08-09] MEDS: Tamsulosin HCl 0.4 MG CAP PO SCH ×2 (08:06→20:24)
[2019-08-09] MEDS: Potassium Chloride 20 MEQ TAB PO SCH ×2 (08:07→16:38)
[2019-08-09] MEDS: predniSONE 20 MG TAB PO SCH ×2 (08:07→20:26)
[2019-08-09] MEDS: Ascorbic Acid 500 mg Chewable Tablet PO SCH ×2 (08:07→20:24)
[2019-08-09] MEDS: Polyethylene Glycol 3350 17 GM Packet PO SCH (08:07)
[2019-08-09] MEDS: Gabapentin 100 MG CAP PO SCH ×2 (08:07→20:24)
[2019-08-09] MEDS: Rifampin 300 MG CAP PO SCH ×2 (11:14→22:10)
--- NOTE | 2019-08-09 14:02 | PRG ---
DATE OF SERVICE: 08/09/2019 SUBJECTIVE: Mr. Yates just saw his editor & co founder this morning and was started back on Spiriva. He is not doing well with removing the Hays catheter and spontaneous voiding. Apparently last time PVR showed a volume of 560, but on catheterization he had close to a 1000. OBJECTIVE: VITAL SIGNS: The patient is afebrile, heart rate 92, respirations 19, oxygen saturation 93% on 3.5 L, and blood pressure is 120/61. CARDIOVASCULAR SYSTEM: S1 and S2 plus. RESPIRATORY SYSTEM: Normal vesicular breath sounds. ABDOMEN: Soft and nontender. Bowel sounds heard in all quadrants. EXTREMITIES: Without cyanosis, clubbing, or trace edema. Hays catheter in place. CENTRAL NERVOUS SYSTEM: Improving, deconditioning. LABORATORY VALUES: White count is 15.6, most likely related to the steroids. H and H are 8 and 27.1. Sedimentation rate is down to 11. Sodium 138, potassium 4.2, and BUN and creatinine are 54 and 1.93. CRP is down to 0.71. I think again that drastic drop in sedimentation rate and CRP is most likely due to the steroids. IMPRESSION: 1. Methicillin-resistant Staphylococcus aureus bacteremia with methicillin-resistant Staphylococcus aureus left hip infection, requiring revision. 2. Resolved chronic obstructive pulmonary disease exacerbation. 3. Chronic obstructive pulmonary disease, GOLD stage III to IV. 4. Chronic hypoxemic respiratory failure. 5. Chronic diastolic congestive heart failure. 6. Benign prostatic hyperplasia with urinary retention. 7. Atrial fibrillation. 8. Obstructive sleep apnea. 9. Chronic kidney disease stage 3 to 4. PLAN: 1. Continue current medications. 2. Heart healthy diet. 3. Finish antibiotics on the 8th, IV antibiotics. 4. Continue voiding trial, but it looks like the patient may need to go home on a Hays catheter. We will check with him and see if he has any experience with straight cathing himself in the past. 5. Continue therapy. 6. Routine laboratory values. 7. To reinforce complaints with CPAP. 8. DVT prophylaxis with PlexiPulses. Job ID: [id number]
[2019-08-09] MEDS: traMADol HCl 50 MG TAB PO PRN (20:23)
[2019-08-09] MEDS: Rosuvastatin 10 MG TAB PO SCH (20:24)
[2019-08-09] MEDS: Cyclobenzaprine 10 MG TAB PO PRN (20:24)
[2019-08-09] MEDS: Lidocaine Patch Removal TOP SCH (20:26)
[2019-08-10] MEDS: Acetaminophen 500 MG TAB PO SCH ×4 (00:48→16:38)
[2019-08-10] MEDS: Vancomycin HCl 750 MG in Sodium Chloride 0.9% 250 ML 250 ML IVPB SCH (03:39)
[2019-08-10] MEDS: Polyethylene Glycol 3350 17 GM Packet PO SCH (09:00)
[2019-08-10] MEDS: Tamsulosin HCl 0.4 MG CAP PO SCH ×2 (09:01→21:03)
[2019-08-10] MEDS: Aspirin 81 mg Enteric Coated Tablet PO SCH (09:01)
[2019-08-10] MEDS: Potassium Chloride 20 MEQ TAB PO SCH ×2 (09:01→16:38)
[2019-08-10] MEDS: Rifampin 300 MG CAP PO SCH ×2 (09:01→21:03)
[2019-08-10] MEDS: Dutasteride 0.5 MG CAP PO SCH (09:02)
[2019-08-10] MEDS: Losartan 25 MG TAB PO SCH (09:02)
[2019-08-10] MEDS: Dofetilide 0.125 MG CAP PO SCH ×2 (09:02→21:03)
[2019-08-10] MEDS: Torsemide 20 MG TAB PO SCH ×2 (09:03→12:53)
[2019-08-10] MEDS: Gabapentin 100 MG CAP PO SCH ×2 (09:03→21:03)
[2019-08-10] MEDS: Ferrous Sulfate 325 MG TAB PO SCH ×2 (09:03→16:38)
[2019-08-10] MEDS: predniSONE 20 MG TAB PO SCH ×2 (09:03→21:03)
[2019-08-10] MEDS: Ascorbic Acid 500 mg Chewable Tablet PO SCH ×2 (09:03→21:03)
[2019-08-10] MEDS: Senokot S 8.6-50 MG TAB PO SCH ×2 (09:03→21:02)
[2019-08-10] MEDS: Fluticasone Propionate Nasal Spray 16 gm Bottle NASAL SCH (09:04)
[2019-08-10] MEDS: Lidocaine 5% Patch TD SCH (09:04)
[2019-08-10] MEDS: Mometasone/Formoterol 200/5 60 PUFF INH SCH ×2 (09:04→21:02)
--- NOTE | 2019-08-10 09:38 | PRG ---
DATE OF SERVICE: 08/10/2019 SUBJECTIVE: Mr. Yaets is up in his chair. He is getting ready to work with therapy. He apparently did well with straight cath and advised nursing to continue to teach him. OBJECTIVE: VITAL SIGNS: He is afebrile, heart rate 93, respirations 18, oxygen saturation 95% on his 3.5 L nasal cannula. CARDIOVASCULAR: S1 and S2 plus. RESPIRATORY: Normal vesicular breath sounds. ABDOMEN: Soft, nontender. Bowel sounds heard in all quadrants. EXTREMITIES: Without cyanosis, clubbing, or trace edema. CENTRAL NERVOUS SYSTEM: Improving, deconditioning. IMPRESSION: 1. Resolved chronic obstructive pulmonary disease exacerbation. 2. Chronic obstructive pulmonary disease, GOLD stage 3 to 4. 3. Chronic diastolic congestive heart failure. 4. Chronic kidney disease, stage 3 to 4. 5. Chronic hypoxemic respiratory failure. 6. Atrial fibrillation. 7. Benign prostatic hypertrophy. 8. Obstructive sleep apnea. 9. Methicillin-resistant Staphylococcus aureus bacteremia with methicillin-resistant Staphylococcus aureus arthritis of left hip, requiring revision. PLAN: 1. Continue current medications. 2. Heart healthy diet. 3. Monitor respiratory status. 4. In and out catheterization. 5. Incision care, still having some serous drainage, but is healthy. Cultures were negative. 6. Monitor postvoid residual. 7. Physical therapy. 8. Finishing antibiotics on the and anticipate discharging on the with Home Health. Case Management aware. 9. Dr. Munoz on-call this weekend. Job ID: [id number]
[2019-08-10] MEDS: Rosuvastatin 10 MG TAB PO SCH (21:03)
[2019-08-10] MEDS: Lidocaine Patch Removal TOP SCH (21:04)
[2019-08-10] MEDS: Cyclobenzaprine 10 MG TAB PO PRN (21:06)
[2019-08-10] MEDS: traMADol HCl 50 MG TAB PO PRN (21:06)
[2019-08-11] MEDS: Acetaminophen 500 MG TAB PO SCH ×4 (00:45→17:01)
[2019-08-11] MEDS: Vancomycin HCl 750 MG in Sodium Chloride 0.9% 250 ML 250 ML IVPB SCH (04:32)
[2019-08-11] MEDS: Lidocaine 5% Patch TD SCH (08:34)
[2019-08-11] MEDS: Mometasone/Formoterol 200/5 60 PUFF INH SCH ×2 (08:34→20:44)
[2019-08-11] MEDS: Fluticasone Propionate Nasal Spray 16 gm Bottle NASAL SCH (08:35)
[2019-08-11] MEDS: Potassium Chloride 20 MEQ TAB PO SCH ×2 (08:38→17:01)
[2019-08-11] MEDS: Ferrous Sulfate 325 MG TAB PO SCH ×2 (08:38→17:01)
[2019-08-11] MEDS: Aspirin 81 mg Enteric Coated Tablet PO SCH (08:39)
[2019-08-11] MEDS: Ascorbic Acid 500 mg Chewable Tablet PO SCH ×2 (08:39→20:47)
[2019-08-11] MEDS: Dofetilide 0.125 MG CAP PO SCH ×2 (08:39→20:53)
[2019-08-11] MEDS: Gabapentin 100 MG CAP PO SCH ×2 (08:40→20:45)
[2019-08-11] MEDS: Losartan 25 MG TAB PO SCH (08:40)
[2019-08-11] MEDS: Dutasteride 0.5 MG CAP PO SCH (08:40)
[2019-08-11] MEDS: Polyethylene Glycol 3350 17 GM Packet PO SCH (08:41)
[2019-08-11] MEDS: Tamsulosin HCl 0.4 MG CAP PO SCH ×2 (08:41→20:46)
[2019-08-11] MEDS: Senokot S 8.6-50 MG TAB PO SCH ×2 (08:41→20:46)
[2019-08-11] MEDS: Torsemide 20 MG TAB PO SCH ×2 (08:41→14:09)
[2019-08-11] MEDS: predniSONE 20 MG TAB PO SCH ×2 (08:41→20:47)
[2019-08-11] MEDS: Rifampin 300 MG CAP PO SCH ×2 (09:53→20:46)
--- NOTE | 2019-08-11 16:43 | PRG ---
DATE OF SERVICE: 08/11/2019 SUBJECTIVE: The patient is sitting up in a chair, preparing for discharge this week, but is asking that he stay until after his followup with his carpentry instructor on Tuesday. He has seen his timing adjuster who has placed him on Spiriva, but he cannot afford it even with . OBJECTIVE: VITAL SIGNS: Show blood pressure 102/51, temperature 96.8, pulse 92, respirations 20, O2 saturations 92% on 3.5 L. LUNGS: Show decreased breath sounds diffusely with no rales or rhonchi. CARDIAC: Shows regular rhythm. ABDOMEN: Soft and nontender. SKIN/EXTREMITIES: Display no edema, clubbing, or cyanosis. ASSESSMENT: 1. Stable chronic obstructive pulmonary disease, stage 3 to 4, resolved exacerbation. 2. Stable chronic kidney disease, stage 3. 3. Atrial fibrillation. 4. Stable chronic hypoxia. 5. Benign prostatic hypertrophy, stable. 6. Obstructive sleep apnea, on CPAP. 7. Methicillin-resistant Staphylococcus aureus infection of a revision of the left hip surgery, on vancomycin until September 03 as well as rifampin 300 mg twice daily, and prednisone 20 mg twice daily. Job ID: [id number]
[2019-08-11] MEDS: traMADol HCl 50 MG TAB PO PRN (20:45)
[2019-08-11] MEDS: Rosuvastatin 10 MG TAB PO SCH (20:47)
[2019-08-11] MEDS: Cyclobenzaprine 10 MG TAB PO PRN (20:47)
[2019-08-11] MEDS: Lidocaine Patch Removal TOP SCH (20:48)
[2019-08-12] MEDS: Acetaminophen 500 MG TAB PO SCH ×4 (00:29→17:42)
[2019-08-12] MEDS: Vancomycin HCl 750 MG in Sodium Chloride 0.9% 250 ML 250 ML IVPB SCH (04:26)
[2019-08-12 05:15] LABS: Anion Gap 16 mmol/L (10-20); BUN (Urea Nitrogen) 52 mg/dL (8.4-25.7); Calc. Creatinine Clearance 38 mL/min (70-130); Calcium 7.9 mg/dL (7.8-10.44); Carbon Dioxide 18 mmol/L (23-31); Chloride 108 mmol/L (98-107); Estimated GFR-MDRD 34; Glucose 136 mg/dL (83-110); Potassium 4.3 mmol/L (3.5-5.1); Sodium 138 mmol/L (136-145)
[2019-08-12] MEDS: Polyethylene Glycol 3350 17 GM Packet PO SCH (08:37)
[2019-08-12] MEDS: Mometasone/Formoterol 200/5 60 PUFF INH SCH ×2 (08:37→20:59)
[2019-08-12] MEDS: Fluticasone Propionate Nasal Spray 16 gm Bottle NASAL SCH (08:37)
[2019-08-12] MEDS: Lidocaine 5% Patch TD SCH (08:37)
[2019-08-12] MEDS: Potassium Chloride 20 MEQ TAB PO SCH ×2 (08:41→17:42)
[2019-08-12] MEDS: Ferrous Sulfate 325 MG TAB PO SCH ×2 (08:41→17:42)
[2019-08-12] MEDS: Aspirin 81 mg Enteric Coated Tablet PO SCH (08:42)
[2019-08-12] MEDS: Losartan 25 MG TAB PO SCH (08:42)
[2019-08-12] MEDS: Dofetilide 0.125 MG CAP PO SCH ×2 (08:42→21:02)
[2019-08-12] MEDS: Gabapentin 100 MG CAP PO SCH ×2 (08:42→21:01)
[2019-08-12] MEDS: Dutasteride 0.5 MG CAP PO SCH (08:42)
[2019-08-12] MEDS: Ascorbic Acid 500 mg Chewable Tablet PO SCH ×2 (08:42→21:02)
[2019-08-12] MEDS: Torsemide 20 MG TAB PO SCH ×2 (08:43→14:29)
[2019-08-12] MEDS: Senokot S 8.6-50 MG TAB PO SCH ×2 (08:43→21:01)
[2019-08-12] MEDS: predniSONE 20 MG TAB PO SCH ×2 (08:43→21:01)
[2019-08-12] MEDS: Tamsulosin HCl 0.4 MG CAP PO SCH ×2 (08:43→21:01)
[2019-08-12] MEDS: Rifampin 300 MG CAP PO SCH ×2 (10:44→21:02)
--- NOTE | 2019-08-12 18:32 | PRG ---
DATE OF SERVICE: 08/12/[address] Luis Miguel Hernandez. SUBJECTIVE: The patient sitting up in the chair, feels well. Preparing for discharge next week. We will hopefully have it extended to 2 days, so he can follow up with his shearer screen measurer and trimmer prior to discharge. He is having stable dyspnea on exertion, but not at rest. He is having no fever, chills, or palpitations. OBJECTIVE: VITAL SIGNS: Temperature 96.6, pulse 99, respirations 18, O2 saturation 96% on 3 L. LUNGS: Show decreased breath sounds. CARDIAC: Showed regular rhythm. ABDOMEN: Soft and nontender. SKIN/EXTREMITIES: Show trace edema. ASSESSMENT: 1. Severe chronic obstructive pulmonary disease, stage 3 to 4, with no exacerbation. 2. Methicillin-resistant Staphylococcus aureus bacteremia of the left hip requiring revision with antibiotics to finish on tomorrow. 3. Chronic diastolic heart failure, stable. 4. Atrial fibrillation with rate control. 5. Deconditioning, improved. PLAN: 1. Finish antibiotics. 2. Discuss followup with . 3. Discharge home either on the or the . Job ID: [id number]
[2019-08-12] MEDS: Rosuvastatin 10 MG TAB PO SCH (21:01)
[2019-08-12] MEDS: Lidocaine Patch Removal TOP SCH (21:02)
[2019-08-12] MEDS: Cyclobenzaprine 10 MG TAB PO PRN (21:06)
[2019-08-12] MEDS: traMADol HCl 50 MG TAB PO PRN (21:06)
[2019-08-13] MEDS: Acetaminophen 500 MG TAB PO SCH ×4 (00:18→18:08)
[2019-08-13 00:23] VITALS: BMI 28.7
[2019-08-13 03:44] LABS: Vancomycin, Trough 22.2 ug/mL
[2019-08-13] MEDS: Vancomycin HCl 750 MG in Sodium Chloride 0.9% 250 ML 250 ML IVPB SCH (03:59)
[2019-08-13] MEDS: Polyethylene Glycol 3350 17 GM Packet PO SCH (09:01)
[2019-08-13] MEDS: Lidocaine 5% Patch TD SCH (09:01)
[2019-08-13] MEDS: Losartan 25 MG TAB PO SCH (09:02)
[2019-08-13] MEDS: Dutasteride 0.5 MG CAP PO SCH (09:03)
[2019-08-13] MEDS: Potassium Chloride 20 MEQ TAB PO SCH ×2 (09:03→16:43)
[2019-08-13] MEDS: Rifampin 300 MG CAP PO SCH ×2 (09:03→22:05)
[2019-08-13] MEDS: Dofetilide 0.125 MG CAP PO SCH ×2 (09:03→20:45)
[2019-08-13] MEDS: Aspirin 81 mg Enteric Coated Tablet PO SCH (09:03)
[2019-08-13] MEDS: Tamsulosin HCl 0.4 MG CAP PO SCH ×2 (09:03→20:45)
[2019-08-13] MEDS: Ferrous Sulfate 325 MG TAB PO SCH ×2 (09:04→16:43)
[2019-08-13] MEDS: predniSONE 20 MG TAB PO SCH ×2 (09:04→20:45)
[2019-08-13] MEDS: Ascorbic Acid 500 mg Chewable Tablet PO SCH ×2 (09:04→20:45)
[2019-08-13] MEDS: Fluticasone Propionate Nasal Spray 16 gm Bottle NASAL SCH (09:04)
[2019-08-13] MEDS: Gabapentin 100 MG CAP PO SCH ×2 (09:04→20:43)
[2019-08-13] MEDS: Torsemide 20 MG TAB PO SCH ×2 (09:04→14:24)
[2019-08-13] MEDS: Senokot S 8.6-50 MG TAB PO SCH ×2 (09:04→20:44)
[2019-08-13] MEDS: Mometasone/Formoterol 200/5 60 PUFF INH SCH ×2 (09:05→20:42)
--- NOTE | 2019-08-13 13:27 | PRG ---
DATE OF SERVICE: 08/13/2019 SUBJECTIVE: Mr. Yates is up in his chair. He denies any complaints. He is finishing his antibiotics today. He has a followup appointment with Orthopedics on Tuesday. He would like to go home on after the appointment to make sure everything is doing well and he does not need any further extension of the antibiotic therapy. Talked to Physical Therapy and they stated that the patient will benefit from a couple more days. OBJECTIVE: VITAL SIGNS: He is afebrile. Heart rate 86, respirations 16, oxygen saturation 96% on 3.5 L. CARDIOVASCULAR: S1, S2 plus. RESPIRATORY: Normal vesicular breath sounds. ABDOMEN: Soft, nontender. Bowel sounds heard in all quadrants. EXTREMITIES: Without cyanosis or clubbing. Trace edema. CENTRAL NERVOUS SYSTEM: Improving deconditioning. IMPRESSION: 1. Left hip methicillin-resistant Staphylococcus aureus infection requiring revision. 2. Methicillin-resistant Staphylococcus aureus bacteremia. 3. Chronic obstructive pulmonary disease, GOLD stage 3 to 4. 4. Chronic hypoxemic respiratory failure. 5. Chronic kidney disease stage 3 to 4. 6. Chronic diastolic congestive heart failure. 7. Benign prostatic hypertrophy. 8. Obstructive sleep apnea. PLAN: 1. Continue current medications. 2. Heart-healthy diet. 3. Monitor respiratory status. 4. Orthopedic precautions. 5. Physical therapy. 6. DVT prophylaxis, PlexiPulses. 7. Decubitus precautions. 8. Stress ulcer prophylaxis. 9. Finish IV antibiotics today. We will review notes to see if he needs to be on any oral antibiotics. Has appointment with Orthopedics on Tuesday. Continue therapy. He wants to go home on . Recheck CBC and CMP tomorrow. Job ID: [id number]
[2019-08-13] MEDS: Cyclobenzaprine 10 MG TAB PO PRN (20:43)
[2019-08-13] MEDS: traMADol HCl 50 MG TAB PO PRN (20:44)
[2019-08-13] MEDS: Rosuvastatin 10 MG TAB PO SCH (20:45)
[2019-08-13] MEDS: Lidocaine Patch Removal TOP SCH (20:58)
[2019-08-14] MEDS: Acetaminophen 500 MG TAB PO SCH ×4 (00:44→17:22)
[2019-08-14 05:40] LABS: #Basophils 0.1 thou/uL (0.0-0.2); #Lymphocytes 0.9 thou/uL (1.20-3.40); #Monocytes 0.8 thou/uL (0.11-0.59); #Neutrophils 11.1 thou/uL (1.40-6.50); %Basophils 0.7 % (0.0-1.0); %Eosinophils 0.1 % (0.0-10.0); %Lymphocytes 6.7 % (21.0-51.0); %Neutrophils 86.5 % (42.0-75.0); Hemoglobin 7.5 g/dL (14.0-18.0); Mean Corpuscular HGB CONC 29.3 g/dL (32.0-36.0); Mean Corpuscular Hemoglobin 27.1 pg (27.0-31.0); Mean Corpuscular Volume 92.7 fL (78.0-98.0); Mean Platelet Volume 6.8 fL (7.4-10.4); Platelet Count 309 thou/uL (130-400); RBC Distribution Width 17.9 % (11.5-14.5); Red Blood Cell (RBC) Count 2.75 mill/uL (4.70-6.10); White Blood Cell (WBC) Count 12.8 thou/uL (4.8-10.8)
[2019-08-14 05:59] LABS: ALT (SGPT) 11 U/L (8-55); AST (SGOT) 8 U/L (5-34); Alkaline Phosphatase 54 U/L (40-110); Anion Gap 14 mmol/L (10-20); BUN (Urea Nitrogen) 50 mg/dL (8.4-25.7); Bilirubin, Total 0.2 mg/dL (0.2-1.2); Calc. Creatinine Clearance 43 mL/min (70-130); Calcium 7.5 mg/dL (7.8-10.44); Carbon Dioxide 21 mmol/L (23-31); Chloride 106 mmol/L (98-107); Estimated GFR-MDRD 38; Globulin 2.2 g/dL (2.4-3.5); Glucose 140 mg/dL (83-110); Potassium 4.3 mmol/L (3.5-5.1); Protein, Total 5.2 g/dL (5.8-8.1); Sodium 137 mmol/L (136-145)
[2019-08-14] MEDS: Losartan 25 MG TAB PO SCH (08:40)
[2019-08-14] MEDS: Lidocaine 5% Patch TD SCH (08:40)
[2019-08-14] MEDS: Polyethylene Glycol 3350 17 GM Packet PO SCH (08:40)
[2019-08-14] MEDS: Mometasone/Formoterol 200/5 60 PUFF INH SCH ×2 (08:40→21:04)
[2019-08-14] MEDS: Fluticasone Propionate Nasal Spray 16 gm Bottle NASAL SCH (08:40)
[2019-08-14] MEDS: Ascorbic Acid 500 mg Chewable Tablet PO SCH ×2 (08:41→21:05)
[2019-08-14] MEDS: Tamsulosin HCl 0.4 MG CAP PO SCH ×2 (08:41→21:07)
[2019-08-14] MEDS: Dutasteride 0.5 MG CAP PO SCH (08:41)
[2019-08-14] MEDS: Senokot S 8.6-50 MG TAB PO SCH ×2 (08:41→21:05)
[2019-08-14] MEDS: predniSONE 20 MG TAB PO SCH ×2 (08:41→21:05)
[2019-08-14] MEDS: Ferrous Sulfate 325 MG TAB PO SCH ×2 (08:41→17:22)
[2019-08-14] MEDS: Gabapentin 100 MG CAP PO SCH ×2 (08:41→21:05)
[2019-08-14] MEDS: Potassium Chloride 20 MEQ TAB PO SCH ×2 (08:41→17:22)
[2019-08-14] MEDS: Torsemide 20 MG TAB PO SCH ×2 (08:41→15:27)
[2019-08-14] MEDS: Dofetilide 0.125 MG CAP PO SCH ×2 (08:42→21:05)
[2019-08-14] MEDS: Aspirin 81 mg Enteric Coated Tablet PO SCH (08:42)
[2019-08-14] MEDS ORDERED: Rifampin 300 MG CAP PO SCH ×2 (13:08→13:30)
[2019-08-14] MEDS ORDERED: Sulfameth/Trimethoprim DS 800-160mg TAB PO SCH ×2 (13:20→13:30)
--- NOTE | 2019-08-14 13:46 | PRG ---
DATE OF SERVICE: 08/14/2019 SUBJECTIVE: Mr. Yates is doing well. He is up in his chair. He is pretty much back to his baseline from the respiratory standpoint. He has an appointment with Orthopedic Surgery tomorrow. Plan is for him to discharge home on . He finished his IV antibiotics yesterday. Plan is for him to be on rifampin plus Bactrim for 3 months and then low-dose Bactrim for the rest of his life per Dr. Macdonald' notes. I will calculate his Bactrim dose based upon his renal function. I think it falls to Bactrim DS one tablet daily and continue the rifampin. No other concerns or questions discussed with the patient and nursing. OBJECTIVE: VITAL SIGNS: He is afebrile. Heart rate 88, respirations 18, oxygen saturation 95% on 3.5 L, blood pressure is 134/72. CARDIOVASCULAR: S1 and S2 plus. RESPIRATORY: Normal vesicular breath sounds. ABDOMEN: Soft, nontender. Bowel sounds heard in all quadrants. EXTREMITIES: Without cyanosis or clubbing. CENTRAL NERVOUS SYSTEM: Improving deconditioning. IMPRESSION: 1. 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 2. Chronic obstructive pulmonary disease, goal stage 3. 3. Chronic hypoxemic respiratory failure. 4. Chronic diastolic congestive heart failure. 5. Chronic kidney disease stage 3 to 4. 6. Benign prostatic hypertrophy. 7. Atrial fibrillation. 8. Obstructive sleep apnea. 9. Deconditioning. PLAN: 1. Continue current medications. 2. Heart healthy diet. 3. DVT prophylaxis with PlexiPulses. 4. Decubitus precautions. 5. Stress ulcer prophylaxis. 6. Continue therapy. 7. Switch him over to rifampin plus Bactrim for 3 months. 8. He uses prescriptions. 9. Anticipate discharge on . 10. Discussed with the patient in detail. All questions answered. Job ID: [id number]
[2019-08-14] MEDS: Rosuvastatin 10 MG TAB PO SCH (21:05)
[2019-08-14] MEDS: Sulfameth/Trimethoprim DS 800-160mg TAB PO SCH (21:06)
[2019-08-14] MEDS: traMADol HCl 50 MG TAB PO PRN (21:06)
[2019-08-14] MEDS: Rifampin 300 MG CAP PO SCH (21:06)
[2019-08-14] MEDS: Cyclobenzaprine 10 MG TAB PO PRN (21:07)
[2019-08-14] MEDS: Lidocaine Patch Removal TOP SCH (21:08)
[2019-08-15] MEDS: Acetaminophen 500 MG TAB PO SCH ×4 (00:25→17:13)
[2019-08-15] MEDS: Ferrous Sulfate 325 MG TAB PO SCH ×2 (09:10→17:13)
[2019-08-15] MEDS: Potassium Chloride 20 MEQ TAB PO SCH ×2 (09:11→17:13)
[2019-08-15] MEDS: Ascorbic Acid 500 mg Chewable Tablet PO SCH ×2 (09:11→21:05)
[2019-08-15] MEDS: Aspirin 81 mg Enteric Coated Tablet PO SCH (09:12)
[2019-08-15] MEDS: Dofetilide 0.125 MG CAP PO SCH ×2 (09:12→21:04)
[2019-08-15] MEDS: Fluticasone Propionate Nasal Spray 16 gm Bottle NASAL SCH (09:12)
[2019-08-15] MEDS: Dutasteride 0.5 MG CAP PO SCH (09:12)
[2019-08-15] MEDS: Losartan 25 MG TAB PO SCH (09:13)
[2019-08-15] MEDS: Mometasone/Formoterol 200/5 60 PUFF INH SCH ×2 (09:13→21:06)
[2019-08-15] MEDS: Lidocaine 5% Patch TD SCH (09:13)
[2019-08-15] MEDS: Gabapentin 100 MG CAP PO SCH ×2 (09:13→21:05)
[2019-08-15] MEDS: predniSONE 20 MG TAB PO SCH ×2 (09:14→21:05)
[2019-08-15] MEDS: Senokot S 8.6-50 MG TAB PO SCH ×2 (09:14→21:04)
[2019-08-15] MEDS: Polyethylene Glycol 3350 17 GM Packet PO SCH (09:14)
[2019-08-15] MEDS: Sulfameth/Trimethoprim DS 800-160mg TAB PO SCH ×2 (09:15→21:05)
[2019-08-15] MEDS: Torsemide 20 MG TAB PO SCH ×2 (09:15→14:45)
[2019-08-15] MEDS: Tamsulosin HCl 0.4 MG CAP PO SCH ×2 (09:15→21:05)
[2019-08-15] MEDS: Rifampin 300 MG CAP PO SCH ×2 (09:17→21:05)
--- NOTE | 2019-08-15 13:25 | PRG ---
DATE OF SERVICE: 08/15/2019 SUBJECTIVE: Mr. Yates just saw the orthopedic surgeon and was cleared to go home. He denies any questions or concerns. He is now voiding spontaneously some of the time. The only new medicines I see here are his 2 antibiotics which are rifampin and Bactrim, which I will send in for a month. He will follow up with his PCP and Dr. Macdonald. Dr. Macdonald' recommendation is to stay on these 2 for 3 months and then just low-dose suppressive Bactrim for the rest of his life. I am going to reduce his prednisone to 20 mg once a day today and tomorrow and then he will be on 10 mg daily, which is his usual dose. OBJECTIVE: VITAL SIGNS: He is afebrile, heart rate 97, respirations 18, oxygen saturation 97% on 3.5 L, and blood pressure is 140/64. CARDIOVASCULAR: S1 and S2 plus. RESPIRATORY: Normal vesicular breath sounds. ABDOMEN: Soft, nontender. Bowel sounds heard in all quadrants. EXTREMITIES: Without cyanosis or clubbing. Trace edema. CENTRAL NERVOUS SYSTEM: Improving deconditioning. IMPRESSION: 1. Chronic diastolic congestive heart failure. 2. Chronic obstructive pulmonary disease. 3. Chronic hypoxemic respiratory failure. 4. Chronic kidney disease, stage 3 to 4. 5. Obstructive sleep apnea. 6. Benign prostatic hypertrophy. 7. Atrial fibrillation. 8. Methicillin-resistant Staphylococcus aureus bacteremia and septic arthritis, status post revision. PLAN: 1. Continue current medications. 2. Reduce prednisone to 20 mg daily for today and tomorrow and then 10 mg daily thereafter. 3. Discharge planning. 4. Outpatient followup with PCP and Dr. Macdonald. 5. Monitor respiratory status. 6. Discussed with the patient in detail. All questions answered. Job ID: [id number]
[2019-08-15] MEDS: traMADol HCl 50 MG TAB PO PRN (21:04)
[2019-08-15] MEDS: Rosuvastatin 10 MG TAB PO SCH (21:05)
[2019-08-15] MEDS: Cyclobenzaprine 10 MG TAB PO PRN (21:06)
[2019-08-15] MEDS: Lidocaine Patch Removal TOP SCH (21:06)
[2019-08-16] MEDS: Acetaminophen 500 MG TAB PO SCH ×3 (00:10→13:48)
[2019-08-16 05:42] LABS: #Basophils 0.1 thou/uL (0.0-0.2); #Lymphocytes 0.8 thou/uL (1.20-3.40); #Monocytes 0.8 thou/uL (0.11-0.59); %Basophils 0.7 % (0.0-1.0); %Eosinophils 0.1 % (0.0-10.0); %Lymphocytes 7.1 % (21.0-51.0); %Monocytes 6.6 % (0.0-10.0); %Neutrophils 85.5 % (42.0-75.0); Hemoglobin 7.3 g/dL (14.0-18.0); Mean Corpuscular HGB CONC 29.9 g/dL (32.0-36.0); Mean Corpuscular Hemoglobin 27.5 pg (27.0-31.0); Mean Corpuscular Volume 92.1 fL (78.0-98.0); Mean Platelet Volume 6.7 fL (7.4-10.4); Platelet Count 331 thou/uL (130-400); RBC Distribution Width 17.8 % (11.5-14.5); Red Blood Cell (RBC) Count 2.66 mill/uL (4.70-6.10); White Blood Cell (WBC) Count 11.8 thou/uL (4.8-10.8)
[2019-08-16 08:17] VITALS: BP 138/70; TEMP 97.6
[2019-08-16] MEDS: Ferrous Sulfate 325 MG TAB PO SCH (09:33)
[2019-08-16] MEDS: Potassium Chloride 20 MEQ TAB PO SCH (09:33)
[2019-08-16] MEDS: Ascorbic Acid 500 mg Chewable Tablet PO SCH (09:33)
[2019-08-16] MEDS: Dofetilide 0.125 MG CAP PO SCH (09:34)
[2019-08-16] MEDS: Dutasteride 0.5 MG CAP PO SCH (09:34)
[2019-08-16] MEDS: Fluticasone Propionate Nasal Spray 16 gm Bottle NASAL SCH (09:34)
[2019-08-16] MEDS: Mometasone/Formoterol 200/5 60 PUFF INH SCH (09:34)
[2019-08-16] MEDS: Aspirin 81 mg Enteric Coated Tablet PO SCH (09:34)
[2019-08-16] MEDS: Losartan 25 MG TAB PO SCH (09:35)
[2019-08-16] MEDS: Gabapentin 100 MG CAP PO SCH (09:35)
[2019-08-16] MEDS: Lidocaine 5% Patch TD SCH (09:35)
[2019-08-16] MEDS: predniSONE 20 MG TAB PO SCH (09:36)
[2019-08-16] MEDS: Sulfameth/Trimethoprim DS 800-160mg TAB PO SCH (09:36)
[2019-08-16] MEDS: Polyethylene Glycol 3350 17 GM Packet PO SCH (09:36)
[2019-08-16] MEDS: Senokot S 8.6-50 MG TAB PO SCH (09:36)
[2019-08-16] MEDS: Torsemide 20 MG TAB PO SCH ×2 (09:37→13:48)
[2019-08-16] MEDS: Tamsulosin HCl 0.4 MG CAP PO SCH (09:37)
[2019-08-16] MEDS: Rifampin 300 MG CAP PO SCH (09:37)
--- NOTE | 2019-08-16 14:37 | DIS ---
DATE OF ADMISSION: 07/04/2019 DATE OF DISCHARGE: 08/16/2019 PRINCIPAL DIAGNOSES: 1. Methicillin-resistant Staphylococcus aureus bacteremia with left hip infection, requiring revision of left hip surgery. 2. Chronic diastolic congestive heart failure. 3. Chronic hypoxemic respiratory failure. 4. Chronic obstructive pulmonary disease, goal stage III to IV. 5. Chronic kidney disease, stage 3 to 4. 6. Benign prostatic hypertrophy. 7. Atrial fibrillation. 8. Obstructive sleep apnea. 9. Recurrent anemia requiring blood transfusion. 10. Improving deconditioning. COMPLICATIONS: None. ADVERSE REACTIONS: None. PROCEDURES: None. CONSULTATIONS: Physical Therapy and Occupational Therapy. HOSPITAL COURSE: The patient was admitted on 07/03 after being diagnosed with the MRSA infection to his left hip open reduction and internal fixation site. He underwent revision. He was recommended IV antibiotics until August 12 and after which to continue rifampin and Bactrim for 3 months and after that low-dose Bactrim thereafter. He finished his antibiotics without any issues. He did have an episode of COPD exacerbation requiring IV steroids. This has been slowly tapered down. He is on prednisone 20 mg b.i.d. now. I advised him to go to prednisone 20 mg daily, which started today for five days, then he will go to his home dose of 10 mg daily. He does have enough prednisone at home that he will just double up on the dose. I am going to send his prescription for rifampin and Bactrim to [facility] at [place]. He states he has all of his other medicines. His [place] catheter was finally removed. He did require in and out of self catheterization few times, but then has also been able to void few times. He states that he has used to do this before and he does have supplies at home. He is advised to follow up with his PCP and Dr. Macdonald both in the next 7 to 10 days. His weekly CBC, CMP, CRP, and sedimentation rate have showed gradual improvement in his inflammatory markers and with a sudden drop the last time, partly related due to the steroids. He did require periodic blood transfusion. He required about 3 transfusions so far during his hospital stay here. PHYSICAL EXAMINATION: VITAL SIGNS: On the day of discharge, he is afebrile. Heart rate 96, respirations 18, oxygen saturation 98% on 3.5 L, blood pressure is 138/70. HEENT: Normocephalic and atraumatic. Pupils equally reactive to light and accommodation. NECK: No JVD, thyromegaly, cervical lymphadenopathy, or throat exudates. No carotid bruits. CARDIOVASCULAR: S1 and S2 plus. RESPIRATORY: Normal vesicular breath sounds with occasional rhonchi. ABDOMEN: Soft, nontender. Bowel sounds heard in all quadrants. EXTREMITIES: Without cyanosis or clubbing. Trace edema. CENTRAL NERVOUS SYSTEM: Generalized weakness, otherwise nonfocal. LABORATORY DATA: Laboratory values show a hemoglobin of 7.3, white count is 11.8. Sodium 137, potassium 4.3, BUN and creatinine are 50 and 1.72. DISCHARGE MEDICATIONS: Will be the same as admission except he will be on rifampin and Bactrim for 3 months. Discharge medications are; 1. Tylenol 1000 mg q.6 p.r.n. 2. Albuterol nebulizer treatment q.6 p.r.n. 3. Vitamin C 500 mg b.i.d. 4. Ecotrin 81 mg daily. 5. Flexeril 5 mg t.i.d. p.r.n. 6. Tikosyn 0.125 mg b.i.d. 7. Avodart 0.5 mg daily. 8. Iron sulfate 325 b.i.d. 9. Flonase nasal spray one spray to each nostril daily. 10. Gabapentin 100 mg b.i.d. 11. DuoNeb q.3 hours p.r.n. 12. Lidoderm patch daily to his hip, remove q.12. 13. Losartan 100 mg daily. 14. Dulera 200/5 two puffs b.i.d. gargle after use. 15. Pantoprazole 40 mg daily. 16. MiraLAX 17 g in 8 ounces of water daily. 17. Potassium 20 mEq b.i.d. 18. Prednisone 20 mg daily for five days starting today and then 10 mg daily, which is his usual home medication. He is also taking; 1. Rifampin 300 mg b.i.d. 2. Rosuvastatin 10 mg daily. 3. Sertraline 50 mg daily. 4. Bactrim DS one tablet b.i.d. 5. Torsemide 40 mg b.i.d. 6. Tramadol 100 mg q.6 p.r.n. He is actually not on Protonix, but esomeprazole 40 mg daily at home. 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 Prescriptions have been sent to [facility] at [place]. For full details, please see chart. Total time spent on this discharge including coordination of care was 35 minutes. Job ID: [id number]
== END 2019-08-16 15:15 | disposition home health service (06) | DRG 560 ==
LOC: NAV ACUTE 18:04
PROVIDERS: ADMIT Internal Medicine; ATTEND Internal Medicine
DX: T84.52XA Infection and inflammatory reaction due to internal left hip prosthesis, initial encounter (principal); I13.0 Hypertensive heart and chronic kidney disease with heart failure and stage 1 through stage 4 chronic kidney disease, or unspecified chronic kidney disease; I50.32 Chronic diastolic (congestive) heart failure; N18.4 Chronic kidney disease, stage 4 (severe); J96.11 Chronic respiratory failure with hypoxia; R53.81 Other malaise; B95.62 Methicillin resistant Staphylococcus aureus infection as the cause of diseases classified elsewhere; J44.9 Chronic obstructive pulmonary disease, unspecified; F32.9 Major depressive disorder, single episode, unspecified; D50.0 Iron deficiency anemia secondary to blood loss (chronic); G47.33 Obstructive sleep apnea (adult) (pediatric); F41.9 Anxiety disorder, unspecified; E87.6 Hypokalemia; N40.1 Benign prostatic hyperplasia with lower urinary tract symptoms; R33.8 Other retention of urine; I48.91 Unspecified atrial fibrillation; Z79.01 Long term (current) use of anticoagulants; Z87.891 Personal history of nicotine dependence
CPT/HCPCS: 36415; 36416; 36430; 71045; 80048; 80053; 80202; 82565; 83880; 85025; 85652; 86140; 86850; 86900; 86901; 87070; 87077; 87186; 87205; 94640; 94664; J1940; J2920; J2930; J3370; J3490; J7050; J7512; J7611; J7620; J8499; P9016

== ENCOUNTER 2019-12-21 21:33 | Inpatient (IN) | payer MEDICARE, BC ==
[2019-12-21] MEDS ORDERED: Dextrose 5% in Water 1,000 ML IV PRN (23:00)
[2019-12-21] MEDS ORDERED: Dextrose 50% Abboject 50 ML SYRINGE IVP PRN (23:00)
[2019-12-21] MEDS ORDERED: HumaLOG 300 UNITS/3 ML VIAL SC PRN (23:00)
[2019-12-21] MEDS ORDERED: Guaifenesin DM 100-10/5 ML UDCUP PO PRN (23:27)
[2019-12-21] MEDS ORDERED: hydrOXYzine Pamoate 25 mg Capsule PO PRN (23:27)
[2019-12-21] MEDS ORDERED: Ondansetron PF 4 MG/2 ML Vial IVP PRN (23:29)
[2019-12-21] MEDS ORDERED: Bisacodyl 10 MG SUPP PR PRN (23:34)
[2019-12-21] MEDS ORDERED: Mag-Al Plus 1200 MG/1200 MG/120 MG/30 ML UDCUP PO PRN (23:34)
[2019-12-22] MEDS: Sildenafil Citrate 20 MG TAB PO SCH ×3 (05:21→21:33)
[2019-12-22 05:37] LABS: #Basophils 0.1 thou/uL (0.0-0.2); #Lymphocytes 0.7 thou/uL (1.20-3.40); #Monocytes 0.6 thou/uL (0.11-0.59); #Neutrophils 12.6 thou/uL (1.40-6.50); %Basophils 0.6 % (0.0-1.0); %Eosinophils 0.1 % (0.0-10.0); %Lymphocytes 5.3 % (21.0-51.0); %Neutrophils 89.9 % (42.0-75.0); Hemoglobin 8.7 g/dL (14.0-18.0); Mean Corpuscular HGB CONC 30.4 g/dL (32.0-36.0); Mean Corpuscular Hemoglobin 28.5 pg (27.0-31.0); Mean Corpuscular Volume 93.7 fL (78.0-98.0); Mean Platelet Volume 9.6 fL (7.4-10.4); Platelet Count 141 thou/uL (130-400); RBC Distribution Width 16.8 % (11.5-14.5); Red Blood Cell (RBC) Count 3.05 mill/uL (4.70-6.10)
[2019-12-22 05:48] LABS: ALT (SGPT) 157 U/L (8-55); AST (SGOT) 47 U/L (5-34); Alkaline Phosphatase 328 U/L (40-110); Anion Gap 15 mmol/L (10-20); BUN (Urea Nitrogen) 50 mg/dL (8.4-25.7); Bilirubin, Total 0.7 mg/dL (0.2-1.2); Calc. Creatinine Clearance 21 mL/min (70-130); Carbon Dioxide 26 mmol/L (23-31); Chloride 94 mmol/L (98-107); Estimated GFR-MDRD 18; Globulin 1.9 g/dL (2.4-3.5); Glucose 84 mg/dL (83-110); Potassium 3.9 mmol/L (3.5-5.1); Protein, Total 4.9 g/dL (5.8-8.1); Sodium 131 mmol/L (136-145)
[2019-12-22] MEDS: Sucralfate 1 GM TAB PO SCH ×3 (07:17→17:29)
[2019-12-22] MEDS: Fluticasone Propionate Nasal Spray 16 gm Bottle NASAL SCH (08:22)
[2019-12-22] MEDS: Mometasone/Formoterol 200/5 60 PUFF INH SCH ×2 (08:23→21:35)
[2019-12-22] MEDS: Nystatin Powder 15 GM BOT TOP SCH ×2 (08:24→21:34)
[2019-12-22] MEDS: predniSONE 5 MG TAB PO SCH (08:25)
[2019-12-22] MEDS: Gabapentin 100 MG CAP PO SCH ×2 (08:25→21:33)
[2019-12-22] MEDS: Multivitamin W/ Minerals 1 TAB PO SCH (08:25)
[2019-12-22] MEDS: Magnesium Oxide 400 MG TAB PO SCH (08:25)
[2019-12-22] MEDS: Amiodarone 200 MG TAB PO SCH (08:25)
[2019-12-22] MEDS: Senokot S 8.6-50 MG TAB PO SCH ×2 (08:25→21:33)
[2019-12-22] MEDS: Cholecalciferol 1,000 UNITS (25 MCG) TAB PO SCH (08:25)
[2019-12-22] MEDS: guaiFENesin ER 600 MG TAB PO SCH ×2 (08:26→21:33)
[2019-12-22] MEDS ORDERED: Fludrocortisone Acetate 0.1 MG TAB PO SCH (09:00)
[2019-12-22] MEDS: PREGABALIN 25 MG PO SCH (16:15)
--- NOTE | 2019-12-22 17:35 | HP ---
CHIEF COMPLAINT: Significant deconditioning, for therapy. BRIEF HISTORY: This is an 79-year-old male, who is known to me from his previous admissions to the hospital, was admitted to the hospital recently due to left thigh and hip pain. He has a history of left hip fracture which was fixed, but then he developed an infection requiring removal of hardware and long-term antibiotics and he did undergo revision in September. He was at the rehab hospital and then he went home. Apparently 3 days after he went home is when he noticed significant pain and inability to put any weight on it. He did notice erythema. He was diagnosed with dislocated left hip with possible infection. He was also seen by Dr. Macdonald as well as Dr. Jimenez. He underwent removal of the circumferential cable cerclage for the proximal femur and conversion of one competent left hip hemiarthroplasty to total hip arthroplasty. He apparently was on IV antibiotics, but now is currently on Bactrim DS. He also unfortunately developed worsening renal function requiring dialysis and is currently on dialysis. He apparently was on IV diuretics as well as ionotropic agents due to significant heart failure and has been significantly deconditioned and not participating with therapy at all. He has been transferred here to see if he will work with therapy and see if he can get back home or whether he ends up in a nursing facility. He has been admitted here under Dr. Munoz. PAST MEDICAL HISTORY: 1. Chronic obstructive pulmonary disease, likely end-stage per Pulmonary. 2. Chronic hypoxemic respiratory failure. 3. Chronic diastolic congestive heart failure. 4. Benign prostatic hypertrophy. 5. Atrial fibrillation. 6. Anemia requiring periodic blood transfusion. 7. Depression and anxiety. 8. End-stage renal disease, now on dialysis. 9. History of left hip fracture with multiple surgical procedures due to infection and dislocation. PAST SURGICAL HISTORY: 1. Watchman procedure. 2. Transesophageal echocardiogram. 3. Skin cyst excision. 4. Multiple procedures to left hip. MEDICATIONS: He has been transferred here on the following medications: 1. Tylenol 650 mg q.4 p.r.n. 2. Maalox 30 mL q.6 p.r.n. 3. DuoNeb 3 mL q.4. 4. Amiodarone 200 mg daily. 5. Lipitor 20 mg daily. 6. Dulcolax 10 mg p.r. as needed. 7. Vitamin D3 at 1000 units daily. 8. His Florinef acetate was supposed to be discontinued per discharge summary. We will review it. 9. Flonase 1 spray to each nostril b.i.d. 10. Gabapentin 100 mg b.i.d. 11. Mucinex 600 mg b.i.d. 12. Robitussin DM 15 mL q.4 p.r.n. 13. Hydroxyzine 25 mg p.o. q.4 p.r.n. 14. Levaquin 250 mg daily. 15. Mag-Ox 400 mg daily. 16. Dulera 2 puffs b.i.d., gargle after use. 17. Zofran 4 mg IV q.6 p.r.n. 18. Pantoprazole 40 mg b.i.d. 19. Pregabalin, I am not sure if he is on it since he is on gabapentin. 20. Prednisone 10 mg daily. 21. Revatio 5 mg q.8 hours. 22. Carafate 1 g p.o. before breakfast, this was also supposed to be discontinued. 23. Flomax 0.4 mg daily. 24. Bactrim DS half a tab Tuesday, Tuesday, and Tuesday. 25. Ambien 5 mg at bedtime. ALLERGIES: TO ADHESIVES. FAMILY HISTORY: Noncontributory to current admission. PSYCHOSOCIAL HISTORY: No current tobacco, alcohol, or recreational drug abuse. He is . REVIEW OF SYSTEMS: GENERAL: Other than fatigue and tiredness, denies any fever or chills. RESPIRATORY SYSTEM: Denies any expectoration. He does have a cough. Denies any pleuritic-type pain. Denies any hemoptysis. CARDIOVASCULAR SYSTEM: Denies any chest pain. Does have shortness of breath on exertion. Denies any PND or orthopnea. He does have chronic lower extremity edema. GASTROINTESTINAL SYSTEM: Denies any nausea, vomiting, diarrhea, constipation, hematemesis, melena, or hematochezia. He does have chronic heartburn. GENITOURINARY SYSTEM: Denies any frequency, urgency, dysuria, or hematuria. He does have BPH and nocturia. CENTRAL NERVOUS SYSTEM: Denies any focal numbness, weakness, or fainting spells. EXTREMITIES: Does complain of left hip pain as well as generalized arthralgia. SKIN: Denies any rash. ENT: Denies any changes with vision, hearing, or swallowing. PHYSICAL EXAMINATION: GENERAL: This is an 79-year-old male, who is known to me from his previous admissions just back from dialysis. VITAL SIGNS: He is afebrile. Heart rate 88, respirations 20, oxygen saturation 94% on 4 L. HEENT: Normocephalic and atraumatic. Pupils equally reactive to light and accommodation. No JVD, thyromegaly, cervical adenopathy, or throat exudates. No carotid bruits. CARDIOVASCULAR SYSTEM: S1-S2 plus. RESPIRATORY SYSTEM: Normal vesicular breath sounds with decreased air entry in the bases. Prolonged expiratory phase. Scattered rhonchi. ABDOMEN: Soft, obese, nontender. Bowel sounds heard in all quadrants. EXTREMITIES: Without cyanosis or clubbing. Chronic venous insufficiency and edema 1+. CENTRAL NERVOUS SYSTEM: Awake and responsive. Generalized weakness, otherwise nonfocal. LABORATORY VALUES: Show a white count of 14, H and H 8.7 and 28.6. Sodium 131, potassium 3.9, BUN and creatinine 15 and 3.35. IMPRESSION: 1. Dislocation of left hip requiring revision and switched to total arthroplasty. 2. Recurrent left hip infection, now on suppressive antibiotic therapy. 3. Chronic obstructive pulmonary disease, likely end-stage per Pulmonary. 4. Chronic hypoxemic respiratory failure. 5. Atrial fibrillation, status post Watchman procedure. 6. Chronic diastolic congestive heart failure. 7. BPH. 8. Lower extremity venous insufficiency. 9. End-stage renal disease, on dialysis. 10. Significant deconditioning. 11. Cor pulmonale. 12. Gastroesophageal reflux disease. 13. Recurrent anemia requiring multiple transfusions. 14. Dyslipidemia. PLAN: 1. Continue discharge medications from previous hospitalization. 2. Dr. Seymour's note says he is going to discontinue Florinef, so we will make that change. 3. Heart-healthy diet. 4. Monitor respiratory status. 5. Hemodialysis. 6. PT/OT eval and treat. 7. Orthopedic precautions. 8. DVT prophylaxis with PlexiPulses given his history of recurrent anemia. 9. Decubitus precautions. 10. Stress ulcer prophylaxis. 11. Discussed with the patient in detail. All questions answered. Job ID: [id number]
[2019-12-22] MEDS ORDERED: FLU VACC QS2020-21(65YR UP)/PF 240 MCG/0.7 ML SYRINGE IM ONE (21:00)
[2019-12-22] MEDS: Tamsulosin HCl 0.4 MG CAP PO SCH (21:33)
[2019-12-22] MEDS: Atorvastatin Calcium 20 MG TAB PO SCH (21:33)
[2019-12-23] MEDS: Sildenafil Citrate 20 MG TAB PO SCH ×3 (05:33→21:11)
[2019-12-23] MEDS: Sucralfate 1 GM TAB PO SCH ×3 (09:18→17:46)
[2019-12-23] MEDS: Cholecalciferol 1,000 UNITS (25 MCG) TAB PO SCH (09:18)
[2019-12-23] MEDS: Magnesium Oxide 400 MG TAB PO SCH (09:18)
[2019-12-23] MEDS: Multivitamin W/ Minerals 1 TAB PO SCH (09:19)
[2019-12-23] MEDS: predniSONE 5 MG TAB PO SCH (09:19)
[2019-12-23] MEDS: guaiFENesin ER 600 MG TAB PO SCH ×2 (09:19→21:11)
[2019-12-23] MEDS: Gabapentin 100 MG CAP PO SCH ×2 (09:19→21:11)
[2019-12-23] MEDS: Amiodarone 200 MG TAB PO SCH (09:19)
[2019-12-23] MEDS: Mometasone/Formoterol 200/5 60 PUFF INH SCH ×2 (09:19→21:14)
[2019-12-23] MEDS: Fluticasone Propionate Nasal Spray 16 gm Bottle NASAL SCH (09:23)
[2019-12-23] MEDS: Senokot S 8.6-50 MG TAB PO SCH ×2 (09:26→21:15)
[2019-12-23] MEDS: Nystatin Powder 15 GM BOT TOP SCH ×2 (09:26→21:15)
[2019-12-23] MEDS: PREGABALIN 25 MG PO SCH (09:35)
--- NOTE | 2019-12-23 16:10 | PRG ---
DATE OF SERVICE: 12/23/2019 SUBJECTIVE: Mr. Yates is resting in bed. He is getting a breathing treatment. He denies any questions or concerns. He states that the therapy evaluation is well. OBJECTIVE: VITAL SIGNS: He is afebrile, heart rate 80, respirations 15, oxygen saturation 96% on 3.5 L nasal cannula, and blood pressure 120/57. CARDIOVASCULAR SYSTEM: S1 and S2 plus. RESPIRATORY SYSTEM: Normal vesicular breath sounds with scattered rhonchi and occasional wheeze. Decreased air entry in the bases. ABDOMEN: Soft, obese, nontender. Bowel sounds heard in all quadrants. EXTREMITIES: Without cyanosis or clubbing. Trace edema. CENTRAL NERVOUS SYSTEM: Generalized weakness. Awake, alert and responsive. Cranial nerves 2 through 12 intact. LABORATORY DATA: Blood sugars are 142, 154, and 112. IMPRESSION: 1. Chronic diastolic congestive heart failure. 2. Chronic obstructive pulmonary disease, end-stage. 3. Chronic hypoxemic respiratory failure. 4. Atrial fibrillation. 5. Benign prostatic hypertrophy. 6. Osteoarthritis. 7. End-stage renal disease, now on hemodialysis. 8. Hyponatremia. 9. Significant deconditioning. PLAN: 1. Continue current medications. 2. Heart healthy, ADA diet with Accu-Cheks. 3. Dialysis on Tuesday, , and Tuesday. 4. PT/OT eval and treat. 5. Nutritional support. 6. Fluid restriction. 7. Breathing treatments. 8. Monitor respiratory status. 9. Routine laboratory values. 10. Dr. Munoz will resume care at 9:00 p.m. faith. Job ID: [id number]
[2019-12-23] MEDS: Tamsulosin HCl 0.4 MG CAP PO SCH (21:11)
[2019-12-23] MEDS: Atorvastatin Calcium 20 MG TAB PO SCH (21:11)
[2019-12-23] MEDS: Acetaminophen 325 MG TAB PO PRN (21:30)
[2019-12-24] MEDS: Sildenafil Citrate 20 MG TAB PO SCH ×3 (05:55→22:11)
[2019-12-24] MEDS: Fluticasone Propionate Nasal Spray 16 gm Bottle NASAL SCH (08:59)
[2019-12-24] MEDS: Mometasone/Formoterol 200/5 60 PUFF INH SCH ×2 (08:59→22:08)
[2019-12-24] MEDS: Sulfameth/Trimethoprim DS 800-160mg TAB PO SCH (09:00)
[2019-12-24] MEDS: Magnesium Oxide 400 MG TAB PO SCH (09:00)
[2019-12-24] MEDS: guaiFENesin ER 600 MG TAB PO SCH ×2 (09:00→22:06)
[2019-12-24] MEDS: Multivitamin W/ Minerals 1 TAB PO SCH (09:01)
[2019-12-24] MEDS: Senokot S 8.6-50 MG TAB PO SCH ×2 (09:01→22:10)
[2019-12-24] MEDS: Gabapentin 100 MG CAP PO SCH ×2 (09:01→22:06)
[2019-12-24] MEDS: Amiodarone 200 MG TAB PO SCH (09:01)
[2019-12-24] MEDS: predniSONE 5 MG TAB PO SCH (09:01)
[2019-12-24] MEDS: Cholecalciferol 1,000 UNITS (25 MCG) TAB PO SCH (09:02)
[2019-12-24] MEDS: Nystatin Powder 15 GM BOT TOP SCH ×2 (09:02→22:07)
[2019-12-24] MEDS: PREGABALIN 25 MG PO SCH (09:03)
[2019-12-24] MEDS: Sucralfate 1 GM TAB PO SCH ×3 (09:04→17:24)
--- NOTE | 2019-12-24 14:46 | PRG ---
DATE OF SERVICE: 12/24/2019 SUBJECTIVE: The patient feels well lying in the bed, but exhausted after doing therapy this morning. He does state however that he was able to walk several steps and get out of the bed with assistance this morning. He is denying any shortness of breath at rest and no significant decrease with minimal exercise, but is very weak. He has been tolerating his dialysis and is having stable edema of his legs. Accu-Cheks have been stable at 125 to 154. Sodium on admission was 131, BUN 50, creatinine 3.35. OBJECTIVE: LUNGS: Show markedly decreased breath sounds. No rales or rhonchi. CARDIAC: Showed regular rhythm. ABDOMEN: Obese and nontender. SKIN/EXTREMITIES: Shows diffuse peripheral edema. NEUROLOGICAL: Intact. ASSESSMENT: 1. End-stage chronic obstructive pulmonary disease on maximum treatment with bronchodilators and steroids. 2. Severe deconditioning and need of therapy, attempting to cooperate this morning. 3. Acute onset of renal failure superimposed on chronic kidney disease requiring dialysis at this time, being followed by Dr. Ryan. 4. Insulin-dependent diabetes controlled to goal with sliding scale. PLAN: 1. Continue PT, OT. 2. Continue dialysis per recommendation of Dr. Ryan. 3. Continue to monitor fluid retention. 4. Continue stress ulcer prophylaxis. Job ID: [id number]
[2019-12-24] MEDS: Atorvastatin Calcium 20 MG TAB PO SCH (22:05)
[2019-12-24] MEDS: Tamsulosin HCl 0.4 MG CAP PO SCH (22:11)
[2019-12-24] MEDS: Acetaminophen 325 MG TAB PO PRN (22:13)
[2019-12-25] MEDS: Sildenafil Citrate 20 MG TAB PO SCH ×3 (05:36→21:14)
[2019-12-25] MEDS: HumaLOG 300 UNITS/3 ML VIAL SC PRN (05:41)
[2019-12-25] MEDS: Magnesium Oxide 400 MG TAB PO SCH (08:39)
[2019-12-25] MEDS: Senokot S 8.6-50 MG TAB PO SCH ×2 (08:39→21:13)
[2019-12-25] MEDS: Gabapentin 100 MG CAP PO SCH ×2 (08:39→21:14)
[2019-12-25] MEDS: predniSONE 5 MG TAB PO SCH (08:39)
[2019-12-25] MEDS: Cholecalciferol 1,000 UNITS (25 MCG) TAB PO SCH (08:39)
[2019-12-25] MEDS: guaiFENesin ER 600 MG TAB PO SCH ×2 (08:40→21:14)
[2019-12-25] MEDS: Fluticasone Propionate Nasal Spray 16 gm Bottle NASAL SCH (08:40)
[2019-12-25] MEDS: Amiodarone 200 MG TAB PO SCH (08:40)
[2019-12-25] MEDS: Sucralfate 1 GM TAB PO SCH ×3 (08:40→18:05)
[2019-12-25] MEDS: Multivitamin W/ Minerals 1 TAB PO SCH (08:40)
[2019-12-25] MEDS: Nystatin Powder 15 GM BOT TOP SCH ×3 (08:41→21:13)
[2019-12-25] MEDS: Mometasone/Formoterol 200/5 60 PUFF INH SCH ×2 (08:42→21:12)
[2019-12-25] MEDS: PREGABALIN 25 MG PO SCH (08:44)
[2019-12-25] MEDS: Tamsulosin HCl 0.4 MG CAP PO SCH (21:13)
[2019-12-25] MEDS: Zolpidem Tartrate 5 MG TAB PO PRN (21:14)
[2019-12-25] MEDS: Acetaminophen 325 MG TAB PO PRN (21:14)
[2019-12-25] MEDS: Atorvastatin Calcium 20 MG TAB PO SCH (21:14)
[2019-12-26] MEDS: Sildenafil Citrate 20 MG TAB PO SCH ×3 (05:39→21:35)
[2019-12-26] MEDS: Sucralfate 1 GM TAB PO SCH ×3 (07:58→16:26)
[2019-12-26] MEDS: Magnesium Oxide 400 MG TAB PO SCH (09:27)
[2019-12-26] MEDS: Multivitamin W/ Minerals 1 TAB PO SCH (09:27)
[2019-12-26] MEDS: Senokot S 8.6-50 MG TAB PO SCH ×2 (09:28→21:35)
[2019-12-26] MEDS: guaiFENesin ER 600 MG TAB PO SCH ×2 (09:28→21:35)
[2019-12-26] MEDS: Pregabalin 25 MG CAP PO SCH (09:28)
[2019-12-26] MEDS: Cholecalciferol 1,000 UNITS (25 MCG) TAB PO SCH (09:28)
[2019-12-26] MEDS: Sulfameth/Trimethoprim DS 800-160mg TAB PO SCH (09:29)
[2019-12-26] MEDS: predniSONE 5 MG TAB PO SCH (09:30)
[2019-12-26] MEDS: Amiodarone 200 MG TAB PO SCH (09:30)
[2019-12-26] MEDS: Gabapentin 100 MG CAP PO SCH ×2 (09:30→21:35)
[2019-12-26] MEDS: Nystatin Powder 15 GM BOT TOP SCH ×2 (09:31→21:34)
[2019-12-26] MEDS: Mometasone/Formoterol 200/5 60 PUFF INH SCH ×2 (09:31→21:42)
[2019-12-26] MEDS: Fluticasone Propionate Nasal Spray 16 gm Bottle NASAL SCH (09:33)
[2019-12-26] MEDS: HumaLOG 300 UNITS/3 ML VIAL SC PRN (17:29)
[2019-12-26] MEDS: Tamsulosin HCl 0.4 MG CAP PO SCH (21:35)
[2019-12-26] MEDS: Atorvastatin Calcium 20 MG TAB PO SCH (21:35)
[2019-12-26] MEDS: Zolpidem Tartrate 5 MG TAB PO PRN (21:35)
[2019-12-27] MEDS: Sildenafil Citrate 20 MG TAB PO SCH ×3 (05:54→21:03)
--- NOTE | 2019-12-27 07:26 | PRG ---
DATE OF SERVICE: 12/25/2019 SUBJECTIVE: The patient sitting in bed, feels well with minimal pain in his left hip. Did have problems, however, with hypoxia during dialysis today and it was removed at dialysis, and he became somewhat short of breath, confused. He has diastolic heart failure. His main problem has been deconditioning, and we will stress need to continue with this. He is on long-term antibiotics with Levaquin 250 q.6. OBJECTIVE: VITAL SIGNS: Temperature is 97.5, pulse 80, respirations 18, O2 saturations 95% on 4 L, and blood pressure 113/58. LUNGS: Show markedly decreased breath sounds. CARDIAC: Shows regular rhythm. ABDOMEN: Soft and nontender. SKIN/EXTREMITIES: Show healing left hip fracture with no erythema or warmth. ASSESSMENT: 1. Resolving dislocation of the hip, status post need for total arthroplasty. 2. Resolving left hip infection, on chronic low suppressive therapy with levofloxacin. 3. Severe chronic obstructive pulmonary disease end-stage, on prednisone, oxygen, and bronchodilators. 4. Severe deconditioning with inability to maintain ADLs. 5. Atrial fibrillation, status post Watchman procedure. 6. Chronic diastolic congestive heart failure, stable. 7. Benign prostatic hypertrophy, stable. 8. End-stage renal disease, on dialysis. PLAN: 1. Continue stress PT/OT as he will need to walk in order to able to survive. 2. Continue aggressive bronchodilation, steroid therapy, and chronic oxygen. 3. Continue DVT prophylaxis with PlexiPulse. 4. Continue stress ulcer prophylaxis. 5. Continue hemodialysis three times weekly. 6. Continue PT/OT. Job ID: [id number]
--- NOTE | 2019-12-27 07:27 | PRG ---
DATE OF SERVICE: 12/26/2019 SUBJECTIVE: Patient feels well, sitting up in bed, eating his supper. States he worked well with Therapy today, although nurses state that he is still refusing to get out of bed at times to go to the bathroom and he is stressed that he needs to do this. 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 OBJECTIVE: LUNGS: With markedly decreased breath sounds. CARDIAC EXAMINATION: Shows regular rhythm. ABDOMEN: Soft and nontender. SKIN/EXTREMITIES: Display 2+ edema. Chronic venous insufficiency. NEUROLOGIC: Intact. ASSESSMENT: 1. Severe chronic obstructive pulmonary disease, end-stage, on steroids, oxygen, and bronchodilators, maximum. 2. Dislocation of the hip requiring revision with subsequent infection, now on chronic suppressive therapy. 3. End-stage renal disease, on hemodialysis. 4. Severe deconditioning with inability to maintain ADLs. 5. Chronic systolic heart failure. PLAN: 1. Continue PT, OT and stressed the patient need to cooperate. 2. Continue oxygen at all times. Continue chronic steroid therapy. 3. Continue suppressive therapy with . 4. Continue Accu-Cheks to monitor and titrate and control diabetes. 5. Continue treatment for pulmonary hypertension, chronic systolic heart failure. Job ID: [id number]
[2019-12-27] MEDS: Sucralfate 1 GM TAB PO SCH ×3 (07:42→17:38)
[2019-12-27 07:47] LABS: #Basophils 0.1 thou/uL (0.0-0.2); #Eosinphils 0.1 thou/uL (0.0-0.7); #Lymphocytes 1.3 thou/uL (1.20-3.40); #Monocytes 0.9 thou/uL (0.11-0.59); %Basophils 1.4 % (0.0-1.0); %Eosinophils 0.6 % (0.0-10.0); %Lymphocytes 12.8 % (21.0-51.0); %Neutrophils 76.2 % (42.0-75.0); Mean Corpuscular HGB CONC 31.8 g/dL (32.0-36.0); Mean Corpuscular Hemoglobin 29.9 pg (27.0-31.0); Mean Corpuscular Volume 94.1 fL (78.0-98.0); Mean Platelet Volume 7.1 fL (7.4-10.4); Platelet Count 164 thou/uL (130-400); RBC Distribution Width 17.1 % (11.5-14.5); Red Blood Cell (RBC) Count 2.66 mill/uL (4.70-6.10); White Blood Cell (WBC) Count 10.5 thou/uL (4.8-10.8)
[2019-12-27 08:03] LABS: ALT (SGPT) 79 U/L (8-55); AST (SGOT) 29 U/L (5-34); Albumin 3.1 g/dL (3.4-4.8); Alkaline Phosphatase 217 U/L (40-110); Anion Gap 18 mmol/L (10-20); BUN (Urea Nitrogen) 68 mg/dL (8.4-25.7); Bilirubin, Total 0.6 mg/dL (0.2-1.2); Calc. Creatinine Clearance 18 mL/min (70-130); Carbon Dioxide 26 mmol/L (23-31); Chloride 93 mmol/L (98-107); Estimated GFR-MDRD 16; Glucose 86 mg/dL (83-110); Potassium 4.6 mmol/L (3.5-5.1); Protein, Total 5.1 g/dL (5.8-8.1); Sodium 132 mmol/L (136-145)
[2019-12-27] MEDS: Gabapentin 100 MG CAP PO SCH ×2 (09:15→21:04)
[2019-12-27] MEDS: Senokot S 8.6-50 MG TAB PO SCH ×2 (09:15→21:05)
[2019-12-27] MEDS: guaiFENesin ER 600 MG TAB PO SCH ×2 (09:15→21:05)
[2019-12-27] MEDS: Pregabalin 25 MG CAP PO SCH (09:16)
[2019-12-27] MEDS: Amiodarone 200 MG TAB PO SCH (09:16)
[2019-12-27] MEDS: predniSONE 5 MG TAB PO SCH (09:17)
[2019-12-27] MEDS: Magnesium Oxide 400 MG TAB PO SCH (09:17)
[2019-12-27] MEDS: Multivitamin W/ Minerals 1 TAB PO SCH (09:17)
[2019-12-27] MEDS: Cholecalciferol 1,000 UNITS (25 MCG) TAB PO SCH (09:17)
[2019-12-27] MEDS: Nystatin Powder 15 GM BOT TOP SCH ×2 (09:17→21:03)
[2019-12-27] MEDS: Fluticasone Propionate Nasal Spray 16 gm Bottle NASAL SCH (09:19)
[2019-12-27] MEDS: Mometasone/Formoterol 200/5 60 PUFF INH SCH ×2 (09:28→21:05)
[2019-12-27] MEDS: Zolpidem Tartrate 5 MG TAB PO PRN (21:03)
[2019-12-27] MEDS: Atorvastatin Calcium 20 MG TAB PO SCH (21:05)
[2019-12-27] MEDS: Tamsulosin HCl 0.4 MG CAP PO SCH (21:05)
[2019-12-28] MEDS: Acetaminophen 325 MG TAB PO PRN ×3 (00:53→21:45)
[2019-12-28] MEDS: Sildenafil Citrate 20 MG TAB PO SCH ×3 (05:52→21:40)
[2019-12-28] MEDS: Multivitamin W/ Minerals 1 TAB PO SCH (08:09)
[2019-12-28] MEDS: predniSONE 5 MG TAB PO SCH (08:09)
[2019-12-28] MEDS: Gabapentin 100 MG CAP PO SCH ×2 (08:09→21:41)
[2019-12-28] MEDS: Senokot S 8.6-50 MG TAB PO SCH ×2 (08:10→21:39)
[2019-12-28] MEDS: Sulfameth/Trimethoprim DS 800-160mg TAB PO SCH (08:10)
[2019-12-28] MEDS: guaiFENesin ER 600 MG TAB PO SCH ×2 (08:10→21:41)
[2019-12-28] MEDS: Magnesium Oxide 400 MG TAB PO SCH (08:10)
[2019-12-28] MEDS: Cholecalciferol 1,000 UNITS (25 MCG) TAB PO SCH (08:10)
[2019-12-28] MEDS: Fluticasone Propionate Nasal Spray 16 gm Bottle NASAL SCH (08:11)
[2019-12-28] MEDS: Sucralfate 1 GM TAB PO SCH ×3 (08:11→17:37)
[2019-12-28] MEDS: Pregabalin 25 MG CAP PO SCH (08:12)
[2019-12-28] MEDS: Amiodarone 200 MG TAB PO SCH (08:13)
[2019-12-28] MEDS: Nystatin Powder 15 GM BOT TOP SCH ×2 (08:13→21:30)
[2019-12-28] MEDS: Mometasone/Formoterol 200/5 60 PUFF INH SCH ×2 (08:19→21:39)
[2019-12-28] MEDS: Atorvastatin Calcium 20 MG TAB PO SCH (21:41)
[2019-12-28] MEDS: Tamsulosin HCl 0.4 MG CAP PO SCH (21:41)
--- NOTE | 2019-12-29 02:51 | PRG ---
DATE OF SERVICE: 12/28/2019 SUBJECTIVE: The patient is sitting up in the bed, has been cooperating with therapy, has become fatigued, and he works with therapy and is still having some difficulty transferring to the bed, but is cooperating. Did tolerate dialysis yesterday with no difficulty. OBJECTIVE: VITAL SIGNS: Show O2 saturation is 92% on 4 L, pulse 83, blood pressure is 118/55. Accu-Cheks ranged from 78 to 121. LUNGS: Show markedly decreased breath sounds. CARDIAC: Shows regular rhythm. ABDOMEN: Soft, . SKIN/EXTREMITIES: Show 1 to 2+ edema. Venous insufficiency. NEUROLOGICAL: Intact. LABORATORY DATA: Yesterday showed sodium 132, potassium 4.6, chloride 93, bicarb 26, BUN 68, creatinine 3.68, glucose 68, alkaline phosphatase 217, albumin 3.1, globulin 2.1. White count 79170, hematocrit 25, hemoglobin 8. ASSESSMENT: 1. End-stage renal disease, on hemodialysis. 2. Severe chronic obstructive pulmonary disease, end-stage, on steroids, oxygen and bronchodilators maximum dose. 3. Severe deconditioning with inability to maintain ADLs. 4. Dislocation of the hip requiring revision, subsequent infection, now on chronic suppressive antibiotic therapy and healing well. 5. Chronic systolic heart failure. PLAN: 1. Continue PT/OT. 2. Continue oxygen at all times. 3. Continue chronic steroids. 4. Continue oral antibiotic suppressive therapy. 5. Continue Accu-Cheks to monitor and titrate and control diabetes. 6. Continue to monitor for exacerbation of chronic systolic heart failure. 7. Continue maximum bronchodilation and steroid therapy. Job ID: [id number]
[2019-12-29] MEDS: Sildenafil Citrate 20 MG TAB PO SCH ×3 (06:03→21:38)
[2019-12-29] MEDS: Sucralfate 1 GM TAB PO SCH ×3 (08:02→18:08)
[2019-12-29] MEDS: Nystatin Powder 15 GM BOT TOP SCH ×2 (08:02→21:23)
[2019-12-29] MEDS: Pregabalin 25 MG CAP PO SCH (08:03)
[2019-12-29] MEDS: Fluticasone Propionate Nasal Spray 16 gm Bottle NASAL SCH (08:05)
[2019-12-29] MEDS: Senokot S 8.6-50 MG TAB PO SCH ×2 (08:05→21:25)
[2019-12-29] MEDS: guaiFENesin ER 600 MG TAB PO SCH ×2 (08:05→21:25)
[2019-12-29] MEDS: Cholecalciferol 1,000 UNITS (25 MCG) TAB PO SCH (08:05)
[2019-12-29] MEDS: Multivitamin W/ Minerals 1 TAB PO SCH (08:05)
[2019-12-29] MEDS: predniSONE 5 MG TAB PO SCH (08:05)
[2019-12-29] MEDS: Magnesium Oxide 400 MG TAB PO SCH (08:05)
[2019-12-29] MEDS: Gabapentin 100 MG CAP PO SCH ×2 (08:05→21:25)
[2019-12-29] MEDS: Amiodarone 200 MG TAB PO SCH (08:06)
[2019-12-29] MEDS: Mometasone/Formoterol 200/5 60 PUFF INH SCH ×2 (08:06→21:24)
[2019-12-29] MEDS: Acetaminophen 325 MG TAB PO PRN (08:12)
--- NOTE | 2019-12-29 10:00 | PRG ---
DATE OF SERVICE: 12/29/2019 SUBJECTIVE: The patient is a pleasant 79-year-old male here for continued PT and OT services. The patient is doing well, sitting up in bed and been cooperative with therapy. He continues to be on dialysis and is tolerating it with no difficulties. OBJECTIVE: VITAL SIGNS: Temperature 97.8, pulse 77, respiratory rate 20, O2 saturation is 100% on nasal cannula at 4 L. CARDIOVASCULAR: Regular rate and rhythm. No murmurs, gallops, or rubs. LUNGS: Clear to auscultation bilaterally. No wheezes. ABDOMEN: Soft, nontender to palpation. Bowel sounds positive in all 4 quadrants. SKIN: With 1+ edema and signs of venous insufficiency. NEUROLOGIC: Generalized weakness. LABORATORY DATA: No new labs. ASSESSMENT: 1. Endstage renal disease, on hemodialysis. 2. Severe chronic obstructive pulmonary disease, endstage, on steroids, oxygen, bronchodilators at maximum dosages. 3. Severe deconditioning with inability to maintain ADLs. 4. Dislocation of the hip, status post revision with subsequent infection, now on chronic suppressive antibiotic therapy and healing well. 5. Chronic systolic heart failure. PLAN: 1. Continue PT, OT services. 2. Continue oxygen with CPAP at night. 3. Continue prolonged steroids. 4. Continue oral antibiotic suppressive therapy. 5. Accu-Cheks q.a.c., at bedtime, and titrate the medications as needed. 6. Continue monitor for exacerbation of heart failure. 7. Continue bronchodilator and steroid therapy for COPD. Job ID: [id number]
[2019-12-29] MEDS: Tamsulosin HCl 0.4 MG CAP PO SCH (21:25)
[2019-12-29] MEDS: Zolpidem Tartrate 5 MG TAB PO PRN (21:25)
[2019-12-29] MEDS: Atorvastatin Calcium 20 MG TAB PO SCH (21:25)
[2019-12-30] MEDS: Acetaminophen 325 MG TAB PO PRN ×2 (02:39→08:27)
[2019-12-30] MEDS: Sildenafil Citrate 20 MG TAB PO SCH ×3 (05:38→21:17)
[2019-12-30] MEDS: predniSONE 5 MG TAB PO SCH (08:18)
[2019-12-30] MEDS: Multivitamin W/ Minerals 1 TAB PO SCH (08:18)
[2019-12-30] MEDS: guaiFENesin ER 600 MG TAB PO SCH ×2 (08:18→21:17)
[2019-12-30] MEDS: Gabapentin 100 MG CAP PO SCH ×2 (08:18→21:16)
[2019-12-30] MEDS: Senokot S 8.6-50 MG TAB PO SCH ×2 (08:18→21:16)
[2019-12-30] MEDS: Pregabalin 25 MG CAP PO SCH (08:18)
[2019-12-30] MEDS: Magnesium Oxide 400 MG TAB PO SCH (08:19)
[2019-12-30] MEDS: Amiodarone 200 MG TAB PO SCH (08:19)
[2019-12-30] MEDS: Mometasone/Formoterol 200/5 60 PUFF INH SCH ×2 (08:19→21:15)
[2019-12-30] MEDS: Nystatin Powder 15 GM BOT TOP SCH ×2 (08:19→21:15)
[2019-12-30] MEDS: Fluticasone Propionate Nasal Spray 16 gm Bottle NASAL SCH (08:19)
[2019-12-30] MEDS: Cholecalciferol 1,000 UNITS (25 MCG) TAB PO SCH (08:19)
[2019-12-30] MEDS: Sucralfate 1 GM TAB PO SCH ×3 (08:23→17:49)
[2019-12-30] MEDS: Tamsulosin HCl 0.4 MG CAP PO SCH (21:16)
[2019-12-30] MEDS: Zolpidem Tartrate 5 MG TAB PO PRN (21:16)
[2019-12-30] MEDS: Atorvastatin Calcium 20 MG TAB PO SCH (21:17)
[2019-12-31] MEDS: Sildenafil Citrate 20 MG TAB PO SCH ×3 (05:40→21:19)
[2019-12-31] MEDS: Sucralfate 1 GM TAB PO SCH ×3 (08:50→17:36)
[2019-12-31] MEDS: Magnesium Oxide 400 MG TAB PO SCH (09:35)
[2019-12-31] MEDS: Gabapentin 100 MG CAP PO SCH ×2 (09:35→21:18)
[2019-12-31] MEDS: Senokot S 8.6-50 MG TAB PO SCH ×2 (09:35→21:18)
[2019-12-31] MEDS: Cholecalciferol 1,000 UNITS (25 MCG) TAB PO SCH (09:36)
[2019-12-31] MEDS: Sulfameth/Trimethoprim DS 800-160mg TAB PO SCH (09:36)
[2019-12-31] MEDS: Pregabalin 25 MG CAP PO SCH (09:38)
[2019-12-31] MEDS: Nystatin Powder 15 GM BOT TOP SCH ×2 (09:38→21:16)
[2019-12-31] MEDS: Multivitamin W/ Minerals 1 TAB PO SCH (09:39)
[2019-12-31] MEDS: Mometasone/Formoterol 200/5 60 PUFF INH SCH ×2 (09:39→21:16)
[2019-12-31] MEDS: Fluticasone Propionate Nasal Spray 16 gm Bottle NASAL SCH (09:40)
[2019-12-31] MEDS: guaiFENesin ER 600 MG TAB PO SCH ×2 (09:40→21:18)
[2019-12-31] MEDS: predniSONE 5 MG TAB PO SCH (09:41)
[2019-12-31] MEDS: Amiodarone 200 MG TAB PO SCH (09:50)
[2019-12-31 15:12] LABS: #Basophils 0.1 thou/uL (0.0-0.2); #Eosinphils 0.1 thou/uL (0.0-0.7); #Neutrophils 10.8 thou/uL (1.40-6.50); %Basophils 0.9 % (0.0-1.0); %Eosinophils 0.4 % (0.0-10.0); %Monocytes 7.6 % (0.0-10.0); %Neutrophils 83.1 % (42.0-75.0); Hemoglobin 7.8 g/dL (14.0-18.0); Mean Corpuscular HGB CONC 32.1 g/dL (32.0-36.0); Mean Corpuscular Hemoglobin 30.7 pg (27.0-31.0); Mean Corpuscular Volume 95.5 fL (78.0-98.0); Mean Platelet Volume 6.7 fL (7.4-10.4); Platelet Count 211 thou/uL (130-400); RBC Distribution Width 17.5 % (11.5-14.5); Red Blood Cell (RBC) Count 2.53 mill/uL (4.70-6.10)
[2019-12-31 17:45] LABS: ALT (SGPT) 56 U/L (8-55); AST (SGOT) 24 U/L (5-34); Albumin 3.1 g/dL (3.4-4.8); Alkaline Phosphatase 172 U/L (40-110); Anion Gap 17 mmol/L (10-20); BUN (Urea Nitrogen) 73 mg/dL (8.4-25.7); Bilirubin, Total 0.4 mg/dL (0.2-1.2); Calc. Creatinine Clearance 16 mL/min (70-130); Calcium 8.1 mg/dL (7.8-10.44); Carbon Dioxide 24 mmol/L (23-31); Chloride 94 mmol/L (98-107); Estimated GFR-MDRD 13; Glucose 137 mg/dL (83-110); Potassium 4.6 mmol/L (3.5-5.1); Protein, Total 5.1 g/dL (5.8-8.1); Sodium 130 mmol/L (136-145)
--- NOTE | 2019-12-31 17:45 | PRG ---
DATE OF SERVICE: 12/31/2019 SUBJECTIVE: The patient did develop some hypotension this morning and totally asymptomatic, but limited his therapy because of it. Family has become concerned because of his need for transfusion in the past. OBJECTIVE: VITAL SIGNS: Show his blood pressure has ranged from 89/47 to 107/57 this morning with pulse of 99, O2 saturation of 93% on 4 L, temperature 98, pulse 86, and respirations 18. LUNGS: Clear with decreased breath sounds. CARDIAC: Shows regular rhythm. SKIN/EXTREMITIES: Show markedly decreased skin turgor and atrophy. The patient, however, did walk somewhat today and is sitting in the chair at all times. LABORATORIES: Have shown Accu-Cheks stable from 103 to 147. Hemoglobin is 7.8, which is slightly decreased from previous 8.0. White count 13,000, platelet count 211,000. ASSESSMENT: 1. Severe chronic obstructive pulmonary disease, end-stage, on maximum steroids, oxygen, and bronchodilators. 2. End-stage renal disease, on hemodialysis. 3. Status post infection of left total hip on prophylactic suppressive antibiotics. 4. Deconditioning, severe and limiting therapy and respiratory conditioning. PLAN: 1. Continue PT/OT. 2. Obtain a comprehensive metabolic profile. 3. Continue to monitor H and H closely. 4. Continue hemodialysis on Tuesday, , and Tuesday. 5. Continue aggressive bronchodilation including steroids. Job ID: [id number]
[2019-12-31] MEDS: Tamsulosin HCl 0.4 MG CAP PO SCH (21:18)
[2019-12-31] MEDS: Atorvastatin Calcium 20 MG TAB PO SCH (21:18)
[2020-01-01] MEDS: Sildenafil Citrate 20 MG TAB PO SCH ×3 (05:37→20:57)
[2020-01-01] MEDS: Sucralfate 1 GM TAB PO SCH ×3 (07:29→17:27)
[2020-01-01] MEDS: Mometasone/Formoterol 200/5 60 PUFF INH SCH ×2 (08:52→20:55)
[2020-01-01] MEDS: Gabapentin 100 MG CAP PO SCH ×2 (08:53→20:56)
[2020-01-01] MEDS: Cholecalciferol 1,000 UNITS (25 MCG) TAB PO SCH (08:53)
[2020-01-01] MEDS: Fluticasone Propionate Nasal Spray 16 gm Bottle NASAL SCH (08:53)
[2020-01-01] MEDS: guaiFENesin ER 600 MG TAB PO SCH ×2 (08:53→20:56)
[2020-01-01] MEDS: Magnesium Oxide 400 MG TAB PO SCH (08:54)
[2020-01-01] MEDS: Senokot S 8.6-50 MG TAB PO SCH ×2 (08:54→20:56)
[2020-01-01] MEDS: predniSONE 5 MG TAB PO SCH (08:54)
[2020-01-01] MEDS: Pregabalin 25 MG CAP PO SCH (08:54)
[2020-01-01] MEDS: Multivitamin W/ Minerals 1 TAB PO SCH (08:55)
[2020-01-01] MEDS: Amiodarone 200 MG TAB PO SCH (08:55)
[2020-01-01] MEDS: Nystatin Powder 15 GM BOT TOP SCH ×2 (08:56→20:56)
[2020-01-01] MEDS: Tamsulosin HCl 0.4 MG CAP PO SCH (20:56)
[2020-01-01] MEDS: Atorvastatin Calcium 20 MG TAB PO SCH (20:57)
[2020-01-02] MEDS: Sildenafil Citrate 20 MG TAB PO SCH ×3 (05:38→21:15)
[2020-01-02] MEDS: Acetaminophen 325 MG TAB PO PRN (08:32)
[2020-01-02] MEDS: Pregabalin 25 MG CAP PO SCH (08:32)
[2020-01-02] MEDS: Amiodarone 200 MG TAB PO SCH (08:33)
[2020-01-02] MEDS: Sulfameth/Trimethoprim DS 800-160mg TAB PO SCH (08:33)
[2020-01-02] MEDS: Multivitamin W/ Minerals 1 TAB PO SCH (08:33)
[2020-01-02] MEDS: Gabapentin 100 MG CAP PO SCH ×2 (08:33→21:16)
[2020-01-02] MEDS: Magnesium Oxide 400 MG TAB PO SCH (08:34)
[2020-01-02] MEDS: predniSONE 5 MG TAB PO SCH (08:34)
[2020-01-02] MEDS: Sucralfate 1 GM TAB PO SCH ×3 (08:35→17:36)
[2020-01-02] MEDS: Cholecalciferol 1,000 UNITS (25 MCG) TAB PO SCH (08:35)
[2020-01-02] MEDS: Senokot S 8.6-50 MG TAB PO SCH ×2 (08:35→21:14)
[2020-01-02] MEDS: guaiFENesin ER 600 MG TAB PO SCH ×2 (08:35→21:17)
[2020-01-02] MEDS: Fluticasone Propionate Nasal Spray 16 gm Bottle NASAL SCH (08:35)
[2020-01-02] MEDS: Nystatin Powder 15 GM BOT TOP SCH ×2 (08:36→21:18)
[2020-01-02] MEDS: Mometasone/Formoterol 200/5 60 PUFF INH SCH ×2 (08:36→21:17)
--- NOTE | 2020-01-02 09:45 | PRG ---
DATE OF SERVICE: 12/31/2019 SUBJECTIVE: The patient sitting up in chair, eating supper, feels well. He states he cooperated well with therapy today, and walked 30 feet before his legs weaken. He had stable dyspnea. No limitations from walking from this. OBJECTIVE: VITAL SIGNS: Shows his temperature is 96.8, pulse 87, respirations 22, and O2 sats 94% on 4 L. LUNGS: Show decreased breath sounds, but no rales or rhonchi. CARDIAC: Shows regular rhythm. ABDOMEN: Soft and nontender. SKIN/EXTREMITIES: Trace edema. No clubbing or cyanosis. PICC line appears to possibly be infiltrating and is not being required for any antibiotics or dialysis. ASSESSMENT: 1. Improving deconditioning slowly. 2. End-stage chronic obstructive pulmonary disease, appears to be stable. 3. Suppressive antibiotic therapy for infected left hip prosthesis. PLAN: 1. Discontinue PICC line. 2. Continue PT/OT. 3. Continue to monitor laboratories closely. The most recent comp met profile shows stable hyponatremia with sodium 130. Stable creatinine, on hemodialysis. Accu-Cheks stable 103 to 147, stable. Moderately low albumin 0.1. Job ID: [id number]
[2020-01-02] MEDS: HumaLOG 300 UNITS/3 ML VIAL SC PRN (17:41)
[2020-01-02] MEDS: Atorvastatin Calcium 20 MG TAB PO SCH (21:15)
[2020-01-02] MEDS: Zolpidem Tartrate 5 MG TAB PO PRN (21:15)
[2020-01-02] MEDS: Tamsulosin HCl 0.4 MG CAP PO SCH (21:16)
[2020-01-03 05:46] LABS: ALT (SGPT) 43 U/L (8-55); AST (SGOT) 20 U/L (5-34); Alkaline Phosphatase 138 U/L (40-110); Anion Gap 17 mmol/L (10-20); BUN (Urea Nitrogen) 74 mg/dL (8.4-25.7); Bilirubin, Total 0.4 mg/dL (0.2-1.2); CRP (Inflammatory) 1.03 mg/dL (= or < 0.5); Calc. Creatinine Clearance 19 mL/min (70-130); Calcium 8.1 mg/dL (7.8-10.44); Carbon Dioxide 27 mmol/L (23-31); Chloride 97 mmol/L (98-107); Estimated GFR-MDRD 15; Globulin 1.7 g/dL (2.4-3.5); Glucose 101 mg/dL (83-110); Potassium 4.8 mmol/L (3.5-5.1); Protein, Total 4.7 g/dL (5.8-8.1); Sodium 136 mmol/L (136-145)
[2020-01-03] MEDS: Sildenafil Citrate 20 MG TAB PO SCH ×3 (05:51→21:33)
[2020-01-03 06:13] LABS: #Basophils 0.2 thou/uL (0.0-0.2); #Eosinphils 0.1 thou/uL (0.0-0.7); #Lymphocytes 1.3 thou/uL (1.20-3.40); #Monocytes 1.1 thou/uL (0.11-0.59); #Neutrophils 9.1 thou/uL (1.40-6.50); %Basophils 1.5 % (0.0-1.0); %Eosinophils 0.5 % (0.0-10.0); %Lymphocytes 10.9 % (21.0-51.0); %Neutrophils 78.1 % (42.0-75.0); Band 2 % (5-11); Hemoglobin 6.9 g/dL (14.0-18.0); Lymphocytes 24 % (21-51); MDiff Complete? YES; Mean Corpuscular HGB CONC 31.6 g/dL (32.0-36.0); Mean Corpuscular Hemoglobin 30.2 pg (27.0-31.0); Mean Corpuscular Volume 95.6 fL (78.0-98.0); Mean Platelet Volume 6.3 fL (7.4-10.4); Monocytes 8 % (0-10); Neutrophil 66 % (42-75); Platelet Count 219 thou/uL (130-400); Red Blood Cell (RBC) Count 2.28 mill/uL (4.70-6.10); White Blood Cell (WBC) Count 11.7 thou/uL (4.8-10.8)
[2020-01-03 06:21] LABS: Hypochromia SLIGHT = 6-15 cells (100X) (0-5/hpf); Ovalocytes SLIGHT = 2-5 cells (100X) (0-1/hpf); Poikilocytosis SLIGHT = 6-15 cells (100X) (0-5/hpf)
[2020-01-03] MEDS: Magnesium Oxide 400 MG TAB PO SCH (08:29)
[2020-01-03] MEDS: Nystatin Powder 15 GM BOT TOP SCH ×2 (08:29→21:30)
[2020-01-03] MEDS: guaiFENesin ER 600 MG TAB PO SCH ×2 (08:29→21:31)
[2020-01-03] MEDS: Sucralfate 1 GM TAB PO SCH ×3 (08:30→18:16)
[2020-01-03] MEDS: Pregabalin 25 MG CAP PO SCH (08:30)
[2020-01-03] MEDS: Gabapentin 100 MG CAP PO SCH ×2 (08:30→21:31)
[2020-01-03] MEDS: Amiodarone 200 MG TAB PO SCH (08:31)
[2020-01-03] MEDS: Cholecalciferol 1,000 UNITS (25 MCG) TAB PO SCH (08:31)
[2020-01-03] MEDS: predniSONE 5 MG TAB PO SCH (08:31)
[2020-01-03] MEDS: Mometasone/Formoterol 200/5 60 PUFF INH SCH ×2 (08:32→21:29)
[2020-01-03] MEDS: Fluticasone Propionate Nasal Spray 16 gm Bottle NASAL SCH (08:32)
[2020-01-03] MEDS: Senokot S 8.6-50 MG TAB PO SCH ×2 (08:34→21:31)
[2020-01-03] MEDS: Multivitamin W/ Minerals 1 TAB PO SCH (08:37)
[2020-01-03] MEDS: Tamsulosin HCl 0.4 MG CAP PO SCH (21:31)
[2020-01-03] MEDS: Atorvastatin Calcium 20 MG TAB PO SCH (21:31)
[2020-01-03] MEDS: Acetaminophen 325 MG TAB PO PRN (21:34)
[2020-01-04] MEDS: Acetaminophen 325 MG TAB PO PRN ×2 (01:36→21:28)
[2020-01-04] MEDS: Sildenafil Citrate 20 MG TAB PO SCH ×3 (05:43→21:29)
[2020-01-04] MEDS: Pregabalin 25 MG CAP PO SCH (09:09)
[2020-01-04] MEDS: predniSONE 5 MG TAB PO SCH (09:09)
[2020-01-04] MEDS: Magnesium Oxide 400 MG TAB PO SCH (09:09)
[2020-01-04] MEDS: Cholecalciferol 1,000 UNITS (25 MCG) TAB PO SCH (09:11)
[2020-01-04] MEDS: Gabapentin 100 MG CAP PO SCH ×2 (09:11→21:27)
[2020-01-04] MEDS: Sucralfate 1 GM TAB PO SCH ×3 (09:11→17:38)
[2020-01-04] MEDS: Sulfameth/Trimethoprim DS 800-160mg TAB PO SCH (09:12)
[2020-01-04] MEDS: Senokot S 8.6-50 MG TAB PO SCH ×2 (09:13→21:30)
[2020-01-04] MEDS: guaiFENesin ER 600 MG TAB PO SCH ×2 (09:14→21:28)
[2020-01-04] MEDS: Amiodarone 200 MG TAB PO SCH (09:14)
[2020-01-04] MEDS: Multivitamin W/ Minerals 1 TAB PO SCH (09:14)
[2020-01-04] MEDS: Mometasone/Formoterol 200/5 60 PUFF INH SCH ×2 (09:15→21:31)
[2020-01-04] MEDS: Fluticasone Propionate Nasal Spray 16 gm Bottle NASAL SCH (09:17)
[2020-01-04] MEDS ORDERED: Sodium Chloride 0.9% 10 ML ONE (11:09)
[2020-01-04] MEDS: Nystatin Powder 15 GM BOT TOP SCH ×2 (11:22→21:30)
--- NOTE | 2020-01-04 11:41 | PRG ---
DATE OF SERVICE: 01/01/2020 SUBJECTIVE: The patient is sitting in chair, feels well with only complaints of weakness in his legs. His PICC line has been removed secondary to infiltration and he is having decreasing tenderness in his arms. OBJECTIVE: VITAL SIGNS: Show his blood pressure is 103/52, pulse 92, O2 saturation is 95% on 4 L, temperature 96.1. LUNGS: Show markedly decreased breath sounds. No rales or rhonchi. CARDIAC: Shows regular rhythm. ABDOMEN: Soft and nontender. NEUROLOGIC: Shows diffuse weakness. EXTREMITIES: Left arm shows decreasing subcutaneous edema. ASSESSMENT: 1. Resolving infiltration of PICC line. 2. Severe but stable chronic obstructive pulmonary disease, steroid and oxygen dependent. 3. Severe debility and deconditioning, improving slightly with therapy and we will continue. Job ID: [id number]
--- NOTE | 2020-01-04 11:46 | PRG ---
DATE OF SERVICE: 01/03/2020 SUBJECTIVE: The patient feels well with no complaints except for weakness and his legs giving out during therapy. OBJECTIVE: VITAL SIGNS: Shows that his blood pressure is 107/53, temperature is 96.3, pulse 80, respirations 20, and O2 saturations 95% on 2 L. LUNGS: Decreased breath sounds. No rales or rhonchi. CARDIAC: Shows regular rhythm. ABDOMEN: Soft and nontender. SKIN/EXTREMITIES: Shows trace to 1+ edema. LABORATORY DATA: Show white count 11,700, but hemoglobin is down to 6.9 and hematocrit 21. ASSESSMENT: 1. Recurrent anemia of chronic disease, most likely due to end-stage renal disease, will require another unit of blood. 2. Severe deconditioning, improving, but limited somewhat by the anemia. 3. Severe chronic obstructive pulmonary disease, end-stage steroid, not oxygen dependent. 4. End-stage renal disease on hemodialysis to be done in 2 days. PLAN: 1. Discuss transfusion at dialysis unit. 2. Continue PT/OT. 3. Arrange for 1 unit of packed cells to be given before dialysis. Job ID: [id number]
[2020-01-04] MEDS ORDERED: Sodium Chloride 0.9% 500 ML ONE (20:14)
[2020-01-04] MEDS: Tamsulosin HCl 0.4 MG CAP PO SCH (21:28)
[2020-01-04] MEDS: Atorvastatin Calcium 20 MG TAB PO SCH (21:28)
[2020-01-05] MEDS: Sildenafil Citrate 20 MG TAB PO SCH ×3 (05:39→21:49)
[2020-01-05] MEDS: Sucralfate 1 GM TAB PO SCH ×3 (07:49→17:13)
[2020-01-05] MEDS: predniSONE 5 MG TAB PO SCH (08:57)
[2020-01-05] MEDS: Cholecalciferol 1,000 UNITS (25 MCG) TAB PO SCH (08:58)
[2020-01-05] MEDS: Pregabalin 25 MG CAP PO SCH (08:58)
[2020-01-05] MEDS: Gabapentin 100 MG CAP PO SCH ×2 (08:59→21:48)
[2020-01-05] MEDS: Amiodarone 200 MG TAB PO SCH (08:59)
[2020-01-05] MEDS: Senokot S 8.6-50 MG TAB PO SCH ×2 (08:59→21:48)
[2020-01-05] MEDS: guaiFENesin ER 600 MG TAB PO SCH ×2 (08:59→21:49)
[2020-01-05] MEDS: Multivitamin W/ Minerals 1 TAB PO SCH (08:59)
[2020-01-05] MEDS: Magnesium Oxide 400 MG TAB PO SCH (08:59)
[2020-01-05] MEDS: Nystatin Powder 15 GM BOT TOP SCH ×2 (09:00→21:52)
[2020-01-05] MEDS: Mometasone/Formoterol 200/5 60 PUFF INH SCH ×2 (09:01→21:51)
[2020-01-05] MEDS: Fluticasone Propionate Nasal Spray 16 gm Bottle NASAL SCH (09:01)
--- NOTE | 2020-01-05 20:15 | PRG ---
DATE OF SERVICE: 01/04/2020 SUBJECTIVE: Patient feels weak, has asked for transfusion, but his blood requiring antibody testing and will not be received until tonight. He is getting dialysis this afternoon. He denies any shortness of breath or chest pain. Just feels weak. OBJECTIVE: VITAL SIGNS: Show his blood pressure is , respirations 20, pulse 86, and O2 sats 97% on 4 L. LUNGS: Show decreased breath sounds. CARDIAC EXAMINATION: Shows regular rhythm. ABDOMEN: Soft and nontender. SKIN/EXTREMITIES: Show 2+ edema. No clubbing or cyanosis. ASSESSMENT: 1. End-stage chronic obstructive pulmonary disease, on maximum oxygen and steroids. 2. Severe deconditioning, improving slowly with therapy. 3. End-stage renal disease, on hemodialysis three times weekly. 4. Recurrent anemia requiring transfusion. 5. Resolved infection of hip with chronic suppressive therapy. PLAN: 1. Type and cross 1 unit of packed cells when transfusion is ready. 2. Continue hemodialysis three times weekly. 3. Restart PT and OT next week. 4. Continue bronchodilators and steroids for COPD. Job ID: [id number]
--- NOTE | 2020-01-05 20:22 | PRG ---
DATE OF SERVICE: SUBJECTIVE: Patient feels weak with no shortness of breath received his blood. Having no cough, fever, or chills. OBJECTIVE: VITAL SIGNS: Show temperature is 96.6, respirations 20, O2 sats 94% on room air, and blood pressure is 102/50. LUNGS: Clear with decreased breath sounds. CARDIAC EXAMINATION: Shows regular rhythm. ABDOMEN: Soft. SKIN/EXTREMITIES: Show 1 to 2+ edema. ASSESSMENT: 1. Persistent debility and fatigue. 2. Anemia of chronic disease. Awaiting results of CBC after transfusion. 3. End-stage renal disease, on hemodialysis. 4. Chronic infection of hip, on preventive medicine with sulfa drugs. 5. Pulmonary hypertension, stable, on sildenafil. Job ID: [id number]
[2020-01-05] MEDS: Tamsulosin HCl 0.4 MG CAP PO SCH (21:47)
[2020-01-05] MEDS: Atorvastatin Calcium 20 MG TAB PO SCH (21:47)
[2020-01-05] MEDS: Acetaminophen 325 MG TAB PO PRN (21:54)
[2020-01-05] MEDS: diphenhydrAMINE 25 MG CAP PO PRN (23:26)
[2020-01-06 05:25] LABS: #Basophils 0.2 thou/uL (0.0-0.2); #Eosinphils 0.1 thou/uL (0.0-0.7); #Lymphocytes 1.3 thou/uL (1.20-3.40); #Monocytes 0.9 thou/uL (0.11-0.59); #Neutrophils 8.4 thou/uL (1.40-6.50); %Basophils 1.4 % (0.0-1.0); %Eosinophils 0.6 % (0.0-10.0); %Lymphocytes 11.8 % (21.0-51.0); %Monocytes 8.3 % (0.0-10.0); %Neutrophils 77.9 % (42.0-75.0); Hemoglobin 7.7 g/dL (14.0-18.0); Mean Corpuscular HGB CONC 31.9 g/dL (32.0-36.0); Mean Corpuscular Hemoglobin 30.1 pg (27.0-31.0); Mean Corpuscular Volume 94.4 fL (78.0-98.0); Mean Platelet Volume 6.3 fL (7.4-10.4); Platelet Count 200 thou/uL (130-400); RBC Distribution Width 16.4 % (11.5-14.5); Red Blood Cell (RBC) Count 2.57 mill/uL (4.70-6.10); White Blood Cell (WBC) Count 10.7 thou/uL (4.8-10.8)
[2020-01-06] MEDS: Sildenafil Citrate 20 MG TAB PO SCH ×3 (06:05→22:13)
[2020-01-06] MEDS: Sucralfate 1 GM TAB PO SCH ×3 (07:23→17:08)
[2020-01-06] MEDS: Fluticasone Propionate Nasal Spray 16 gm Bottle NASAL SCH (08:30)
[2020-01-06] MEDS: Mometasone/Formoterol 200/5 60 PUFF INH SCH ×2 (08:31→20:45)
[2020-01-06] MEDS: Gabapentin 100 MG CAP PO SCH ×2 (08:32→20:41)
[2020-01-06] MEDS: Senokot S 8.6-50 MG TAB PO SCH ×2 (08:33→20:40)
[2020-01-06] MEDS: Multivitamin W/ Minerals 1 TAB PO SCH (08:33)
[2020-01-06] MEDS: predniSONE 5 MG TAB PO SCH (08:33)
[2020-01-06] MEDS: Amiodarone 200 MG TAB PO SCH (08:33)
[2020-01-06] MEDS: guaiFENesin ER 600 MG TAB PO SCH ×2 (08:33→20:41)
[2020-01-06] MEDS: Pregabalin 25 MG CAP PO SCH (08:34)
[2020-01-06] MEDS: Magnesium Oxide 400 MG TAB PO SCH (08:35)
[2020-01-06] MEDS: Cholecalciferol 1,000 UNITS (25 MCG) TAB PO SCH (08:35)
[2020-01-06] MEDS: Nystatin Powder 15 GM BOT TOP SCH ×2 (08:37→20:44)
[2020-01-06] MEDS: HumaLOG 300 UNITS/3 ML VIAL SC PRN (16:52)
[2020-01-06] MEDS ORDERED: Furosemide 40 MG TAB PO SCH (19:15)
--- NOTE | 2020-01-06 19:59 | PRG ---
DATE OF SERVICE: 01/06/2020 SUBJECTIVE: The patient feels well, sitting in the chair, but had some difficulty breathing last night, much better today. He has not been up moving. OBJECTIVE: VITAL SIGNS: Show temperature 98, pulse 81, respirations 18, O2 sats 94% on 4 L. LUNGS: With decreased breath sounds with a few wheezes. CARDIAC: Regular rhythm. ABDOMEN: Soft, nontender. SKIN: Extremities show trace to 1+ edema. ASSESSMENT: 1. Severe chronic obstructive pulmonary disease. 2. Pulmonary hypertension, stable. 3. Severe deconditioning, improving slightly. 4. End-stage renal disease, on hemodialysis. 5. Anemia of chronic disease, improved slightly after transfusion with hemoglobin up to 7.7, white count 10,700. 6. Type 2 diabetes, controlled to goal with Accu-Cheks ranged from 99 to 156. PLAN: 1. Continue PT, OT. 2. Continue prednisone 10 mg a day and handheld nebulizers with DuoNeb q.4 hours and 40 mg furosemide as this may be slightly fluid overload after blood transfusion. Job ID: [id number]
[2020-01-06] MEDS: Tamsulosin HCl 0.4 MG CAP PO SCH (20:40)
[2020-01-06] MEDS: Atorvastatin Calcium 20 MG TAB PO SCH (20:41)
[2020-01-06] MEDS: Acetaminophen 325 MG TAB PO PRN (20:43)
[2020-01-06] MEDS: diphenhydrAMINE 25 MG CAP PO PRN (22:13)
[2020-01-07] MEDS: Sildenafil Citrate 20 MG TAB PO SCH ×3 (05:18→21:03)
[2020-01-07] MEDS: Sucralfate 1 GM TAB PO SCH ×3 (07:53→16:46)
[2020-01-07] MEDS: Pregabalin 25 MG CAP PO SCH (07:53)
[2020-01-07] MEDS: predniSONE 5 MG TAB PO SCH (07:54)
[2020-01-07] MEDS: Sulfameth/Trimethoprim DS 800-160mg TAB PO SCH (07:54)
[2020-01-07] MEDS: Cholecalciferol 1,000 UNITS (25 MCG) TAB PO SCH (07:54)
[2020-01-07] MEDS: Senokot S 8.6-50 MG TAB PO SCH ×2 (07:57→20:47)
[2020-01-07] MEDS: Gabapentin 100 MG CAP PO SCH ×2 (07:58→20:49)
[2020-01-07] MEDS: Amiodarone 200 MG TAB PO SCH (07:58)
[2020-01-07] MEDS: Magnesium Oxide 400 MG TAB PO SCH (07:58)
[2020-01-07] MEDS: Multivitamin W/ Minerals 1 TAB PO SCH (07:58)
[2020-01-07] MEDS: guaiFENesin ER 600 MG TAB PO SCH ×2 (07:58→20:47)
[2020-01-07] MEDS: Fluticasone Propionate Nasal Spray 16 gm Bottle NASAL SCH (07:59)
[2020-01-07] MEDS: Nystatin Powder 15 GM BOT TOP SCH ×2 (07:59→20:51)
[2020-01-07] MEDS: Mometasone/Formoterol 200/5 60 PUFF INH SCH ×2 (07:59→20:46)
--- NOTE | 2020-01-07 10:36 | RAD ---
CHEST 1 VIEW: Date: 01/07/2020 HISTORY: Shortness of breath. COMPARISON: 12/14/2019. FINDINGS: Dialysis catheter tip projects over the mid SVC. Heart size is enlarged. No pneumothorax or large eff usion. Old left-sided rib fractures. Scarring throughout the lungs. Moderate vascular calcifications. IMPRESSION: Chronic findings. No acute intrathoracic abnormality. POS: [facility]
--- NOTE | 2020-01-07 10:56 | PRG ---
DATE OF SERVICE: 01/07/2020 SUBJECTIVE: The patient had increased dyspnea this morning, which is finally improved with increased bronchodilators and steroids. He has felt somewhat more short of breath since transfusion. Two days ago, he has had no cough, sputum production, or fever. LABORATORY DATA: Chest x-ray appears to show no acute infiltrates or pulmonary congestion. OBJECTIVE: LUNGS: However do show diffuse wheezes, decreased breath sounds, improved since nebulizer treatments. SKIN/EXTREMITIES show only 1+ edema. CARDIAC: Showed regular rhythm. ASSESSMENT: 1. Exacerbation of chronic obstructive pulmonary disease, possibly due to small fluid overload from blood transfusion and may improve after dialysis. 2. Atrial fibrillation, appears to be rate controlled at this time and regular. No evidence of tachycardia. 3. Chronic diastolic congestive heart failure with no evidence of decompensation . 4. End-stage renal disease, on dialysis due for dialysis tomorrow. PLAN: 1. Attempt PT this afternoon. Discuss dialysis with Nephrology. 2. Continue rate control of atrial fibrillation. 3. Continue PT/OT if tolerated. Job ID: [id number]
[2020-01-07 14:23] VITALS: BMI 29.5
[2020-01-07] MEDS: Tamsulosin HCl 0.4 MG CAP PO SCH (20:47)
[2020-01-07] MEDS: Atorvastatin Calcium 20 MG TAB PO SCH (20:47)
[2020-01-08] MEDS: Sildenafil Citrate 20 MG TAB PO SCH (05:49)
[2020-01-08 07:51] VITALS: TEMP 98.8
[2020-01-08 08:03] VITALS: BP 128/54
[2020-01-08] MEDS: predniSONE 5 MG TAB PO SCH (08:34)
[2020-01-08] MEDS: Sucralfate 1 GM TAB PO SCH (08:34)
[2020-01-08] MEDS: Amiodarone 200 MG TAB PO SCH (08:50)
[2020-01-08] MEDS: Fluticasone Propionate Nasal Spray 16 gm Bottle NASAL SCH (08:50)
[2020-01-08] MEDS: Cholecalciferol 1,000 UNITS (25 MCG) TAB PO SCH (08:50)
[2020-01-08] MEDS: Gabapentin 100 MG CAP PO SCH (08:51)
[2020-01-08] MEDS: guaiFENesin ER 600 MG TAB PO SCH (08:51)
[2020-01-08] MEDS: Multivitamin W/ Minerals 1 TAB PO SCH (08:51)
[2020-01-08] MEDS: Nystatin Powder 15 GM BOT TOP SCH (08:51)
[2020-01-08] MEDS: Pregabalin 25 MG CAP PO SCH (08:51)
[2020-01-08] MEDS: Mometasone/Formoterol 200/5 60 PUFF INH SCH (08:51)
[2020-01-08] MEDS: Magnesium Oxide 400 MG TAB PO SCH (08:51)
[2020-01-08] MEDS: Senokot S 8.6-50 MG TAB PO SCH (08:52)
[2020-01-08 14:21] LABS: SARS-CoV-2 MS2 Positive; SARS-CoV-2 N Gene Positive; SARS-CoV-2 S Gene Positive; SARS-CoV-2 by NAA DETECTED (NotDetected); SARS-CoV-2 orf1ab Positive
== END 2020-01-08 09:20 | disposition short-term general hospital (02) | DRG 947 ==
LOC: NAV ACUTE 21:33
PROVIDERS: ADMIT Internal Medicine; ATTEND Internal Medicine
PROC: 30233N1 Transfusion of Nonautologous Red Blood Cells into Peripheral Vein, Percutaneous Approach (ICD-10-PCS; principal; 2020-01-04)
DX: R53.81 Other malaise (principal); N18.6 End stage renal disease; U07.1 COVID-19; I50.32 Chronic diastolic (congestive) heart failure; J96.11 Chronic respiratory failure with hypoxia; E87.1 Hypo-osmolality and hyponatremia; J44.1 Chronic obstructive pulmonary disease with (acute) exacerbation; F32.9 Major depressive disorder, single episode, unspecified; E78.5 Hyperlipidemia, unspecified; F41.9 Anxiety disorder, unspecified; N40.0 Benign prostatic hyperplasia without lower urinary tract symptoms; E11.22 Type 2 diabetes mellitus with diabetic chronic kidney disease; D63.1 Anemia in chronic kidney disease; I27.20 Pulmonary hypertension, unspecified; Z99.2 Dependence on renal dialysis; I27.81 Cor pulmonale (chronic); Z79.52 Long term (current) use of systemic steroids; Z79.899 Other long term (current) drug therapy; Z91.048 Other nonmedicinal substance allergy status; Z79.51 Long term (current) use of inhaled steroids; K21.9 Gastro-esophageal reflux disease without esophagitis; I87.2 Venous insufficiency (chronic) (peripheral); S72.002D Fracture of unspecified part of neck of left femur, subsequent encounter for closed fracture with routine healing; I48.91 Unspecified atrial fibrillation; M19.90 Unspecified osteoarthritis, unspecified site
CPT/HCPCS: 36415; 36416; 36430; 71045; 80053; 85025; 85652; 86140; 86850; 86900; 86901; 86922; 87635; 90471; 90662; 94640; 94664; G0008; J7030; J7512; J7620; P9016; Q0163; U0003

== ENCOUNTER 2020-01-08 07:27 | Emergency (ER) | payer MEDICARE, BC ==
[2020-01-08 07:43] LABS: #Basophils 0.1 thou/uL (0.0-0.2); #Lymphocytes 1.7 thou/uL (1.20-3.40); #Neutrophils 8.2 thou/uL (1.40-6.50); %Basophils 1.3 % (0.0-1.0); %Eosinophils 0.1 % (0.0-10.0); %Lymphocytes 15.3 % (21.0-51.0); %Monocytes 9.2 % (0.0-10.0); %Neutrophils 74.1 % (42.0-75.0); Hemoglobin 7.9 g/dL (14.0-18.0); Mean Corpuscular HGB CONC 32.1 g/dL (32.0-36.0); Mean Corpuscular Hemoglobin 30.1 pg (27.0-31.0); Mean Corpuscular Volume 93.9 fL (78.0-98.0); Mean Platelet Volume 6.1 fL (7.4-10.4); Platelet Count 225 thou/uL (130-400); RBC Distribution Width 16.7 % (11.5-14.5); Red Blood Cell (RBC) Count 2.62 mill/uL (4.70-6.10); White Blood Cell (WBC) Count 11.1 thou/uL (4.8-10.8)
[2020-01-08 07:55] LABS: Base Excess-Venous 2.1 mmol/L (-2.0 to 3.0); Bicarbonate (HCO3v) 26.2 mmol/L (22.0-28.0); CO2 Tension (PvCO2) 37.6 mmHg (40.0-50.0); Calcium, Ionized 0.95 mmol/L (1.15-1.33); Chloride 101 mmol/L (98-107); Hemoglobin - Calc 7.7 g/dL (14.0-18.0); Potassium 5.6 mmol/L (3.5-5.1); Sodium 130 mmol/L (138-145); T. Carbon Dioxide 27.4 mmol/L (22.0-28.0); vO2 Saturation-calc 99.7 % (60.0-85.0)
[2020-01-08 08:11] LABS: ALT (SGPT) 34 U/L (8-55); AST (SGOT) 23 U/L (5-34); Albumin 3.2 g/dL (3.4-4.8); Alkaline Phosphatase 132 U/L (40-110); Anion Gap 19 mmol/L (10-20); BUN (Urea Nitrogen) 85 mg/dL (8.4-25.7); Bilirubin, Total 0.6 mg/dL (0.2-1.2); Calc. Creatinine Clearance 0 mL/min (70-130); Calcium 8.6 mg/dL (7.8-10.44); Carbon Dioxide 24 mmol/L (23-31); Chloride 96 mmol/L (98-107); Estimated GFR-MDRD 11; Globulin 2.2 g/dL (2.4-3.5); Glucose 76 mg/dL (83-110); Protein, Total 5.4 g/dL (5.8-8.1); Sodium 133 mmol/L (136-145)
--- NOTE | 2020-01-08 08:18 | RAD ---
XR Chest 1 View Portable HISTORY: Dyspnea COMPARISON: Previous day FINDINGS: The heart is enlarged. Right-sided dialysis catheter remains in place. The aorta is tortuou s. Old left-sided rib fractures again seen. Chronic parenchymal changes are redemonstrated. No lobar consolidation, pneumothoraces or large effusions are seen. IMPRESSION: Stable exam.
== END 2020-01-08 09:20 | disposition short-term general hospital (02) ==
LOC: NAV ERS 07:27
DX: J44.1 Chronic obstructive pulmonary disease with (acute) exacerbation (principal); I12.0 Hypertensive chronic kidney disease with stage 5 chronic kidney disease or end stage renal disease; N18.6 End stage renal disease; D63.1 Anemia in chronic kidney disease; Z87.891 Personal history of nicotine dependence; Z79.899 Other long term (current) drug therapy
CPT/HCPCS: 71045; 80053; 82330; 82435; 82553; 82803; 83880; 84132; 84295; 84484; 85014; 85025; 93005; 94640; 94660; J7620